=== PATIENT | female | born 1985 | race Caucasian/White ===

== ENCOUNTER 2023-09-10 10:03 | Outpatient (AMB) | payer OTHER, SELFPAY ==
--- NOTE | 2023-09-10 10:12 | MHC.OFFVIS ---
Intake Vital Signs 09/10/23 10:35 Height 5 ft 2 in Weight 115 lb 4 oz BMI 21.1 BP 124/80 Blood Pressure Location Lt brachial Position Sitting Pulse 84 Pulse Source Pulse Oximeter Pulse Oximetry (%) 96 Oxygen Delivery Method Room Air Intake Visit Reasons: ENP-Numbness of feet and hands-CONF Intake Note: Patients presents for numbness of feet and hands. Had a MRI done and Neurosurgeon order a MRI with contrasts. From both kneed's down feels tingling when having head forward. The neurosurgeon can't do anything about it and stated pt. could have injured spinal cord from turning to far. Allergies doxycycline Allergy (Mild, Verified 09/10/23 10:29) Dizziness ciprofloxacin Allergy (Severe, Uncoded 09/10/23 10:29) Unknown Kelflex Allergy (Severe, Uncoded 09/10/23 10:29) Anaphylaxis Medication List - Last Reconciled 09/10/23 by JERMAINE Acosta buprenorphine-naloxone 8-2 mg (Suboxone) 2 film buccal DAILY fluticasone propionate 50 mcg/actuation 1 spray intranasal DAILY HPI HPI Comments History of Present Illness Details Right handed 37-yr-old female presents for new pt evaluation of paresthesias. Pt reports a few months ago, she started having BLE numbness and tingling from her knees to her toes. This was constant, but exacerbated with cervical flexion especially when sitting. More recently, the numbness and tingling is not constant, but can still be provoked by cervical flexion only when sitting. C-spine MRI showed a subtle 3mm T2 bright focus is suspected within the posterior midline cord at C2-C3. Degenerative changes w/ moderate right foraminal stenosis at C6-C7 due to uncovertebral spurring an no left foraminal stenosis. Prior to these symptoms, she is not aware of a specific neck injury. Pt has since seen Dr Carvajal, [facility] neurosurgeon, who advised her to f/u w/ neurology and avoid neck mainpulation. Pt also endorses:? 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 Cramps: leg cramps Mood d/o: Anxiety Neuro: memory problems, migraines, dizziness, overlapping diplopia, diplopia with trailing image on movement. Vision: Respiratory d/o: COPD, SOB CV disease: TIA x's 2, 1st, when she was 2-3 months post-, was not feeling right, was slurring her words, had unilateral left facial droop, resolved w/in a few hrs. 2nd- 9 yrs ago- was not feeling right, was slurring her words, had unilateral left facial droop, resolved w/in a few hrs, and attributed to a TIA. After these she did have increased migraine. GI d/o: Constipation, Abd pain, Eyes- sees shadows, blurring, floaters, flashes of lights. Eyes feel dry and swollen. Has neck tension, pressure in the back of her head, and right upper trap tightness. Has radiating mid-back pain- prone to popping ribs out of place. Occasional urinary incontinence- triggered by hormones, jumping/running, worse prior to menses. She has a history of BUE, more so in RUE, numbness and tingling, which comes on and off for years. She can have similar numbness and tingling in her right synagogue region. She does PT for small group exercise. She does see a chiropractor- who works on her back. PMH is significant for: Recent abnormal EKG- recently referred her to cardiology. Also concern for POTs- she states HR varies from 55-170 bpm, can feel pre-syncopal, rooms goes dark upon standing, but no actual syncope. Migraine since age 14. Migraine w/ visual aura since age 20. Visual aura- starts as a spinning color dot, turns into a colorful snake, and then expands into a zagged arch, lasts 30-180 minutes. This can occur w/wo headache. Sometimes headache just does not happen, or responds to as needed tx. Headache- squeezing bilateral head, like someone is wrapping something around the head. Or an ice stabbing pain above either eye. A/w photophobia, phonophobia, osmophobia, some nausea, not right in space dizziness, cognitive difficulties, activity intolerance, pins and needles in arms and sides of head, palpitations, heat or cold intolerance, red eye (unsure if unilateral or bilateral), one ear at a time will be red and hot, nasal congestion/runny nose. Was not having them for a few yrs, but in the last yr, has 1 attack per month, triggered by menses (which is regular), which lasts 1 day to 2 weeks. Uses Tylenol prn. In the past, used amitriptyline for nerve pain- stopped a little over a yr ago. 07/08/23, C-spine w/o: IMPRESSION: 1. A subtle small T2 bright focus is suspected within the posterior midline cord at C2-C3 measuring approximately 3 mm. This is of indeterminate etiology, but may represent the sequela of an inflammatory process. Postcontrast imaging and neurological evaluation are recommended. 2. Degenerative changes of the cervical spine with at least moderate right foraminal stenosis at C6-C7 due to uncovertebral spurring. This can be correlated with the patient's symptoms and neurological examination. PFSH Family History Mother Hyperlipidemia Depression HTN (hypertension) COPD (chronic obstructive pulmonary disease) Diabetes Father Hyperlipidemia Maternal Grandmother Stroke Lung cancer Ovarian ca Cancer, colon Paternal Grandmother Breast cancer in female Social History (Updated 09/10/23 @ 10:35 by Mamta Lopez CMA) Alcohol intake: never Patient Tobacco Use Status: Current everyday Tobacco user Tobacco use type: Cigarette Cigarette Packs Per Day: 0.5 Years Smoked: 20 Physical Exam Vital Signs: Last Vital Signs Pulse 84 09/10/23 10:35 BP 124/80 09/10/23 10:35 Pulse Ox 96 09/10/23 10:35 Oxygen Delivery Method Room Air 09/10/23 10:35 BMI result Body Mass Index 21.1 Const Orientation/consciousness: patient oriented x3 HEENT Other: No palpable scalp tenderness. Head: Yes normocephalic Resp Effort & Inspection: normal respiratory effort and able to speak in complete sentences Neuro General: patient oriented x3 Cranial nerves: Yes CN's II-XII intact bilaterally Cognition (Neuro): normal cognition Gait exam (Neuro): Normal gait present Motor exam (neuro): 5/5 motor strength present throughout Deep tendon reflexes (DTR's): Right triceps reflex intensity grade: 2+, Left triceps reflex intensity grade: 2+, Rt Biceps (C5, C6): 2+, Left biceps reflex intensity grade: 2+, Right brachioradialis reflex intensity grade: 2+, Left brachioradialis reflex intensity grade: 2+, Right patellar reflex intensity grade: 2+ and Left patellar reflex intensity grade: 2+ Coordination: [id number] test normal, tandem gait normal and Romberg test negative Pupils: Normal pupillary reactivity/response: bilateral Psych Appearance: grossly normal Mental Status: mental status grossly normal Speech and movement: Normal speech and movement present Affect: normal affect Attitude: cooperative Thought process: Normal thought process present Assessment & Plan Assessment & Plan (1) Positive Lhermitte's sign: Code(s): R29.818 - Other symptoms and signs involving the nervous system (2) Paresthesia of bilateral legs: Code(s): R20.2 - Paresthesia of skin (3) Migraine with aura: Code(s): G43.109 - Migraine with aura, not intractable, without status migrainosus (4) Clary-Danlos syndrome: Comment: Hypermobility, per patient nonvascular subtype Code(s): Q79.60 - Clary-Danlos syndrome, unspecified Plan Patient advised to undergo brain MRI with and without contrast- to assess for central inflammatory lesions. Upon review, consider follow-up C-spine MRI and T-spine MRI with and without contrast, VEP, LP, CSF studies, NMO labs, EMG/NCS.. Trial amitriptyline 10-20 mg q.h.s.- may have paresthesias and migraine as well. Follow-up with cardiology regarding POTS symptoms Patient seen in collaboration with Dr. Walls Orders: Orders MR head/brain wo/w con 09/10/23 H53.2 - Diplopia, R20.2 - Paresthesia of skin, R29.818 - Other symptoms and signs involving the nervous system Medications: New amitriptyline 10 - 20 mg (1 - 2 x 10 mg) PO BEDTIME 60 tabs 3RF 30 days Coding Level of Care Code New Pt Level 4 (73566) Diagnoses Positive Lhermitte's sign R29.818 Paresthesia of bilateral legs R20.2 Migraine with aura G43.109 Clary-Danlos syndrome Q79.60
[2023-09-10 10:35] VITALS: BP 124/80; PULSE 84; O2SAT 96; BMI 21.1
== END 2023-09-10 12:03 | disposition home or self-care (01) ==
PROVIDERS: PCP Internal Medicine; Visit Provider Nurse Practitioner Family
DX: R29.818 Other symptoms and signs involving the nervous system (principal); R20.2 Paresthesia of skin; G43.109 Migraine with aura, not intractable, without status migrainosus; Q79.60 Ehlers-Danlos syndrome, unspecified
CPT/HCPCS: 99204

== ENCOUNTER → 2023-09-10 10:03 | Outpatient (BNVA) | payer OTHER, SELFPAY | PROVIDERS: PCP Internal Medicine; Visit Provider Nurse Practitioner Family | DX: G43.109 Migraine with aura, not intractable, without status migrainosus (principal); R20.2 Paresthesia of skin; Q79.60 Ehlers-Danlos syndrome, unspecified; R29.818 Other symptoms and signs involving the nervous system | CPT/HCPCS: 99202 ==

== ENCOUNTER 2024-06-01 08:55 | Outpatient (AMB) | payer OTHER, SELFPAY ==
--- NOTE | 2024-06-01 09:02 | MHC.OFFVIS ---
Vital Signs 06/01/24 09:03 Height 5 ft 2 in Weight 113 lb 8 oz BMI 20.8 BP 140/48 H Blood Pressure Location Lt brachial Position Sitting Pulse 130 H Pulse Oximetry (%) 98 Oxygen Delivery Method Room Air Intake Visit Reasons: Follow up Room Service Attendant Required: No Accompanied by: Friend Allergies doxycycline Allergy (Mild, Verified 06/01/24 09:05) Dizziness ciprofloxacin Allergy (Severe, Uncoded 09/10/23 10:29) Unknown Kelflex Allergy (Severe, Uncoded 09/10/23 10:29) Anaphylaxis Medication List - Last Reconciled 06/01/24 by JERMAINE Acosta buprenorphine-naloxone 8-2 mg (Suboxone) 2 film buccal DAILY fluticasone propionate 50 mcg/actuation 1 spray intranasal DAILY metoprolol tartrate 25 mg PO DAILY Do you need a note to return to daycare/school/sports/work: No HPI Comments Details: Right handed 37-yr-old female presents for follow-up of paresthesias and brain MRI results. Patient is accompanied by male partner. Pt reports she is having episodes of variable BP and tachycardia. She was started on Metoprolol for inappropriate sinus tachycardia.? She feels the metoprolol is exacerbating her COPD/emphysema symptoms, and possibly this is exacerbating her tachycardia symptoms.. It is hard for her to exhale well. She states she has not been using her albuterol inhaler, as she was told this would contract on metoprolol. She had an echocardiogram 2 days ago ordered by pulmonology. F/b Dr Boyle, cardiology at [facility]. F/b Dr Abdulkadir Sanchez, pulmonology at [facility].? She is not having the pins and needles in her legs anymore. She is now having ?weird? tightness, tenderness in her bilateral posterior neck. Sometimes light tough, such as a the collar of her coat, can trigger intense burning pain. She is having strange sensations in right face, temporal- pain, tingling, burning- pain can be quick bursts or steady pain. Sometimes pain is triggered by light touch. She is having left chest/lower rib, axilla region. Feels like muscle pain. Or feels like she cannot register/perceive it the same as she can the right side- feels like the left side is not functioning the same- but when she places her hands on her ribs- they do expand/collapse equally. Tried to take Amitriptyline- caused dizziness. She has reduced coffee intake from 4 cups to 2 cups per day. She has reduced her cigarette intake to 5 cigarettes per day from 1 pack a day. Interval workup: 05/20/2024, CT head/brain W/O contrast, at [facility]: IMPRESSION: No evidence of acute intracranial abnormality. 05/20/2024, CT angio head and neck, at [facility]: IMPRESSION: Unremarkable CTA of the head and neck. 05/26/2024, ?MRI Brain W+W/O Contrast, at [facility]: TECHNIQUE: MRI of the brain was performed with and without contrast utilizing sagittal and axial T1, axial T2, sagittal 3D FLAIR with multiplanar reformats, and axial DWI sequences, and post-contrast 3D T1 RAMOS with multiplanar reformats. 10 mL of Prohance was administered intravenously. COMPARISON: MRI 08/01/2019 FINDINGS: 2 small lesions are present in the periventricular white matter at the superolateral margin of the right lateral ventricle, measuring up to 6 mm in diameter. A few scattered, more punctate FLAIR hyperintense lesions are present at the roof of the left lateral ventricle. An 8 mm lesion is present in the subcortical white matter of the posterior inferior left frontal lobe. None of these enhance. No abnormality is present in the brainstem or cerebellum. The left frontal lobe lesion appears to be unchanged from the MRI of 08/01/2019. The 6 mm right frontal periventricular white matter lesion has progressed. The other more punctate lesions are difficult to precisely compare but at least a few of them were present on the prior examination. No extra-axial collection or mass effect is noted. The ventricular system is normal. No vascular abnormality is present. The foramen magnum is normal. Mild mucosal thickening is present in the paranasal sinuses without an air-fluid level. The upper cervical cord and spine are normal. IMPRESSION: Mild nonenhancing white matter abnormality which could represent demyelination and multiple sclerosis. There has been some progression since the study of 08/01/2019. 09/10/23, initial HPI: Right handed 37-yr-old female presents for new pt evaluation of paresthesias. Pt reports a few months ago, she started having BLE numbness and tingling from her knees to her toes. This was constant, but exacerbated with cervical flexion especially when sitting. More recently, the numbness and tingling is not constant, but can still be provoked by cervical flexion only when sitting. C-spine MRI showed a subtle 3mm T2 bright focus is suspected within the posterior midline cord at C2-C3. Degenerative changes w/ moderate right foraminal stenosis at C6-C7 due to uncovertebral spurring an no left foraminal stenosis. Prior to these symptoms, she is not aware of a specific neck injury. Pt has since seen Dr Carvajal, [facility] neurosurgeon, who advised her to f/u w/ neurology and avoid neck mainpulation. Pt also endorses:? 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 Cramps: leg cramps Mood d/o: Anxiety Neuro: memory problems, migraines, dizziness, overlapping diplopia, diplopia with trailing image on movement. Vision: Respiratory d/o: COPD, SOB CV disease: TIA x's 2, 1st, when she was 2-3 months post-, was not feeling right, was slurring her words, had unilateral left facial droop, resolved w/in a few hrs. 2nd- 9 yrs ago- was not feeling right, was slurring her words, had unilateral left facial droop, resolved w/in a few hrs, and attributed to a TIA. After these she did have increased migraine. GI d/o: Constipation, Abd pain, Eyes- sees shadows, blurring, floaters, flashes of lights. Eyes feel dry and swollen. Has neck tension, pressure in the back of her head, and right upper trap tightness. Has radiating mid-back pain- prone to popping ribs out of place. Occasional urinary incontinence- triggered by hormones, jumping/running, worse prior to menses. She has a history of BUE, more so in RUE, numbness and tingling, which comes on and off for years. She can have similar numbness and tingling in her right quaker region. She does PT for small group exercise. She does see a chiropractor- who works on her back. PMH is significant for: Recent abnormal EKG- recently referred her to cardiology. Also concern for POTs- she states HR varies from 55-170 bpm, can feel pre-syncopal, rooms goes dark upon standing, but no actual syncope. Migraine since age 14. Migraine w/ visual aura since age 20. Visual aura- starts as a spinning color dot, turns into a colorful snake, and then expands into a zagged arch, lasts 30-180 minutes. This can occur w/wo headache. Sometimes headache just does not happen, or responds to as needed tx. Headache- squeezing bilateral head, like someone is wrapping something around the head. Or an ice stabbing pain above either eye. A/w photophobia, phonophobia, osmophobia, some nausea, not right in space dizziness, cognitive difficulties, activity intolerance, pins and needles in arms and sides of head, palpitations, heat or cold intolerance, red eye (unsure if unilateral or bilateral), one ear at a time will be red and hot, nasal congestion/runny nose. Was not having them for a few yrs, but in the last yr, has 1 attack per month, triggered by menses (which is regular), which lasts 1 day to 2 weeks. Uses Tylenol prn. In the past, used amitriptyline for nerve pain- stopped a little over a yr ago. 07/08/23, C-spine w/o: IMPRESSION: 1. A subtle small T2 bright focus is suspected within the posterior midline cord at C2-C3 measuring approximately 3 mm. This is of indeterminate etiology, but may represent the sequela of an inflammatory process. Postcontrast imaging and neurological evaluation are recommended. 2. Degenerative changes of the cervical spine with at least moderate right foraminal stenosis at C6-C7 due to uncovertebral spurring. This can be correlated with the patient's symptoms and neurological examination. PFSH Family History Mother Hyperlipidemia Depression HTN (hypertension) COPD (chronic obstructive pulmonary disease) Diabetes Father Hyperlipidemia Maternal Grandmother Stroke Lung cancer Ovarian ca Cancer, colon Paternal Grandmother Breast cancer in female Social History Alcohol intake: never Patient Tobacco Use Status: Current everyday Tobacco user Tobacco use type: Cigarette Cigarette Packs Per Day: 0.5 Years Smoked: 20 Physical Exam Vital Signs: Last Vital Signs Pulse 130 H 06/01/24 09:03 BP 140/48 H 06/01/24 09:03 Pulse Ox 98 06/01/24 09:03 Oxygen Delivery Method Room Air 06/01/24 09:03 BMI result Body Mass Index 20.8 Const Orientation/consciousness: patient oriented x3 Resp Effort & Inspection: normal respiratory effort and able to speak in complete sentences Neuro General: patient oriented x3 Cranial nerves: Yes CN's II-XII intact bilaterally Cognition (Neuro): normal cognition Gait exam (Neuro): Normal gait present Motor exam (neuro): 5/5 motor strength present throughout Deep tendon reflexes (DTR's): Right patellar reflex intensity grade: 3+ and Left patellar reflex intensity grade: 3+ Pupils: Normal pupillary reactivity/response: bilateral Psych Appearance: grossly normal Mental Status: mental status grossly normal Speech and movement: Normal speech and movement present Affect: normal affect Attitude: cooperative Thought process: Normal thought process present Assessment & Plan Assessment & Plan (1) White matter abnormality on MRI of brain: Code(s): R90.82 - White matter disease, unspecified Category: Medical (2) Positive Lhermitte's sign: Code(s): R29.818 - Other symptoms and signs involving the nervous system Category: Medical (3) Paresthesia of bilateral legs: Code(s): R20.2 - Paresthesia of skin Category: Medical (4) Migraine with aura: Code(s): G43.109 - Migraine with aura, not intractable, without status migrainosus Category: Medical (5) Clary-Danlos syndrome: Comment: Hypermobility, per patient nonvascular subtype Code(s): Q79.60 - Clary-Danlos syndrome, unspecified Category: Medical (6) Paresthesia: Code(s): R20.2 - Paresthesia of skin Category: Medical Plan Reviewed brain MRI w/wo contrast- progression of non-enhancing white matter lesions. In setting of patient's symptoms transient paresthesias, diplopia, positive Lhermitte sign, and 07/2023 C-spine MRI w/o showing subtle small 3mm T2 bright focus in the posterior midline cord, this raises suspicion for the presence of a central autoimmune disorder. Thus, patient is advised to undergo comprehensive workup, including follow-up C-spine MRI, and T-spine MRI with and without contrast, VEP, blood work, LP w/ CSF studies including inflammatory markers, OG bands, AQP4 Ab, as well as baseline hepatitis, GC, Lyme screen. Requested Reviewed LP procedure, including risks and benefits, and post LP care: Courage patient planned to rest come have plenty of fluids including caffeine and electrolyte replacement beverages on hand, the use p.r.n. Fioricet for signs of low pressure post LP headache, and to notify us with any concerning prolonged symptoms. For migraine: Patient has stopped amitriptyline, cause dizziness. Metoprolol may help headache symptoms, however it may exacerbate her pulmonary function. Patient advised to discuss with her music therapy teacher and licensed nursing assistant. Alternate cardiac medications for rate control can also be beneficial for migraine prevention. Will follow-up upon review of above and patient to follow-up in clinic in 3-4 months or sooner prn. Orders: Orders MR cervical spine wo/w con Today H53.2 - Diplopia, R20.2 - Paresthesia of skin, R29.818 - Other symptoms and signs involving the nervous system, R90.82 - White matter disease, unspecified MR thoracic spine wo/w con Today H53.2 - Diplopia, R20.2 - Paresthesia of skin, R29.818 - Other symptoms and signs involving the nervous system, R90.82 - White matter disease, unspecified Varicella IgG Antibody Today D64.9 - Anemia, unspecified, H53.2 - Diplopia, R20.2 - Paresthesia of skin, R29.818 - Other symptoms and signs involving the nervous system, R90.82 - White matter disease, unspecified Complete Blood Count Auto Diff Today D64.9 - Anemia, unspecified, H53.2 - Diplopia, R20.2 - Paresthesia of skin, R29.818 - Other symptoms and signs involving the nervous system, R90.82 - White matter disease, unspecified Hepatitis A,B,C Profile Today D64.9 - Anemia, unspecified, H53.2 - Diplopia, R20.2 - Paresthesia of skin, R29.818 - Other symptoms and signs involving the nervous system, R90.82 - White matter disease, unspecified JCV Ab w/Indx rflx Inhibition Today D64.9 - Anemia, unspecified, H53.2 - Diplopia, R20.2 - Paresthesia of skin, R29.818 - Other symptoms and signs involving the nervous system, R90.82 - White matter disease, unspecified Oligoclonal Banding Today D64.9 - Anemia, unspecified, H53.2 - Diplopia, H54.62 - Unqualified visual loss, left eye, normal vision right eye, R20.2 - Paresthesia of skin, R29.818 - Other symptoms and signs involving the nervous system, R90.82 - White matter disease, unspecified CSF Culture + Gram stain Today D64.9 - Anemia, unspecified, H53.2 - Diplopia, R20.2 - Paresthesia of skin, R29.818 - Other symptoms and signs involving the nervous system, R90.82 - White matter disease, unspecified CSF Glucose Today D64.9 - Anemia, unspecified, H53.2 - Diplopia, R20.2 - Paresthesia of skin, R29.818 - Other symptoms and signs involving the nervous system, R90.82 - White matter disease, unspecified CSF Total Protein Today D64.9 - Anemia, unspecified, H53.2 - Diplopia, R20.2 - Paresthesia of skin, R29.818 - Other symptoms and signs involving the nervous system, R90.82 - White matter disease, unspecified REINALDO Polyoma Virus RT CSF Today D64.9 - Anemia, unspecified, H53.2 - Diplopia, R20.2 - Paresthesia of skin, R29.818 - Other symptoms and signs involving the nervous system, R90.82 - White matter disease, unspecified Protein Electrophoresis, CSF Today D64.9 - Anemia, unspecified, H53.2 - Diplopia, R20.2 - Paresthesia of skin, R29.818 - Other symptoms and signs involving the nervous system, R90.82 - White matter disease, unspecified Rheumatoid Factor Today D64.9 - Anemia, unspecified, H53.2 - Diplopia, R20.2 - Paresthesia of skin, R29.818 - Other symptoms and signs involving the nervous system, R90.82 - White matter disease, unspecified CRP High Sensitivity Today D64.9 - Anemia, unspecified, H53.2 - Diplopia, R20.2 - Paresthesia of skin, R29.818 - Other symptoms and signs involving the nervous system, R90.82 - White matter disease, unspecified Lyme by PCR for CSF Today D64.9 - Anemia, unspecified, H53.2 - Diplopia, R20.2 - Paresthesia of skin, R29.818 - Other symptoms and signs involving the nervous system, R90.82 - White matter disease, unspecified Other Ref Test - Misc Today H53.2 - Diplopia, R90.82 - White matter disease, unspecified FL guided lumbar puncture LP Today H53.2 - Diplopia, R20.2 - Paresthesia of skin, R29.818 - Other symptoms and signs involving the nervous system, R90.82 - White matter disease, unspecified Visual evoked potential Today H53.2 - Diplopia, R20.2 - Paresthesia of skin, R29.818 - Other symptoms and signs involving the nervous system, R90.82 - White matter disease, unspecified Comprehensive Met. Panel Today D64.9 - Anemia, unspecified, H53.2 - Diplopia, R20.2 - Paresthesia of skin, R29.818 - Other symptoms and signs involving the nervous system, R90.82 - White matter disease, unspecified CSF Cell Ct w Diff X2 Today D64.9 - Anemia, unspecified, H53.2 - Diplopia, R20.2 - Paresthesia of skin, R29.818 - Other symptoms and signs involving the nervous system, R90.82 - White matter disease, unspecified MICHELLE Reflex Titer and Pattern Today D64.9 - Anemia, unspecified, H53.2 - Diplopia, R20.2 - Paresthesia of skin, R29.818 - Other symptoms and signs involving the nervous system, R90.82 - White matter disease, unspecified Erythrocyte Sedimentation Rate Today D64.9 - Anemia, unspecified, H53.2 - Diplopia, R20.2 - Paresthesia of skin, R29.818 - Other symptoms and signs involving the nervous system, R90.82 - White matter disease, unspecified Lyme IgG/IgM w/reflex to WB Today D64.9 - Anemia, unspecified, H53.2 - Diplopia, R20.2 - Paresthesia of skin, R29.818 - Other symptoms and signs involving the nervous system, R90.82 - White matter disease, unspecified Medications: New vcnwpyehyb-[id number]-[id number] 50-325-40 mg max 4 tabs per day. 1 tab PO Q4H 7 days PRN 28 tabs 1RF headache Discontinued amitriptyline Discontinued Reason: Doctor's Order 10 - 20 mg (1 - 2 x 10 mg) PO BEDTIME 30 days 60 tabs 3RF Coding Level of Care Code Est Pt Level 4 (44297) Diagnoses White matter abnormality on MRI of brain R90.82 Positive Lhermitte's sign R29.818 Paresthesia of bilateral legs R20.2 Migraine with aura G43.109 Clary-Danlos syndrome Q79.60 Paresthesia R20.2
[2024-06-01 09:03] VITALS: BP 140/48; PULSE 130; O2SAT 98; BMI 20.8
== END 2024-06-01 10:03 | disposition home or self-care (01) ==
PROVIDERS: PCP Internal Medicine; Visit Provider Nurse Practitioner Family
DX: R90.82 White matter disease, unspecified (principal); R29.818 Other symptoms and signs involving the nervous system; R20.2 Paresthesia of skin; G43.109 Migraine with aura, not intractable, without status migrainosus; Q79.60 Ehlers-Danlos syndrome, unspecified
CPT/HCPCS: 99214

== ENCOUNTER → 2024-06-01 08:55 | Outpatient (BNVA) | payer OTHER, SELFPAY | PROVIDERS: PCP Internal Medicine; Visit Provider Nurse Practitioner Family | DX: R90.82 White matter disease, unspecified (principal); R29.818 Other symptoms and signs involving the nervous system; R20.2 Paresthesia of skin; G43.109 Migraine with aura, not intractable, without status migrainosus; Q79.60 Ehlers-Danlos syndrome, unspecified | CPT/HCPCS: 99212 ==

== ENCOUNTER 2024-09-01 07:10 | Outpatient (AMB) | payer OTHER, SELFPAY ==
--- OUTSIDE RECORDS SUMMARY | 2024-09-01 07:12 | XMS_ITS | Data Portability ---
Author Organization [place] - [facility], Allergy Address [address] [address] Care Team Providers Care Activity Coordinator Name Role Phone FINALAKISHAYURI Primary Care Provider Assessment Encounter Date Assessment Date Assessment LastModified by Organization Details LastModified Time 03/01/2024 03/01/2024 38 year old female with a past medical history significant for TMJ, Clary Danlos Syndrome, POTS and a recent spinal cord injury, presents today for evaluation of daily facial pressure, occipital headaches and dizziness. Also complains of intermittent ear blockage and allergy symptoms. Ear examination today is normal with a well aerated middle ear space. Nasal exam shows no sign of infection or polyps. [place] Hallpike is negative for nystagmus. I discussed with the patient today that I am suspicious that her symptoms are all related to migraine and allergies. We will proceed with a CT scan of her sinuses for definitive assessment. I have also recommended allergy testing as this can be a significant migraine trigger. She understands the need to hold her beta renae therapy, and feels this will not be a problem. She will follow up after the testing for review. We can plan for an updated audiogram at that time. [email or web address] Not available 03/01/2024 10:53:41 Plan of Treatment Reminders Order Date Submit Date Provider Last Modified By Organization Details Last Modified Time Details Appointments None recorded. Lab None recorded. Referral None recorded. Procedures allergy testing, skin prick (PROC) 2023 024 [email or web address] Not available 10:57:01 intradermal allergy skin testing (PROC) 10/2023 [email or web address] Not available 10:57:01 pulmonary function test procedure (PROC) 2023 [email or web address] Not available 10:57:01 pulse oximetry (PROC) 2023 [email or web address] Not available 10:57:01 Surgeries None recorded. Imaging CT, sinuses, w/o contrast [address] (Radiology), [address] [place], [address], 10:58:05 Medication Orders None recorded. Patient TargetsNo targets recorded. Patient InstructionsNo instructions recorded. Reason for Referral None Reported. Problems Name Problem SNOMED Code Status Onset Date Resolution Date Notes Provider Name and Address Organization Details Recorded Time Allergic rhinitis 57455158 Active 2022 Other allergic rhinitis; Note: Date Diagnosed : 12/16/2022 4:51 PM (J30.89) Not Available [facility], [facility]–1983 03:29:17 Bilateral earache 449082146 Active 2022 Otalgia, bilateral ; Note: Date Diagnosed : 12/16/2022 4:50 PM (H92.03) Not Available [facility], [facility] 4 03:29:17 Bilateral temporoma ndibular joint pain 20658138578 468769 Active 2022 Arthralgi a of bilateral temporoma ndibular joint; Note: Date Diagnosed : 12/16/2022 4:50 PM (M26.623) Not Available [facility], [facility] 03:29:17 Dizziness and giddiness 076459527 Active 2023 RAEGAN TORRES PA-C [address], [place], [address] , [place] [facility] 4 10:50:21 Atypical facial pain 82451573 Active 2023 RAEGAN TORRES PA-C [address] [facility] [address], [place], [address] , [place] - [facility] [place] 4 10:50:24 Migraine without aura 99408545 Active 2023 RAEGAN TORRES PA-C [address] [place] [address],[place] [address], [place], [address] , [facility] - [facility] 4 10:50:27 Non-aller gic rhinitis 85132781217 1 Active 2023 RAEGAN TORRES PA-C [address] [place] [address],[place] [address], [place], [address] , [facility] - [facility] 4 10:54:12 Seasonal allergic rhinitis 688378992 Active 2023 RAEGAN TORRES PA-C [address] [place] [address],[place] [address], [place], [address] , [facility] - [facility] 4 10:54:12 Problem Notes None recorded. Medical Equipment None Reported. Allergies Allergen ID Allergen Name Allergen Category Reaction Reaction Severity Criticality Documentation Date Start Date Code Code System Note Provider Name and Address Organization Details Recorded Time 535299 doxycycli ne Not available other Not available Not available 10/12/2023 3640 RxNorm React ion: Unkno wn; Not Available [facility], [facility] 4 01:22:46 071568 Keflex medicatio n other Not available Not available 10/12/2023 45991 7 RxNorm React ion: Unkno wn; Not Available [facility], [facility] 4 01:22:46 Medications Name Sig Start Date Stop Date Status Note LastModified by Organization Details LastModified Time amoxicillin 500 mg capsule TAKE 1 CAPSULE EVERY SIX HOURS UNTIL GONE active Not Available Not Available No t Available prednisone 10 mg tablet TAKE 5TABS DAILY X 2DAYS, 4 TABS X 2 DAYS, 3TABS X 2 DAYS, 2 TABS X2 DAYS, 1 TAB X 2 DAYS THEN STOP 03/01 completed Not Available Not Available Not Available azithromyci n 250 mg tablet TAKE 2 TABLETS BY MOUTH TODAY, THEN TAKE 1 TABLET DAILY FOR 4 DAYS DIRECTED 03/01 completed Not Available Not Available Not Available acetaminoph en ER 650 mg tablet,exte nded release TAKE 1 TABLET BY MOUTH EVERY 8 HOURS NEEDED FOR PAIN active Not Available Not Available No t Available propranolol 10 mg tablet TAKE 1 TABLET BY MOUTH TWICE A DAY active Not Available Not Available No t Available amoxicillin 875 mg tablet TAKE 1 TABLET BY MOUTH TWICE A DAY FOR 10 DAYS 03/01 completed Not Available Not Available Not Available amitriptyli ne 10 mg tablet TAKE 1 - 2 TABS ORALLY AT BEDTIME FOR 30 DAYS 03/01 completed Not Available Not Available Not Available omeprazole 20 mg capsule,del ayed release active Not Available Not Available Not Available ibuprofen 600 mg tablet TAKE 1 TABLET BY MOUTH THREE TIMES A DAY FOR 7 DAYS active Not Available Not Available No t Available celecoxib 100 mg capsule TAKE 1 CAPSULE BY MOUTH 2 TIMES DAILY NEEDED FOR PAIN. active Not Available Not Available No t Available amoxicillin 875 mg-potassiu m clavulanate 125 mg tablet TAKE 1 TABLET BY MOUTH TWICE A DAY FOR 10 DAYS active Not Available Not Available No t Available cyclobenzap rine 5 mg tablet TAKE 1 TABLET BY MOUTH DAILY NEEDED FOR MUSCLE SPASMS. 03/01 completed Not Available Not Available Not Available metoprolol tartrate 25 mg tablet TAKE 1 TABLET BY MOUTH TWICE A DAY NEEDED FOR HEART RATE/PALP ITATIONS active Not Available Not Available No t Available chlorhexidi ne gluconate 0.12 % mouthwash TAKE 15 ML (MUCOUS MEMBRANE) 2 TIMES PER DAY (PAIN) FOR 7 DAYS SWISH AND SPIT active Not Available Not Available No t Available varenicline tartrate 1 mg tablet TAKE 1 TABLET BY MOUTH TWICE A DAY USE FOR AT LEAST 3-6 MONTHS 03/01 completed Not Available Not Available Not Available varenicline tartrate 0.5 mg (11)-1 mg (42) tablets in a dose pack USE DIRECTED PER PACKAGE LABELING. QUIT SMOKING ON DAYS 8/OR 03/01 completed Not Available Not Available Not Available diclofenac 1 % topical gel APPLY 1 APPLICATO R TOPICALLY 2 TIMES DAILY NEEDED (PAIN). active Not Available Not Available No t Available Suboxone 8 mg-[address] FILMS SUBLINGUA LLY EVERY DAY FOR 28 DAYS active Not Available Not Available No t Available Suboxone 2 mg-0.[address] 1 FILM EVERY DAY BY SUBLINGUA L ROUTE NEEDED. active Not Available Not Available No t Available Anoro Ellipta 62.5 mcg-25 mcg/actuati on powder for inhalation INHALE 1 PUFF INTO THE LUNGS DAILY. 1 INHALER AND 11 REFILLS active Not Available Not Available No t Available Vitals Date Recorded Body height Body mass index (BMI) Body weight Provider Name and Address Organization Details Last Updated DateTime 03/01/2024 157.48 cm 21 kg/m2 30414.12 g Parul Patiño [place] - [facility] 03/01/2024 10:24:33 Social History None recorded. Functional Status None recorded. Mental Status None recorded. Family History Nothing Reported. Medical History No medical history recorded. Gynecological HistoryNo gynecological history recorded. Obstetrics History GPAL:G 0 P 0 0 0 0 Past Encounters Encounter ID Performer Location Encounter Start Date Encounter Closed Date Diagnosis/Indication Diagnosis SNOMED-CT Code Diagnosis ICD10 Code Diagnosis Note [id number] DANIEL CARUSO MD [facility] [place] [address] [place] [address] 03/01/2024 10:03:17 03/01/2024 10:58:05 Dizziness and giddiness 170483314 R42 Atypical facial pain 713 37150 G50.1 Migraine without aura 56 338087 G43.009 Allergic rhinitis 630245 04 J30.9 Non-allergic rhinitis 31 34824608 01 J31.0 Seasonal a llergic rhinitis 649048411 J30.2 Health Concerns Section Related Observation LastModified by Organization Detai ls LastModified Time None Recorded Concern Status LastModified by Organization Details LastModified Time None Recorded Advance Directives Directive None Recorded Payers Encounter Date Sequence Insurance Name Policy Number Policy Kendall Covered Member ID Kendall Member ID Guarantor Name 03/01/2024 1 [facility] - [facility] (MEDICAID REPLACEMENT - O) YINKA [employer] [id number] Tri Arreola Notes Date Note Type Note Provider Name and Address Organization Details Recorded Time 03/01/2024 text/html 38 year old femdada tarango with a history of TMJ, Clary Danlos Syndrome and POTS, previously seen by for a history of ear infections.She is here today for evaluation of sinus issues.She reports sinus pressure over the cheeks and eyebrows. Symptoms seem more predominant on the right side. She also notes some occipital pain and pain on the top of her head when the sinus pressure is bad. She also reports that she has vertigo every day. The severity of the dizziness can vary. Sometimes when she moves too quickly she feels the room turn. Sometimes it can be worse and when she is standing still she has the sensation that the room is moving around her. She has to lay down and actively try not to vomit. The last time his happened was about six weeks ago. She reports significant postnasal drip. Her nose does not feel congested. She feels that her hearing can be muffled at time and her ears can feel clogged. She has tinnitus that comes and goes. She is presently on antibiotics for a sinusitis. She does not feel they are helpful when she does take them. She has a history of seasonal allergies. She has never had allergy testing. She manages allergies with Claritin and Flonase daily, and eye drops as needed. She has a history of headaches. She has migraines. She notes they were more frequent when she was younger, they improved for a while, but have been worsening again. Of late, she has had migraines about once per month, they do seem hormonal. She follows with a Neurologist as she is recovering from a spinal injury. 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 She has tried amitriptyline for migraine but it made her too groggy. She does take a beta renae but only has need for high heart rate. She has early emphysema from smoking. She is down to 5 cigarettes per day. She has an inhaler that she has not had to used in a few months now. DANIEL CARUSO MD [address] [place] [address],[place] [address], [place], [address], [facility] - [facility] 03/01/2024 12:44:44 OBGyn Episode No OBEpisode recorded.
--- OUTSIDE RECORDS SUMMARY | 2024-09-01 07:13 | XMS_ITS | Encounter Summary ---
Author Organization [facility] Address [address] [place] [address] Care Team Providers Care Wire Drawing Setter Name Role Phone Gurmeet Soto MD Primary Care Provider [phone] Reason for Referral * Imaging (Emergency) - Authorized Specialty Diagnoses / Procedures Referred By Indio bliss Referred To Contact Radiology Diagnoses Lower abdominal pain Procedures CT Abdomen Pelvis wo Contrast Manuel Ewing NP [address] [place] [address] Phone: tel: fax: CT Scan [address] Phone: tel: fax: Referral ID Status Reason Start Date Expiration Date V isits Requested Visits Authorized [id number] Authorized 08/28/2024 10/27/2024 1 1 Reason for Visit * Reason Comments Follow-up [facility] 08/26 for l ower right Abominal pain and right lower back pain Encounter Details Date Type Department Care Team (Late st Contact Info) Description 08/28/2024 9:45 AM EDT Office Visit Adult Medicine [address], [place] [phone] Manuel Ewing NP [address] [place], [place] Lower abdominal pain (Primary Dx); Urinary frequency Social History Tobacco Use Types Packs/Day Years [...] PM EST documented as of this encounter Last Filed Vital Signs Vital Sign Reading Time Taken Comments Blood Pressure 106/77 08/28/2024 10:01 AM EDT Pulse 89 08/28/2024 10:01 AM EDT Temperature 36.3 ??C (97.3 ??F) 08/28/2024 10:01 AM E DT Respiratory Rate 16 08/28/2024 10:01 AM EDT Oxygen Saturation 99% 08/28/2024 10:01 AM EDT Inhaled Oxygen Concentration - - Weight 50.8 kg (112 lb) 08/28/2024 10:01 AM EDT Height 157.5 cm (5' 2 ) 08/28/2024 10:01 AM EDT Body Mass Index 20.49 08/28/2024 10:01 AM EDT documented in this encounter Ordered Prescriptions Prescription Sig Dispense Quantity Refills Last Filled Start Date End Date metoprolol tartrate (LOPRESSOR) 25 mg tablet Take 1 tablet (25 mg total) by mouth 1 (one) time each day. 90 each 08/28/2024 documented in this encounter Progress Notes * Manuel Ewing NP - 08/28/2024 9:45 AM EDT Images from the original note were not included. Emergency Department Follow Up Note PATIENT'S PCP: Gurmeet Soto MD LAST VISIT IN THIS DEPARTMENT: 08/22/2024 I have obtained verbal consent from Tri Arreola prior to the recording. I have advised Tri Wei Elba that she may refuse the recording and require the recording to be turned off at any time during this encounter. SUBJECTIVE The patient was discharged from the ER with a diagnosis of: Abdominal pain Discharge Date from ED: 08/26/24 Facility: [facility] History of Present Illness The patient is a 38-year-old female who presents for evaluation of lower abdominal pain. She has relevant PHX of Mittelschmerz, Pelvic congestion syndrome, RLQ pain, She was evaluated in the emergency room over the weekend due to an exacerbation of her lower right quadrant pain, which she describes as a constant pressure on her bladder. She also reported a dry cough with lower lung pain. She also had mild nausea. Today patient is still reporting lower abdominal, more significant at the RLQ and flank sore or tenderness. She has scheduled an ultrasound for 2 weeks from now. The abdominal pain intensifies as, typically 1 to 2 hours postprandial. Despite maintaining a fair appetite, she reports no associated nausea or vomiting and is able to keep her food down. Her bowel movements are regular, occurring every other day, and are described as soft and easy to pass. She reports no hematochezia or bloating. She is not . She also reports no dysuria or hematuria, but notes increased urinary frequency. She has been consuming Pedialyte daily and has observed undigested food particles in her stool, predominantly fruits and vegetables. Additionally, she reports elevated blood glucose levels, with the highest recorded value being 200,despite a significant reduction in her sugar intake. She was advised by her research lab assistant to monitor her blood glucose levels, whom she last consulted a month ago. FAMILY HISTORY Her mother has a history of diverticulitis. Her grandmother has had multiple intestinal blockages. Results Laboratory Studies Urinalysis was normal. Kidney function was normal. Information was extracted from the emergency room notes from 08/26/24. The history was reviewed for accuracy and confirmed by myself. I have reconciled the current and discharge meds. Review Of System Review of Systems Constitutional: Negative. Respiratory: Negative. Cardiovascular: Negative. Gastrointestinal: Positive for abdominal pain. Endocrine: Positive for polydipsia. Genitourinary: Positive for flank pain and frequency. Negative for difficulty urinating, dysuria and hematuria. Skin: Negative. Neurological: Negative. Hematological: Negative. 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/2023 Centrilobular emphysema ([facility]) 05/20/2023 Chest pain 05/20/2023 Cigarette smoker motivated to quit 05/20/2023 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 Palpitations 05/20/2023 Liver cyst 05/20/2023 Migraine without aura 05/20/2023 Breast pain, right 02/23/2023 Seasonal allergic rhinitis 12/16/2022 Otalgia of both ears 12/16/2022 Atypical facial pain 12/16/2022 Labial cyst 10/10/2020 Right lower quadrant pain 10/10/2020 Vaginal lump 10/10/2020 Migratory pain 07/21/2020 Myofascial pain 07/21/2020 Numbness and tingling of upper and lower extremities of both sides 07/21/2020 Raynaud's phenomenon without gangrene 07/21/2020 Low back pain 06/04/2016 Past Surgical History: Procedure Laterality Date COLONOSCOPY PROCEDURE: HISTORICAL COLONOSCOPY OTHER SURGICAL HISTORY PROCEDURE: DENIES PREVIOUS SURGERY The following portions of the patient's chart were reviewed in this encounter and updated as appropriate: OBJECTIVE Vitals: 08/28/24 1001 BP: 106/77 Pulse: 89 Resp: 16 Temp: 36.3 ??C (97.3 ??F) TempSrc: Temporal SpO2: 99% Weight: 50.8 kg (112 lb) Height: 1.575 m (62 ) Body mass index is 20.49 kg/m??. Plan is deferred until next visit Allergies Allergen Reactions Sulfamethoxazole-Trimethoprim Swelling Aspirin Cephalexin Other Other Reaction(s): Anaphylaxis Keflex Ciprofloxacin Other Reaction(s): Contraindicated for Clary-Danlos Snydrome Ciprofloxacin-Hydrocortisone Doxycycline Dizziness and Other doxycycline Doxycycline Hyclate ACTIVE MEDICATIONS: Current Outpatient Medications Medication Instructions acetaminophen (TYLENOL 8 HOUR) 650 mg 8 hr tablet 1 tablet, Every 8 hours PRN aluminum-magnesium hydroxide-simethicone (MAALOX) 200-200-20 mg/5 mL suspension 30 mL, oral, 4 times daily before meals and nightly buprenorphine-naloxone (SUBOXONE) 8-2 mg per SL film 8 mg of opioid fluticasone propionate (FLONASE) 50-100 mcg hydrocortisone (ANUSOL-HC) 25 mg, rectal, Daily ipratropium HFA (Atrovent HFA) 17 mcg/actuation inhaler 2 puffs, inhalation, 4 times daily metoprolol tartrate (LOPRESSOR) 25 mg, oral, Daily senna-docusate (PERICOLACE) 8.6-50 mg per tablet 1 tablet, oral, Daily Physical Exam Vitals reviewed. Constitutional: Appearance: Normal appearance. Cardiovascular: Rate and Rhythm: Normal rate and regular rhythm. Pulses: Normal pulses. Heart sounds: Normal heart sounds. Pulmonary: Effort: Pulmonary effort is normal. Breath sounds: Normal breath sounds. Abdominal: General: Bowel sounds are normal. Palpations: Abdomen is soft. Tenderness: There is abdominal tenderness in the right lower quadrant, suprapubic area and left lower quadrant. Comments: RLQ pain greater than LLQ and Suprapubic. Musculoskeletal: General: Normal range of motion. Cervical back: Normal range of motion and neck supple. Skin: General: Skin is warm and dry. Neurological: General: No focal deficit present. Mental Status: She is alert. Mental status is at baseline. IMAGING CXR 2 view Exam Date 08/26/24 Impression: No acute abnormality LABORATORY: CBC: Lab Results Component Value Date WBC 12.6 (H) 08/23/2024 HGB 13.8 08/23/2024 HCT 38.9 08/23/2024 MCV 90.0 08/23/2024 PLT 305 08/23/2024 CMP: Lab Results Component Value Date NA 134 08/23/2024 K 3.8 08/23/2024 CL 103 08/23/2024 CO2 26 08/23/2024 GLUCOSE 103 (H) 08/23/2024 BUN 10 08/23/2024 CREATININE 0.68 08/23/2024 CALCIUM 9.7 08/23/2024 PROT 8.0 08/23/2024 ALBUMIN 4.4 08/23/2024 BILITOT 0.6 08/23/2024 AST 21 08/23/2024 ALT 21 08/23/2024 MG 2.2 08/22/2024 ALKPHOS 72 08/23/2024 EGFR 116 08/23/2024 No results found for: LDLCALC 1. Lower abdominal pain 2. Urinary frequency Assessment & Plan 1. Lower abdominal pain: - Urinalysis results within normal limits, not indicative of a urinary tract infection - Renal ultrasound to exclude potential kidney-related issues pending schedule for 2 week - CT scan of lower abdomen and pelvis to rule out acute diverticulitis - If CT scan provides sufficient information regarding kidneys, ultrasound may be cancelled - If CT scan does not yield comprehensive data about kidneys, ultrasound will proceed - If diagnosis is confirmed as diverticulitis, initiate antibiotic regimen - Immediate emergency room visitation advised for severe abdominal pain, nausea, vomiting, or inability to retain food or liquids 2. Increased urinary frequency: - Order A1c test to assess diabetic status - Discuss appropriate management if A1c results indicate diabetes - UA with culture order FOLLOW-UP: No follow-ups on file. Manuel Ewing NP ADULT MEDICINE [address] Today's documentation was made using voice recognition software.This note may contain grammatical errors secondary to this software. documented in this encounter Plan of Treatment Upcoming Encounters Date Type Department Care Team (Late st Contact Info) Description 09/05/2024 4:15 PM EDT Appointment Radiology [address] [phone] 09/05/2024 5:00 PM EDT Appointment Radiology [address] [phone] 09/22/2024 11:15 AM EDT Office Visit Endocrinology - [address] [phone] Mukesh Patton MD [address] [place] [address] 10/12/2024 10:10 AM EDT Office Visit [facility] [place] [address] [facility] [address] [place] [phone] Natividad Farley MD [address] [facility] [address] [place] [phone] 01/24/2025 11:30 AM EDT Office Visit Pulmonolgy - [place] [address] [facility] [address] [place] [phone] Ana Maria Sanchez MD 175 [facility] [address] [place] [address] documented as of this encounter Procedures Procedure Name Priority Date/Time Associated Diagnosis Comments URINALYSIS WITH REFLEX MICROSCOPIC AND CULTURE Routine 08/28/2024 4:43 PM EDT Lower abdominal pain Urinary frequency SYLVESTER URINE CULTURE TUBE Routine 08/28/2024 4:43 PM EDT Lower abdominal pain Urinary frequency URINALYSIS WITH REFLEX MICROSCOPIC AND CULTURE Routine 08/28/2024 4:43 PM EDT Lower abdominal pain Urinary frequency POC URINE NON-AUTO W/O MICRO Routine 08/28/2024 1:45 PM EDT Lower abdominal pain Urinary frequency documented in this encounter Results * Hemoglobin A1c (08/29/2024 11:43 AM EDT) Hemoglobin A1C 5.1 <6.5 % LAB CHEMISTRY METHOD 08/29/2024 10:31 PM EDT [facility] Mean Bld Glu Estim. 100 mg/dL LAB CHEMISTRY METHOD 08/29/2024 10:31 PM EDT [facility] Blood Venous blood specimen / Unknown Venipuncture / Unknown 08/29/2024 11:43 AM EDT 08/29/2024 11:43 AM EDT us Manuel Ewing AIRPORT UTILITY WORKER LAB BLOOD ORDERABLES Final R esult [facility] [address] [place] [address], * CT Abdomen Pelvis wo Contrast (08/29/2024 11:28 AM EDT) Anatomical Region Laterality Modality Body Computed Tomogra phy 08/29/2024 11:5 1 AM EDT Impressions 08/29/2024 12:10 PM EDT 1. ??No acute findings in the abdomen/pelvis. ??No CT evidence of acute diverticulitis. 2. ??Incompletely evaluated oval-shaped fluid density in the right posterior pelvis. ??This is separate from the presumed right ovary located higher in the pelvis. ??Consider nonemergent pelvic ultrasound for further evaluation. -------- FINAL REPORT -------- Dictated By: Toni Henderson Dictated Date: 08/29/2024 11:51 ET Assigned Physician: Toni Henderson Reviewed and Electronically Signed By: Toni Henderson Signed Date: 08/29/2024 12:10 ET Workstation ID: [id number] Transcribed By: Self Edit Transcribed Date: 08/29/2024 11:51 ET Narrative 08/29/2024 12:[address] ABDOMEN PELVIS WO CONTRAST TECHNIQUE: Multidetector-row CT of the abdomen and pelvis was performed without intravenous contrast using tailored dose modulation techniques. Images were reconstructed in the axial, coronal, and sagittal planes. COMPARISON: Abdomen ultrasound on May 21, 2023. ??CT angiogram of the chest and abdomen on May 11, 2023. ??Pelvic ultrasound on November 25, 2020 HISTORY: Diverticulitis suspected Lower quatrant pain ABSENCE OF INTRAVENOUS CONTRAST DECREASES SENSITIVITY FOR DETECTION OF FOCAL LESIONS AND VASCULAR PATHOLOGY. FINDINGS: Lower Chest: Lung bases are clear. ??No pleural effusions. Liver: Unremarkable. Biliary: Normal gallbladder. Spleen: No splenomegaly. ? Pancreas: Unremarkable. Adrenal Glands: No nodules. Kidneys/Ureters: No renal stones or hydronephrosis. Bowel: Orally administered contrast has reached the transverse colon. ??Moderate volume of stool load in the colonic loops. ??No definite colonic diverticula identified. Peritoneum/Retroperitoneum: No free fluid or free air. Lymph Nodes: No bulky lymphadenopathy. Pelvic Organs/Bladder: Under distended urinary bladder. ??Retroflexed uterus. ??There is an oval shaped fluid density structure in the right posterior pelvis measuring 3.6 x 2.9 cm on the axial plane (2:91), which is separate from the right ovary containing follicular cysts located at a higher level in the right adnexal region (2:81). Vessels: No abdominal aortic aneurysm. Bones/Soft Tissues: No destructive bone lesions. ??Overlying soft tissues are unremarkable. Procedure Note Toni Henderson MD - 08/29/2024 CT ABDOMEN PELVIS WO CONTRAST TECHNIQUE: Multidetector-row CT of the abdomen and pelvis was performedwithout intravenous contrast using tailored dose modulation techniques.Images were reconstructed in the axial, coronal, and sagittal planes. COMPARISON: Abdomen ultrasound on May 21, 2023. CT angiogram of thechest and abdomen on May 11, 2023. Pelvic ultrasound on October HISTORY: Diverticulitis suspected Lower quatrant pain ABSENCE OF INTRAVENOUS CONTRAST DECREASES SENSITIVITY FOR DETECTION OFFOCAL LESIONS AND VASCULAR PATHOLOGY. FINDINGS: Lower Chest: Lung bases are clear. No pleural effusions. Liver: Unremarkable. Biliary: Normal gallbladder. Spleen: No splenomegaly. Pancreas: Unremarkable. Adrenal Glands: No nodules. Kidneys/Ureters: No renal stones or hydronephrosis. Bowel: Orally administered contrast has reached the transverse colon.Moderate volume of stool load in the colonic loops. No definite colonicdiverticula identified. Peritoneum/Retroperitoneum: No free fluid or free air. Lymph Nodes: No bulky lymphadenopathy. Pelvic Organs/Bladder: Under distended urinary bladder. Retroflexeduterus. There is an oval shaped fluid density structure in the rightposterior pelvis measuring 3.6 x 2.9 cm on the axial plane (2:91), whichis separate from the right ovary containing follicular cysts located at ahigher level in the right adnexal region (2:81). Vessels: No abdominal aortic aneurysm. Bones/Soft Tissues: No destructive bone lesions. Overlying soft tissuesare unremarkable. IMPRESSION: 1. No acute findings in the abdomen/pelvis. No CT evidence of acutediverticulitis. 2. Incompletely evaluated oval-shaped fluid density in the rightposterior pelvis. This is separate from the presumed right ovary locatedhigher in the pelvis. Consider nonemergent pelvic ultrasound for furtherevaluation. -------- FINAL REPORT -------- Dictated By: Toni Henderson Dictated Date: 08/29/2024 11:51 ET Assigned Physician: Toni Henderson Reviewed and Electronically Signed By: Toni Henderson Signed Date: 08/29/2024 12:10 ET Workstation ID: [id number] Transcribed By: Self Edit Transcribed Date: 08/29/2024 11:51 ET Manuel Ewing AIRPORT UTILITY WORKER IMG CT PROCEDURES Final Resu lt * Sylvester urine culture tube (08/28/2024 4:43 PM EDT) Pathologist [facility] Extra Tube Hold for add-ons. 08/28/2024 7:01 PM EDT [facility] Comment:Auto resulted. Urine Urine specimen obtained by clean catch procedure / Unknown Non-blood Collection / Unknown 08/28/2024 4:43 PM EDT 08/28/2024 4:43 PM EDT Manuel Ewing AIR[employer] UTILITY WORKER LAB URINE ORDERABLES Final R esult [facility] [address] [place] [address], [place] [phone] * Urinalysis with reflex microscopic and culture (08/28/2024 4:43 PM EDT) [facility] Specific [place] Urine 1.004 1.003 - 1.030 LAB URINALYSIS - AUTOMATED METHOD 08/28/2024 6:58 PM EDT [facility] pH, Urine 7.5 5.0 - 8.0 pH LAB URINALYSIS - AUTOMATED METHOD 08/28/2024 6:58 PM EDT [facility] Leukocytes, Urine Negative Negative LAB URINALYSIS - AUTOMATED METHOD 08/28/2024 6:58 PM EDT [facility] Nitrite, Urine Negative Negative LAB URINALYSIS - AUTOMATED METHOD 08/28/2024 6:58 PM EDT [facility] Protein, Urine Negative <=Trace mg/dL LAB URINALYSIS - AUTOMATED METHOD 08/28/2024 6:58 PM EDT [facility] Glucose, Urine Negative Negative mg/dL LAB URINALYSIS - AUTOMATED METHOD 08/28/2024 6:58 PM EDT [facility] Ketones, Urine Negative Negative mg/dL LAB URINALYSIS - AUTOMATED METHOD 08/28/2024 6:58 PM EDT [facility] Urobilinogen, Urine 0.2 0.2 - 1.0 mg/dL LAB URINALYSIS - AUTOMATED METHOD 08/28/2024 6:58 PM EDT [facility] Bilirubin, Urine Negative Negative LAB URINALYSIS - AUTOMATED METHOD 08/28/2024 6:58 PM EDT [facility] Blood, Urine Negative Negative LAB URINALYSIS - AUTOMATED METHOD 08/28/2024 6:58 PM T [facility] Urine Urine specimen obtained by clean catch procedure / Unknown Non-blood Collection / Unknown 08/28/2024 4:43 PM EDT 08/28/2024 4:43 PM EDT us Manuel Ewing NP LAB URINE ORDERABLES Final R esult [facility] [address] [place] [address], * (ABNORMAL) POC Urine Non-Auto W/O Micro (08/28/2024 1:45 PM EDT) Leukocytes UA POC Negative Negative Nitrite UA POC Negative Negative Urobilinogen UA POC Negative Negative Protein UA POC Negative Negative PH UA POC 6.0 5.0 - 9.0 Blood UA POC Negative Negative, Trace Specific [place] UA POC 1.005 1.001 - 1.035 Ketones UA POC Negative Negative Bilirubin UA POC Negative Negative Glucose UA POC Normal Normal, Trace Urine Urine specimen obtained by clean catch procedure / Unknown 08/28/2024 1:45 PM EDT Manuel Ewing [employer] UT[employer] WORKER POINT OF CARE TEST ENTER/MONA T ORDERABLES Final Result documented in this encounter Visit Diagnoses Diagnosis Lower abdominal pain- Primary Abdominal pain, other specified site Urinary frequency documented in this encounter Discontinued Medications Medication Sig Discontinue Reason Start Date End Da te metoprolol tartrate (LOPRESSOR) 25 mg tablet Take 1 tablet (25 mg total) by mouth 1 (one) time each day. Reorder 08/22/2024 08/28/2024 documented as of this encounter Care Teams Wire Drawing Setter Relationship Specialty Start Date End Date Gurmeet Soto MD [address] [place] [address] PCP - General 08/12/22 documented as of this encounter
--- OUTSIDE RECORDS SUMMARY | 2024-09-01 07:13 | XMS_ITS | Encounter Summary ---
Author Organization [facility] Address [address] [place] [address] Care Team Providers Care Leather Roller Name Role Phone Gurmeet Soto MD Primary Care Provider Reason for Referral * Imaging (Routine) - Pending Review Specialty Diagnoses / Procedures Referred By Indio t Referred To Contact Radiology Diagnoses Pelvic fluid collection Lower abdominal pain Procedures US Pelvis Non OB Complete Manuel Ewing NP [address] [place] [address] Phone: tel: fax: [address] Phone: tel: Referral ID Status Reason Start Date Expiration Date V isits Requested Visits Authorized [id number] Pending Review 08/29/2024 08/29/2025 1 1 Reason for Visit * Reason Onset Date Comments Imaging Follow-up 08/29/2024 CT scan abdome n Encounter Details Date Type Department Care Team (Late st Contact Info) Description 08/29/2024 Telephone Adult Medicine [facility] [address] [place], [place] [phone] Manuel Ewing NP [address] [place], [place] Imaging Follow-up (CT scan abdomen ) Social History Tobacco Use Types Packs/Day Years [...] PM EST documented as of this encounter Progress Notes * Lara Savage MA - 08/30/2024 12:40 PM EDT Patient was informed of message. * Manuel Ewing NP - 08/29/2024 10:33 PM EDT Patient was seen in the office for lower abdominal pain. CT scan of abdomen and pelvic, show no acute cause of abdominal pain. However, a oval-shaped fluid density was noted in the right posterior pelvis. A US of the pelvic was order. I also recommend patient follow up with OBGYN for further evaluation. Please call patient and inform of above message. Thanks documented in this encounter Plan of Treatment Upcoming Encounters Date Type Department Care Team (Late st Contact Info) Description 09/05/2024 4:15 PM EDT Appointment Radiology Department - [address] [phone] 09/05/2024 5:00 PM EDT Appointment Radiology Department - [address] [phone] 09/22/2024 11:15 AM EDT Office Visit Endocrinology - [place] [address] [place] [address] Mukesh Patton MD [address] [place] [address] 10/12/2024 10:10 AM EDT Office Visit [facility] [place] [facility] [place] [address] [facility] [address] [place] [phone] Natividad Farley MD 175 [facility] [address] [place] [phone] 01/24/2025 11:30 AM EDT Office Visit Pulmonolgy - [place] 175 [facility] [address] [place] [phone] Ana Maria Sanchez MD 175 [facility] [address] [place], [place] [phone] Scheduled Orders Name Type Priority Associated Diagnoses Orde r Schedule US Pelvis Non OB Complete Imaging Routine Pelvic fluid collection Lower abdominal pain Expected: 09/05/2024 (Approximate), Expires: 08/29/2025 documented as of this encounter Visit Diagnoses Diagnosis Pelvic fluid collection- Primary Other ascites Lower abdominal pain Abdominal pain, other specified site documented in this encounter Care Teams Leather Roller Relationship Specialty Start Date End Date Gurmeet Soto MD [address] [place] [address] PCP - General 08/12/22 documented as of this encounter
--- OUTSIDE RECORDS SUMMARY | 2024-09-01 07:13 | XMS_ITS | Encounter Summary ---
Author Organization [facility] Address [address] [place] [address] Care Team Providers [facility] Name Role Phone Gurmeet Soto MD Primary Care Provider [phone] Reason for Visit * Imaging (Emergency) - Authorized Specialty Diagnoses / Procedures Referred By [facility] Referred To Contact Radiology Diagnoses Lower abdominal pain Procedures CT Abdomen Pelvis wo Contrast Manuel Ewing, BUSINESS [employer]S CONSULTANT [address], [place] Phone: tel: fax: CT Scan - [place] [address] [place] [address] Phone: tel: fax: Referral ID Status Reason Start Date Expiration Date V isits Requested Visits Authorized [id number] Authorized 08/28/2024 10/27/2024 1 1 Encounter Details Date Type Department Care Team (Latest Contact Info) Description 08/29/2024 11:04 AM EDT - 08/29/2024 11:59 PM EDT Hospital Encounter CT Scan - [facility] [address], [place] [phone] Arrived Discharge Disposition: Home or Self Care Social History Tobacco Use Types Packs/Day Years [...] PM EST documented as of this encounter Medications at Time of Discharge acetaminophen (TYLENOL 8 HOUR) 650 mg 8 hr tablet Take 1 tablet (650 mg total) by mouth every 8 (eight) hours if needed. 02/03/2024 aluminum-magnesi um hydroxide-simeth icone (MAALOX) 200-200-20 mg/5 mL suspension Take 30 mL by mouth 4 (four) times a day (before meals and nightly). 769 mL 11 08/09/2024 buprenorphine-na loxone (SUBOXONE) 8-2 mg [address] SL film Place 1 film under the tongue. 05/20/2023 fluticasone propionate (FLONASE) 50 mcg/actuation nasal spray Administer 1-2 sprays into affected nostril(s). 09/05/2019 hydrocortisone (ANUSOL-HC) 25 mg suppository Insert 1 suppository (25 mg total) into the rectum 1 (one) time each day. 30 suppository 11 08/09/2024 ipratropium HFA (Atrovent HFA) 17 mcg/actuation inhaler Inhale 2 puffs by mouth 4 (four) times a day. 1 each 08/16/2024 08/17/19 26 metoprolol tartrate (LOPRESSOR) 25 mg tablet Take 1 tablet (25 mg total) by mouth 1 (one) time each day. 90 each 08/28/2024 senna-docusate (PERICOLACE) 8.6-50 mg per tablet Take 1 tablet by mouth 1 (one) time each day. 30 each 08/09/2024 08/10/19 26 documented as of this encounter Discharge Disposition Disposition Code Departure Means Destination Home or Self Care documented in this encounter Plan of Treatment Upcoming Encounters Date Type Department Care Team (Late st Contact Info) Description 09/05/2024 4:15 PM EDT Appointment Radiology Department - [address] [phone] 09/05/2024 5:00 PM EDT Appointment Radiology Department - [address] [phone] 09/22/2024 11:15 AM EDT Office Visit Endocrinology - [address] [phone] Mukesh Patton MD [address] [place] [address] 10/12/2024 10:10 AM EDT Office Visit [address] [phone] Natividad Farley MD [address] [phone] 01/24/2025 11:30 AM EDT Office Visit Pulmonolgy - [address] [phone] Ana Maria Sanchez MD [address] [phone] documented as of this encounter Procedures Procedure Name Priority Date/Time Associated Diagnosis Comments CT ABDOMEN PELVIS WO CONTRAST STAT 08/29/2024 11:28 AM EDT Lower abdominal pain documented in this encounter Results * CT Abdomen Pelvis wo Contrast (08/29/2024 [...] Signed Date: 08/29/2024 12:10 ET Workstation ID: [id number] Transcribed By: Self Edit Transcribed Date: 08/29/2024 [...] Signed Date: 08/29/2024 12:10 ET Workstation ID: [id number] Transcribed By: Self Edit Transcribed Date: 08/29/2024 11:51 ET us Manuel Ewing [employer] CONSULTANT IMG CT PROCEDURES Final Resu lt documented in this encounter Visit Diagnoses Not on filedocumented in this encounter Care Teams Health Center Associate Relationship Specialty Start Date End Date Gurmeet Soto MD [address] [place] [address] PCP - General 08/12/22 documented as of this encounter
--- OUTSIDE RECORDS SUMMARY | 2024-09-01 07:13 | XMS_ITS ---
Author Name [facility] Organization Unknown Care Team Organization Name Specialty Phone Email Start Date End [facility]
--- OUTSIDE RECORDS SUMMARY | 2024-09-01 07:13 | XMS_ITS | Clinical Summary ---
Author Organization 175 [facility] Address [address] [place] [address] Phone Care Team Providers Care Demand Generator Manager Name Role Phone Gurmeet Soto MD Primary Care Provider Allergies Active Allergy Reactions Criticality Noted Date Comments Aspirin 07/26/2024 Cephalexin Other 04/09/2014 Other Reaction(s): Anaphylaxis Keflex Ciprofloxacin 07/26/2024 Other Reaction(s): Contraindicated for Clary-Danlos Snydrome Ciprofloxacin-Hydrocor tisone 09/11/2022 Doxycycline Dizziness,Other 07/26/2024 doxycycline Doxycycline Hyclate 04/09/2014 Sulfamethoxazole-Trime thoprim Swelling High 02/17/2018 Medications acetaminophen (TYLENOL 8 HOUR) 650 mg 8 hr tablet Take 1 tablet (650 mg total) by mouth every 8 (eight) hours if needed. 024 Active buprenorphine- naloxone (SUBOXONE) 8-[address] film [address] 1 film under the tongue. 023 Active fluticasone propionate (FLONASE) 50 mcg/actuation nasal spray Administer 1-2 sprays into affected nostril(s). 020 Active senna-docusate (PERICOLACE) 8.6-50 mg per tablet Take 1 tablet by mouth 1 (one) time each day. 30 each 2025 Active aluminum-magne sium hydroxide-marcial thicone (MAALOX) 200-200-20 mg/5 mL suspension Take 30 mL by mouth 4 (four) times a day (before meals and nightly). 769 mL Active hydrocortisone (ANUSOL-HC) 25 mg suppository Insert 1 suppository (25 mg total) into the rectum 1 (one) time each day. 30 suppository Active ipratropium HFA (Atrovent HFA) 17 mcg/actuation inhaler Inhale 2 puffs by mouth 4 (four) times a day. 1 each 2025 Active metoprolol tartrate (LOPRESSOR) 25 mg tablet Take 1 tablet (25 mg total) by mouth 1 (one) time each day. 90 each Active celecoxib (CeleBREX) 100 mg capsule Take 1 capsule (100 mg total) by mouth. 2024 Discontinued cyclobenzaprin e (FLEXERIL) 5 mg tablet Take 1 tablet (5 mg total) by mouth as needed. 2024 Discontinued diclofenac (VOLTAREN) 1 % topical gel Apply 1 applicator topically. 2024 Discontinued aluminum-magne sium hydroxide-marcial thicone (MAALOX) 200-200-20 mg/5 mL suspension Take 15 mL by mouth. 2024 Discontinued omeprazole (PriLOSEC) [address] capsule Take 1 capsule (20 mg total) by mouth. 2024 Discontinued amoxicillin-cl avulanate (AUGMENTIN) 875-125 mg per tablet 2024 Discontinued chlorhexidine (PERIDEX) 0.12 % solution 2024 Discontinued metoprolol tartrate (LOPRESSOR) 25 mg tablet Take 6.25 mg by mouth 1 (one) time each day. 2024 Discontinued(R eorder) umeclidinium (Incruse Ellipta) 62.5 mcg/actuation inhalation Inhale 1 puff by mouth 1 (one) time each day. 1 each 4 025 2024 Discontinued pantoprazole (PROTONIX) 40 mg EC tablet Take 1 tablet (40 mg total) by mouth 1 (one) time each day. Take in am on empty stomach, wait 30 mins and then eat to activate the medication 30 each 11 025 2024 Discontinued(S catherine effects) metoprolol tartrate (LOPRESSOR) 25 mg tablet Take 1 tablet (25 mg total) by mouth 1 (one) time each day. 90 each 025 2024 Discontinued(R eorder) Active Problems Problem Noted Date Diagnosed Date Tobacco use disorder 07/26/2024 Mittelschmerz 06/15/2024 Assessment & Plan (06/15/2024 4:11 PM EST): Discussed this can bother some women and not others. Explained she can use NSAIDS or Tylenol or heat, or could consider hormonal suppression. Would need to be with progestin only method given she is a smoker and > 35 yo, which makes E2 contraindicated. She will consider this option, but will try ibuprofen for now. Pelvic congestion syndrome 06/15/2024 Assessment & Plan (06/15/2024 4:12 PM EST): I explained that PCS is like varicose veins in the pelvis leading to the Vamp Creaser organs. Just as some people have pain related to superficial varicose veins and some do not, this applies to PCS noted on imaging as well. As such, do not need to treat it if not bothering. Not clear that her Mittelschmerz is worse as a result of this. Could suppress hormonally to see if it improves. Can be treated with IR coils. She will consider. Vaginal yeast infection 06/15/2024 Assessment & Plan (06/15/2024 4:14 PM EST): Will send culture as wet smear not likely to be fruitful while using Monistat. Explained yeast may have already been treated and she is experiencing contact irritation from the Monistat. Encouraged her to stop it. Use coconut oil and soaks for comfort. Given Rx for fluconazole. Irregular menstrual cycle 06/15/2024 Assessment & Plan (06/15/2024 4:14 PM EST): Unclear etiology. Will obtain labs. Hot flashes 06/15/2024 Non-allergic rhinitis 03/01/2024 Dizziness and giddiness 03/01/2024 History of opioid abuse 02/29/2024 Urinary urgency 06/03/2023 Overview (02/29/2024): Last Assessment & Plan: Encouraged some habit changes. 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 No evidence of pathologic mass. Normal glandular tissue is tender. She desired referral to breast clinic. Referral placed. She was informed that she should hear back in 1-2 weeks with an appointment date. If not, she should call back to our office and inquire on getting this arranged. She voiced understanding and agreed. Seasonal allergic rhinitis 12/16/2022 Overview (07/26/2024): Other allergic rhinitis; Note: Date Diagnosed: 12/16/2022 4:51 PM (J30.89) Otalgia of both ears 12/16/2022 Overview (07/26/2024): Otalgia, bilateral; Note: Date Diagnosed: 12/16/2022 4:50 PM (H92.03) Atypical facial pain 12/16/2022 Overview (07/26/2024): Arthralgia of bilateral temporomandibular joint; Note: Date Diagnosed: 12/16/2022 4:50 PM (M26.623) Labial cyst 10/10/2020 Overview (02/29/2024): Last Assessment & Plan: Will return for removal in the future. Right lower quadrant pain 10/10/2020 Overview (02/29/2024): Last Assessment & Plan: Unclear etiology. Will obtain pelvic US and discuss results when available. Could just be Mittelschmerz and if this is the case, could suppress with hormones or observe. Continue Motrin prn. Vaginal lump 10/10/2020 Overview (02/29/2024): Last Assessment & Plan: Appears and palpates benign. Continue to monitor. Migratory pain 07/21/2020 Myofascial pain 07/21/2020 Numbness and tingling of upp er and lower extremities of both sides 07/21/2020 Raynaud's phenomenon without gangrene 07/21/2020 Low back pain 06/04/2016 Overview (02/29/2024): Sees PSS Encounters Date Type Department Care Team Description 08/30/2024 8:40 AM EDT Consult [facility] for [place] - [address] [place] [phone] Natividad Farley MD White matter disease (Primary Dx); Lhermitte sign positive; Urinary frequency; Other fatigue 08/30/2024 Telephone Adult Medicine [address] [phone] Gurmeet Soto MD lab order 08/29/2024 11:04 AM EDT - 08/29/2024 11:59 PM EDT Hospital Encounter CT Scan - [address] [phone] Arrived Discharge Disposition: Home or Self Care 08/29/2024 Telephone Adult Medicine [address] [phone] Manuel Ewing NP Imaging Follow-up (CT scan abdomen ) 08/29/[address] [phone] Gurmeet Soto MD Results 08/28/2024 9:45 AM EDT Office Visit [address] [phone] Manuel Ewing NP Lower abdominal pain (Primary Dx); Urinary frequency 08/23/2024 8:31 PM EDT - 08/23/2024 10:03 PM EDT Emergency [facility] Emergency [address] [place] [address] Bilateral flank pain (Primary Dx) Discharge Disposition: Left Against Medical Advice 08/22/2024 10:00 AM EDT Office Visit [address] [phone] Manuel Ewing NP Flank pain (Primary Dx); Frequency of urination; Asthma-COPD overlap syndrome (CMS/HCC); Hyperglycemia; Muscle twitching 08/11/2024 10:30 AM EDT Consult Endocrinology [address] [phone] Mukesh Patton MD Sweating abnormality (Primary Dx) 08/09/2024 10:00 AM EDT Office Visit Gastroenterology [address] [phone] Kenneth Barr, MARÍA Epigastric discomfort (Primary Dx); Dysphagia, unspecified type; Globus sensation; Gastroesophageal reflux disease without esophagitis; Straining with stools; Multiple sclerosis (CMS/HCC); Rectal discomfort 07/26/2024 10:45 AM EST Office Visit Pulmonolgy - [address] [phone] Ana Maria Sanchez MD COPD with asthma (CMS/HCC) (Primary Dx); Smoker 07/15/2024 9:00 AM EST Office Visit [facility] - [place] [address] [place] [phone] 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 NP Sore throat (Primary Dx) 06/15/2024 4:00 PM EST Lab Draw Station - [address] Irregular menstrual cycle; Hot flashes 06/15/2024 3:45 PM EST Office Visit Obstetrics and Gynecology - [address] [phone] Ni Willson MD Irregular menstrual cycle (Primary Dx); Hot flashes; Vaginal yeast infection; Mittelschmerz; Pelvic congestion syndrome 06/12/2024 Telephone [facility] [address] [place] [address] Gurmeet Soto MD Medical Records from Last 3 Months Immunizations Name Administration Dates Next Due Influenza, Unspecified 04/30/2020 Moderna SARS-CoV-2 COVID-19, mRNA, LNP-S, preservative free 09/14/2020,08/17/2020 Tdap Tetanus diptheria acell ular pertussis (Boostrix; Adacel) 7yo and older 02/03/2024,02/04/2014 influenza Split Preservative Free ID 04/30/2022 Surgical History Surgery Date Site/Laterality Comments OTHER SURGICAL HISTORY PROCEDURE: DENIES PREVIOUS SURGERY COLONOSCOPY PROCEDURE: HISTORICAL COLONOSCOPY Medical History Medical History Date Comments History of opioid abuse DX:Histo ry of opioid abuse (HCC) Low back pain 06/04/2016 DX:Low back pain ; COMMENT: Sees PSS Esophageal reflux DX:Esophageal reflux Dysphagia DX:Dysphagia Tobacco use DX:Tobacco use Clary-Danlos syndrome DX:Clary -Danlos syndrome COPD (chronic obstructive pu lmonary disease) (CMS/HCC) Multiple sclerosis (CMS/HCC) Family History Medical History Relation Name Comments Hyperlipidemia Father Other: lupus Father's side aunt gout Colon cancer Maternal Grandfather Breast cancer Maternal Grandmother Lung cancer Maternal Grandmother Other: ovarian cancer Maternal Grandmother Stroke Maternal Grandmother Depression Mother Hyperlipidemia Mother Hypertension Mother arthritis Stroke Paternal Grandfather Breast cancer Paternal Grandmother Ovarian cancer Neg Hx Pancreatic cancer Neg Hx Prostate cancer Neg Hx Relation Name Status Comments Father Father's side aunt Alive Maternal Grandfather Maternal Grandmother Mother Paternal Grandfather Paternal Grandmother Social History Tobacco Use Types Packs/Day Years Used Date Smoking Tobacco: Every Day Cigarettes Passive Smoke Exposure: Current Smokeless Tobacco: Never Tobacco Cessation:Ready to Q uit: Not Asked; Counseling Given: Not Answered Alcohol Use Standard Drinks/Week Comments No 0 (1 standard drink = 0.6 oz pur e alcohol) Comments No Sex and Gender Information Value Date Recorded Sex Assigned at Female 05/21/2023 8:14 PM EST Legal Sex Female 2:36 AM EST Gender Identity Female 05/21/2023 8:14 PM EST Sexual Orientation Bisexual 05/21/2023 8: 14 PM EST Obstetrics History Para Term AB IAB SAB Ectopic Multiple Livin g Live Births 3 2 2 1 1 2 2 Date Outcome GA Total Labor Labor/2nd/3rd Weight Sex Type Anes PTL Dora A1 A5 Name Clin SAB Term Vag-S pont Living Term Vag-S pont Living Last Filed Vital Signs Vital Sign Reading Time Taken Comments Blood Pressure 128/80 08/30/2024 8:38 AM EDT Pulse 78 08/30/2024 8:38 AM EDT Temperature 36.3 ??C (97.3 ??F) 08/28/2024 10:01 AM E DT Respiratory Rate 16 08/28/2024 10:01 AM EDT Oxygen Saturation 98% 08/30/2024 8:38 AM EDT Inhaled Oxygen Concentration - - Weight 50.8 kg (112 lb) 08/30/2024 8:38 AM EDT Height 157.5 cm (5' 2 ) 08/30/2024 8:38 AM EDT Body Mass Index 20.49 08/30/2024 8:38 AM EDT Plan of Treatment Upcoming Encounters Date Type Department Care Team (Late st Contact Info) Description 09/05/2024 4:15 PM EDT Appointment Radiology Department - [address] [phone] 09/05/2024 5:00 PM EDT Appointment Radiology Department - [address] [phone] 09/22/2024 11:15 AM EDT Office Visit Endocrinology - [place] [address] [place], [place] [phone] Mukesh Patton MD [address] [place] [address] 10/12/2024 10:10 AM EDT Office Visit [facility] - [place] [address] [facility] [address] [place] [phone] Natividad Farley MD 175 [facility] [address] [place] [phone] 01/24/2025 11:30 AM EDT Office Visit Pulmonolgy - [place] [facility] [address] [place] [phone] Ana Maria Sanchez MD 175 [facility] [address] [place] [address] Health Maintenance Due Date Last Done Comments Hepatitis B Vaccines (1 of 3 - 19+ 3-dose series) 09/19/2006 Pneumococcal Vaccine: Pediatrics (0 to 5 Years) and At-Risk Patients (6 to 64 Years) (1 of 2 - PCV) 09/19/2006 Cholesterol Screening (Lipid Panel) 05/03/2022 11/22/2014 Depression Screening 05/03/2022 Social Influencers of Health Screening 05/03/2022 Cervical Cancer Screening: Pap Smear 10/11/2023 10/10/2020 COVID-19 Vaccine ( season) 2024 02/28/2022, 06/12/2021, 09/14/2020, Additional history exists Influenza Vaccine (Season Ended) 2025 04/30/2022, 04/30/2020 DTaP,Tdap,and Td Vaccines (3 - Td or Tdap) 02/02/2034 02/03/2024, 02/04/2014 HIV Screening Completed 08/30/2024 Hepatitis C Screening Completed 08/30/2024 HIB Vaccines Aged Out No longer eligi ble based on patient's age to complete this topic HPV Vaccines Aged Out No longer eligi ble based on patient's age to complete this topic Hepatitis A Vaccines Aged Out No long er eligible based on patient's age to complete this topic IPV Vaccines Aged Out No longer eligi ble based on patient's age to complete this topic MMR Vaccines Aged Out No longer eligi ble based on patient's age to complete this topic Meningococcal ACWY Vaccine Aged Out N o longer eligible based on patient's age to complete this topic Meningococcal B Vacine Aged Out No lo nger eligible based on patient's age to complete this topic RSV Immunization Patients Under 20 months Aged Out No longer eligible based on patient's age to complete this topic Varicella Vaccines Aged Out No longer eligible based on patient's age to complete this topic Procedures Procedure Name Priority Date/Time Associated Diagnosis Comments INTERFERON GAMMA INTERPRETATION Routine 08/30/2024 10:29 AM EDT White matter disease INTERFERON GAMMA ANTIGEN 2 Routine 08/30/2024 10:29 AM EDT White matter disease INTERFERON GAMMA ANTIGEN 1 Routine 08/30/2024 10:29 AM EDT White matter disease INTERFERON GAMMA MITOGEN Routine 08/30/2024 10:29 AM EDT White matter disease INTERFERON GAMMA NIL Routine 08/30/2024 10:29 AM EDT White matter disease CBC WITH AUTO DIFFERENTIAL Routine 08/30/2024 10:29 AM EDT White matter disease HEPATIC FUNCTION PANEL Routine 10:29 AM EDT White matter disease HIV 1, 2 ANTIBODY, P24 ANTIGEN WITH REFLEX TO DIFFERENTIATION Routine 08/30/2024 10:29 AM EDT White matter disease INTERFERON GAMMA FOR TB, QUALITATIVE Routine 08/30/2024 10:29 AM EDT White matter disease HEPATITIS B CORE ANTIBODY IGM Routine 08/30/2024 10:29 AM EDT White matter disease HEPATITIS B SURFACE ANTIGEN WITH CONFIRMATION Routine 08/30/2024 10:29 AM EDT White matter disease HEPATITIS C ANTIBODY Routine 08/30/2024 10:29 AM EDT White matter disease IMMUNOGLOBULIN IGM Routine 08/30/2024 10 :29 AM EDT White matter disease IMMUNOGLOBULIN IGG Routine 08/30/2024 10 :29 AM EDT White matter disease IMMUNOGLOBULIN IGA Routine 08/30/2024 10 :29 AM EDT White matter disease VARICELLA ZOSTER ANTIBODY IGG Routine 08/30/2024 10:29 AM EDT White matter disease MICHELLE IFA WITH TITER AND PATTERN Routine 08/30/2024 10:29 AM EDT White matter disease RHEUMATOID FACTOR Routine 08/30/2024 10: 29 AM EDT White matter disease CREATININE, SERUM Routine 08/30/2024 10: 29 AM EDT White matter disease BUN Routine 08/30/2024 10:29 AM EDT White matter disease BORRELIA BURGDORFERI ANTIBODY Routine 08/30/2024 10:29 AM EDT White matter disease CBC AND DIFFERENTIAL Routine 08/30/2024 10:29 AM EDT White matter disease VITAMIN D 25 HYDROXY Routine 08/30/2024 10:29 AM EDT White matter disease VITAMIN B12 Routine 08/30/2024 10:29 AM EDT White matter disease HEMOGLOBIN A1C Routine 08/29/2024 11:43 AM EDT Lower abdominal pain Urinary frequency CT ABDOMEN PELVIS WO CONTRAST STAT 08/29/2024 11:28 AM EDT Lower abdominal pain SYLVESTER URINE CULTURE TUBE Routine 08/29/19 25 4:43 PM EDT Lower abdominal pain Urinary frequency URINALYSIS WITH REFLEX MICROSCOPIC AND CULTURE Routine 08/28/2024 4:43 PM EDT Lower abdominal pain Urinary frequency URINALYSIS WITH REFLEX MICROSCOPIC AND CULTURE Routine 08/28/2024 4:43 PM EDT Lower abdominal pain Urinary frequency POC URINE NON-AUTO W/O MICRO Routine 08/28/2024 1:45 PM EDT Lower abdominal pain Urinary frequency SYLVESTER URINE CULTURE TUBE STAT 08/24/19 3:28 PM EDT URINALYSIS WITH REFLEX MICROSCOPIC AND CULTURE STAT 08/23/2024 3:28 PM EDT URINALYSIS WITH REFLEX MICROSCOPIC AND CULTURE STAT 08/23/2024 3:28 PM EDT CBC WITH AUTO DIFFERENTIAL STAT 08/23/2024 3:25 PM EDT COMPREHENSIVE METABOLIC PANEL STAT 08/23/2024 3:25 PM EDT CBC AND DIFFERENTIAL STAT 08/23/2024 3:25 PM EDT SYLVESTER URINE CULTURE TUBE Routine 08/23/19 11:05 AM EDT Flank pain Asthma-COPD overlap syndrome (CMS/HCC) Frequency of urination MICROALBUMIN CREATININE URINE RATIO Routine 08/22/2024 11:04 AM EDT Flank pain Asthma-COPD overlap syndrome (CMS/HCC) Frequency of urination URINALYSIS WITH REFLEX MICROSCOPIC AND CULTURE Routine 08/22/2024 11:04 AM EDT Flank pain Asthma-COPD overlap syndrome (CMS/HCC) Frequency of urination URINALYSIS WITH REFLEX MICROSCOPIC AND CULTURE Routine 08/22/2024 11:04 AM EDT Flank pain Asthma-COPD overlap syndrome (CMS/HCC) Frequency of urination BASIC METABOLIC PANEL Routine 08/22/2024 11:04 AM EDT Flank pain Asthma-COPD overlap syndrome (CMS/HCC) Frequency of urination MAGNESIUM Routine 08/22/2024 11:04 AM EDT Flank pain Asthma-COPD overlap syndrome (CMS/HCC) Frequency of urination METANEPHRINES, PLASMA FREE Routine 08/15/2024 12:25 PM EDT Sweating abnormality METANEPHRINES, URINE 24H Routine 08/15/2024 12:16 PM EDT Sweating abnormality POC RAPID STREP A Routine 07/15/2024 9:2 3 AM EST Sore throat THYROID STIMULATING HORMONE WITH REFLEX TO FREE T4 AND FREE T3 Routine 06/15/2024 4:04 PM EST Irregular menstrual cycle Hot flashes FOLLICLE STIMULATING HORMONE Routine 06/15/2024 4:04 PM EST Irregular menstrual cycle Hot flashes ESTRADIOL Routine 06/15/2024 4:04 PM EST Irregular menstrual cycle Hot flashes TESTOSTERONE FREE, BIOAVAILABLE AND TOTAL Routine 06/15/2024 4:04 PM EST Irregular menstrual cycle Hot flashes PROLACTIN Routine 06/15/2024 4:04 PM EST Irregular menstrual cycle Hot flashes CULTURE GENITAL Routine 06/15/2024 3:53 PM EST Vaginal yeast infection PAP SMEAR Routine 10/10/2020 from Last 3 Months or Most Recently Relevant to Health Maintenance Results * Hepatitis C antibody (08/30/2024 10:29 AM EDT) Hepatitis C Antibody Negative Negative LAB CHEMISTRY METHOD 08/30/2024 5:41 PM EDT [facility] ([facility]) [facility] Blood Venous blood specimen / Unknown Venipuncture / Unknown 08/30/2024 10:29 AM EDT 08/30/2024 12:05 PM EDT us Natividad Farley MD LAB BLOOD ORDERABLES Fin al Result Performing Organization Address [facility]/ZIP Co de Phone Number [facility] [address] [place] [address], [place] [phone] * HIV 1,2 antibody, p24 antigen with reflex to differentiation (08/30/2024 10:29 AM EDT) [facility] HIV Combo AB/AG Negative Negative LAB CHEMISTRY METHOD 08/30/2024 5:42 PM EDT [facility] Blood Venous blood specimen / Unknown Venipuncture / Unknown 08/30/2024 10:29 AM EDT 08/30/2024 12:05 PM EDT Narrative [facility] - 08/30/2024 5:42 PM EDT This assay is a 4th generation assay allowing for earlier detection of HIV infection by detecting the presence of the HIV-1 p24 antigen as well as the traditional antibodies to HIV type 1 (including group O) and type 2. ??Use of a 4th generation assay is the current CDC recommendation for HIV screening. us Natividad Farley MD LAB BLOOD ORDERABLES Fin al Result Performing Organization Address [facility] Co de Phone Number [facility] [address] [place] [address], [place] [phone] * Interferon gamma interpretation (08/30/2024 10:29 AM EDT) [facility] Quantiferon Plus Interpretation Negative Negative LAB CHEMISTRY METHOD 08/31/2024 10:57 AM EDT [facility] Blood Venous blood specimen / Unknown Venipuncture / Unknown 08/30/2024 10:29 AM EDT 08/30/2024 12:04 PM EDT us Natividad Farley MD LAB BLOOD ORDERABLES Fin al Result [facility] ([facility] [address] [place] [address], [place] [phone] * Interferon gamma antigen 2 (08/30/2024 10:29 AM EDT) Blood Venous blood specimen / Unknown Venipuncture / Unknown 08/30/2024 10:29 AM EDT 08/30/2024 12:04 PM EDT Natividad Farley MD LAB BLOOD ORDERABLES Fin al Result Performing Organization Address [facility]/ZIP Co de Phone Number [facility] [address] [place] [address], [place] [phone] * Inteferon gamma antigen 1 (08/30/2024 10:29 AM EDT) Blood Venous blood specimen / Unknown Venipuncture / Unknown 08/30/2024 10:29 AM EDT 08/30/2024 12:04 PM EDT Natividad Farley MD LAB BLOOD ORDERABLES Fin al Result Performing Organization Address City/[facility]/ZIP Co de Phone Number [facility] [address] [place] [address], [place] [phone] * Interferon gamma mitogen (08/30/2024 10:29 AM EDT) Blood Venous blood specimen / Unknown Venipuncture / Unknown 08/30/2024 10:29 AM EDT 08/30/2024 12:04 PM EDT us Natividad Farley MD LAB BLOOD ORDERABLES Fin al Result Performing Organization Address City/[facility]/ZIP Co de Phone Number [facility] [address] [place] [address], [place] [phone] * Interferon gamma NIL (08/30/2024 10:29 AM EDT) Blood Venous blood specimen / Unknown Venipuncture / Unknown 08/30/2024 10:29 AM EDT 08/30/2024 12:04 PM EDT us Natividad Farley MD LAB BLOOD ORDERABLES Fin al Result Performing Organization Address [facility] Co de Phone Number [facility] [address] [place] [address], [place] [phone] * Hepatitis B surface antigen with reflex to confirmation (08/30/2024 10:29 AM EDT) Hepatitis B Surface Ag Negative Negative LAB CHEMISTRY METHOD 08/30/2024 5:14 PM EDT [facility] Blood Venous blood specimen / Unknown Venipuncture / Unknown 08/30/2024 10:29 AM EDT 08/30/2024 12:05 PM EDT Narrative [facility] - 08/30/2024 5:14 PM EDT Over the counter supplements containing high doses of biotin may interfere with this assay. ??If interference is suspected, patients shoud be retested after refraining from biotin supplements for 72 hours. us Natividad Farley MD LAB BLOOD ORDERABLES Fin al Result Performing Organization Address [facility] de Phone Number [facility] [address] [place] [address], [place] [phone] * MICHELLE IFA with titer and pattern (08/30/2024 10:29 AM EDT) MICHELLE Negative Negative 08/31/2024 10:38 AM EDT [facility] Blood Venous blood specimen / Unknown Venipuncture / Unknown 08/30/2024 10:29 AM EDT 08/30/2024 12:05 PM EDT us Natividad Farley MD LAB BLOOD ORDERABLES Fin al Result [facility] [address] [place] [address], * CBC auto differential (08/30/2024 10:29 AM EDT) Only the most recent of2 resultswithin the time period is included. [facility] Signature WBC 8.6 4.8 - 10.8 K/mcL LAB HEMETOLOGY METHOD 08/30/2024 12:30 PM EDT [facility] RBC 4.10 3.80 - 4.80 M/mcL LAB HEMETOLOGY METHOD 08/30/2024 12:30 PM EDT [facility] Hemoglobin 13.0 11.5 - 16.0 g/dL LAB HEMETOLOGY METHOD 08/30/2024 12:30 PM EDT [facility] Hematocrit 37.5 35.0 - 47.0 % LAB HEMETOLOGY METHOD 08/30/2024 12:30 PM EDT [facility] MCV 90.8 79.0 - 98.0 FL LAB HEMETOLOGY METHOD 08/30/2024 12:30 PM EDT [facility] MCH 31.5 27.0 - 32.0 pcg LAB [facility]OLOGY [facility] MCHC 34.7 32.0 - 37.0 g/dL LAB HEMETOLOGY METHOD 08/30/2024 12:30 PM EDT [facility] RDW 11.5 11.0 - 15.0 % LAB HEMETOLOGY METHOD 08/30/2024 12:30 PM EDT [facility] Platelets 315 130 - 400 K/mcL LAB HEMETOLOGY METHOD 08/30/2024 12:30 PM EDT [facility] MPV 9.6 7.0 - 11.0 FL LAB HEMETOLOGY METHOD 08/30/2024 12:30 PM EDT [facility] NRBC 0.0 <1.0 % LAB HEMETOLOGY METHOD 08/30/2024 12:30 PM EDT [facility] NRBC Absolute 0.00 <0.10 K/mcL LAB HEMETOLOGY [facility] Neutrophils Relative 58.2 % LAB HEMETOLOGY METHOD 08/30/2024 12:[facility] Lymphocytes Relative 30.4 % LAB HEMETOLOGY METHOD 08/30/2024 12:30 PM [facility] Monocytes Relative 8.1 % LAB HEMETOLOGY METHOD 08/30/2024 12:30 PM [facility] Eosinophils Relative 2.3 % LAB HEMETOLOGY METHOD 08/30/2024 12:30 PM [facility] Basophils Relative 0.7 % LAB HEMETOLOGY METHOD 08/30/2024 12:30 PM [facility] Immature Granulocytes Relative 0.3 % LAB HEMETOLOGY METHOD 08/30/2024 12:30 PM [facility] Neutrophils Absolute 5.02 1.50 - 7.00 K/mcL LAB HEMETOLOGY METHOD 08/30/2024 12:30 PM [facility] Lymphocytes Absolute 2.63 1.00 - 5.00 K/mcL LAB HEMETOLOGY METHOD 08/30/2024 12:[facility] Monocytes Absolute 0.70 0.20 - 1.00 K/mcL LAB HEMETOLOGY METHOD 08/30/2024 12:30 PM [facility] Eosinophils Absolute 0.20 0.00 - 0.50 K/mcL LAB HEMETOLOGY METHOD 08/30/2024 12:30 PM [facility] Basophils Absolute 0.06 0.00 - 0.20 K/mcL LAB HEMETOLOGY METHOD 08/30/2024 12:30 PM [facility] Immature Granulocytes Absolute 0.03 0.00 - 0.03 K/mcL LAB HEMETOLOGY METHOD 08/30/2024 12:30 PM EDT [facility] Blood Venous blood specimen / Unknown Venipuncture / Unknown 08/30/2024 10:29 AM EDT 08/30/2024 12:08 PM EDT Natividad Farley MD LAB BLOOD ORDERABLES Fin al Result Performing Organization Address [facility] de Phone Number [facility] [address] [place] [address], * Borrelia burgdorferi antibody (08/30/2024 10:29 AM EDT) [facility] Lyme Ab Negative Negative LAB CHEMISTRY METHOD 08/30/2024 1:25 PM EDT [facility] Comment: No laboratory evidence of infection with B. burgdorferi (Lyme disease). Negative results may occur in patients recently infected (<=14 days) with B. burgdorferi. ??If recent infection is suspected, repeat testing on a new sample collected in 7-14 days is recommended. Blood Venous blood specimen / Unknown Venipuncture / Unknown 08/30/2024 10:29 AM EDT 08/30/2024 12:05 PM EDT us Natividad Farley MD LAB BLOOD ORDERABLES Fin al Result Performing Organization Address City/[facility]/ZIP Co de Phone Number [facility] [address] [place] [address], * Hepatitis B core antibody IgM (08/30/2024 10:29 AM EDT) [facility] Hep B Core IgM Negative Negative LAB CHEMISTRY METHOD 08/30/2024 5:42 PM EDT [facility] Blood Venous blood specimen / Unknown Venipuncture / Unknown 08/30/2024 10:29 AM EDT 08/30/2024 12:05 PM EDT Narrative [facility] - 08/30/2024 5:42 PM EDT Over the counter supplements containing high doses of biotin may interfere with this assay. ??If interference is suspected, patients shoud be retested after refraining from biotin supplements for 72 hours. us Natividad Farley MD LAB BLOOD ORDERABLES Fin al Result Performing Organization Address [facility] Co de Phone Number [facility] [address] [place] [address], * Creatinine (08/30/2024 10:29 AM EDT) Creatinine 0.55 0.50 - 1.10 mg/dL LAB CHEMISTRY METHOD 08/30/2024 2:41 PM EDT [facility] eGFR 122 >=60 mL/min/1. 73m2 LAB CHEMISTRY METHOD 08/30/2024 2:41 PM EDT [facility] Comment:Calculation based on the??Chronic Kidney Disease Epidemiology Collaboration (CKD-EPI) equation refit??without adjustment for race. Blood Venous blood specimen / Unknown Venipuncture / Unknown 08/30/2024 10:29 AM EDT 08/30/2024 12:05 PM EDT us Natividad Farley MD LAB BLOOD ORDERABLES Fin al Result Performing Organization Address [facility] Co de Phone Number [facility] [address] [place] [address], [place] [phone] * (ABNORMAL) Vitamin D 25 hydroxy (08/30/2024 10:29 AM EDT) Vit D, 25-Hydroxy 29.6(L) 30.0 - 80.0 ng/mL LAB CHEMISTRY METHOD 08/30/2024 5:02 PM EDT [facility] Blood Venous blood specimen / Unknown Venipuncture / Unknown 08/30/2024 10:29 AM EDT 08/30/2024 12:05 PM EDT us Natividad Farley MD LAB BLOOD ORDERABLES Fin al Result Performing Organization Address [facility] de Phone Number [facility] [address] [place] [address], * Rheumatoid factor (08/30/2024 10:29 AM EDT) Rheumatoid Factor <10.0 <15.0 I Unit/mL LAB CHEMISTRY METHOD 08/30/2024 2:41 PM EDT [facility] Blood Venous blood specimen / Unknown Venipuncture / Unknown 08/30/2024 10:29 AM EDT 08/30/2024 12:05 PM EDT us Natividad Farley MD LAB BLOOD ORDERABLES Fin al Result Performing Organization Address [facility] de Phone Number [facility] [address] [place] [address], * Varicella zoster antibody IgG (08/30/2024 10:29 AM EDT) Pathologist [facility] Varicella IgG Positive Positive LAB CHEMISTRY METHOD 08/30/2024 1:15 PM EDT [facility] Varicella Zoster IgG 17.30 >=1.00 S/CO LAB CHEMISTRY METHOD 08/30/2024 1:15 PM EDT [facility] Blood Venous blood specimen / Unknown Venipuncture / Unknown 08/30/2024 10:29 AM EDT 08/30/2024 12:05 PM EDT Narrative [facility] - 08/30/2024 1:15 PM EDT Interpretation >= 1.00 S/CO is considered to be consistent with Immunity us Natividad Farley MD LAB BLOOD ORDERABLES Fin al Result Performing Organization Address City/[facility]/ZIP Co de Phone Number [facility] [address] [place] [address], [place] [phone] * BUN (08/30/2024 10:29 AM EDT) BUN 7 5 - 25 mg/dL LAB CHEMISTRY METHOD 08/30/2024 2:41 PM EDT [facility] Blood Venous blood specimen / Unknown Venipuncture / Unknown 08/30/2024 10:29 AM EDT 08/30/2024 12:05 PM EDT Natividad Farley MD LAB BLOOD ORDERABLES Fin al Result Performing Organization Address [facility] Co de Phone Number [facility] [address] [place] [address], * Immunoglobulin IgA (08/30/2024 10:29 AM EDT) IgA 85 61 - 348 mg/dL LAB CHEMISTRY METHOD 08/30/2024 2:41 PM EDT [facility] Blood Venous blood specimen / Unknown Venipuncture / Unknown 08/30/2024 10:29 AM EDT 08/30/2024 12:05 PM EDT Natividad Farley MD LAB BLOOD ORDERABLES Fin al Result Performing Organization Address City/[facility]/ZIP Co de Phone Number [facility] [address] [place] [address], [place] [phone] * Immunoglobulin IgM (08/30/2024 10:29 AM EDT) IgM 144 23 - 259 mg/dL LAB CHEMISTRY METHOD 08/30/2024 3:03 PM EDT [facility] Blood Venous blood specimen / Unknown Venipuncture / Unknown 08/30/2024 10:29 AM EDT 08/30/2024 12:05 PM EDT us Natividad Farley MD LAB BLOOD ORDERABLES Fin al Result Performing Organization Address [facility]/ZIP Co de Phone Number [facility] [address] [place] [address], [place] [phone] * Immunoglobulin IgG (08/30/2024 10:29 AM EDT) Total IgG 1,240 549 - 1,584 mg/dL LAB CHEMISTRY METHOD 08/30/2024 2:41 PM EDT [facility] Blood Venous blood specimen / Unknown Venipuncture / Unknown 08/30/2024 10:29 AM EDT 08/30/2024 12:05 PM EDT us Natividad Farley MD LAB BLOOD ORDERABLES Fin al Result Performing Organization Address [facility]/ZIP Co de Phone Number [facility] [address] [place] [address], [place] [phone] * Vitamin B12 (08/30/2024 10:29 AM EDT) Vitamin B-12 293 250 - 900 pcg/mL LAB CHEMISTRY METHOD 08/30/2024 3:03 PM EDT [facility] Blood Venous blood specimen / Unknown Venipuncture / Unknown 08/30/2024 10:29 AM EDT 08/30/2024 12:05 PM EDT us Natividad Farley MD LAB BLOOD ORDERABLES Fin al Result [facility] [address] [place] [address], [place] [phone] * Hepatic function panel (08/30/2024 10:29 AM EDT) Total Protein 7.4 6.0 - 8.0 g/dL LAB CHEMISTRY METHOD 08/30/2024 2:41 PM EDT [facility] Albumin 4.3 3.2 - 5.0 g/dL LAB CHEMISTRY METHOD 08/30/2024 2:41 PM EDT [facility] Total Bilirubin 0.6 0.0 - 1.4 mg/dL LAB CHEMISTRY METHOD 08/30/2024 2:41 PM EDT [facility] Bilirubin, Direct 0.2 0.0 - 0.3 mg/dL LAB CHEMISTRY METHOD 08/30/2024 2:41 PM EDT [facility] Bilirubin, Indirect 0.4 0.0 - 1.1 mg/dL LAB CHEMISTRY METHOD 08/30/2024 2:41 PM T [facility] ALT (SGPT) 19 10 - 60 unit/L LAB CHEMISTRY METHOD 08/30/2024 2:41 PM T [facility] AST (SGOT) 14 10 - 42 unit/L LAB CHEMISTRY METHOD 08/30/2024 2:41 PM EDT [facility] Alkaline Phosphatase 59 42 - 121 unit/L LAB CHEMISTRY METHOD 08/30/2024 2:41 PM T [facility] Blood Venous blood specimen / Unknown Venipuncture / Unknown 08/30/2024 10:29 AM EDT 08/30/2024 12:05 PM EDT Natividad Farley MD LAB BLOOD ORDERABLES Fin al Result [facility] [address] [place] [address], * Hemoglobin A1c (08/29/2024 11:43 AM EDT) Pathologist [facility] Hemoglobin A1C 5.1 <6.5 % LAB CHEMISTRY METHOD 08/29/2024 10:31 PM EDT [facility] Mean Bld Glu Estim. 100 mg/dL LAB CHEMISTRY METHOD 08/29/2024 10:31 PM EDT [facility] Blood Venous blood specimen / Unknown Venipuncture / Unknown 08/29/2024 11:43 AM EDT 08/29/2024 11:43 AM EDT us Manuel Ewing [employer] LAB BLOOD ORDERABLES Final R esult [facility]) [facility] [address] [place] [address], [place] [phone] * CT Abdomen Pelvis wo Contrast (08/29/2024 [...] Signed Date: 08/29/2024 12:10 ET Workstation ID: [id number] Transcribed By: Self Edit Transcribed Date: 08/29/2024 [...] Signed Date: 08/29/2024 12:10 ET Workstation ID: [id number] Transcribed By: Self Edit Transcribed Date: 08/29/2024 11:51 ET Manule Ewing [employer] IMG CT PROCEDURES Final Resu lt * Urinalysis with reflex microscopic and culture (08/28/2024 4:43 PM EDT) Only the most recent of3 resultswithin the time period is included. Specific [place] Urine 1.004 1.003 - 1.030 LAB URINALYSIS - AUTOMATED METHOD 08/28/2024 6:58 PM EDT [facility] pH, Urine 7.5 5.0 - 8.0 pH LAB URINALYSIS - AUTOMATED METHOD 08/28/2024 6:58 PM EDT [facility] Leukocytes, Urine Negative Negative LAB URINALYSIS - AUTOMATED METHOD 08/28/2024 6:58 PM T [facility] Nitrite, Urine Negative Negative LAB URINALYSIS - AUTOMATED METHOD 08/28/2024 6:58 PM EDT [facility] Protein, Urine Negative <=Trace mg/dL LAB URINALYSIS - AUTOMATED METHOD 08/28/2024 6:58 PM EDT [facility] Glucose, Urine Negative Negative mg/dL LAB URINALYSIS - AUTOMATED METHOD 08/28/2024 6:58 PM EDT [facility] Ketones, Urine Negative Negative mg/dL LAB URINALYSIS - AUTOMATED METHOD 08/28/2024 6:58 PM EDT [facility] Urobilinogen, Urine 0.2 0.2 - 1.0 mg/dL LAB URINALYSIS - AUTOMATED METHOD 08/28/2024 6:58 PM EDT [facility] Bilirubin, Urine Negative Negative LAB URINALYSIS - AUTOMATED METHOD 08/28/2024 6:58 PM EDT [facility] Blood, Urine Negative Negative LAB URINALYSIS - AUTOMATED METHOD 08/28/2024 6:58 PM EDT [facility] Urine Urine specimen obtained by clean catch procedure / Unknown Non-blood Collection / Unknown 08/28/2024 4:43 PM EDT 08/28/2024 4:43 PM EDT Manuel Ewing [employer] LAB URINE ORDERABLES Final R esult [facility] [address] [place] [address], * Sylvester urine culture tube (08/28/2024 4:43 PM EDT) Only the most recent of3 resultswithin the time period is included. Extra Tube Hold for add-ons. 08/28/2024 7:01 PM EDT [facility] Comment:Auto resulted. Urine Urine specimen obtained by clean catch procedure / Unknown Non-blood Collection / Unknown 08/28/2024 4:43 PM EDT 08/28/2024 4:43 PM EDT Manuel Ewing [employer] LAB URINE ORDERABLES Final R esult [facility] [address] [place] [address], [place] [phone] * (ABNORMAL) POC Urine Non-Auto W/O Micro (08/28/2024 1:45 PM EDT) Pathologist [facility] Leukocytes UA POC Negative Negative Nitrite UA POC Negative Negative Urobilinogen UA POC Negative Negative Protein UA POC Negative Negative PH UA POC 6.0 5.0 - 9.0 Blood UA POC Negative Negative, Trace Specific [place] UA POC 1.005 1.001 - 1.035 Ketones UA POC Negative Negative Bilirubin UA POC Negative Negative Glucose UA POC Normal Normal, Trace Urine Urine specimen obtained by clean catch procedure / Unknown 08/28/2024 1:45 PM EDT Manuel Ewing [employer] POINT OF CARE TEST ENTER/MONA T ORDERABLES Final Result * (ABNORMAL) Comprehensive metabolic panel (08/23/2024 3:25 PM EDT) Pathologist [facility] Sodium 134 133 - 145 mmol/L LAB CHEMISTRY METHOD 08/23/2024 4:04 PM [facility] Potassium 3.8 3.5 - 5.5 mmol/L LAB CHEMISTRY METHOD 08/23/2024 4:04 PM T [facility] Chloride 103 96 - 110 mmol/L LAB CHEMISTRY METHOD 08/23/2024 4:04 PM T [facility] CO2 26 21 - 32 mmol/L LAB CHEMISTRY METHOD 08/23/2024 4:04 PM [facility] Anion Gap 5 3 - 11 LAB CHEMISTRY METHOD 08/23/2024 4:04 PM [facility] Glucose 103(H) 70 - 100 mg/dL LAB CHEMISTRY METHOD 08/23/2024 4:04 PM [facility] BUN 10 5 - 25 mg/dL LAB CHEMISTRY METHOD 08/23/2024 4:04 PM [facility] Creatinine 0.68 0.50 - 1.10 mg/dL LAB CHEMISTRY METHOD 08/23/2024 4:04 PM [facility] eGFR 116 >=60 mL/min/1. 73m2 LAB CHEMISTRY METHOD 08/23/2024 4:04 PM [facility] Comment:Calculation based on the??Chronic Kidney Disease Epidemiology Collaboration (CKD-EPI) equation refit??without adjustment for race. BUN/Creatinine Ratio 14.7 LAB CHEMISTRY METHOD 08/23/2024 4:04 PM [facility] Calcium 9.7 8.5 - 10.5 mg/dL LAB CHEMISTRY METHOD 08/23/2024 4:04 PM [facility] AST (SGOT) 21 10 - 42 unit/L LAB CHEMISTRY METHOD 08/23/2024 4:04 PM [facility] ALT (SGPT) 21 10 - 60 unit/L LAB CHEMISTRY METHOD 08/23/2024 4:04 PM [facility] Alkaline Phosphatase 72 42 - 121 unit/L LAB CHEMISTRY METHOD 08/23/2024 4:04 PM [facility] Total Protein 8.0 6.0 - 8.0 g/dL LAB CHEMISTRY METHOD 08/23/2024 4:04 PM [facility] Albumin 4.4 3.2 - 5.0 g/dL LAB CHEMISTRY METHOD 08/23/2024 4:04 PM [facility] Total Bilirubin 0.6 0.0 - 1.4 mg/dL LAB CHEMISTRY METHOD 08/23/2024 4:04 PM [facility] Blood Venous blood specimen / Unknown Venipuncture / Unknown 08/23/2024 3:25 PM EDT 08/23/2024 3:32 PM EDT us Christopher Fournier MD LAB BLOOD ORDERABLES Final Resu lt Performing Organization Address [facility] Co de Phone Number [facility] [address] [place] [address], [place] [phone] * (ABNORMAL) Microalbumin creatinine urine ratio (08/22/2024 11:04 AM EDT) Creatinine, Urine 15.0 mg/dL LAB CHEMISTRY METHOD 08/22/2024 2:11 PM EDT [facility] Microalb, Ur <5.0 0.0 - 29.0 mg/L LAB CHEMISTRY METHOD 08/22/2024 2:11 PM EDT [facility] Microalb/Creat Ratio <33(H) <30 mg/g creat LAB CHEMISTRY METHOD 08/22/2024 2:11 PM EDT [facility] Urine Urine specimen obtained by clean catch procedure / Unknown Non-blood Collection / Unknown 08/22/2024 11:04 AM EDT 08/22/2024 11:04 AM EDT Manuel Ewing [employer] LAB URINE ORDERABLES Final R esult Performing Organization Address [facility] de Phone Number [facility] [address] [place] [address], [place] [phone] * Magnesium (08/22/2024 11:04 AM EDT) Magnesium 2.2 1.9 - 2.6 mg/dL LAB CHEMISTRY METHOD 08/22/2024 4:11 PM EDT [facility] Blood Venous blood specimen / Unknown Venipuncture / Unknown 08/22/2024 11:04 AM EDT 08/22/2024 11:04 AM EDT Manuel Ewing [employer] LAB BLOOD ORDERABLES Final R esult Performing Organization Address [facility]/ZIP Co de Phone Number [facility] [address] [place] [address], [place] [phone] * Basic metabolic panel (08/22/2024 11:04 AM EDT) Sodium 136 133 - 145 mmol/L LAB CHEMISTRY METHOD 08/22/2024 4:11 PM [facility] Potassium 3.9 3.5 - 5.5 mmol/L LAB CHEMISTRY METHOD 08/22/2024 4:11 PM [facility] Chloride 104 96 - 110 mmol/L LAB CHEMISTRY METHOD 08/22/2024 4:11 PM [facility] CO2 27 21 - 32 mmol/L LAB CHEMISTRY METHOD 08/22/2024 4:11 PM [facility] Anion Gap 5 3 - 11 LAB CHEMISTRY METHOD 08/22/2024 4:11 PM [facility] Glucose 85 70 - 100 mg/dL LAB CHEMISTRY METHOD 08/22/2024 4:11 PM [facility] BUN 11 5 - 25 mg/dL LAB CHEMISTRY METHOD 08/22/2024 4:11 PM [facility] Creatinine 0.69 0.50 - 1.10 mg/dL LAB CHEMISTRY METHOD 08/22/2024 4:11 PM [facility] eGFR 116 >=60 mL/min/1. 73m2 LAB CHEMISTRY METHOD 08/22/2024 4:11 PM [facility] Comment:Calculation based on the??Chronic Kidney Disease Epidemiology Collaboration (CKD-EPI) equation refit??without adjustment for race. BUN/Creatinine Ratio 15.9 LAB CHEMISTRY METHOD 08/22/2024 4:11 PM [facility] Calcium 9.3 8.5 - 10.5 mg/dL LAB CHEMISTRY METHOD 08/22/2024 4:11 PM [facility] Blood Venous blood specimen / Unknown Venipuncture / Unknown 08/22/2024 11:04 AM EDT 08/22/2024 11:04 AM EDT us Manuel Ewing [employer] LAB BLOOD ORDERABLES Final R esult [facility]) [facility] [address] [place] [address], * (ABNORMAL) Metanephrines, plasma free (08/15/2024 12:25 PM EDT) Metanephrines Free 64(H) < OR = 57 pg/mL 08/29/2024 4:39 PM EDT [facility] Comment: This test was developed and its analytical performance characteristics have been determined by [facility]. It has not been cleared or approved by the FDA. This assay has been validated pursuant to the CLIA regulations and is used for clinical purposes. Normetanephrine Free 96 < OR = 148 pg/mL 08/29/2024 4:39 PM EDT [facility] Comment: This test was developed and its analytical performance characteristics have been determined by [facility]. It has not been cleared or approved by the FDA. This assay has been validated pursuant to the CLIA regulations and is used for clinical purposes. Total, Free (MN + NMN) 160 < OR = 205 pg/mL 08/29/2024 4:39 PM EDT [facility] Comment: Elevations > 4-fold upper reference range: strongly suggestive of a pheochromocytoma(1). Elevations >1 - 4-fold upper reference range: significant but not diagnostic, may be due to medications or stress. Suggest running 24 hr urine fractionated metanephrines and serum Chromogranin A for confirmation. Reference: (1) Mabel Salas et al, Plasma Chromogranin A or Urine Fractionated Metanephrines Follow-Up Testing Improves the Diagnostic Accuracy of Plasma Fractionated Metanephrines for Pheochromocytoma. The Journal of Clinical Endocrinology and Metabolism 93 (1),91-95, 2008. For additional information, please refer to http://education.Leondra music.[employer]/faq/MetFractFree (This link is being provided for informational/educational purposes only.) This test was developed and its analytical performance characteristics have been determined by [facility]. It has not been cleared or approved by the FDA. This assay has been validated pursuant to the CLIA regulations and is used for clinical purposes. Test Performed at: [facility] [address] [place], [place] ??[phone] ? I Libby LAMBERT, PhD, SERGEI Blood Venous blood specimen / Unknown Venipuncture / Unknown 08/15/2024 12:25 PM EDT 08/15/2024 12:34 PM EDT us Mukesh Patton MD LAB BLOOD ORDERABLES Final Resul t [facility] [address] [place] [address] * (ABNORMAL) Metanephrines, urine 24H (08/15/2024 12:16 PM EDT) Urine Volume 3,000 600 - 2000 mL 08/21/2024 1:56 PM EDT [facility] Creatinine 24 Hr Urine 0.7(L) 0.8 - 1.8 gm/24h 08/21/2024 1:56 PM EDT [facility] Normetanephrine 24 Hr Urine 180 88 - 444 ug/day 08/21/2024 1:56 PM EDT [facility] Metanephrine 24 Hr Urine 90 52 - 341 ug/day 08/21/2024 1:56 PM EDT [facility] Total Metanephrines 270 140 - 785 ug/day 08/21/2024 1:56 PM EDT [facility] Comment: This test was developed and the performance characteristics determined by [facility]. It has not been cleared or approved by the FDA. The laboratory is regulated under CLIA as qualified to perform high-complexity testing. This test is used for patient testing purposes. It should not be regarded as investigational or for research. Test performed at [facility], [address] , [place], [place] ??[address] ? [phone] Wendy Weiner MD, PhD - [employer] Urine Urine specimen from urethra / Unknown Non-blood Collection / Unknown 08/15/2024 12:16 PM EDT 08/15/2024 12:32 PM EDT Mukesh Patton MD LAB URINE ORDERABLES Final Resul t [facility] [address] [place] [address] * POC rapid strep A manually resulted (07/15/2024 9:23 AM EST) [facility] Rapid Strep A Screen POC Negative Negative Swab Structure of anterior portion of neck / Unknown 07/15/2024 9:23 AM EST 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 NP POINT OF CARE TEST ENTER/EDIT ORDERABLES Final Result * Thyroid stimulating hormone with reflex to free t4 and free t3 (06/15/2024 4:04 PM EST) [facility] TSH 1.21 0.40 - 4.00 mcIU/mL LAB CHEMISTRY METHOD 06/15/2024 7:37 PM EST [facility] Blood Venous blood specimen / Unknown Venipuncture / Unknown 06/15/2024 4:04 PM EST 06/15/2024 4:04 PM EST Ni Willson MD LAB BLOOD ORDERABLES Final Result [facility] [address] [place] [address], [place] [phone] * Testosterone free, bioavailable and total (06/15/2024 4:04 PM EST) [facility] Testosterone 18 9 - 48 ng/dL LAB CHEMISTRY METHOD 06/15/2024 7:37 PM EST [facility] Testosterone, Free 0.2 0.0 - 0.5 ng/dL LAB CHEMISTRY METHOD 06/15/2024 7:37 PM EST [facility] Testosterone, Bioavailable 4 1 - 9 ng/dL LAB CHEMISTRY METHOD 06/15/2024 7:37 PM EST [facility] Sex Hormone Binding 71.6 See Comment nmol/L LAB CHEMISTRY METHOD 06/15/2024 7:37 PM EST [facility] Comment: FEMALES: ??pre-menopausal ?? 10.8 - >180 ??post-menopausal ??23.2 - 159.1 MALES: ?? 21-49 years ? 14.6 - 94.6 ?? 50-89 years ? 21.6 - 113.1 CHILDREN: ??No established reference range Over the counter supplements containing high doses of biotin may interfere with this assay. ??If interference is suspected, patients should be retested after refraining from biotin supplements for 72 hours. Albumin 4.1 3.2 - 5.0 g/dL LAB CHEMISTRY METHOD 06/15/2024 7:37 PM EST [facility] Blood Venous blood specimen / Unknown Venipuncture / Unknown 06/15/2024 4:04 PM EST 06/15/2024 4:04 PM EST Ni Willson MD LAB BLOOD ORDERABLES Final Result Performing Organization Address City/State/[facility] Co de Phone Number [facility] [address] [place] [address], * Prolactin (06/15/2024 4:04 PM EST) Prolactin 14.50 See Comment ng/mL LAB CHEMISTRY METHOD 06/15/2024 7:28 PM EST [facility] Comment: Prolactin Reference Ranges (ng/mL) ??Non ?2.2 - ??30.3 ? 8.1 - 347.6 ??Postmenopausal 0.7 - ??31.5 Blood Venous blood specimen / Unknown Venipuncture / Unknown 06/15/2024 4:04 PM EST 06/15/2024 4:04 PM EST Ni Willson MD LAB BLOOD ORDERABLES Final Result Performing Organization Address [facility]/ZIP Co de Phone Number [facility] [address] [place] [address], [place] [phone] * Estradiol (06/15/2024 4:04 PM EST) Estradiol 235 See below pcg/mL LAB CHEMISTRY METHOD 06/15/2024 7:28 PM EST [facility] Comment: ESTRADIOL REFERENCE RANGES (PG/ML) FEMALES NORMALLY MENSTRUATING: FOLLICULAR PHASE 21.4 - 164.8 MIDCYCLE PEAK ?49.9 - 367.2 LUTEAL PHASE ? 40.2 - 259.0 POSTMENOPAUSAL: ON HRT ?<11 - 462.1 UNTREATED ? <11 - ??58.3 Fulvestrant has been shown to cross-react with the estradiol assay and cause falsely elevated results. For patients being treated with fulvestrant, Estradiol ultrasensitive should be ordered. ??This test is performed by LC/MS and is not expected to show cross reactivity to fulvestrant. Blood Venous blood specimen / Unknown Venipuncture / Unknown 06/15/2024 4:04 PM EST 06/15/2024 4:04 PM EST Ni Willson MD LAB BLOOD ORDERABLES Final Result Performing Organization Address [facility]/ZIP Co de Phone Number [facility] [address] [place] [address], [place] [phone] * Follicle stimulating hormone (06/15/2024 4:04 PM EST) Follicle Stimulating Hormone 4.5 See Comment mIU/mL LAB CHEMISTRY METHOD 06/15/2024 9:49 PM EST [facility] Comment: FSH REFERENCE RANGES (MIU/ML) FEMALES NORMALLY MENSTRUATING: FOLLICULAR PHASE ??2.3 - 12.6 MIDCYCLE PEAK ? 5.2 - 17.5 LUTEAL PHASE ?1.7 - ??9.5 POSTMENOPAUSAL: ON HRT ?5.9 - ??72.8 UNTREATED ?12.7 - 132.2 Blood Venous blood specimen / Unknown Venipuncture / Unknown 06/15/2024 4:04 PM EST 06/15/2024 4:04 PM EST Ni Willson MD LAB BLOOD ORDERABLES Final Result Performing Organization Address [facility]/ZIP Co de Phone Number [facility] [address] [place] [address], * Culture genital (06/15/2024 3:53 PM EST) Culture, Genital No yeast, Beta Strep group B, Neisseria gonorrhoeae, Listeria, Gardnerella vaginalis, or other predominant potentially significant pathogens noted. 06/18/2024 9:46 AM EST [facility] Swab Vaginal structure / Unknown Non-blood Collection / Unknown 06/15/2024 3:53 PM EST 06/15/2024 3:53 PM EST Ni Willson MD LAB MICROBIOLOGY - GENERAL ORDERABLES Final Result Performing Organization Address [facility] Co de Phone Number [facility] [address] [place] [address], [place] [phone] * Pap smear (10/10/2020) 10/10/2020 Narrative HISTORICAL TESTING LAB RESULTING AGENCY - 10/14/2020 4:51 PM EDT [id number] THINPREP PAP, IMAGED: NEGATIVE FOR SQUAMOUS INTRAEPITHELIAL LESION AND MALIGNANCY . JESSIKA ADAMS(ASCP) (CASE ELECTRONICALLY SIGNED 10 14 2020) RESULT OF APTIMA HIGH RISK HPV ASSAY: HIGH RISK HPV: ??NEGATIVE (SEROTYPES 16,18,31,33,35,39,45,51,52,56,58,59,66,68) COMPLETED ON 2020-10-14 ADEQUACY: SATISFACTORY ENDOCERVICAL/TRANSFORMATION ZONE COMPONENT PRESENT. SOURCE: THINPREP PAP HPV ANY DX: ??REFLEX 16 AND 18, CERVICAL, IMAGED CLINICAL INFORMATION: HPV ANY DIAGNOSIS. HORMONES, PAP HX NEG [Z12.4] us Ni Willson MD LAB CYTOLOGY ORDERABLES Fin al Result HISTORICAL TESTING LAB RESULTING AGENCY from Last 3 Months or Most Recently Relevant to Health Maintenance Insurance [facility] [employer] [facility] Care Teams Demand Generator Manager Relationship Specialty Start Date End Date Gurmeet Soto MD [address] [place] [id number] PCP - General 08/12/22
--- OUTSIDE RECORDS SUMMARY | 2024-09-01 07:13 | XMS_ITS | Encounter Summary ---
Author Organization [facility] Address [address] [place] [address] Care Team Providers Care Associate Professor Of Engineering Name Role Phone Gurmeet Soto MD Primary Care Provider Encounter Details Date Type Department Care Team (Late st Contact Info) Description 08/30/2024 8:40 AM EDT Consult [facility] [address] [place] [phone] Natividad Farley MD [address] [place] [phone] White matter disease (Primary Dx); Lhermitte sign positive; Urinary frequency; Other fatigue Social History Tobacco Use Types Packs/Day Years [...] Pulse 78 08/30/2024 8:38 AM EDT Temperature - - Respiratory Rate - - Oxygen Saturation 98% 08/30/2024 8:38 AM EDT Inhaled Oxygen Concentration - - Weight 50.8 kg (112 lb) 08/30/2024 8:38 AM EDT Height 157.5 cm (5' 2 ) 08/30/2024 8:38 AM EDT Body Mass Index 20.49 08/30/2024 8:38 AM EDT documented in this encounter Progress Notes * Natividad Farley MD - 08/30/2024 8:40 AM EDT HPI: Tri Arreola is a 38 y.o. year old female referred to our center by Gurmeet Soto MD for evaluation and management of white matter lesions concerning for demyelinating disease . Disease Summary Date of onset/Initial symptom presentation: Date of diagnosis of MS: Disease course at onset: Current disease course: Last MS exacerbation: Previous disease therapies(reason for switch): Current disease therapy: Most recent MRI Brain: 04/2024 T2 lesion supratentorial periventricular subcortical progressed [id number] Most recent MRI Cervical spine: 07/2024 T2 lesion at the level of C2-C3 and enhancing Most recent MRI Thoracic spine: No T2 changes CSF: JCV serology result and date: MS mimickers: 38 yo female with PMH of Ehler danlos syndrome , POTS , COPD , she started experiencing 20 yo She has been having symptoms of tingling and numbness in her upper extermities , she was evaluated by neurology and MRI brain did show White matter lesions , she was diagnosed with migraines over the yearsto obtain MRI brain with increasing lesion burden yet her neurologist was not concerned Symptomatically over years she has been getting worse waxing and wanning of tingling and numbness of her upper extermities, She usually experience episodic dizziness with room spinning , She has blurry vision in her Lt eye lasting ranging for minutes to days She had an episode last winter she had positive Lhermitte sign with bending her neck she develops tingling and numbness in her lower extremities patient had a follow-up MRI done which showed increased T2 changes on MRI brain she also had an MRI of the cervical spine that showed T2 change at the level of MRI thoracic spine with no cord lesion patient was evaluated with neurology at [facility] arrange for a spinal tap next week She had an ED presentation recently 07/2024 with abdominal pain and fatigue and was found have cyst on CT abdomen Reviewing prior neurological symptoms she had an episode in past after having her son 10 yrs ago , she was having slurred speech and nothing felt real she went to ED her symptoms resolved within 30minutes She has been noticing worsen short term memory , over years and She has been evaluated with endocrine She has been having muscle cramps in her legs and arms , constant headache she was diagnosed with migraine headaches since she was 14 current headaches slightly different less severe than her migraine headache only moves more pressure than throbbing Active Symptoms: Bowel/bladder:she has episodic UI , she does experience frequency and hesitancy her symptoms are more frequent when she is having episodes of worsening overall symptoms Depression/anxiety: mood up and down experience anxiety Gait impairment: she does ocassionally experience limitation in how far she can walk varies Fatigue: she experience severe fatigue mainly physically able to perform what she used to perform the past Taking vitamin D supplementation: no, Past or present Lhermitte's: yes Past Medical History: Diagnosis Date COPD (chronic obstructive pulmonary disease) ([facility]) Dysphagia DX:Dysphagia Clary-Danlos syndrome DX:Clary-Danlos syndrome Esophageal reflux DX:Esophageal reflux History of opioid abuse ([facility]) DX:History of opioid abuse ([facility]) Low back pain 06/04/2016 DX:Low back pain; COMMENT: Sees PSS Multiple sclerosis ([facility]) Tobacco use DX:Tobacco use Current Outpatient Medications Medication Sig Dispense Refill acetaminophen (TYLENOL 8 HOUR) 650 mg 8 hr tablet Take 1 tablet (650 mg total) by mouth every 8 (eight) hours if needed. aluminum-magnesium hydroxide-simethicone (MAALOX) 200-200-20 mg/5 mL suspension Take 30 mL by mouth4 (four) times a day (before meals and nightly). 769 mL 11 buprenorphine-naloxone (SUBOXONE) 8-[address] film [address] 1 film under the tongue. fluticasone propionate (FLONASE) 50 mcg/actuation nasal spray Administer 1-2 sprays into affected nostril(s). hydrocortisone (ANUSOL-HC) 25 mg suppository Insert 1 suppository (25 mg total) into the rectum 1 (one) time each day. 30 suppository 11 ipratropium HFA (Atrovent HFA) 17 mcg/actuation inhaler Inhale 2 puffs by mouth 4 (four) times a day. 1 each 11 metoprolol tartrate (LOPRESSOR) 25 mg tablet Take 1 tablet (25 mg total) by mouth 1 (one) time eachday. 90 each 0 senna-docusate (PERICOLACE) 8.6-50 mg per tablet Take 1 tablet by mouth 1 (one) time each day. 30 each 11 No current facility-administered medications for this visit. 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 Neurologic Exam: Visit Vitals BP 128/80 (BP Location: Left arm, Patient Position: Sitting) Pulse 78 Ht 1.575 m (62 ) Wt 50.8 kg (112 lb) SpO2 98% BMI 20.49 kg/m?? OB Status Having periods Smoking Status Every Day BSA 1.49 m?? MS: AOx3 CN: perrla, , V1-3 intact to LT, face symmetric, bilateral SCM/trapezius 5/5, tongue/uvula/palate midline Motor: 5/5 in all extremities Sensation: Intact to light touch, temperature, and decreased vibration distally in her lower extremity Reflexes: 2+ in bilateral biceps and 3+ patellae, toes downgoing bilaterally Cerebellar: FNF intact bilaterally, FFM intact bilaterally, SANCHEZ intact bilaterally, tandem gait normal, romberg negative Labs: Ordered Imaging: No images were reviewed by me. A/P: Tri Arreola is a 38 y.o. year old female referred to our center by Gurmeet Soto MD for evaluation and management of white matter lesion concerning for demyelinating disease in the setting of previous episodes with dizziness blurry vision episode concerning for positive Lhermitte sign MRI brain with T2 changes increased to 2023 compared to 2019 . Based on the clinical history, neurologic exam, and imaging, I do think that the diagnosis is concerning for inflammatory demyelinating disease. I would like to repeat an MRI of the brain, cervical, and thoracic spine to assess the current disease burden. I would also like to check bloodwork for MS mimickers. We have discussed the array of services the [facility] has to offer patients and I have recommended the following as listed below. -Need to obtain prior imaging MRI brain/C/T spine with and without contrast to assess current disease burden -bloodwork for MS mimickers (lyme, SSa, SSb, dsDNA, RF, B12, folate, HIV Will obtain the records for the spinal tap. -check vitamin D level and JCV Ab status -Will obtain different lab for disease modifying -Next visit will consider PT/OT/ST referral for functional evaluation -Next visit will consider urology referral -RTC in 1 month for follow up The patient and I discussed the clinical picture during today's appointment. Additional time was spent prior to the actual appointment reviewing records, lab values and imaging results and preparing documentation for today's visit. There was also time spent following the in person visit documenting, arranging for further diagnostic testing and follow-up appointments. The entire time spent in thisprocess was greater than70 minutes. The majority of the actual [id number] visit was spent counseling the patient with respect to the current neurological picture. Natividad Farley MD documented in this encounter Plan of Treatment Upcoming Encounters Date Type Department Care Team (Late st Contact Info) Description 09/05/2024 4:15 PM EDT Appointment Radiology Department - [address] [phone] 09/05/2024 5:00 PM EDT Appointment Radiology Department - [address] [phone] 09/22/2024 11:15 AM EDT Office Visit Endocrinology - [place] [address] [place] [address] Mukesh Patton MD [address] [place] [address] 10/12/2024 10:10 AM EDT Office Visit [facility] [place] [address] [place] [phone] Natividad Farley MD [address] [place] [phone] 01/24/2025 11:30 AM EDT Office Visit Pulmonolgy - [place] [address] [place] [phone] Ana Maria Sanchez MD [address] [facility] [address] [place] [address] Pending Results Name Type Priority Associated Diagnoses Date /Time Sjogrens antibodies, SSA and SSB Lab Routine White matter disease 08/30/2024 10:29 AM EDT Myelin oligodendrocyte glycoprotein antibody with reflex to titer Lab Routine White matter disease 08/30/2024 10:29 AM EDT Neuromyelitis optica, [id number] Lab Routine White matter disease 08/30/2024 10:29 AM EDT JCV polyoma virus antibody with reflex to inhibition assay Lab Routine White matter disease 08/30/2024 10:29 AM EDT Scheduled Orders Name Type Priority Associated Diagnoses Orde r Schedule Sjogrens antibodies, SSA and SSB Lab Routine White matter disease 1 Occurrences starting 08/30/2024 until 08/30/2025 Myelin oligodendrocyte glycoprotein antibody with reflex to titer Lab Routine White matter disease 1 Occurrences starting 08/30/2024 until 08/30/2025 Neuromyelitis optica, [id number] Lab Routine White matter disease 1 Occurrences starting 08/30/2024 until 08/30/2025 JCV polyoma virus antibody with reflex to inhibition assay Lab Routine White matter disease 1 Occurrences starting 08/30/2024 until 08/30/2025 documented as of this encounter Results * Hepatic function panel (08/30/2024 10:29 AM EDT) Total Protein 7.4 6.0 - 8.0 g/dL LAB CHEMISTRY METHOD 08/30/2024 2:41 PM EDT [facility] Albumin 4.3 3.2 - 5.0 g/dL LAB CHEMISTRY METHOD 08/30/2024 2:41 PM EDT [facility] Total Bilirubin 0.6 0.0 - 1.4 mg/dL LAB CHEMISTRY METHOD 08/30/2024 2:41 PM [facility] Bilirubin, Direct 0.2 0.0 - 0.3 mg/dL LAB CHEMISTRY METHOD 08/30/2024 2:41 PM [facility] Bilirubin, Indirect 0.4 0.0 - 1.1 mg/dL LAB CHEMISTRY METHOD 08/30/2024 2:41 PM [facility] ALT (SGPT) 19 10 - 60 unit/L LAB CHEMISTRY METHOD 08/30/2024 2:41 PM [facility] AST (SGOT) 14 10 - 42 unit/L LAB CHEMISTRY METHOD 08/30/2024 2:41 PM [facility] Alkaline Phosphatase 59 42 - 121 unit/L LAB CHEMISTRY METHOD 08/30/2024 2:41 PM [facility] Blood Venous blood specimen / Unknown Venipuncture / Unknown 08/30/2024 10:29 AM EDT 08/30/2024 12:05 PM EDT Natividad Farley MD LAB BLOOD ORDERABLES Fin al Result [facility] [address] [place] [address], * HIV 1,2 antibody, p24 antigen with reflex to differentiation (08/30/2024 10:29 AM EDT) Pathologist [facility] HIV Combo AB/AG Negative Negative LAB CHEMISTRY METHOD 08/30/2024 5:42 PM EDT [facility] Blood Venous blood specimen / Unknown Venipuncture / Unknown 08/30/2024 10:29 AM EDT 08/30/2024 12:05 PM EDT [facility] - 08/30/2024 5:42 PM EDT This [...] ORDERABLES Fin al Result Performing Organization Address [facility] de Phone Number [facility] [address] [place] [address], [place] [phone] * Hepatitis B core antibody IgM (08/30/2024 10:29 AM EDT) [facility] Hep B Core IgM Negative Negative LAB CHEMISTRY METHOD 08/30/2024 5:42 PM EDT [facility] Blood Venous blood specimen / Unknown Venipuncture / Unknown 08/30/2024 10:29 AM EDT 08/30/2024 12:05 PM EDT [facility] - 08/30/2024 5:42 PM EDT Over the counter supplements containing high doses of biotin may interfere with this assay. ??If interference is suspected, patients shoud be retested after refraining from biotin supplements for 72 hours. us Natividad Farley MD LAB BLOOD ORDERABLES Fin al Result Performing Organization Address [facility] Co de Phone Number [facility] [address] [place] [address], * Hepatitis B surface antigen with reflex to confirmation (08/30/2024 10:29 AM EDT) Hepatitis B Surface Ag Negative Negative LAB CHEMISTRY METHOD 08/30/2024 5:14 PM EDT [facility] Blood Venous blood specimen / Unknown Venipuncture / Unknown 08/30/2024 10:29 AM EDT 08/30/2024 12:05 PM EDT Narrative [facility] - 08/30/2024 5:14 PM EDT Over the counter supplements containing high doses of biotin may interfere with this assay. ??If interference is suspected, patients shoud be retested after refraining from biotin supplements for 72 hours. us Natividad Farley MD LAB BLOOD ORDERABLES Fin al Result Performing Organization Address [facility]/ZIP Co de Phone Number [facility] [address] [place] [address], [place] [phone] * Hepatitis C antibody (08/30/2024 10:29 AM EDT) Pathologist [facility] Hepatitis C Antibody Negative Negative LAB CHEMISTRY METHOD 08/30/2024 5:41 PM EDT [facility] Blood Venous blood specimen / Unknown Venipuncture / Unknown 08/30/2024 10:29 AM EDT 08/30/2024 12:05 PM EDT us Natividad Farley MD LAB BLOOD ORDERABLES Fin al Result Performing Organization Address City/[facility]/ZIP Co de Phone Number [facility] [address] [place] [address], [place] [phone] * Immunoglobulin IgM (08/30/2024 10:29 AM EDT) IgM 144 23 - 259 mg/dL LAB CHEMISTRY METHOD 08/30/2024 3:03 PM EDT [facility] Blood Venous blood specimen / Unknown Venipuncture / Unknown 08/30/2024 10:29 AM EDT 08/30/2024 12:05 PM EDT us Natividad Farley MD LAB BLOOD ORDERABLES Fin al Result Performing Organization Address City/[facility]/ZIP Co de Phone Number [facility] [address] [place] [address], [place] [phone] * Immunoglobulin IgG (08/30/2024 10:29 AM EDT) Total IgG 1,240 549 - 1,584 mg/dL LAB CHEMISTRY METHOD 08/30/2024 2:41 PM EDT [facility] Blood Venous blood specimen / Unknown Venipuncture / Unknown 08/30/2024 10:29 AM EDT 08/30/2024 12:05 PM EDT us Natividad Farley MD LAB BLOOD ORDERABLES Fin al Result Performing Organization Address [facility] Co de Phone Number [facility] [address] [place] [address], [place] [phone] * Immunoglobulin IgA (08/30/2024 10:29 AM EDT) IgA 85 61 - 348 mg/dL LAB CHEMISTRY METHOD 08/30/2024 2:41 PM EDT [facility] Blood Venous blood specimen / Unknown Venipuncture / Unknown 08/30/2024 10:29 AM EDT 08/30/2024 12:05 PM EDT us Natividad Farley MD LAB BLOOD ORDERABLES Fin al Result [facility] [address] [place] [address], [place] [phone] * Varicella zoster antibody IgG (08/30/2024 10:29 AM EDT) Varicella IgG Positive Positive LAB CHEMISTRY METHOD 08/30/2024 1:15 PM EDT [facility] Varicella Zoster IgG 17.30 >=1.00 S/CO LAB CHEMISTRY METHOD 08/30/2024 1:15 PM EDT [facility] Blood Venous blood specimen / Unknown Venipuncture / Unknown 08/30/2024 10:29 AM EDT 08/30/2024 12:05 PM EDT Narrative [facility] - 08/30/2024 1:15 PM EDT Interpretation >= 1.00 S/CO is considered to be consistent with Immunity us Natividad Farley MD LAB BLOOD ORDERABLES Fin al Result Performing Organization Address [facility] de Phone Number [facility] [address] [place] [address], [place] [phone] * MICHELLE IFA with titer and pattern (08/30/2024 10:29 AM EDT) [facility] MICHELLE Negative Negative 08/31/2024 10:38 AM EDT [facility] Blood Venous blood specimen / Unknown Venipuncture / Unknown 08/30/2024 10:29 AM EDT 08/30/2024 12:05 PM EDT us Natividad Farley MD LAB BLOOD ORDERABLES Fin al Result Performing Organization Address [facility]/ZIP Co de Phone Number [facility] [address] [place] [address], [place] [phone] * Rheumatoid factor (08/30/2024 10:29 AM EDT) Pathologist [facility] Rheumatoid Factor <10.0 <15.0 I Unit/mL LAB CHEMISTRY METHOD 08/30/2024 2:41 PM EDT [facility] Blood Venous blood specimen / Unknown Venipuncture / Unknown 08/30/2024 10:29 AM EDT 08/30/2024 12:05 PM EDT us Natividad Farley MD LAB BLOOD ORDERABLES Fin al Result Performing Organization Address [facility]/ZIP Co de Phone Number [facility] [address] [place] [address], * Creatinine (08/30/2024 10:29 AM EDT) Creatinine 0.55 0.50 - 1.10 mg/dL LAB CHEMISTRY METHOD 08/30/2024 2:41 PM EDT [facility] eGFR 122 >=60 mL/min/1. 73m2 LAB CHEMISTRY METHOD 08/30/2024 2:41 PM EDT [facility] Comment:Calculation based on the??Chronic Kidney Disease Epidemiology Collaboration (CKD-EPI) equation refit??without adjustment for race. Blood Venous blood specimen / Unknown Venipuncture / Unknown 08/30/2024 10:29 AM EDT 08/30/2024 12:05 PM EDT us Natividad Farley MD LAB BLOOD ORDERABLES Fin al Result Performing Organization Address [facility] Co de Phone Number [facility] [address] [place] [address], [place] [phone] * BUN (08/30/2024 10:29 AM EDT) BUN 7 5 - 25 mg/dL LAB CHEMISTRY METHOD 08/30/2024 2:41 PM EDT [facility] Blood Venous blood specimen / Unknown Venipuncture / Unknown 08/30/2024 10:29 AM EDT 08/30/2024 12:05 PM EDT us Natividad Farley MD LAB BLOOD ORDERABLES Fin al Result Performing Organization Address [facility] Co de Phone Number [facility] [address] [place] [address], [place] [phone] * Borrelia burgdorferi antibody (08/30/2024 10:29 AM EDT) [facility] Lyme Ab Negative Negative LAB CHEMISTRY METHOD 08/30/2024 1:25 PM EDT [facility] Comment: No laboratory evidence of infection [...] ORDERABLES Fin al Result Performing Organization Address [facility] Co de Phone Number [facility] [address] [place] [address], [place] [phone] * (ABNORMAL) Vitamin D 25 hydroxy (08/30/2024 10:29 AM EDT) [facility] Vit D, 25-Hydroxy 29.6(L) 30.0 - 80.0 ng/mL LAB CHEMISTRY METHOD 08/30/2024 5:02 PM EDT [facility] Blood Venous blood specimen / Unknown Venipuncture / Unknown 08/30/2024 10:29 AM EDT 08/30/2024 12:05 PM EDT us Natividad Farley MD LAB BLOOD ORDERABLES Fin al Result Performing Organization Address [facility] Co de Phone Number [facility] [address] [place] [address], * Vitamin B12 (08/30/2024 10:29 AM EDT) Vitamin B-12 293 250 - 900 pcg/mL LAB CHEMISTRY METHOD 08/30/2024 3:03 PM EDT [facility] Blood Venous blood specimen / Unknown Venipuncture / Unknown 08/30/2024 10:29 AM EDT 08/30/2024 12:05 PM EDT Natividad Farley MD LAB BLOOD ORDERABLES Fin al Result [facility] [address] [place] [address], documented in this encounter Visit Diagnoses Diagnosis White matter disease- Primary Lhermitte sign positive Urinary frequency Other fatigue documented in this encounter Care Teams Associate Professor Of Engineering Relationship Specialty Start Date End Date Gurmeet Soto MD [address] [place] [address] PCP - General 08/12/22 documented as of this encounter
--- OUTSIDE RECORDS SUMMARY | 2024-09-01 07:13 | XMS_ITS | Encounter Summary ---
Author Organization [facility] Address [address] [place] [address] Care Team Providers Care Stave Bolt Equalizer Name Role Phone Gurmeet Soto MD Primary Care Provider Reason for Visit * Reason Comments Endocrine Encounter Details Date Type Department Care Team (Late st Contact Info) Description 08/11/2024 10:30 AM EDT Consult Endocrinology [address] [phone] Mukesh Patton MD [address] [place] [address] Sweating abnormality (Primary Dx) Social History Tobacco Use Types Packs/Day Years [...] Sign Reading Time Taken Comments Blood Pressure 123/74 08/11/2024 10:30 AM EDT Pulse 85 08/11/2024 10:30 AM EDT Temperature 36.4 ??C (97.5 ??F) 08/11/2024 10:30 AM E DT Respiratory Rate - - Oxygen Saturation 100% 08/11/2024 10:30 AM EDT Inhaled Oxygen Concentration - - Weight 51.7 kg (114 lb) 08/11/2024 10:30 AM EDT Height 157.5 cm (5' 2 ) 08/11/2024 10:30 AM EDT Body Mass Index 20.85 08/11/2024 10:30 AM EDT documented in this encounter Progress Notes * Mukesh Patton MD - 08/11/2024 10:30 AM EDTAddended by: MUKESH PATTON on: 08/30/2024 10:59 PM Modules accepted: Orders * Mukesh Patton MD - 08/11/2024 10:30 AM EDT CHIEF COMPLAINT: Endocrine IDENTIFIER: Tri Arreola is a 38 y.o. old female. REFERRING PROVIDER: Gurmeet Soto MD HPI: Pt referred for evaluation. She has been having complaints of Sweating, palpitations, BP fluctuations, panic like episodes since Couple of years but getting worse. . Varies in frequency. Can last from an hour? To day to months. Can be difficult to go to Sleep, but when goes to sleep its uninterrupted. Can have episods in sleep. Gets QUISPE, with these episodes. Losing weight, not intentionally. There is FH with pheochromocytoma in maternal grandmother. 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 Centrilobular emphysema (CMS/HCC) 05/20/2023 Chest pain 05/20/2023 Cigarette smoker motivated [...] OTHER SURGICAL HISTORY PROCEDURE: DENIES PREVIOUS SURGERY SOCIAL HISTORY: Social History Tobacco Use Smoking status: Every Day Current packs/day: 0.50 Types: Cigarettes Passive exposure: Current Smokeless tobacco: Never Substance Use Topics Alcohol use: No FAMILY HISTORY: Family History Problem Relation Name Age of Onset Stroke Maternal Grandmother Lung cancer Maternal Grandmother Breast cancer Maternal Grandmother Other (Other: ovarian cancer) Maternal Grandmother Hypertension Mother arthritis Hyperlipidemia Mother Depression Mother Hyperlipidemia Father Stroke Paternal Grandfather Other (Other: lupus) Father's side aunt gout Breast cancer Paternal Grandmother Colon cancer Maternal Grandfather Ovarian cancer Neg Hx Pancreatic cancer Neg Hx Prostate cancer Neg Hx Family Status Relation Name Status MGM (Not Specified) Mother (Not Specified) Father (Not Specified) PGF (Not Specified) Father's mehrdad aunt Alive PGM (Not Specified) MGF (Not Specified) Neg Hx (Not Specified) No partnership data on file MEDICATIONS DISCONTINUED/REORDERED: There are no discontinued medications. ACTIVE MEDICATIONS: Outpatient Medications Marked as Taking for the 08/11/24 encounter (Consult) with Mukesh Patton MD Medication Sig Dispense Refill acetaminophen (TYLENOL 8 HOUR) 650 mg 8 hr tablet Take 1 tablet (650 mg total) by mouth every 8 (eight) hours if needed. aluminum-magnesium hydroxide-simethicone (MAALOX) 200-200-20 mg/5 mL suspension Take 15 mL by mouth. aluminum-magnesium hydroxide-simethicone (MAALOX) 200-200-20 mg/5 mL suspension [...] (one) time each day. 30 suppository 11 metoprolol tartrate (LOPRESSOR) 25 mg tablet Take 6.25 mg by mouth 1 (one) time each day. pantoprazole (PROTONIX) 40 mg EC tablet Take 1 tablet (40 mg total) by mouth 1 (one) time each day.Take in am on empty stomach, wait 30 mins and then eat to activate the medication 30 each 11 senna-docusate (PERICOLACE) 8.6-50 mg per tablet Take 1 tablet by mouth 1 (one) time each day. 30 each 11 ALLERGIES: Allergies Allergen Reactions Sulfamethoxazole-Trimethoprim Swelling Aspirin Cephalexin Other Other Reaction(s): Anaphylaxis Keflex Ciprofloxacin Other Reaction(s): Contraindicated for Clary-Danlos Snydrome Ciprofloxacin-Hydrocortisone Doxycycline Dizziness and Other doxycycline Doxycycline Hyclate PHYSICAL EXAM: Visit Vitals BP 123/74 Pulse 85 Temp 36.4 ??C (97.5 ??F) (Temporal) Ht 1.575 m (62 ) Wt 51.7 kg (114 lb) SpO2 100% BMI 20.85 kg/m?? OB Status Having periods Smoking Status Every Day BSA 1.51 m?? APPEARANCE: Alert and in no acute distress EYES: EOMI HEART: RRR with normal S1 and S2, no murmurs, no gallops, NECK: Thyroid normal to palpation. No nodules. Neck supple, no adenopathy. LUNG: clear to auscultation ABDOMEN: Soft, discomfort in epigastrium and LUQ, no guarding. NEURO: Awake, alert. LABS: Lab Results Component Value Date TSH 1.21 06/15/2024 No results found for: FT4 IMAGING: @BRADLEY@ IMPRESSION: 1. Sweating abnormality PLAN: Had a detailed discussion regarding the sx and the concerns. Because of FH she is concerned about the sx. Shall start work up. Discussed possible results and plan afterwards. All questions answered. Medication and lab orders: Orders Placed This Encounter Procedures Metanephrines, plasma free Metanephrines, urine 24H Other orders: None Mukesh Patton MD on 08/11/2024 at 11:03 AM EDT documented in this encounter Plan of Treatment Upcoming Encounters Date Type Department Care Team (Late st Contact Info) Description 09/05/2024 4:15 PM EDT Appointment Radiology Department - [address] [phone] 09/05/2024 5:00 PM EDT Appointment Radiology Department - [address] [phone] 09/22/2024 11:15 AM EDT Office Visit Endocrinology - [address] [phone] Mukesh Patton MD [address] [place] [address] 10/12/2024 10:10 AM EDT Office Visit [facility] - [address] [phone] Natividad Farley MD [address] [phone] 01/24/2025 11:30 AM EDT Office Visit Pulmonolgy - [place] [address] [phone] Ana Maria Sanchez MD [address] [phone] Scheduled Orders Name Type Priority Associated Diagnoses Orde r Schedule Metanephrines, plasma free Lab Routine Sweating abnormality 1 Occurrences starting 08/30/2024 until 08/30/2025 ACTH Lab Routine Sweating abnormality 1 Occurrences starting 08/30/2024 until 08/30/2025 Cortisol Lab Routine Sweating abnormality 1 Occurrences starting 08/30/2024 until 08/30/2025 Dehydroepiandrosterone Sulfate Lab Routine Sweating abnormality 1 Occurrences starting 08/30/2024 until 08/30/2025 documented as of this encounter Results * (ABNORMAL) Metanephrines, plasma free (08/15/2024 12:25 PM EDT) Metanephrines Free 64(H) < OR = 57 pg/mL 08/29/2024 4:39 PM EDT [facility] Comment: This test was developed and its analytical performance characteristics have been determined by [facility]. It has not been cleared or approved by the FDA. This assay has been validated pursuant to the CLIA regulations and is used for clinical purposes. Normetanephrine Free 96 < OR = 148 pg/mL 08/29/2024 4:39 PM EDT [facility] Comment: This test was developed and its analytical performance characteristics have been determined by [facility]. It has not been cleared or approved [...] 2008. For additional information, please refer to http://education.FOODit.Ezetap/faq/MetFractFree (This link is being provided for informational/educational purposes only.) This test was developed and its analytical performance characteristics have been determined by [facility]. It has not been cleared or approved by the FDA. This assay has been validated pursuant to the CLIA regulations and is used for clinical purposes. Test Performed at: [facility] [address] ??[address] ? I Libby LAMBERT, PhD, SERGEI Blood Venous blood specimen / Unknown Venipuncture / Unknown 08/15/2024 12:25 PM EDT 08/15/2024 12:34 PM EDT us Mukesh Patton MD LAB BLOOD ORDERABLES Final Resul t [facility] [address] [place] [address] * (ABNORMAL) Metanephrines, urine 24H (08/15/2024 12:16 [...] developed and the performance characteristics determined by [facility]. It has not been cleared or approved by the FDA. The laboratory is regulated under CLIA as qualified to perform high-complexity testing. This test is used for patient testing purposes. It should not be regarded as investigational or for research. Test performed at [facility], [address] , [place], [place] ??[address] ? [phone] Wendy Weiner MD, PhD - Fine Arts Instructor Urine Urine specimen from urethra / Unknown Non-blood Collection / Unknown 08/15/2024 12:16 PM EDT 08/15/2024 12:32 PM EDT us Mukesh Patton MD LAB URINE ORDERABLES Final Resul t [facility] [address] [place] [address] documented in this encounter Visit Diagnoses Diagnosis Sweating abnormality- Primary documented in this encounter Care Teams Stave Bolt Equalizer Relationship Specialty Start Date End Date Gurmeet Soto MD [address] [place] [address] PCP - General 08/12/22 documented as of this encounter
--- OUTSIDE RECORDS SUMMARY | 2024-09-01 07:13 | XMS_ITS | Encounter Summary ---
Author Organization [facility] Address [address] [place] [address] Care Team Providers Care Learning And Development Associate Name Role Phone Gurmeet Soto MD Primary Care Provider Encounter Details Date Type Department Care Team (Late st Contact Info) Description 03/29/2024 9:28 AM EDT Hospital Encounter TH HISTORIC ENCOUNTERS EASTERN CONVERSION ONLY Kenneth Merritt, MARÍA [address] [facility] [address] [place] [address] Social History Tobacco Use Types Packs/Day Years [...] PM EST documented as of this encounter Plan of Treatment Upcoming Encounters Date Type Department Care Team (Late st Contact Info) Description 09/05/2024 4:15 PM EDT Appointment Radiology Department [address] [phone] 09/05/2024 5:00 PM EDT Appointment Radiology Department - [address] [phone] 09/22/2024 11:15 AM EDT Office Visit Endocrinology - [address] [phone] Mukesh Patton MD [address] [place] [address] 10/12/2024 10:10 AM EDT Office Visit [facility] [address] [phone] Natividad Farley MD [address] [phone] 01/24/2025 11:30 AM EDT Office Visit Pulmonolgy - [place] [address] [phone] Ana Maria Sanchez MD [address] [phone] documented as of this encounter Procedures Procedure Name Priority Date/Time Associated Diagnosis Comments CR BARIUM SWALLOW Routine 03/29/2024 12: 07 PM EDT documented in this encounter Results * CR BARIUM SWALLOW (03/29/2024 12:07 PM EDT) Anatomical Region Laterality Modality Radiographic Haley ging 03/29/2024 9:33 AM EDT Narrative 03/29/2024 12:07 PM EDT [facility] Diagnostic Imaging Department [address] [place] [address] Patient: ??RANDI MUELLER ?/Age/Sex: 1985 - 38 - F Unit#: ??[id number] ? Location/Status: ??SPDIGEN/REG CLI ? Mnemonic/Ordering Site: ??[facility]/SPDI Ordering Physician: ??KENNETH MERRITT PA-C CR Barium Swallow - 03/29/24 - 1043 Report Status:Signed INDICATION: Dysphagia. FINDINGS: Double contrast barium swallow performed. 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 Lung li are clear. Heart normal in size and shape. Bony structures unremarkable. Lateral customs agent view of the neck demonstrates straightening of [...] Normal double contrast barium swallow. Dictating Physician: ??MIGEL GODDARD MD Electronically Signed by: ??MIGEL GODDARD MD Dic Date/Time: ??03/29/24 1205 Sign date/Time: ??03/29/24 1207 Procedure Note Migel Goddard MD - 04/01/2024 [facility] Diagnostic Imaging Department [address] [place] [address] Patient: RANDI MUELLER /Age/Sex: 1985 - 38 - F Unit#: [id number] Location/Status: SPDIGEN/REG CLI Mnemonic/Ordering Site: [facility] Ordering Physician: KENNETH MERRITT PA-C CR Barium Swallow - 03/29/24 - 1043 Report Status:Signed INDICATION: Dysphagia. FINDINGS: Double contrast barium swallow performed. 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 Lung li are clear. Heart normal in size and shape. Bonystructures unremarkable. Lateral customs agent view of the neck demonstrates straightening ofthe [...] MD Dic Date/Time: 03/29/24 1205 Sign date/Time: 03/29/241206 us Kenneth DANIEL IMG XR PROCEDURES Final Result documented in this encounter Visit Diagnoses Not on filedocumented in this encounter Care Teams Learning And Development Associate Relationship Specialty Start Date End Date Gurmeet Soto MD [address] [place] [address] PCP - General 08/12/22 documented as of this encounter
--- OUTSIDE RECORDS SUMMARY | 2024-09-01 07:13 | XMS_ITS | Encounter Summary ---
Author Organization [facility] Address [address] [place] [address] Care Team Providers Care Rn Examiner Name Role Phone Gurmeet Soto MD Primary Care Provider Reason for Visit * Reason Onset Date Comments Results 08/29/2024 Encounter Details Date Type Department Care Team (Late st Contact Info) Description 08/29/2024 Telephone Adult Medicine [facility] [address] [place], [place] [phone] Gurmeet Soto MD [address] [place] [address] Results Social History Tobacco Use Types Packs/Day Years [...] as of this encounter Progress Notes * Salazar Murrell MA - 08/30/2024 1:12 PM EDT Please review and advise on message below * Joy Stoddard - 08/29/2024 2:36 PM EDT Patient is calling in today requesting a call back form care team with results of imaging she had done 08/28/24 Please advise documented in this encounter Plan of Treatment Upcoming Encounters Date Type Department Care Team (Late st Contact Info) Description 09/05/2024 4:15 PM EDT Appointment Radiology Department - [address] [phone] 09/05/2024 5:00 PM EDT Appointment Radiology Department - [address] [phone] 09/22/2024 11:15 AM EDT Office Visit Endocrinology - [address] [phone] Mukesh Patton MD [address] [place] [address] 10/12/2024 10:10 AM EDT Office Visit [facility] [place] [address] [phone] Natividad Farley MD [address] [phone] 01/24/2025 11:30 AM EDT Office Visit Pulmonolgy - [place] 175 [facility] 200 [place] [phone] Ana Maria Sanchez MD [address] [address] documented as of this encounter Visit Diagnoses Not on filedocumented in this encounter Care Teams Rn Examiner Relationship Specialty Start Date End Date Gurmeet Soto MD [address] [place] [address] PCP - General 08/12/22 documented as of this encounter
--- OUTSIDE RECORDS SUMMARY | 2024-09-01 07:13 | XMS_ITS | Encounter Summary ---
Author Organization [facility] Address [address] [place] [address] Care Team Providers Care Tank Washer Name Role Phone Gurmeet Soto MD Primary Care Provider [phone] Reason for Visit * Reason Onset Date Comments lab order 08/30/2024 Encounter Details Date Type Department Care Team (Late st Contact Info) Description 08/30/2024 Telephone Adult Medicine [facility] [address] [place] [address] Gurmeet Soto MD [address] [place] [address] lab order Social History Tobacco Use Types Packs/Day Years [...] Progress Notes * Lara Savage MA - 08/31/2024 2:01 PM EDT DX Code E61.1 and R53.83 * Manuel Ewing NP - 08/30/2024 6:10 PM EDT Iron study ordered. If fatigue persist, patient will need to schedule appointment for further work up. Please inform patient. Thanks * Lilibeth Mccall MA - 08/30/2024 5:06 PM EDT Multiple lab orders in place I do not see Iron From Hesham Ewing ? * Juancarlos Chisholm - 08/30/2024 10:24 AM EDT Call from Lety at [employer] as the patient came in and states that she was supposed to have lab workdone for her iron levels and it was ordered by chayo ewing , would like us to call back about the diagnostic code documented in this encounter Plan of Treatment Upcoming Encounters Date Type Department Care Team (Late st Contact Info) Description 09/05/2024 4:15 PM EDT Appointment Radiology Department - [address] [phone] 09/05/2024 5:00 PM EDT Appointment Radiology Department - [address] [phone] 09/22/2024 11:15 AM EDT Office Visit Endocrinology - [address] [phone] Mukesh Patton MD [address] [place] [address] 10/12/2024 10:10 AM EDT Office Visit [facility] [place] [address] [facility] [address] [place] [phone] Natividad Farley MD 175 [facility] [address] [place] [phone] 01/24/2025 11:30 AM EDT Office Visit Pulmonolgy - [place] 175 [facility] [address] [place] [phone] Ana Maria Sanchez MD 175 [facility] 200 [place] [address] Scheduled Orders Name Type Priority Associated Diagnoses Orde r Schedule Iron and TIBC Lab Routine Other fatigue Low serum iron 1 Occurrences starting 08/30/2024 until 08/30/2025 Ferritin Lab Routine Other fatigue Low serum iron Expected: 08/30/2024, Expires: 03/01/2025 documented as of this encounter Visit Diagnoses Diagnosis Other fatigue- Primary Low serum iron documented in this encounter Care Teams Tank Washer Relationship Specialty Start Date End Date Gurmeet Soto MD [address] [place] [address] PCP - General 08/12/22 documented as of this encounter
--- OUTSIDE RECORDS SUMMARY | 2024-09-01 07:13 | XMS_ITS | Encounter Summary ---
Author Organization [facility] Address [address] [place] [address] Care Team Providers Care Crack Off Person Name Role Phone Gurmeet Soto MD Primary Care Provider [phone] Reason for Visit * Reason Onset Date Comments ITCHING IN FINGER TIPS 04/06/2024 Encounter Details Date Type Department Care Team (Late st Contact Info) Description 04/06/2024 Nurse Triage Adult Medicine [facility] [address] [place] [address] Gurmeet Soto MD [address] [place] [address] ITCHING IN FINGER TIPS Social History Tobacco Use Types Packs/Day Years Used Date Smoking Tobacco: Every Day Cigarettes Smokeless Tobacco: Never Alcohol Use Standard Drinks/Week Comments No 0 (1 standard drink = 0.6 oz pur e alcohol) Comments Unknown Sex and Gender Information Value Date Recorded Sex Assigned at Female 05/21/2023 8:14 PM EST Legal Sex Female 2:36 AM EST Gender Identity Female 05/21/2023 8:14 PM EST Sexual Orientation Bisexual 05/21/2023 8: 14 PM EST documented as of this encounter Progress Notes * Avis Olguin RN - 04/06/2024 4:30 PM EST Reason for Disposition ? ? [1] MODERATE pain (e.g., interferes with normal activities) AND [2] present > 3 days Answer Assessment - Initial Assessment Questions 1. ONSET: When did the pain start? A few days 2. LOCATION and RADIATION: Where is the pain located? (e.g., fingertip, around nail, joint, entire finger) Right index finger and thumb are worse, but does involve all fingers 3. SEVERITY: How bad is the pain? What does it keep you from doing? (Scale 1-10; or mild, moderate, severe) - - MODERATE (4-7): Interferes with normal activities or awakens from sleep. finger even a little. Has pain when she tries to use her fingers , feels like she banged her fingers but does not recall any injury 4. APPEARANCE: What does the finger look like? (e.g., redness, swelling, bruising, pallor) Has redness under the nails, no discoloration in her fingers , nl csm no swelling 5. WORK OR EXERCISE: Has there been any recent work or exercise that involved this part (i.e., fingers or hand) of the body? None 6. CAUSE: What do you think is causing the pain? Not know 7. AGGRAVATING FACTORS: What makes the pain worse? (e.g., using computer) Pressure on her fingers 8. OTHER SYMPTOMS: Do you have any other symptoms? (e.g., fever, neck pain, numbness) Pt has no chest pain or SOB, no N/V/D or fever has no other skin rashes , has joint pains in her right shoulder 9. : Is there any chance you are ? When was your last menstrual period? No Protocols used: Finger Pain-A-AH * Kali Rucker - 04/06/2024 1:35 PM EST Patient call requires triage: Symptoms patient is presenting: Patient is calling because she is experiencing itching in finger tips and underneath nails as well. Patient stated it started with just two fingers but now its both hands now. Patient also stated its redness to the skin and nails. Patient is also having pain at the finger tips where it hurts to even grab anything because any pressure causes more pain. How long has patient had these symptoms?: few days For ALL patients calling to schedule any appointment (routine, sick visit, follow up, consult, etc.) in the outpatient setting please ask the following questions: Do you have fever of higher than 101, sore throat with difficulty swallowing or severe shortness ofbreath? no If YES to any of these above symptoms, send a message to triage and do not book. Red dot. If no, an audio or video visit should be booked. Have you had close contact with someone with Coronavirus in the last 14 days? no Have you traveled abroad? no Have you traveled recently to another state outside of [place], [place], [place], [place], [place], [place], [place]? no o If yes, did you quarantine for 14 days or have a negative covid test? no If yes to any of the above, patient is not to be scheduled in office until after 14 day quarantine or negative covid test. If pain or injury related was it due to an accident at work or from a motor vehicle accident? If yes, date of accident/Injury: No If yes, gather 3rd republican insurance information Third Democrat Information: PCP: Gurmeet Soto MD Payor: [employer] PLAN / Plan: [employer] MEDICAID / Product Type: *No Product type* / documented in this encounter Plan of Treatment Upcoming Encounters Date Type Department Care Team (Late st Contact Info) Description 09/05/2024 4:15 PM EDT Appointment Radiology Department - [address] [phone] 09/05/2024 5:00 PM EDT Appointment Radiology Department - [address] [phone] 09/22/2024 11:15 AM EDT Office Visit Endocrinology - [address] [phone] Mukesh Patton MD [address] [place] [address] 10/12/2024 10:10 AM EDT Office Visit [facility] [place] 175 [facility] [address] [place] [phone] Natividad Farley MD 175 [facility] [place] [address] [place] [phone] 01/24/2025 11:30 AM EDT Office Visit Pulmonolgy - [place] 175 [facility] [address] [place] [phone] Ana Maria Sanchez MD 175 [facility] 200 [place] [address] documented as of this encounter Visit Diagnoses Not on filedocumented in this encounter Care Teams Crack Off Person Relationship Specialty Start Date End Date Gurmeet Soto MD [address] [place] [address] PCP - General 08/12/22 documented as of this encounter
[2024-09-01 07:34] VITALS: PULSE 84; O2SAT 99; BMI 20.5
--- NOTE | 2024-09-01 07:34 | A.OFFVIS_ITS ---
Vital Signs 09/01/24 07:34 Height 5 ft 2 in Weight 112 lb BMI 20.5 Pulse 84 Pulse Source Pulse Oximeter Pulse Oximetry (%) 99 Oxygen Delivery Method Room Air Intake Visit Reasons: Follow Up 3mo Intake Note: Patient presents follow up Migraine medication. MRI's/VEP in chart. LP booked for 09/15/24 Allergies doxycycline Allergy (Mild, Verified 09/01/24 07:37) Dizziness ciprofloxacin Allergy (Severe, Uncoded 09/01/24 07:37) Unknown Kelflex Allergy (Severe, Uncoded 09/01/24 07:37) Anaphylaxis Medication List - Last Reconciled 09/01/24 by JERMAINE Acosta buprenorphine-naloxone 8-2 mg (Suboxone) 2 film buccal DAILY zkkhziznqx-ssgnhhhiqqtte-rhyh 50-325-40 mg 1 tab PO Q4H PRN 7 days diltiazem HCl ER 120 mg PO DAILY fluticasone propionate 50 mcg/actuation 1 spray intranasal DAILY ipratropium bromide 17 mcg/actuation (Atrovent HFA) inhalation metoprolol tartrate 6 mg PO DAILY HPI Comments Details: Right handed 37-yr-old female presents for follow-up of paresthesias and brain MRI results. She has notes increased urine out put recently, ovarian/pelvic region cysts, blood sugar fluctuations- and plans to see an elementary spanish teacher. She had her initial [facility] consult the other day. Per patient, they do feel that she likely has multiple sclerosis diagnosis, however would like to see the results of her upcoming lumbar puncture. Patient reports she can often feel like she is having a migraine attack, but without the headache component. Overall, typically has migraine attack in the days before and days after her menstrual cycle. She does continue to have episodes of hypertension, but also lightheadedness, and tachycardia. She is followed by Cardiology. 07/02/2024 thoracic MRI with and without contrast: Thoracic spinal cord is normal in signal without abnormal cord enhancement Small right paracentral disc protrusion at T7-T8 minimally indents the ventral thecal sac. 07/01/2024 cervical spine MRI with and without contrast: Persistent small focus of T2 prolongation in the dorsal cord at C2-3, minimally less conspicuous than on the prior study of 2023. This likely reflects sequelae of prior inflammatory or demyelinating process. No new areas of signal abnormality or abnormal enhancement. 06/28/2024, visual evoked potential: Within normal limits 06/01/2024, HPI: Pt reports she is having episodes of variable BP and tachycardia. She was started on Metoprolol for inappropriate sinus tachycardia.? She feels the metoprolol is exacerbating her COPD/emphysema symptoms, and possibly this is exacerbating her tachycardia symptoms.. It is hard for her to exhale well. She states she has not been using her albuterol inhaler, as she was told this would contract on metoprolol. She had an echocardiogram 2 days ago ordered by pulmonology. F/b Dr Boyle, cardiology at [facility]. F/b Dr Abdulkadir Sanchez, pulmonology at [place].? She is not having the pins and needles in her legs anymore. She is now having ?weird? tightness, tenderness in her bilateral posterior neck. Sometimes light tough, such as a the collar of her coat, can trigger intense burning pain. She is having strange sensations in right face, temporal- pain, tingling, burn ing- pain can be quick bursts or steady pain. Sometimes pain is triggered by light touch. She is having left chest/lower rib, axilla region. Feels like muscle pain. Or feels like she cannot register/perceive it the same as she can the right side- feels like the left side is not functioning the same- but when she places her hands on her ribs- they do expand/collapse equally. Tried to take Amitriptyline- caused dizziness. She has reduced coffee intake from 4 cups to 2 cups per day. She has reduced her cigarette intake to 5 cigarettes per day from 1 pack a day. Interval workup: 05/20/2024, CT head/brain W/O contrast, at [facility]: IMPRESSION: No evidence of acute intracranial abnormality. 05/20/2024, CT angio head and neck, at [facility]: IMPRESSION: Unremarkable CTA of the head and neck. 05/26/2024, ?MRI Brain W+W/O Contrast, at [facility]: TECHNIQUE: MRI of the brain was performed with and without contrast utilizing sagittal and axial T1, axial T2, sagittal 3D FLAIR with multiplanar reformats, and axial DWI sequences, and post-contrast 3D T1 RAMOS with multiplanar reformats. 10 mL of Prohance was administered intravenously. COMPARISON: MRI 08/01/2019 FINDINGS: 2 small lesions are present in the periventricular white matter at the superolateral margin of the right lateral ventricle, measuring up to 6 mm in diameter. A few scattered, more punctate FLAIR hyperintense lesions are present at the roof of the left lateral ventricle. An 8 mm lesion is present in the subcortical white matter of the posterior inferior left frontal lobe. None of these enhance. No abnormality is present in the brainstem or cerebellum. The left frontal lobe lesion appears to be unchanged from the MRI of 08/01/2019. The 6 mm right frontal periventricular white matter lesion has progressed. The other more punctate lesions are difficult to precisely compare but at least a few of them were present on the prior examination. No extra-axial collection or mass effect is noted. The ventricular system is normal. No vascular abnormality is present. The foramen magnum is normal. Mild mucosal thickening is present in the paranasal sinuses without an air-fluid level. The upper cervical cord and spine are normal. IMPRESSION: Mild nonenhancing white matter abnormality which could represent demyelination and multiple sclerosis. There has been some progression since the study of 08/01/2019. 09/10/23, initial HPI: Right handed 37-yr-old female presents for new pt evaluation of paresthesias. Pt reports a few months ago, she started having BLE numbness and tingling from her knees to her toes. This was constant, but exacerbated with cervical flexion especially when sitting. More recently, the numbness and tingling is not constant, but can still be provoked by cervical flexion only when sitting. C-spine MRI showed a subtle 3mm T2 bright focus is suspected within the posterior midline cord at C2-C3. Degenerative changes w/ moderate right foraminal stenosis at C6-C7 due to uncovertebral spurring an no left foraminal stenosis. Prior to these symptoms, she is not aware of a specific neck injury. Pt has since seen Dr Carvajal, [facility] neurosurgeon, who advised her to f/u w/ neurology and avoid neck mainpulation. Pt also endorses:? 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 Cramps: leg cramps Mood d/o: Anxiety Neuro: memory problems, migraines, dizziness, overlapping diplopia, diplopia with trailing image on movement. Vision: Respiratory d/o: COPD, SOB CV disease: TIA x's 2, 1st, when she was 2-3 months post-, was not feeling right, was slurring her words, had unilateral left facial droop, resolved w/in a few hrs. 2nd- 9 yrs ago- was not feeling right, was slurring her words, had unilateral left facial droop, resolved w/in a few hrs, and attributed to a TIA. After these she did have increased migraine. GI d/o: Constipation, Abd pain, Eyes- sees shadows, blurring, floaters, flashes of lights. Eyes feel dry and swollen. Has neck tension, pressure in the back of her head, and right upper trap tightness. Has radiating mid-back pain- prone to popping ribs out of place. Occasional urinary incontinence- triggered by hormones, jumping/running, worse prior to menses. She has a history of BUE, more so in RUE, numbness and tingling, which comes on and off for years. She can have similar numbness and tingling in her right jewish region. She does PT for small group exercise. She does see a chiropractor- who works on her back. PMH is significant for: Recent abnormal EKG- recently referred her to cardiology. Also concern for POTs- she states HR varies from 55-170 bpm, can feel pre- syncopal, rooms goes dark upon standing, but no actual syncope. Migraine since age 14. Migraine w/ visual aura since age 20. Visual aura- starts as a spinning color dot, turns into a colorful snake, and then expands into a zagged arch, lasts 30-180 minutes. This can occur w/wo headache. Sometimes headache just does not happen, or responds to as needed tx. Headache- squeezing bilateral head, like someone is wrapping something around the head. Or an ice stabbing pain above either eye. A/w photophobia, phonophobia, osmophobia, some nausea, not right in space dizziness, cognitive difficulties, activity intolerance, pins and needles in arms and sides of head, palpitations, heat or cold intolerance, red eye (unsure if unilateral or bilateral), one ear at a time will be red and hot, nasal congestion/runny nose. Was not having them for a few yrs, but in the last yr, has 1 attack per month, triggered by menses (which is regular), which lasts 1 day to 2 weeks. Uses Tylenol prn. In the past, used amitriptyline for nerve pain- stopped a little over a yr ago. 07/08/23, C-spine w/o: IMPRESSION: 1. A subtle small T2 bright focus is suspected within the posterior midline cord at C2-C3 measuring approximately 3 mm. This is of indeterminate etiology, but may represent the sequela of an inflammatory process. Postcontrast imaging and neurological evaluation are recommended. 2. Degenerative changes of the cervical spine with at least moderate right foraminal stenosis at C6-C7 due to uncovertebral spurring. This can be correlated with the patient's symptoms and neurological examination. PFSH Family History Mother Hyperlipidemia Depression HTN (hypertension) COPD (chronic obstructive pulmonary disease) Diabetes Father Hyperlipidemia Maternal Grandmother Stroke Lung cancer Ovarian ca Cancer, colon Paternal Grandmother Breast cancer in female Social History Alcohol intake: never Patient Tobacco Use Status: Current everyday Tobacco user Tobacco use type: Cigarette Cigarette Packs Per Day: 0.5 Years Smoked: 20 Physical Exam Vital Signs: Last Vital Signs Pulse 84 09/01/24 07:34 Pulse Ox 99 09/01/24 07:34 Oxygen Delivery Method Room Air 09/01/24 07:34 BMI result Body Mass Index 20.5 Const Orientation/consciousness: patient oriented x3 Resp Effort & Inspection: normal respiratory effort and able to speak in complete sentences Neuro General: patient oriented x3 Cranial nerves: Yes CN's II-XII intact bilaterally Cognition (Neuro): normal cognition Gait exam (Neuro): Normal gait present Motor exam (neuro): 5/5 motor strength present throughout Pupils: Normal pupillary reactivity/response: bilateral Psych Appearance: grossly normal Mental Status: mental status grossly normal Speech and movement: Normal speech and movement present Affect: normal affect Attitude: cooperative Thought process: Normal thought process present Assessment & Plan Assessment & Plan (1) White matter abnormality on MRI of brain: Code(s): R90.82 - White matter disease, unspecified Category: Medical (2) Positive Lhermitte's sign: Code(s): R29.818 - Other symptoms and signs involving the nervous system Category: Medical (3) Paresthesia of bilateral legs: Code(s): R20.2 - Paresthesia of skin Category: Medical (4) Migraine with aura: Code(s): G43.109 - Migraine with aura, not intractable, without status migrainosus Category: Medical (5) Clray-Danlos syndrome: Comment: Hypermobility, per patient nonvascular subtype Code(s): Q79.60 - Clary-Danlos syndrome, unspecified Category: Medical (6) Paresthesia: Code(s): R20.2 - Paresthesia of skin Category: Medical Plan Reviewed interval C-spine MRI with without contrast- central cord lesion suspicious for demyelinating process. Visual evoked potential was within normal limits. LP for CSF studies including OG bands, as scheduled., reviewed post LP care: rest and have plenty of fluids including caffeine and electrolyte replacement beverages on hand, the use p.r.n. Fioricet for signs of low pressure post LP headache, and to notify us with any concerning prolonged symptoms. We will forward the results to the [facility] clinic. She has follow-up with them in 1 month, and we will consider MS treatment options at that time. For migraine prevention: May trial taking edemame 1 cup p.o. daily during menstrual cycle to lessen severity of menstrual migraine attacks. Metoprolol may help headache symptoms, however it may exacerbate her pulmonary function. Patient advised to discuss with her railroad accountant and credit union teller. Previous trials: Amitriptyline caused dizziness For acute migraine treatment: Trial Ubrogepant (Ubrelvy) 100mg tab, 1/2 - 1 tab (50-100mg) at onset of headache, may repeat in 2 hours. Max of 2 tabs (200mg) per 24 hours. May adjunct with OTC Tylenol 650mg q 4 hours, Ibuprofen 600mg q 6 hours, or Naproxen 440mg q 12 hrs prn. Do not take w/ Butalbital (Fioricet or Fiorinal). Potential adverse effects, include but are not limited to fatigue, nausea, dry mouth, constipation. Acute migraine treatment contraindications: All triptans due to hypertension, tachycardia. Will follow-up upon review of above and patient to follow-up in clinic in 3-6 months or sooner prn. Medications: New ubrogepant (Ubrelvy) take at onset of migraine, may repeat in 2hrs (may take w/ Ibuprofen) 50 - 100 mg (0.5 - 1 x 100 mg) PO ONCE PRN 16 tabs 3RF migraine headache 30 days Changed From metoprolol tartrate 6 mg PO DAILY To metoprolol tartrate 12.5 mg PO DAILY Coding Level of Care Code Est Pt Level 4 (66093) Diagnoses White matter abnormality on MRI of brain R90.82 Positive Lhermitte's sign R29.818 Paresthesia of bilateral legs R20.2 Migraine with aura G43.109 Clary-Danlos syndrome Q79.60 Paresthesia R20.2
== END 2024-09-01 08:29 | disposition home or self-care (01) ==
LOC: HO.HSMS 07:11
PROVIDERS: PCP Internal Medicine; Visit Provider Nurse Practitioner Family
DX: R90.82 White matter disease, unspecified (principal); R29.818 Other symptoms and signs involving the nervous system; R20.2 Paresthesia of skin; G43.109 Migraine with aura, not intractable, without status migrainosus; Q79.60 Ehlers-Danlos syndrome, unspecified
CPT/HCPCS: 99214

== ENCOUNTER → 2024-09-01 07:10 | Outpatient (BNVA) | payer OTHER, SELFPAY | PROVIDERS: PCP Internal Medicine; Visit Provider Nurse Practitioner Family | DX: R90.82 White matter disease, unspecified (principal); R29.818 Other symptoms and signs involving the nervous system; R20.2 Paresthesia of skin; G43.109 Migraine with aura, not intractable, without status migrainosus; Q79.60 Ehlers-Danlos syndrome, unspecified | CPT/HCPCS: 99212 ==

== ENCOUNTER 2024-09-15 09:40 | Day surgery (SDC) | payer OTHER, SELFPAY ==
--- NOTE | ~2024-09-15 | FL_ITS ---
EXAMINATION: XR LUMBAR PUNCTURE CLINICAL INFORMATION: R90.82 - White matter disease, unspecified COMPARISON: None available. TECHNIQUE: Following explaining fluoroscopy-guided lumbar puncture procedure, benefits and risk, a written consent was obtained. Patient was placed prone on fluoroscopy table and a skin marker was placed overlying the L4-5 disc level. The marked area along the posterior spine was cleaned and draped in usual sterile manner. 1% local lidocaine was injected at puncture site. A 22-gauge spinal needle was then inserted from the skin intrathecally at the L4-5 disc level. After removing stylet and observing fluid return, patient was quickly placed in left lateral decubitus view and opening CSF pressure was obtained. CSF fluid was then collected in 4 test tubes. Postprocedure stylet was reintroduced and needle withdrawn. Complete hemostasis was achieved at puncture site. Sterile dressing applied post procedure. Patient tolerated procedure extremely well. FINDINGS: On the visualized images there is maintained lumbar lordosis. The vertebral heights, alignment and disc heights are normal. No visible fracture, lytic or sclerotic process seen. The soft tissues are normal. The opening CSF pressure measured 7.5 cm of water. Approximately 9 mL of clear CSF fluid was collected. FLUOROSCOPY TIME: 10 seconds: DOSE AREA PRODUCT: 174.5 uGy-m2 (microgray-meter squared) FL/FL guided lumbar puncture LP IMPRESSION: Successful fluoroscopy-guided lumbar puncture performed. Electronically signed by: Sherman Lujan MD 09/15/2024 01:12 PM EDT
[2024-09-15 10:03] LABS: UPreg QC Valid YES; Urine Pregnancy NEGATIVE (NEGATIVE)
[2024-09-15 10:13] VITALS: BP 120/68; PULSE 92; RESP 14; TEMP 37.2; O2SAT 100; BMI 21.0
[2024-09-15 10:31] LABS: MANUAL DIFF FLAG NO
[2024-09-15 10:32] LABS: Basophils Percent Auto 0.6 % (0-2); Eosinophils Absolute Auto 0.2 X10*3/uL (0.0-0.4); Eosinophils Percent Auto 2.4 % (0-4); Hematocrit 34.6 % (37.0-47.0); Hemoglobin 12.4 g/dl (12.0-16.0); Imm Gran Abs Auto 0.01 X10*3/uL (0.00-0.03); Imm Gran Pct Auto 0.1 % (0.0-0.4); Lymphocytes Absolute Auto 1.7 X10*3/uL (1.2-4.9); Lymphocytes Percent Auto 23.1 % (20-40); Mean Corpuscular HGB Conc 35.8 g/dl (31.0-35.0); Mean Corpuscular Hemoglobin 31.5 pg (27.0-33.0); Mean Corpuscular Volume 87.8 fL (80.0-98.0); Mean Platelet Volume 8.4 fL (9.4-12.3); Monocytes Absolute Auto 0.6 X10*3/uL (0.1-1.2); Monocytes Percent Auto 8.1 % (2-11); Neutrophils Absolute Auto 4.7 x10*3/uL (2.0-8.3); Neutrophils Percent Auto 65.7 % (45-73); Platelet Count 284 X10*3/uL (160-400); Red Blood Count 3.94 X10*6/uL (4.20-5.50); Red Cell Distribution Width 11.8 % (11.0-16.0); White Blood Count 7.1 X10*3/uL (4.8-10.8)
[2024-09-15 10:39] LABS: Prothrombin Time 11.4 SEC (10.9-12.4)
[2024-09-15 11:45] VITALS: BP 120/72; PULSE 83; RESP 16; TEMP 36.1; O2SAT 100
[2024-09-15 12:15] VITALS: BP 111/67; PULSE 91; RESP 16; O2SAT 98
[2024-09-15 12:39] LABS: CSF Appearance Clear, Colorless; CSF Tube # 3
[2024-09-15 12:45] VITALS: BP 100/65; PULSE 94; RESP 16; O2SAT 99
[2024-09-15 12:49] LABS: Glucose CSF 58 mg/dL; Total Protein CSF 27.2 mg/dL (15-45)
[2024-09-15 12:59] LABS: Appearance CSF CLEAR; CSF Tube # 1; Color CSF COLORLESS
[2024-09-15 13:00] LABS: Appearance CSF CLEAR; CSF Tube # 4; Color CSF COLORLESS; White Blood Cell CSF 3 MM*3; White Blood Cell CSF 7 MM*3
[2024-09-15 13:28] LABS: CSF Monos 1 %; Lymphocytes CSF 97 %; Neutrophils CSF 2 %; Red Blood Cell CSF 1 MM*3; Red Blood Cell CSF 2 MM*3
[2024-09-15 13:29] LABS: Lymphocytes CSF 90 %; Neutrophils CSF 10 %
[2024-09-16 11:05] LABS: Oligoclonal Serum Yes
[2024-09-16 16:14] LABS: Lyme (B. burgdorferi) PCR NOT DETECTED (NOT DETECTED); Lyme PCR Source NOT GIVEN
[2024-09-18 19:23] LABS: JC Polyoma Virus RT CSF Not Detected (Not Detected)
[2024-09-19 12:23] LABS: Oligoclonal Banding Present (Absent)
[2024-09-20 16:53] LABS: JCV Antibody NEGATIVE; JCV Index Value 0.18 index
[2024-09-27 14:01] LABS: Prealbumin, CSF 6.1; Total Protein, CSF 32
[2024-09-27 14:02] LABS: Albumin, CSF 47.4; Alpha-1-Globulin,CSF 3.2; Alpha-2-Globulin,CSF 6.8
[2024-09-27 14:03] LABS: Beta Globulin, CSF 15.3; Gamma Globulin 21.2
== END 2024-09-15 12:56 | disposition home or self-care (01) ==
LOC: HO.SSS 09:41
PROVIDERS: Physician Assistant Surgical; PCP Internal Medicine; Visit Provider Nurse Practitioner Family
PROC: 009U3ZZ Drainage of Spinal Canal, Percutaneous Approach (ICD-10-PCS; CPT 62270; principal; 2024-09-15 11:00)
DX: R90.82 White matter disease, unspecified (principal); H53.2 Diplopia; R29.818 Other symptoms and signs involving the nervous system; R20.2 Paresthesia of skin; R20.0 Anesthesia of skin; G43.109 Migraine with aura, not intractable, without status migrainosus; Q79.60 Ehlers-Danlos syndrome, unspecified; Z79.899 Other long term (current) drug therapy; Z88.1 Allergy status to other antibiotic agents
CPT/HCPCS: 36415; 62328; 81025; 82945; 83916; 84157; 84166; 85025; 85610; 86052; 86711; 87015; 87070; 87205; 87476; 87798; 89051; J2003

== ENCOUNTER → 2024-09-15 10:36 | Outpatient (BNV) | payer OTHER, SELFPAY | PROVIDERS: PCP Internal Medicine; Visit Provider Radiology Diagnostic Radiology | DX: R90.82 White matter disease, unspecified (principal) | CPT/HCPCS: 62328 ==

== ENCOUNTER 2024-09-16 08:05 | Emergency (ER) | payer OTHER, SELFPAY ==
[2024-09-16 08:10] VITALS: BP 128/86; PULSE 112; RESP 18; TEMP 37.1; O2SAT 99; BMI 21.1
--- NOTE | 2024-09-16 08:22 | ED.HA ---
HPI - Headache General Chief Complaint: Headache Stated Complaint: spinal headache Time Seen by Provider: 09/16/24 08:20 Source: patient Mode of arrival: ambulatory Limitations: no limitations History of Present Illness ED Provider: Yanci Stevenson PA-C HPI Narrative: 38 yo femalg with longstanding history of migraines since age 14, Clary Danlos Syndrome, TIA x2, anxiety, possible POTS, who is currently being worked up for MS presents to the ER for evaluation of a postural headache that started today after getting a spinal tap done here yesterday. She reports pain started at 4am when she got up to use the bathroom. She reported pain and throbbing in her head that improved when she laid back down. When she got up for the day she noted again worsening headache when upright. She reports the longer she is up the more severe the symptoms are which include nausea, back pain, ear pressure/pain, headache, dizziness. She called her Neruologist and was instructed to take tylenol and drink caffeine. These didnt help so she was told to come to the ER for a possible blood patch. She denies any associated chest pain, MD ATTILA elicited complaint: headache Pertinent past history: other (recent LP) Onset (ago): hour(s) Onset description: suddenly Location: generalized Severity: severe Quality & Timing: throbbing Exacerbating factors: sitting/standing Relieving factors: other (supine) Associated symptoms: nausea Treatments prior to arrival: acetaminophen Related Data Home Medications ?Medication ?Instructions ?Recorded ?Confirmed buprenorphine 8 mg-naloxone 2 mg 2 film buccal DAILY 09/10/23 09/15/24 sublingual film (Suboxone) fluticasone propionate 50 1 spray intranasal DAILY 09/10/23 09/15/24 mcg/actuation nasal spray,suspension ipratropium bromide 17 inhalation 09/01/24 09/01/24 mcg/actuation HFA aerosol inhaler (Atrovent HFA) metoprolol tartrate 25 mg tablet 12.5 mg PO DAILY 09/01/24 09/15/24 Previous Rx's ?Medication ?Instructions ?Recorded mchhfqeogj-vjizfwuvwexep-wpfzklff 1 tab PO Q4H PRN headache 7 days 06/01/24 50 mg-325 mg-40 mg tablet #28 tabs ubrogepant 100 mg tablet (Ubrelvy) 50 - 100 mg (0.5 - 1 x 100 mg) PO 09/01/24 ONCE PRN migraine headache 30 days #16 tabs Allergies Allergy/AdvReac Type Severity Reaction Status Date / Time doxycycline Allergy Mild Dizziness Verified 09/16/24 08:12 ciprofloxacin Allergy Severe Unknown Uncoded 09/15/24 10:10 Kelflex Allergy Severe Anaphylaxis Uncoded 09/15/24 10:10 Review of Systems Review of Systems: Yes all other systems are reviewed and are negative [facility] Family History Family History Mother Hyperlipidemia Depression HTN (hypertension) COPD (chronic obstructive pulmonary disease) Diabetes Father Hyperlipidemia Maternal Grandmother Stroke Lung cancer Ovarian ca Cancer, colon Paternal Grandmother Breast cancer in female Social History Social History Are you a primary hospice home care coordinator to a significant other at home: No Alcohol intake: never Patient Tobacco Use Status: Current everyday Tobacco user Tobacco use type: Cigarette Cigarette Packs Per Day: 0.5 Cigarettes Per Day: 10 Years Smoked: 20 Smoked in Last 30 Days: Yes Use of substances other than those prescribed or required for medical reasons: No Advance Directives: No Advance Directives Information Provided: No Physical Exam Vital Signs: Vital Signs: Last Vital Signs Temp 98.8 F 09/16/24 08:10 Pulse 75 09/16/24 12:20 Resp 18 09/16/24 12:20 BP 120/62 09/16/24 12:20 Pulse Ox 95 09/16/24 12:20 O2 Del Method Room Air 09/16/24 12:20 BMI result Body Mass Index 21.1 Appearance: Alert. Oriented X3. No acute distress. Head: normocephalic, atraumatic. Eyes: Pupils equal, round and reactive to light. ENT: Pharynx normal. No tonsillar swelling or exudate. Bilateral TMs partially obscured with cerumen. Neck: Normal inspection. Neck supple. CVS: Normal heart rate and rhythm. Pulses normal. Respiratory: No respiratory distress. Breath sounds normal. Abdomen: Soft and nontender. +BS x4 Skin: Skin warm and dry. Normal skin color. Normal skin turgor. No rashes. Extremities: No lower extremity edema. No joint swelling. Neuro/psych: Oriented X 3. No motor deficit. No sensory deficit. CN II-XII intact. Normal speech and cognition. Course Reevaluation(s) Reevaluation #1: upon re-evaluation patient is still c/o significant headache when sitting or standing. Dr. Gage from anesthesia will come and evaluate the patient Time: 12:54 Medications Administered Discontinued Medications Generic Name Dose Route Start Last Admin Trade Name Georgie PRN Reason Stop Dose Admin Lactated Ringer's 1,000 mls @ 999 mls/hr 09/16/24 08:30 09/16/24 09:40 Lr IV 09/16/24 09:30 Infused .Q1H1M YAQUELIN Infusion Lactated Ringer's 1,000 mls @ 999 mls/hr 09/16/24 09:00 09/16/24 12:13 Lr IV 09/16/24 10:00 Infused .Q1H1M YAQUELIN Infusion Caffeine/Sodium Benzoate 250 501 mls @ 501 mls/hr 09/16/24 09:15 09/16/24 11:20 mg/ Sodium Chloride IV 09/16/24 10:14 Infused ONCE ONE Infusion Medical Decision Making Medical Decision Making MDM Narrative: 38 yo female presenting with post-lumbar puncture headache that started at 4am today when standing. VSS on arrival. headache resolves w/ laying down. IV established and patient ordered for 2 L IVF and spoke w/ pharmacy re: IV caffeine Anesthesia class a regional truck driver (Dr. Gage) contacted after treatment patient is still c/o moderate headache w/ standing. Dr. Gage came to evaluate the patient. at this time recommending ongoing conservative management and if symptoms worse she should return to the hospital for re-evaluation. Dr. Gage is on-call and should be re-contacted if she comes back. patient in agreement with this plan. stable for d/c home Differential Diagnosis Differential Diagnoses: The differential diagnosis associated with the presentation includes post lumbar puncture headache, migraine headache, tension headache, subdural hematoma Admission/Observation Consideration of admission/observation: Escalation of care including admission/observation considered Consult Healthcare Provider Management of the patient was discussed with: Internal Sales Engineer Dr. Gage from Anesthesia External Record Review External record reviewed: Outpatient record, Prior outpatient labs and Prior outpatient radiology Tests considered The following testing was considered but not selected: considered CT head. low suspicion for intracranial pathology Prescription Management I considered prescription management with: Pain Medication Chronic Conditions Patient?s care impacted by: Other (migraines) Critical Care Time Critical Care Time Critical Care Time: Yes Total Critical Care Time: 36 Attestation: I have personally provided critical care time exclusive of time spent on separately billable procedures. Time includes review of lab data, chart review, bedside re-evaluation after administration of IVF boluses and IV caffeine , discussion with consultants, and monitoring for potential decompensation. Intervention performed as documented. Discharge Plan Discharge Clinical Impression: Post lumbar puncture headache Patient Disposition: Home, Self-Care Instructions: Epidural Blood Patch (DC), Lumbar Puncture (ED) Additional Instructions: rest. lay flat as much as possible for the next 24 hours take 1000 mg of tylenol every 6 hours drink plenty of fluids increase your caffeine intake If you develop new or worsening symptoms call 911 or come back to the ER for further evaluation. If you end up coming back, tell them Dr. Gage from Anesthesia should be consulted again Prescriptions: No Action jhftkzcdzv-pizypvvdvckio-azfd 50-325-40 mg tablet 1 tab PO Q4H PRN (Reason: headache) 7 Days Qty: 28 1RF Rx Instructions: max 4 tabs per day. Atrovent HFA 17 mcg/actuation HFA aerosol inhaler inhalation metoprolol tartrate 25 mg tablet 12.5 mg PO DAILY Patient Comments: pt states she is tapering off metoprolol Ubrelvy 100 mg tablet 50 - 100 mg PO ONCE PRN (Reason: migraine headache) 30 Days Qty: 16 3RF Rx Instructions: take at onset of migraine, may repeat in 2hrs (may take w/ Ibuprofen) buprenorphine-naloxone [Suboxone] 8-2 mg film 2 film buccal DAILY Rx Instructions: place 1 film on inside of (each) cheek fluticasone propionate 50 mcg/actuation spray,suspension 1 spray intranasal DAILY Rx Instructions: administer into each nostril Interventions: ED Discharge Assessment Last Done: 09/16/24 13:45 Print Language: [place]
--- OUTSIDE RECORDS SUMMARY | 2024-09-16 08:30 | XMS_ITS | Data Portability ---
Author Organization [place] - [facility], Allergy Address [address] [address] Care Team Providers Care Apple Thinner Name Role Phone FINALAKISHAYURI Primary Care Provider [...] shows no sign of infection or polyps. Armin Hallpike is negative for nystagmus. I discussed [...] skin testing (PROC) 10/2023 [email or web address] Not available 4 10:57:01 pulmonary function test procedure (PROC) 2023 [email or web address] Not available 10:57:01 pulse oximetry (PROC) 2023 [email or web address] Not available 10:57:01 Surgeries None recorded. Imaging CT, sinuses, w/o contrast [address] (Radiology), [address] [place], [address], 10:58:05 Medication Orders None recorded. Patient TargetsNo targets recorded. Patient InstructionsNo instructions recorded. Reason for Referral None Reported. Problems Name Problem SNOMED Code Status Onset Date Resolution Date Notes Provider Name and Address Organization Details Recorded Time Allergic rhinitis 78547343 Active 2022 Other allergic rhinitis; Note: Date Diagnosed : 12/16/2022 4:51 PM (J30.89) Not Available Pending sale to [facility] 4 03:29:17 Bilateral earache 796521110 Active 2022 Otalgia, bilateral ; Note: Date Diagnosed : 12/16/2022 4:50 PM (H92.03) Not Available Pending sale to [facility] 4 03:29:17 Bilateral temporoma ndibular joint pain 73846530547 990743 Active 2022 Arthralgi a of bilateral temporoma ndibular joint; Note: Date Diagnosed : 12/16/2022 4:50 PM (M26.623) Not Available Pending sale to [facility] 4 03:29:17 Dizziness and giddiness 537094810 Active 2023 Radha yusuf [place] - [facility] [place] 4 10:50:21 Atypical facial pain 70292031 Active 2023 Radha yusuf [place] - [facility] [place] 4 10:50:24 Migraine without aura 03481627 Active 2023 Radha yusuf [place] - [facility] [place] 4 10:50:27 Non-aller gic rhinitis 03244195037 1 Active 2023 Radha yusuf [place] - [facility] 4 10:54:12 Seasonal allergic rhinitis 996241538 Active 2023 Radha yusuf [place] - [facility] 4 10:54:12 Problem Notes None recorded. Medical Equipment None Reported. Allergies Allergen ID Allergen Name Allergen Category Reaction Reaction Severity Criticality Documentation Date Start Date Code Code System Note Provider Name and Address Organization Details Recorded Time 967821 doxycycli ne Not available other Not available Not available 10/12/2023 3640 RxNorm React ion: Unkno wn; Not Available Pending sale to [facility] 4 01:22:46 142494 Keflex medicatio n other Not available Not available 10/12/2023 23014 7 RxNorm React ion: Unkno wn; Not Available Pending sale to [facility] 4 01:22:46 Medications Name Sig Start Date [...] Not Available No t Available amoxicillin 875 mg-deonion white clavulanate 125 mg tablet TAKE 1 TABLET [...] PER PACKAGE LABELING. QUIT SMOKING ON DAYS 01/06/OR 03/01 completed Not Available Not Available Not [...] Updated DateTime 03/01/2024 157.48 cm 21 kg/m2 54455.12 g Parul Montemayor [facility] 03/01/2024 10:24:33 Social History None recorded. Functional Status None recorded. Mental Status None recorded. Family History Nothing Reported. Medical History No medical history recorded. Gynecological HistoryNo gynecological history recorded. Obstetrics History GPAL:G 0 P 0 0 0 0 Past Encounters Encounter ID Performer Location Encounter Start Date Encounter Closed Date Diagnosis/Indication Diagnosis SNOMED-CT Code Diagnosis ICD10 Code Diagnosis Note [id number] DANIEL CARUSO MD [facility] on [address] [place] [address] 03/01/2024 10:03:17 03/01/2024 10:58:05 Dizziness and giddiness 499940526 R42 Atypical facial pain 713 91032 G50.1 Migraine without aura 56 445854 G43.009 Allergic rhinitis 571065 04 J30.9 Non-allergic rhinitis 31 54229332 01 J31.0 Seasonal a llergic rhinitis 750158712 J30.2 Health Concerns Section Related Observation LastModified by Organization Detai ls LastModified Time None Recorded Concern Status LastModified by Organization Details LastModified Time None Recorded Advance Directives Directive None Recorded Payers Encounter Date Sequence Insurance Name Policy Number Policy Kendall Covered Member ID Kendall Member ID Guarantor Name 03/01/2024 1 [facility] - [facility] (MEDICAID REPLACEMENT - HMO[id number] [employer] Notes Date Note Type Note Provider Name and Address Organization Details Recorded Time 03/01/2024 text/html 38 year old fema le with a history of TMJ, Clary Danlos [...] a few months now. DANIEL CARUSO MD [address] [place] [address], [place], [address], [facility] - [facility] 03/01/2024 12:44:44 OBGyn Episode No OBEpisode recorded.
--- OUTSIDE RECORDS SUMMARY | 2024-09-16 08:31 | XMS_ITS | Clinical Summary ---
Author Organization [facility] Address [address] [place] [address] Phone Care Team Providers Care Bread Supervisor Name Role Phone Gurmeet Soto MD Primary [...] 1 (one) time each day. 30 each 025 2025 Active aluminum-magne sium hydroxide-marcail thicone (MAALOX) 200-200-20 mg/5 mL suspension Take [...] 4 (four) times a day. 1 each 025 2025 Active metoprolol tartrate (LOPRESSOR) 25 mg tablet Take 1 tablet (25 mg total) by mouth 1 (one) time each day. 90 each Active aluminum-magne sium hydroxide-marcial thicone (MAALOX) 200-200-20 mg/5 mL suspension Take 15 mL by mouth. 024 2024 Discontinued metoprolol tartrate (LOPRESSOR) 25 mg tablet Take 6.25 mg by mouth 1 (one) time each day. 2024 Discontinued(R eorder) pantoprazole (PROTONIX) 40 mg EC tablet Take 1 tablet (40 mg total) by mouth 1 (one) time each day. Take in am on empty stomach, wait 30 mins and then eat to activate the medication 30 each 025 2024 Discontinued(S catherine effects) metoprolol tartrate (LOPRESSOR) 25 mg tablet Take 1 tablet (25 mg total) by mouth 1 (one) time each day. 90 each 025 2024 Discontinued(R eorder) Active Problems Problem Noted Date Diagnosed Date Tobacco use disorder 07/26/2024 Panfilo 06/15/2024 Assessment & Plan (06/15/2024 4:11 PM [...] veins in the pelvis leading to the Manager Oracle organs. Just as some people have pain [...] and giddiness 03/01/2024 History of opioid abuse (CMS/HCC V24, CMS/[facility] V2 8) 02/29/2024 Urinary urgency 06/03/2023 Overview (02/29/2024): Last Assessment & Plan: Encouraged some habit changes. Apical lung scarring 05/20/2023 Centrilobular emphysema (CMS/HCC V24, CMS/HCC V2 8) 05/20/2023 Chest pain 05/20/2023 Cigarette smoker motivated [...] Encounters Date Type Department Care Team Description 09/14/2024 1:00 PM EDT Office Visit Adult Medicine [address] [phone] Eva Beckford MD Impacted cerumen, bilateral (Primary Dx) 09/06/2024 Telephone Obstetrics and Gynecology - [address] [phone] Ni Willson MD Lab Results 09/05/2024 3:55 PM EDT - 09/05/2024 11:59 PM EDT Hospital Encounter Radiology Department - [address] [phone] Pelvic fluid collection; Lower abdominal pain Discharge Disposition: Home or Self Care 09/05/2024 3:55 PM EDT - 09/05/2024 11:59 PM EDT Hospital Encounter Radiology Department - [address] [phone] Flank pain Discharge Disposition: Home or Self Care 08/30/2024 8:40 AM EDT Consult [facility] [place] [address] [place] [address] Natividad Farley MD White matter disease (Primary Dx); Lhermitte sign positive; Urinary frequency; Other fatigue 08/30/2024 Telephone Adult Medicine [address] [phone] Gurmeet Soto MD lab order 08/29/2024 11:04 AM EDT - 08/29/2024 11:59 PM EDT Hospital Encounter CT Scan - [address] [phone] Discharge Disposition: Home or Self Care 08/29/[address] [phone] Manuel Olvera NP Imaging Follow-up (CT scan abdomen ) 08/29/[address] [phone] Gurmeet Soto MD Results 08/28/2024 9:45 AM EDT Office Visit [address] [phone] Manuel Olvera NP Lower abdominal pain (Primary Dx); Urinary frequency 08/23/2024 8:31 PM EDT - 08/23/2024 10:03 PM EDT Emergency [facility] Emergency [address] [place] [address] Bilateral flank pain (Primary Dx) Discharge Disposition: Left Against Medical Advice 08/22/2024 10:00 AM EDT Office Visit [address] [phone] Manuel Olvera NP Flank pain (Primary Dx); Frequency of urination; Asthma-COPD overlap syndrome (CMS/HCC V24, CMS/HCC V28); Hyperglycemia; Muscle twitching 08/11/2024 10:30 AM EDT Consult Endocrinology [address] [phone] Mukesh Patton MD Sweating abnormality (Primary Dx) 08/09/2024 10:00 AM EDT Office Visit Gastroenterology [address] [phone] Kenneth Barr PA Epigastric discomfort (Primary Dx); Dysphagia, unspecified type; Globus sensation; Gastroesophageal reflux disease without esophagitis; Straining with stools; Multiple sclerosis (CMS/HCC V24, CMS/HCC V28); Rectal discomfort 07/26/2024 10:45 AM EST Office Visit Pulmonolgy - [address] [phone] Ana Maria Sanchez MD COPD with asthma ([facility] V24, [facility] V28) (Primary Dx); Smoker 07/15/2024 9:00 AM EST Office Visit Walk-In Clinic [address] [phone] 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, [employer]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 Sore throat (Primary Dx) from Last 3 Months Immunizations Name Administration [...] History Date Comments History of opioid abuse ([facility] V24, [facility] V28) DX:History of opioid abuse ( [facility]) Low back pain 06/04/2016 DX:Low back pain ; COMMENT: Sees PSS Esophageal reflux DX:Esophageal reflux Dysphagia DX:Dysphagia Tobacco use DX:Tobacco use Clary-Danlos syndrome DX:Clary -Danlos syndrome COPD (chronic obstructive pu lmonary disease) ([facility] V24, [facility] V28) Multiple sclerosis ([facility] V24, [facility] V28) Family History Medical History Relation Name Comments [...] Sign Reading Time Taken Comments Blood Pressure 112/80 09/14/2024 1:06 PM EDT Pulse 80 09/14/2024 1:06 PM EDT Temperature 36.6 ??C (97.9 ??F) 09/14/2024 1:06 PM ED T Respiratory Rate 16 08/28/2024 10:01 AM EDT Oxygen Saturation 98% 08/30/2024 8:38 AM EDT Inhaled Oxygen Concentration - - Weight 51.7 kg (114 lb) 09/14/2024 1:06 PM EDT Height 157.5 cm (5' 2 ) 09/14/2024 1:06 PM EDT Body Mass Index 20.85 09/14/2024 1:06 PM EDT Plan of Treatment Upcoming Encounters Date Type Department Care Team (Late st Contact Info) Description 09/21/2024 11:45 AM EDT Office Visit Obstetrics and Gynecology - [address] [phone] Ni Willson MD [address] [place], [place] 09/22/2024 11:15 AM EDT Office Visit Endocrinology - [address] [phone] Mukesh Patton MD [address] [place] [phone] 10/12/2024 10:10 AM EDT Office Visit [facility] [place] - [place] [address] [facility] [address] [place] [address] Natividad Farley MD [address] [facility] [place] [address] [place] [phone] 01/24/2025 11:30 AM EDT Office Visit Pulmonolgy - [place] [facility] [address] [place] [phone] Ana Maria Sanchez MD 175 [facility] [address] [place], [place] [phone] Health Maintenance Due Date Last Done Comments [...] age to complete this topic Meningococcal B Vaccine Aged Out No l onger eligible based on patient's age to complete this topic RSV Immunization Patients Under 20 months Aged Out No longer eligible based on patient's age to complete this topic Varicella Vaccines Aged Out No longer eligible based on patient's age to complete this topic Procedures Procedure Name Priority Date/Time Associated Diagnosis Comments US PELVIS NON OB COMPLETE W TRANSVAGINAL Routine 09/05/2024 4:53 PM EDT Pelvic fluid collection Lower abdominal pain US RETROPERITONEAL COMPLETE Routine 12/2024 4:51 PM EDT Flank pain DEHYDROEPIANDROSTERONE SULFATE Routine 09/01/2024 8:55 AM EDT Sweating abnormality CORTISOL Routine 09/01/2024 8:55 AM EDT Sweating abnormality ACTH Routine 09/01/2024 8:55 AM EDT Sweating abnormality METANEPHRINES, PLASMA FREE Routine 09/01 8:55 AM EDT Sweating abnormality FERRITIN Routine 09/01/2024 8:53 AM EDT Other fatigue Low serum iron IRON AND TIBC Routine 09/01/2024 8:53 AM EDT Other fatigue Low serum iron INTERFERON GAMMA INTERPRETATION Routine 08/30/2024 10:29 AM EDT White matter disease INTERFERON GAMMA ANTIGEN 2 Routine 08/30 10:29 AM EDT White matter disease INTERFERON GAMMA ANTIGEN 1 Routine 08/30 10:29 AM EDT White matter disease INTERFERON GAMMA MITOGEN Routine 025 10:29 AM EDT White matter disease INTERFERON GAMMA NIL Routine 08/30/2024 10:29 AM EDT White matter disease CBC WITH AUTO DIFFERENTIAL Routine 08/30 10:29 AM EDT White matter disease HEPATIC FUNCTION PANEL Routine 10:29 AM EDT White matter disease JCV POLYOMA VIRUS ANTIBODY WITH REFLEX TO INHIBITION ASSAY Routine 08/30/2024 10:29 AM EDT White matter disease HIV [...] White matter disease IMMUNOGLOBULIN IGM Routine 08/30/2024 10:29 AM EDT White matter disease IMMUNOGLOBULIN IGG Routine 08/30/2024 10:29 AM EDT White matter disease IMMUNOGLOBULIN IGA Routine 08/30/2024 10:29 AM EDT White matter disease VARICELLA ZOSTER ANTIBODY IGG Routine 08/30/2024 10:29 AM EDT White matter disease NEUROMYELITIS OPTICA, [id number] Routine 08/30/2024 10:29 AM EDT White matter disease MYELIN OLIGODENDROCYTE GLYCOPROTEIN ANTIBODY WITH REFLEX TO TITER Routine 08/30/2024 10:29 AM EDT White matter disease SJOGRENS ANTIBODIES, SSA AND SSB Routine 08/30/2024 10:29 AM EDT White matter disease MICHELLE IFA WITH TITER AND PATTERN Routine 08/30/2024 10:29 AM EDT White matter disease RHEUMATOID FACTOR Routine 08/30/2024 10:29 AM EDT White matter disease CREATININE, SERUM Routine 08/30/2024 10:29 AM EDT White matter disease BUN Routine [...] pain SYLVESTER URINE CULTURE TUBE Routine 08/29/19 4:43 PM EDT Lower abdominal pain Urinary frequency URINALYSIS WITH REFLEX MICROSCOPIC AND CULTURE Routine 08/28/2024 4:43 PM EDT Lower abdominal pain Urinary frequency URINALYSIS WITH REFLEX MICROSCOPIC AND CULTURE Routine 08/28/2024 4:43 PM EDT Lower abdominal pain Urinary frequency POC URINE NON-AUTO W/O MICRO Routine 1:45 PM EDT Lower abdominal pain Urinary frequency SYLVESTER URINE CULTURE TUBE STAT 08/24/19 3:28 PM EDT URINALYSIS WITH REFLEX MICROSCOPIC AND CULTURE STAT 08/23/2024 3:28 PM EDT URINALYSIS WITH REFLEX MICROSCOPIC AND CULTURE STAT 08/23/2024 3:28 PM EDT CBC WITH AUTO DIFFERENTIAL STAT 08/23 3:25 PM EDT COMPREHENSIVE METABOLIC PANEL STAT 08/23/2024 3:25 PM EDT CBC AND DIFFERENTIAL STAT 08/23/2024 3:25 PM EDT SYLVESTER URINE CULTURE TUBE Routine 08/23/19 11:05 AM EDT Flank pain Asthma-COPD overlap syndrome (CMS/HCC V24, CMS/HCC V28) Frequency of urination MICROALBUMIN CREATININE URINE RATIO Routine 08/22/2024 11:04 AM EDT Flank pain Asthma-COPD overlap syndrome (CMS/HCC V24, CMS/HCC V28) Frequency of urination URINALYSIS WITH REFLEX MICROSCOPIC AND CULTURE Routine 08/22/2024 11:04 AM EDT Flank pain Asthma-COPD overlap syndrome (CMS/HCC V24, CMS/HCC V28) Frequency of urination URINALYSIS WITH REFLEX MICROSCOPIC AND CULTURE Routine 08/22/2024 11:04 AM EDT Flank pain Asthma-COPD overlap syndrome (CMS/HCC V24, CMS/HCC V28) Frequency of urination BASIC METABOLIC PANEL Routine 08/22/2024 11:04 AM EDT Flank pain Asthma-COPD overlap syndrome (CMS/HCC V24, CMS/HCC V28) Frequency of urination MAGNESIUM Routine 08/22/2024 11:04 AM EDT Flank pain Asthma-COPD overlap syndrome (CMS/HCC V24, CMS/HCC V28) Frequency of urination METANEPHRINES, PLASMA FREE Routine 08/15 12:25 PM EDT Sweating abnormality METANEPHRINES, URINE 24H Routine 12:16 PM EDT Sweating abnormality POC RAPID STREP A Routine 07/15/2024 9:2 3 AM EST Sore throat PAP SMEAR Routine 10/10/2020 from Last 3 Months or Most Recently Relevant to Health Maintenance Results * US Pelvis Non OB Complete w Transvaginal (09/05/2024 4:53 PM EDT) Anatomical Region Laterality Modality Body, Pelvis Ultrasound 09/05/2024 5:49 PM EDT Impressions 09/05/2024 5:56 PM EDT 2.7 x 2.0 x 2.0 cm simple fluid collection in the right adnexal region correlates with the CT finding. ??Unknown clinical significance. -------- FINAL REPORT -------- Dictated By: Toni Henderson Dictated Date: 09/05/2024 17:49 ET Assigned Physician: Toni Henderson Reviewed and Electronically Signed By: Toni Henderson Signed Date: 09/05/2024 17:56 ET Workstation ID: [id number] Transcribed By: Self Edit Transcribed Date: 09/05/2024 17:49 ET Narrative 09/05/2024 5:56 PM EDT EXAM(s): ?? US PELVIS NON OB COMPLETE W TRANSVAGINAL COMPARISON: CT of abdomen/pelvis on August 29, 2024 describes oval-shaped fluid density in the right posterior pelvis HISTORY: Abnomal CT, Lower abdominal pain, Plevic Fluid FINDINGS: UTERUS: The uterus is retroflexed, measures 8.4 x 5.0 x 5.1 cm, volume of 112.2 cm3, and demonstrates homogeneous ??myometrial echotexture. The endometrial echocomplex measures 1.1 cm in thickness. RIGHT OVARY: 3.1 x 2.5 x 2.4 cm, volume of 9.8 cm3. Normal follicular appearance. Normal arterial and venous flow is demonstrated with color and spectral Doppler. LEFT OVARY: 2.1 x 1.2 x 2.6 cm, volume of 3.7 cm3. Normal follicular appearance. Normal arterial and venous flow is demonstrated with color and spectral Doppler. PELVIS: Right adnexal fluid collection measuring 2.7 x 2.0 x 2.0 cm most likely correlates with the CT finding; the content appears simple fluid and is not associated with abnormal vascularity under color Doppler evaluation. Procedure Note Toni Henderson MD - 09/05/2024 EXAM(s): US PELVIS NON OB COMPLETE W TRANSVAGINAL COMPARISON: CT of abdomen/pelvis on August 29, 2024 describes oval-shapedfluid density in the right posterior pelvis HISTORY: Abnomal CT, Lower abdominal pain, Plevic Fluid FINDINGS: UTERUS: The uterus is retroflexed, measures 8.4 x 5.0 x 5.1 cm, volume of112.2 cm3, and demonstrates homogeneous myometrial echotexture. Theendometrial echocomplex measures 1.1 cm in thickness. RIGHT OVARY: 3.1 x 2.5 x 2.4 cm, volume of 9.8 cm3. Normal follicularappearance. Normal arterial and venous flow is demonstrated with color andspectral Doppler. LEFT OVARY: 2.1 x 1.2 x 2.6 cm, volume of 3.7 cm3. Normal follicularappearance. Normal arterial and venous flow is demonstrated with color andspectral Doppler. PELVIS: Right adnexal fluid collection measuring 2.7 x 2.0 x 2.0 cm mostlikely correlates with the CT finding; the content appears simple fluidand is not associated with abnormal vascularity under color Dopplerevaluation. IMPRESSION: 2.7 x 2.0 x 2.0 cm simple fluid collection in the right adnexal regioncorrelates with the CT finding. Unknown clinical significance. -------- FINAL REPORT -------- Dictated By: Toni Henderson Dictated Date: 09/05/2024 17:49 ET Assigned Physician: Toni Henderson Reviewed and Electronically Signed By: Toni Henderson Signed Date: 09/05/2024 17:56 ET Workstation ID: [id number] Transcribed By: Self Edit Transcribed Date: 09/05/2024 17:49 ET us Manuel Olvera 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 IMG US PROCEDURES Final Resu lt * US Retroperitoneal Complete (09/05/2024 4:51 PM EDT) Anatomical Region Laterality Modality Body Ultrasound 09/05/2024 5:35 PM EDT Impressions 09/05/2024 5:40 PM EDT No shadowing renal stones. -------- FINAL REPORT -------- Dictated By: Toni Henderson Dictated Date: 09/05/2024 17:35 ET Assigned Physician: Toni Henderson Reviewed and Electronically Signed By: Toni Henderson Signed Date: 09/05/2024 17:40 ET Workstation ID: [id number] Transcribed By: Self Edit Transcribed Date: 09/05/2024 17:35 ET Narrative 09/05/2024 5:40 PM EDT US RETROPERITONEAL COMPLETE TECHNIQUE: Complete ultrasound evaluation of the retroperitoneum was performed. ?? COMPARISON: Abdomen/pelvis CT on August 29, 2024 Reason for the study: kidney stone FINDINGS: RIGHT KIDNEY: Size: 10.6 cm. No shadowing stones. ??Fullness of the renal pelvis, but no faustino hydronephrosis. LEFT KIDNEY: ??Size: 11.4 cm. No shadowing stones or hydronephrosis. BLADDER: ??Urinary bladder is well distended without wall thickening or intravesical stones. Bilateral ureteral jets were seen. Prevoid urinary bladder volume measures 590.5 cc. Post void volume of 10.1 cc. Procedure Note Toni Henderson MD - 09/05/2024 US RETROPERITONEAL COMPLETE TECHNIQUE: Complete ultrasound evaluation of the retroperitoneum was performed. COMPARISON: Abdomen/pelvis CT on August 29, 2024 Reason for the study: kidney stone FINDINGS: RIGHT KIDNEY: Size: 10.6 cm. No shadowing stones. Fullness of the renalpelvis, but no faustino hydronephrosis. LEFT KIDNEY: Size: 11.4 cm. No shadowing stones or hydronephrosis. BLADDER: Urinary bladder is well distended without wall thickening orintravesical stones. Bilateral ureteral jets were seen. Prevoid urinarybladder volume measures 590.5 cc. Post void volume of 10.1 cc. IMPRESSION: No shadowing renal stones. -------- FINAL REPORT -------- Dictated By: Toni Henderson Dictated Date: 09/05/2024 17:35 ET Assigned Physician: Toni Henderson Reviewed and Electronically Signed By: Toni Henderson Signed Date: 09/05/2024 17:40 ET Workstation ID: [id number] Transcribed By: Self Edit Transcribed Date: 09/05/2024 17:35 ET us Manuel Olvera 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 IMG US PROCEDURES Final Resu lt * (ABNORMAL) Metanephrines, plasma free (09/01/2024 8:55 AM EDT) Only the most recent of2 resultswithin the time period is included. Metanephrines Free 36 < OR = 57 pg/mL 09/14/2024 1:39 AM EDT [facility] Comment: This test was developed and its analytical performance characteristics have been determined by [facility]. It has not been cleared or approved by the FDA. This assay has been validated pursuant to the CLIA regulations and is used for clinical purposes. Normetanephrine Free 154(H) < OR = 148 pg/mL 09/14/2024 1:39 AM EDT [facility] Comment: This test was developed and its analytical performance characteristics have been determined by [facility]. It has not been cleared or approved by the FDA. This assay has been validated pursuant to the CLIA regulations and is used for clinical purposes. Total, Free (MN + NMN) 190 < OR = 205 pg/mL 09/14/2024 1:39 AM EDT [facility] Comment: Elevations > 4-fold [...] 2008. For additional information, please refer to http://education.questdiagn[employer].com/faq/MetFractFree (This link is being provided for informational/educational purposes only.) This test was developed and its analytical performance characteristics have been determined by [facility]. It has not been cleared or approved by the FDA. This assay has been validated pursuant to the CLIA regulations and is used for clinical purposes. Test Performed at: [facility] [address] [place], [place] ??[address] ? I Libby LAMBERT, PhD, SERGEI Blood Venous blood specimen / Unknown Venipuncture / Unknown 09/01/2024 8:55 AM EDT 09/01/2024 9:17 AM EDT Mukesh Patton MD LAB BLOOD ORDERABLES Final Resul t Performing Organization Address City/[facility]/ZIP Co de Phone Number [facility] [address] [place] [address] * Dehydroepiandrosterone Sulfate (09/01/2024 8:55 AM EDT) [facility] Signature DHEA Sulfate 171.4 68.9 - 301.8 mcg/dL LAB CHEMISTRY METHOD 09/01/2024 12:07 PM EDT [facility] Blood Venous blood specimen / Unknown Venipuncture / Unknown 09/01/2024 8:55 AM EDT 09/01/2024 9:17 AM EDT Narrative [facility] - 09/01/2024 12:07 PM EDT Over the counter supplements containing high doses of biotin may interfere with this assay. ??If interference is suspected, patients shoud be retested after refraining from biotin supplements for 72 hours. us Mukesh Patton MD LAB BLOOD ORDERABLES Final Resul t [facility] [address] [place] [address], * ACTH (09/01/2024 8:55 AM EDT) Adrenocorticotropic Hormone (ACTH) 10 <=46 pg/mL 09/04/2024 2:13 PM EDT [facility] Comment: Test performed at [facility], [address] [facility], [place], [place] ??[address] ? [phone] Wendy Weiner MD, PhD - [employer] Blood Venous blood specimen / Unknown Venipuncture / Unknown 09/01/2024 8:55 AM EDT 09/01/2024 9:17 AM EDT Mukesh Patton MD LAB BLOOD ORDERABLES Final Resul t Performing Organization Address [facility] Co de Phone Number [facility] [address] [place] [address] * Cortisol (09/01/2024 8:55 AM EDT) Cortisol 7.6 mcg/dL LAB CHEMISTRY METHOD 09/01/2024 10:20 AM EDT [facility] Blood Venous blood specimen / Unknown Venipuncture / Unknown 09/01/2024 8:55 AM EDT 09/01/2024 9:17 AM EDT Narrative [facility] - 09/01/2024 10:20 AM EDT CORTISOL REFERENCE RANGE ?? 8 AM SPEC: ??5.0-23.0 mcg/dL ?? 4 PM SPEC: ??3.0-16.0 mcg/dL ?? 8 PM SPEC: ??<5.0 mcg/dL Mukesh Patton MD LAB BLOOD ORDERABLES Final Resul t Performing Organization Address City/[facility]/ZIP Co de Phone Number [facility]) [facility] [address] [place] [address], [place] [phone] * Iron and TIBC (09/01/2024 8:53 AM EDT) Iron 134 40 - 150 mcg/dL LAB CHEMISTRY METHOD 09/01/2024 10:02 AM EDT [facility] TIBC 290 250 - 450 mcg/dL LAB CHEMISTRY METHOD 09/01/2024 10:02 AM EDT [facility] Iron Saturation 46 15 - 50 % LAB CHEMISTRY METHOD 09/01/2024 10:02 AM EDT [facility] Blood Venous blood specimen / Unknown Venipuncture / Unknown 09/01/2024 8:53 AM EDT 09/01/2024 9:17 AM EDT Manuel Olvera 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 LAB BLOOD ORDERABLES Final R esult [facility] [address] [place] [address], [place] [phone] * Ferritin (09/01/2024 8:53 AM EDT) Ferritin 47 8 - 252 ng/mL LAB CHEMISTRY METHOD 09/01/2024 10:04 AM EDT [facility] Blood Venous blood specimen / Unknown Venipuncture / Unknown 09/01/2024 8:53 AM EDT 09/01/2024 9:17 AM EDT Manuel Olvera 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 LAB BLOOD ORDERABLES Final R esult [facility] [address] [place] [address], [place] [phone] * Hepatitis C antibody (08/30/2024 10:29 AM EDT) Hepatitis C Antibody Negative Negative LAB CHEMISTRY METHOD 08/30/2024 5:41 PM EDT [facility] Blood Venous blood specimen / Unknown Venipuncture / Unknown 08/30/2024 10:29 AM EDT 08/30/2024 12:05 PM EDT us Natividad Farley MD LAB BLOOD ORDERABLES Fin al Result Performing Organization Address [facility]/ZIP Co de Phone Number [facility] [address] [place] [address], [place] [phone] * HIV 1,2 antibody, p24 antigen with reflex to differentiation (08/30/2024 10:29 AM EDT) [facility] HIV Combo AB/AG Negative Negative LAB CHEMISTRY METHOD 08/30/2024 5:42 PM EDT [facility] Blood Venous blood specimen / Unknown Venipuncture / Unknown 08/30/2024 10:29 AM EDT 08/30/2024 12:05 PM EDT Narrative [facility] - 08/30/2024 5:42 PM EDT This [...] ORDERABLES Fin al Result Performing Organization Address [facility] de Phone Number [facility] [address] [place] [address], [place] [phone] * Interferon gamma interpretation (08/30/2024 10:29 AM EDT) [facility] Quantiferon Plus Interpretation Negative Negative LAB CHEMISTRY METHOD 08/31/2024 10:57 AM EDT [facility] Blood Venous blood specimen / Unknown Venipuncture / Unknown 08/30/2024 10:29 AM EDT 08/30/2024 12:04 PM EDT us Natividad Farley MD LAB BLOOD ORDERABLES Fin al Result Performing Organization Address City/[facility]/ZIP Co de Phone Number [facility] [address] [place] [address], [place] [phone] * Interferon gamma antigen 2 (08/30/2024 10:29 AM EDT) Blood Venous blood specimen / Unknown Venipuncture / Unknown 08/30/2024 10:29 AM EDT 08/30/2024 12:04 PM EDT us Natividad Farley MD LAB BLOOD ORDERABLES Fin al Result [facility] [address] [place] [address], [place] [phone] * Inteferon gamma antigen 1 (08/30/2024 10:29 AM EDT) Blood Venous blood specimen / Unknown Venipuncture / Unknown 08/30/2024 10:29 AM EDT 08/30/2024 12:04 PM EDT us Natividad Farley MD LAB BLOOD ORDERABLES Fin al Result [facility] [address] [place] [address], [place] [phone] * Interferon gamma mitogen (08/30/2024 10:29 AM EDT) Blood Venous blood specimen / Unknown Venipuncture / Unknown 08/30/2024 10:29 AM EDT 08/30/2024 12:04 PM EDT us Natividad Farley MD LAB BLOOD ORDERABLES Fin al Result [facility] [address] [place] [address], [place] [phone] * Interferon gamma NIL (08/30/2024 10:29 AM EDT) Blood Venous blood specimen / Unknown Venipuncture / Unknown 08/30/2024 10:29 AM EDT 08/30/2024 12:04 PM EDT Natividad Farley MD LAB BLOOD ORDERABLES Fin al Result Performing Organization Address [facility] de Phone Number [facility] [address] [place] [address], [place] [phone] * Hepatitis B surface antigen with reflex to confirmation (08/30/2024 10:29 AM EDT) Pathologist [facility] Hepatitis B Surface Ag Negative Negative LAB CHEMISTRY METHOD 08/30/2024 5:14 PM EDT [facility] Blood Venous blood specimen / Unknown Venipuncture / Unknown 08/30/2024 10:29 AM EDT 08/30/2024 12:05 PM EDT Narrative [facility] - 08/30/2024 5:14 PM EDT Over the counter supplements containing high doses of biotin may interfere with this assay. ??If interference is suspected, patients shoud be retested after refraining from biotin supplements for 72 hours. us Natividad Farley MD LAB BLOOD ORDERABLES Fin al Result Performing Organization Address [facility] de Phone Number [facility] [address] [place] [address], [place] [phone] * Myelin oligodendrocyte glycoprotein antibody with reflex to titer (08/30/2024 10:29 AM EDT) Pathologist [facility] MOG Antibody, Cell-based IFA Negative Negative 09/02/2024 6:05 AM EDT [facility] Blood Venous blood specimen / Unknown Venipuncture / Unknown 08/30/2024 10:29 AM EDT 08/30/2024 12:05 PM EDT Narrative [facility] - 09/02/2024 6:05 AM EDT Test(s) [id number] Antibody, Cell-based IFA was developed and its performance characteristics determined by [facility]. It has not been cleared or approved by the Food and Drug Administration. Performed at: ??01 - [facility] [address] ??[id number] [employer] Peeling Machine Operator: Shavon Colvin MD, Phone: ??[phone] Natividad Farley MD LAB BLOOD ORDERABLES Fin al Result [facility] * JCV polyoma virus antibody with reflex to inhibition assay (08/30/2024 10:29 AM EDT) Pathologist [facility] Index Value 0.23 09/08/2024 12:05 PM EDT [facility] JCV Antibody Results are Indeterminat e. 09/08/2024 12:05 PM EDT [facility] Comment: Index interpretive criteria: ? <0.20 negative ? 0.20-0.40 indeterminate ? >0.40 positive Interpretation Note 09/08/2024 12:05 PM EDT [facility] Comment: INTERPRETATION Negative: Antibodies to JCV not detected. Indeterminate: Low level reactivity detected, see Inhibition Assay result below for the final antibody result. Positive: Antibodies to REINALDO virus (JCV) detected indicating the patient has been exposed to JCV at an undetermined time. The STRATIFY JCV(R) DxSelect(TM) Antibody Test is an enzyme-linked immunosorbent assay (SIMÓN) designed to detect JCV antibodies to help identify individuals who have been exposed to the virus. Samples with low level reactivity in the detection assay are retested in a confirmation (inhibition) assay to confirm presence or absense of JCV-specific antibodies. Retrospective analyses of post marketing data from various sources, including observational studies and spontaneous reports obtained worldwide, suggest that the risk of developing PML may be associated with relative levels of serum anti-JCV antibody as measured by anti-JCV antibody index. (1) (1) TYSABRI(natalizumab)US Prescribing Information JCV Antibody by Inhibition Negative 09/08/2024 12:05 PM EDT [facility] Interpretation Note 09/08/2024 12:05 PM EDT [facility] Comment: Positive: Antibodies to REINALDO virus (JCV) detected ?indicating the patient has been exposed ?to JCV at an undetermined time Negative: Antibodies to JCV not detected Blood Venous blood specimen / Unknown Venipuncture / Unknown 08/30/2024 10:29 AM EDT 08/30/2024 12:05 PM EDT Narrative [facility] - 09/08/2024 12:05 PM EDT Performed at: ??01 - [facility] [address] [place] ??[id number] [employer] Peeling Machine Operator: Sabine Souza MD, Phone: ??[phone] Natividad Farley MD LAB BLOOD ORDERABLES Fin al Result [facility] * Sjogrens antibodies, SSA and SSB (08/30/2024 10:29 AM EDT) Sjogren's SS-A (Ro) Ab Quant 2 <20 units LAB CHEMISTRY METHOD 09/03/2024 10:52 AM EDT [facility] Sjogren's SS-A (Ro) Ab Negative Negative LAB CHEMISTRY METHOD 09/03/2024 10:52 AM EDT [facility] Sjogren's SS-B (La) Ab Quant 2 <20 units LAB CHEMISTRY METHOD 09/03/2024 10:52 AM EDT [facility] Sjogren's SS-B (La) Ab Negative Negative LAB CHEMISTRY METHOD 09/03/2024 10:52 AM EDT [facility] Blood Venous blood specimen / Unknown Venipuncture / Unknown 08/30/2024 10:29 AM EDT 08/30/2024 12:05 PM EDT us Natividad Farley MD LAB BLOOD ORDERABLES Fin al Result [facility] [address] [place] [address], [place] [phone] * Neuromyelitis optica, [id number] (08/30/2024 10:29 AM EDT) Pathologist [facility] NMO IgG Autoantibodies <1.5 0.0 - 3.0 U/mL 09/01/2024 1:05 PM EDT [facility] Comment: ? Negative: ?0.0 - 3.0 ? Positive: ? >3.0 Blood Venous blood specimen / Unknown Venipuncture / Unknown 08/30/2024 10:29 AM EDT 08/30/2024 12:05 PM EDT Narrative [facility] - 09/01/2024 1:05 PM EDT Performed at: ??01 - [facility] [address] ??[id number] Pole Peeling Machine Operator: Shavon Colvin MD, Phone: ??[phone] Natividad Farley MD LAB BLOOD ORDERABLES Fin al Result Performing Organization Address [facility] de Phone Number [facility] * MICHELLE IFA with titer and pattern (08/30/2024 10:29 AM EDT) Pathologist [facility] MICHELLE Negative Negative 08/31/2024 10:38 AM EDT [facility] Blood Venous blood specimen / Unknown Venipuncture / Unknown 08/30/2024 10:29 AM EDT 08/30/2024 12:05 PM EDT Natividad Farley MD LAB BLOOD ORDERABLES Fin al Result Performing Organization Address [facility] Co de Phone Number [facility] [address] [place] [address], * CBC auto differential (08/30/2024 10:29 AM EDT) Only the most recent of2 resultswithin the time period is included. [facility] Signature WBC 8.6 4.8 - 10.8 K/mcL LAB HEMETOLOGY [facility] RBC 4.10 3.80 - 4.80 M/mcL LAB HEMETOLOGY METHOD 08/30[facility]2024 [facility] Hemoglobin 13.0 11.5 - 16.0 g/dL LAB HEMETOLOGY METHOD 08/30/2024 12:[address] [facility] Hematocrit 37.5 35.0 - 47.0 % LAB HEMETOLOGY METHOD 08/30/2024 12:[address] [facility] MCV 90.8 79.0 - 98.0 FL LAB HEMETOLOGY METHOD 08/30/2024 12[facility] MCH 31.5 27.0 - 32.0 pcg LAB HEMETOLOGY METHOD 08/30/2024 12:[address] [facility] MCHC 34.7 32.0 - 37.0 g/dL LAB HEMETOLOGY METHOD 08/30/2024 12:[address] [facility] RDW 11.5 11.0 - 15.0 % LAB HEMETOLOGY METHOD 08/30/2024 12:[address] [facility] Platelets 315 130 - 400 K/mcL LAB HEMETOLOGY METHOD 08/30/2024 12:[address] [facility] MPV 9.6 7.0 - 11.0 FL LAB HEMETOLOGY METHOD 08/30/2024 12:[facility] NRBC 0.0 <1.0 % LAB HEMETOLOGY METHOD 08/30/2024 12[facility] NRBC Absolute 0.00 <0.10 K/mcL LAB HEMETOLOGY METHOD 08/30/2024 12:30 PM EDT [facility] Neutrophils Relative 58.2 % LAB HEMETOLOGY METHOD 08/30[facility]2024 12[facility] Lymphocytes Relative 30.4 % LAB HEMETOLOGY METHOD 08/30/2024 12:30 PM EDT [facility] Monocytes Relative 8.1 % LAB HEMETOLOGY METHOD 08/30[facility]2024 12[facility] Eosinophils Relative 2.3 % LAB HEMETOLOGY METHOD 08/30/2024 12:[facility] Basophils Relative 0.7 % LAB HEMETOLOGY METHOD 08/30/2024 12:[address] [facility] Immature Granulocytes Relative 0.3 % LAB HEMETOLOGY METHOD 08/30/2024 12:[address] [facility] Neutrophils Absolute 5.02 1.50 - 7.00 K/mcL LAB HEMETOLOGY METHOD 08/30/2024 12:[address] [facility] Lymphocytes Absolute 2.63 1.00 - 5.00 K/mcL LAB HEMETOLOGY METHOD 08/30/2024 12:[address] [facility] Monocytes Absolute 0.70 0.20 - 1.00 K/mcL LAB HEMETOLOGY METHOD 08/30/2024 12:30 PM T [facility] Eosinophils Absolute 0.20 0.00 - 0.50 K/mcL LAB HEMETOLOGY METHOD 08/30/2024 12:[address] [facility] Basophils Absolute 0.06 0.00 - 0.20 K/mcL LAB HEMETOLOGY METHOD 08/30/2024 12:[address] [facility] Immature Granulocytes Absolute 0.03 0.00 - 0.03 K/mcL LAB HEMETOLOGY METHOD 08/30/2024 12:30 PM EDT [facility] Blood Venous blood specimen / Unknown Venipuncture / Unknown 08/30/2024 10:29 AM EDT 08/30/2024 12:08 PM EDT us Natividad Farley MD LAB BLOOD ORDERABLES Fin al Result Performing Organization Address [facility] de Phone Number [facility] [address] [place] [address], * Borrelia burgdorferi antibody (08/30/2024 10:29 AM EDT) Lyme Ab Negative Negative LAB CHEMISTRY METHOD 08/30/2024 1:25 PM EDT [facility] Comment: No laboratory evidence [...] ORDERABLES Fin al Result Performing Organization Address [facility] Co de Phone Number [facility] [address] [place] [address], * Hepatitis B core antibody IgM (08/30/2024 10:29 AM EDT) Hep B Core IgM Negative Negative LAB CHEMISTRY METHOD 08/30/2024 5:42 PM EDT [facility] Blood Venous blood specimen / Unknown Venipuncture / Unknown 08/30/2024 10:29 AM EDT 08/30/2024 12:05 PM EDT Narrative [facility] - 08/30/2024 5:42 PM EDT Over the counter supplements containing high doses of biotin may interfere with this assay. ??If interference is suspected, patients shoud be retested after refraining from biotin supplements for 72 hours. us Natividad Farley MD LAB BLOOD ORDERABLES Fin al Result Performing Organization Address [facility] de Phone Number [facility] [address] [place] [address], * Creatinine (08/30/2024 10:29 AM EDT) Creatinine 0.55 0.50 - 1.10 mg/dL LAB CHEMISTRY METHOD 08/30/2024 2:41 PM EDT [facility] eGFR 122 >=60 mL/min/1. 73m2 LAB CHEMISTRY METHOD 08/30/2024 2:41 PM EDT [facility] Comment:Calculation based on the??Chronic Kidney Disease Epidemiology Collaboration (CKD-EPI) equation refit??without adjustment for race. Blood Venous blood specimen / Unknown Venipuncture / Unknown 08/30/2024 10:29 AM EDT 08/30/2024 12:05 PM EDT us Natividad Farley MD LAB BLOOD ORDERABLES Fin al Result Performing Organization Address [facility] de Phone Number [facility] [address] [place] [address], * (ABNORMAL) Vitamin D 25 hydroxy (08/30/2024 10:29 AM EDT) Vit D, 25-Hydroxy 29.6(L) 30.0 - 80.0 ng/mL LAB CHEMISTRY METHOD 08/30/2024 5:02 PM EDT [facility] Blood Venous blood specimen / Unknown Venipuncture / Unknown 08/30/2024 10:29 AM EDT 08/30/2024 12:05 PM EDT us Natividad Farley MD LAB BLOOD ORDERABLES Fin al Result Performing Organization Address [facility] de Phone Number [facility] [address] [place] [address], [place] [phone] * Rheumatoid factor (08/30/2024 10:29 AM EDT) Pathologist [facility] Rheumatoid Factor <10.0 <15.0 I Unit/mL LAB CHEMISTRY METHOD 08/30/2024 2:41 PM EDT [facility] Blood Venous blood specimen / Unknown Venipuncture / Unknown 08/30/2024 10:29 AM EDT 08/30/2024 12:05 PM EDT us Natividad Farley MD LAB BLOOD ORDERABLES Fin al Result Performing Organization Address [facility] de Phone Number [facility] [address] [place] [address], [place] [phone] * Varicella zoster antibody IgG (08/30/2024 10:29 AM EDT) [facility] Varicella IgG Positive Positive LAB CHEMISTRY METHOD 08/30/2024 1:15 PM EDT [facility] Varicella Zoster IgG 17.30 >=1.00 S/CO LAB CHEMISTRY METHOD 08/30/2024 1:15 PM EDT [facility] Blood Venous blood specimen / Unknown Venipuncture / Unknown 08/30/2024 10:29 AM EDT 08/30/2024 12:05 PM EDT Narrative [facility] - 08/30/2024 1:15 PM EDT Interpretation >= 1.00 S/CO is considered to be consistent with Immunity us Natividad Farley MD LAB BLOOD ORDERABLES Fin al Result Performing Organization Address [facility] de Phone Number [facility] [address] [place] [address], [place] [phone] * BUN (08/30/2024 10:29 AM EDT) BUN 7 5 - 25 mg/dL LAB CHEMISTRY METHOD 08/30/2024 2:41 PM EDT [facility] Blood Venous blood specimen / Unknown Venipuncture / Unknown 08/30/2024 10:29 AM EDT 08/30/2024 12:05 PM EDT us Natividad Farley MD LAB BLOOD ORDERABLES Fin al Result [facility] [address] [place] [address], [place] [phone] * Immunoglobulin IgA (08/30/2024 10:29 AM EDT) IgA 85 61 - 348 mg/dL LAB CHEMISTRY METHOD 08/30/2024 2:41 PM EDT [facility] Blood Venous blood specimen / Unknown Venipuncture / Unknown 08/30/2024 10:29 AM EDT 08/30/2024 12:05 PM EDT us Natividad Farley MD LAB BLOOD ORDERABLES Fin al Result [facility] [address] [place] [address], [place] [phone] * Immunoglobulin IgM (08/30/2024 10:29 AM EDT) IgM 144 23 - 259 mg/dL LAB CHEMISTRY METHOD 08/30/2024 3:03 PM EDT [facility] Blood Venous blood specimen / Unknown Venipuncture / Unknown 08/30/2024 10:29 AM EDT 08/30/2024 12:05 PM EDT us Natividad Farley MD LAB BLOOD ORDERABLES Fin al Result Performing Organization Address [facility] Co de Phone Number [facility] [address] [place] [address], [place] [phone] * Immunoglobulin IgG (08/30/2024 10:29 AM EDT) Total IgG 1,240 549 - 1,584 mg/dL LAB CHEMISTRY METHOD 08/30/2024 2:41 PM EDT [facility] Blood Venous blood specimen / Unknown Venipuncture / Unknown 08/30/2024 10:29 AM EDT 08/30/2024 12:05 PM EDT us Natividad Farley MD LAB BLOOD ORDERABLES Fin al Result Performing Organization Address [facility] Co de Phone Number [facility] [address] [place] [address], [place] [phone] * Vitamin B12 (08/30/2024 10:29 AM EDT) [facility] Vitamin B-12 293 250 - 900 pcg/mL LAB CHEMISTRY METHOD 08/30/2024 3:03 PM EDT [facility] Blood Venous blood specimen / Unknown Venipuncture / Unknown 08/30/2024 10:29 AM EDT 08/30/2024 12:05 PM EDT us Natividad Farley MD LAB BLOOD ORDERABLES Fin al Result Performing Organization Address [facility] Co de Phone Number [facility] [address] [place] [address], [place] [phone] * Hepatic function panel (08/30/2024 10:29 AM EDT) Total Protein 7.4 6.0 - 8.0 g/dL LAB CHEMISTRY METHOD 08/30/2024 2:41 PM EDT [facility] Albumin 4.3 3.2 - 5.0 g/dL LAB CHEMISTRY METHOD [facility]/30[facility]2024 2[facility] Total Bilirubin 0.6 0.0 - 1.4 mg/dL LAB CHEMISTRY METHOD 08/30/2024 2:[facility] Bilirubin, Direct 0.2 0.0 - 0.3 mg/dL LAB CHEMISTRY METHOD 08/30/2024 2:41 PM EDT [facility] Bilirubin, Indirect 0.4 0.0 - 1.1 mg/dL LAB CHEMISTRY METHOD 08/30/2024 2:[address] [facility] ALT (SGPT) 19 10 - 60 unit/L LAB CHEMISTRY METHOD 08/30/2024 2:[address] [facility] AST (SGOT) 14 10 - 42 unit/L LAB CHEMISTRY METHOD 08/30/2024 2:[address] [facility] Alkaline Phosphatase 59 42 - 121 unit/L LAB CHEMISTRY METHOD 08/30/2024 2:[address] [facility] Blood Venous blood specimen / Unknown Venipuncture / Unknown 08/30/2024 10:29 AM EDT 08/30/2024 12:05 PM EDT Natividad Farley MD LAB BLOOD ORDERABLES Fin al Result [facility] [address] [place] [address], * Hemoglobin A1c (08/29/2024 11:43 AM EDT) Hemoglobin A1C 5.1 <6.5 % LAB CHEMISTRY METHOD 08/29/2024 10:31 PM EDT [facility] Mean Bld Glu Estim. 100 mg/dL LAB CHEMISTRY METHOD 08/29/2024 10:31 PM EDT [facility] ([facility] Blood Venous blood specimen / Unknown Venipuncture / Unknown 08/29/2024 11:43 AM EDT 08/29/2024 11:43 AM EDT us Manuel Olvera 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 LAB BLOOD ORDERABLES Final R esult [facility]) [facility] [address] [place] [address], [place] [phone] * CT Abdomen Pelvis wo Contrast (08/29/2024 [...] Signed Date: 08/29/2024 12:10 ET Workstation ID: [id number] Transcribed By: Self Edit Transcribed Date: 08/29/2024 [...] Signed Date: 08/29/2024 12:10 ET Workstation ID: [id number] Transcribed By: Self Edit Transcribed Date: 08/29/2024 11:51 ET Manuel Olvera NP IMG CT PROCEDURES Final Resu lt * Urinalysis with reflex microscopic and culture (08/28/2024 4:43 PM EDT) Only the most recent of3 resultswithin the time period is included. Specific [place] Urine 1.004 1.003 - 1.030 LAB URINALYSIS - AUTOMATED METHOD 08/28/2024 6:58 PM EDT [facility] pH, Urine 7.5 5.0 - 8.0 pH LAB URINALYSIS - AUTOMATED METHOD 08/28/2024 6:58 PM EDT [facility] Leukocytes, Urine Negative Negative LAB URINALYSIS - AUTOMATED METHOD 08/28/2024 6:58 PM EDT [facility] Nitrite, Urine Negative Negative LAB URINALYSIS - AUTOMATED METHOD 08/28/2024 6:[address] [facility] Protein, Urine Negative <=Trace mg/dL LAB URINALYSIS - AUTOMATED METHOD 08/28/2024 6:58 PM EDT [facility] Glucose, Urine Negative Negative mg/dL LAB URINALYSIS - AUTOMATED METHOD 08/28/2024 6:58 PM EDT [facility] Ketones, Urine Negative Negative mg/dL LAB URINALYSIS - AUTOMATED METHOD 08/28/2024 6:58 PM EDT [facility] Urobilinogen, Urine 0.2 0.2 - 1.0 mg/dL LAB URINALYSIS - AUTOMATED METHOD 08/28/2024 6:58 PM EDT [facility] Bilirubin, Urine Negative Negative LAB URINALYSIS - AUTOMATED METHOD 08/28/2024 6:58 PM EDT [facility] Blood, Urine Negative Negative LAB URINALYSIS - AUTOMATED METHOD 08/28/2024 6:58 PM EDT [facility] Urine Urine specimen obtained by clean catch procedure / Unknown Non-blood Collection / Unknown 08/28/2024 4:43 PM EDT 08/28/2024 4:43 PM EDT Manuel Olvera 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 LAB URINE ORDERABLES Final R esult Performing Organization Address City/[facility]/ZIP Co de Phone Number [facility] [address] [place] [address], [place] [phone] * Sylvester urine culture tube (08/28/2024 4:43 PM EDT) Only the most recent of3 resultswithin the time period is included. Extra Tube Hold for add-ons. 08/28/2024 7:01 PM EDT [facility] Comment:Auto resulted. Urine Urine specimen obtained by clean catch procedure / Unknown Non-blood Collection / Unknown 08/28/2024 4:43 PM EDT 08/28/2024 4:43 PM EDT Manuel Olvera 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 LAB URINE ORDERABLES Final R esult [facility] [address] [place] [address], [place] [phone] * (ABNORMAL) POC Urine Non-Auto W/O Micro (08/28/2024 1:45 PM EDT) [facility] Leukocytes UA POC Negative Negative Nitrite UA POC Negative Negative Urobilinogen UA POC Negative Negative Protein UA POC Negative Negative PH UA POC 6.0 5.0 - 9.0 Blood UA POC Negative Negative, Trace Specific [place] UA POC 1.005 1.001 - 1.035 Ketones UA POC Negative Negative Bilirubin UA POC Negative Negative Glucose UA POC Normal Normal, Trace Urine Urine specimen obtained by clean catch procedure / Unknown 08/28/2024 1:45 PM EDT Manuel Olvera NP POINT OF CARE TEST ENTER/MONA T ORDERABLES Final Result * (ABNORMAL) Comprehensive metabolic panel (08/23/2024 3:25 PM EDT) [facility] Sodium 134 133 - 145 mmol/L LAB CHEMISTRY METHOD 08/23/2024 4:[address] [facility] Potassium 3.8 3.5 - 5.5 mmol/L LAB CHEMISTRY METHOD 08/23/2024 4:[address] [facility] Chloride 103 96 - 110 mmol/L LAB CHEMISTRY METHOD 08/23/2024 4:[address] [facility] CO2 26 21 - 32 mmol/L LAB CHEMISTRY METHOD 08/23/2024 4:[address] [facility] Anion Gap 5 3 - 11 LAB CHEMISTRY METHOD 08/23/2024 4:[address] [facility] Glucose 103(H) 70 - 100 mg/dL LAB CHEMISTRY METHOD 08/23/2024 4:[address] [facility] BUN 10 5 - 25 mg/dL LAB CHEMISTRY METHOD 08/23/2024 4:[address] [facility] Creatinine 0.68 0.50 - 1.10 mg/dL LAB CHEMISTRY METHOD 08/23/2024 4:[address] [facility] eGFR 116 >=60 mL/min/1. 73m2 LAB CHEMISTRY METHOD 08/23/2024 4:[address] [facility] Comment:Calculation based on the??Chronic Kidney Disease Epidemiology Collaboration (CKD-EPI) equation refit??without adjustment for race. BUN/Creatinine Ratio 14.7 LAB CHEMISTRY METHOD 08/23/2024 4:04 PM T [facility] Calcium 9.7 8.5 - 10.5 mg/dL LAB CHEMISTRY METHOD 08/23/2024 4:[address] [facility] AST (SGOT) 21 10 - 42 unit/L LAB CHEMISTRY METHOD 08/23/2024 4:[address] [facility] ALT (SGPT) 21 10 - 60 unit/L LAB CHEMISTRY METHOD 08/23/2024 4:[address] [facility] Alkaline Phosphatase 72 42 - 121 unit/L LAB CHEMISTRY METHOD 08/23/2024 4:[address] [facility] Total Protein 8.0 6.0 - 8.0 g/dL LAB CHEMISTRY METHOD 08/23/2024 4:[address] [facility] Albumin 4.4 3.2 - 5.0 g/dL LAB CHEMISTRY METHOD 08/23/2024 4:[address] [facility] Total Bilirubin 0.6 0.0 - 1.4 mg/dL LAB CHEMISTRY METHOD 08/23/2024 4:[address] [facility] Blood Venous blood specimen / Unknown Venipuncture / Unknown 08/23/2024 3:25 PM EDT 08/23/2024 3:32 PM EDT us Christopher Fournier MD LAB BLOOD ORDERABLES Final Resu lt [facility] [address] [place] [address], [place] [phone] * (ABNORMAL) Microalbumin creatinine urine ratio (08/22/2024 11:04 AM EDT) Creatinine, Urine 15.0 mg/dL LAB CHEMISTRY METHOD 08/22/2024 2:11 PM EDT [facility] Microalb, Ur <5.0 0.0 - 29.0 mg/L LAB CHEMISTRY METHOD 08/22/2024 2:11 PM EDT [facility] Microalb/Creat Ratio <33(H) <30 mg/g creat LAB CHEMISTRY METHOD 08/22/2024 2:11 PM EDT [facility] Urine Urine specimen obtained by clean catch procedure / Unknown Non-blood Collection / Unknown 08/22/2024 11:04 AM EDT 08/22/2024 11:04 AM EDT Manuel Olvera 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 LAB URINE ORDERABLES Final R esult [facility] [address] [place] [address], [place] [phone] * Magnesium (08/22/2024 11:04 AM EDT) Magnesium 2.2 1.9 - 2.6 mg/dL LAB CHEMISTRY METHOD 08/22/2024 4:11 PM EDT [facility] Blood Venous blood specimen / Unknown Venipuncture / Unknown 08/22/2024 11:04 AM EDT 08/22/2024 11:04 AM EDT Manuel Olvera 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 LAB BLOOD ORDERABLES Final R esult [facility] [address] [place] [address], [place] [phone] * Basic metabolic panel (08/22/2024 11:04 AM EDT) Sodium 136 133 - 145 mmol/L LAB CHEMISTRY METHOD 08/22/2024 4:[address] [facility] Potassium 3.9 3.5 - 5.5 mmol/L LAB CHEMISTRY METHOD 08/22/2024 4:[address] [facility] Chloride 104 96 - 110 mmol/L LAB CHEMISTRY METHOD 08/22/2024 4:[address] [facility] CO2 27 21 - 32 mmol/L LAB CHEMISTRY METHOD 08/22/2024 4:[address] [facility] Anion Gap 5 3 - 11 LAB CHEMISTRY METHOD 08/22/2024 4:[address] [facility] Glucose 85 70 - 100 mg/dL LAB CHEMISTRY METHOD 08/22/2024 4:[address] [facility] BUN 11 5 - 25 mg/dL LAB CHEMISTRY METHOD 08/22/2024 4:[address] [facility] Creatinine 0.69 0.50 - 1.10 mg/dL LAB CHEMISTRY METHOD 08/22/2024 4:[address] [facility] eGFR 116 >=60 mL/min/1. 73m2 LAB CHEMISTRY METHOD 08/22/2024 4:[address] [facility] Comment:Calculation based on the??Chronic Kidney Disease Epidemiology Collaboration (CKD-EPI) equation refit??without adjustment for race. BUN/Creatinine Ratio 15.9 LAB CHEMISTRY METHOD 08/22/2024 4:[address] [facility] Calcium 9.3 8.5 - 10.5 mg/dL LAB CHEMISTRY METHOD 08/22/2024 4:[address] [facility] Blood Venous blood specimen / Unknown Venipuncture / Unknown 08/22/2024 11:04 AM EDT 08/22/2024 11:04 AM EDT Manuel Olvera NP LAB BLOOD ORDERABLES Final R esult [facility] ([facility]) [facility] [address] [place] [address], [place] [phone] * (ABNORMAL) Metanephrines, urine 24H (08/15/2024 12:16 PM EDT) Pathologist [facility] Urine Volume 3,000 600 - 2000 mL 08/21/2024 1:56 PM EDT [facility] Creatinine 24 Hr Urine 0.7(L) 0.8 - 1.8 gm/24h 08/21/2024 1:56 PM EDT [facility] Normetanephrine 24 Hr Urine 180 88 - 444 ug/day 08/21/2024 1:56 PM EDT [facility] Metanephrine 24 Hr Urine 90 52 - 341 ug/day 08/21/2024 1:56 PM EDT [facility] Total Metanephrines 270 140 - 785 ug/day 08/21/2024 1:56 PM EDT [facility] Comment: This test was developed and the performance characteristics determined by [facility]. It has not been cleared or approved by the FDA. The laboratory is regulated under CLIA as qualified to perform high-complexity testing. This test is used for patient testing purposes. It should not be regarded as investigational or for research. Test performed at [facility], [address] , [place], [place] ??[address] ? [phone] Wendy Weiner MD, PhD - Abe Teacher Urine Urine specimen from urethra / Unknown Non-blood Collection / Unknown 08/15/2024 12:16 PM EDT 08/15/2024 12:32 PM EDT Mukesh Patton MD LAB URINE ORDERABLES Final Resul t [facility] [address] [place] [place] [address] * POC rapid strep A manually resulted (07/15/2024 9:23 AM EST) [facility] Rapid Strep A Screen POC Negative Negative Swab Structure of anterior portion of neck / Unknown 07/15/2024 9:23 AM EST 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 NP POINT OF CARE TEST ENTER/EDIT ORDERABLES Final Result * Pap smear (10/10/2020) 10/10/2020 Narrative HISTORICAL TESTING LAB RESULTING AGENCY - 10/14/2020 4:51 PM EDT [id number] THINPREP PAP, IMAGED: NEGATIVE FOR SQUAMOUS INTRAEPITHELIAL LESION AND MALIGNANCY . LIZ OLVERA , JESSIKA(ASCP) (CASE ELECTRONICALLY SIGNED 10 14 2020) RESULT OF APTIMA HIGH RISK HPV ASSAY: HIGH RISK HPV: ??NEGATIVE (SEROTYPES 16,18,31,33,35,39,45,51,52,56,58,59,66,68) COMPLETED ON 2020-10-14 ADEQUACY: SATISFACTORY ENDOCERVICAL/TRANSFORMATION ZONE COMPONENT PRESENT. SOURCE: THINPREP PAP HPV ANY DX: ??REFLEX 16 AND 18, CERVICAL, IMAGED CLINICAL INFORMATION: HPV ANY DIAGNOSIS. HORMONES, PAP HX NEG [Z12.4] Ni Willson MD LAB CYTOLOGY ORDERABLES Fin al Result HISTORICAL TESTING LAB RESULTING AGENCY from Last 3 Months or Most Recently Relevant to Health Maintenance Insurance [facility] [employer] Care Teams Bread Supervisor Relationship Specialty Start Date End Date Gurmeet Soto MD [address] [place] [address] PCP - General 08/12/22
--- OUTSIDE RECORDS SUMMARY | 2024-09-16 08:31 | XMS_ITS | Encounter Summary ---
Author Organization [facility] Address [address] [place] [address] Care Team Providers Care Java J2Ee Technical Lead Name Role Phone Gurmeet Soto MD Primary Care Provider [phone] Encounter Details Date Type Department Care Team (Late st Contact Info) Description 09/14/2024 1:00 PM EDT Office Visit Adult Medicine [address] [phone] Eva Beckford MD [address] [place], [place] Impacted cerumen, bilateral (Primary Dx) Social History Tobacco Use Types [...] 09/14/2024 1:06 PM ED T Respiratory Rate - - Oxygen Saturation - - Inhaled Oxygen Concentration - - Weight 51.7 kg (114 lb) 09/14/2024 1:06 PM EDT Height 157.5 cm (5' 2 ) 09/14/2024 1:06 PM EDT Body Mass Index 20.85 09/14/2024 1:06 PM EDT documented in this encounter Progress Notes * Eva Beckford MD - 09/14/2024 1:00 PM EDT CHIEF COMPLAINT: No chief complaint on file. IDENTIFIER: Tri Arreola is a 38 y.o. old female. HPI: Patient with past med history listed below, presents to see me as a new patient, complaining about earwax in bilateral canal affecting her hearing. She reported history of such requiring wax irrigation. She has been using Debrox for the past week, with some wax removal, but not complete. She denied headache, dizziness, fever or chills. Ear pain. Ear drainage. ROS: GENERAL: Negative for malaise, significant weight loss and fever SKIN: No lesions, rash, or itching HEMATOLOGY/LYMPHOLOGY: No prolonged bleeding, easy bruising, or swollen lymph nodes NEURO: No persistent headache, fainting, seizures, strokes, TIAs, weakness, numbness or tingling PAST MEDICAL HISTORY: Patient Active Problem List Diagnosis Date Noted Tobacco use disorder 07/26/2024 [place] 06/15/2024 Pelvic congestion syndrome 06/15/2024 Vaginal yeast infection 06/15/2024 Irregular menstrual cycle 06/15/2024 Hot flashes 06/15/2024 Non-allergic rhinitis 03/01/2024 Dizziness and giddiness 03/01/2024 History of opioid abuse ([facility] V24, [facility] V28) 02/29/2024 Urinary urgency 06/03/2023 Apical lung scarring 05/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 Centrilobular emphysema ([facility] V24, [facility] V28) 05/20/2023 Chest pain 05/20/2023 Cigarette smoker motivated [...] without gangrene 07/21/2020 Low back pain 06/04/2016 SOCIAL HISTORY: Social History Tobacco Use Smoking status: Every Day Current packs/day: 0.50 Types: Cigarettes Passive exposure: Current Smokeless tobacco: Never Substance Use Topics Alcohol use: No FAMILY HISTORY: Family Status Relation Name Status MGM (Not Specified) Mother (Not Specified) Father (Not Specified) PGF (Not Specified) Father's mehrdad aunt Alive PGM (Not Specified) MGF (Not Specified) Neg Hx (Not Specified) No partnership data on file Family History Problem Relation Name Age of [...] cancer Neg Hx Prostate cancer Neg Hx ACTIVE MEDICATIONS: Outpatient Medications Marked as Taking for the 09/14/24 encounter (Office Visit) with Eva Beckford MD Medication Sig Dispense Refill acetaminophen (TYLENOL [...] time each day. 30 each 11 ALLERGIES: Sulfamethoxazole-trimethoprim, Aspirin, Cephalexin, Ciprofloxacin, Ciprofloxacin-hydrocortisone, Doxycycline, and Doxycycline hyclate PHYSICAL EXAM: Blood pressure 112/80, pulse 80, temperature 36.6 ??C (97.9 ??F), height 1.575 m (62 ), weight 51.7kg (114 lb), last menstrual period 08/17/2024. Body mass index is 20.85 kg/m??. Plan is deferred until next visit EARS: Left ear with strings sheath of wax on the membrane, covering about 8090%., Right canal with wax mostly in the peripheral particulate floor of the ear tympanic membrane can be visualized EXTREMITIES: No edema NEURO: Awake, alert and oriented x 3 and grossly nonfocal examination no dizziness LABS: Lab Results Component Value Date WBC 8.6 08/30/2024 HGB 13.0 08/30/2024 HCT 37.5 08/30/2024 MCV 90.8 08/30/2024 PLT 315 08/30/2024 IMPRESSION: 1. Impacted cerumen, bilateral PLAN: Patient with past med history listed below, presents to see me as a new patient, complaining about earwax in bilateral canal affecting her hearing. She reported history of such requiring wax irrigation. She has been using Debrox for the past week, with some wax removal, but not complete. She denied headache, dizziness, fever or chills. Ear pain. Ear drainage. I discussed my examination finding with the patient, and discussed the procedure of ear irrigation for wax removal and potential complications, and verbal consent was obtained. While patient sitting in the chair, properly covered, using syringe with a cut out soft connection,warm water was used to irrigate bilateral ear canal. Eventually, small pieces of wax was removed with curette. After irrigation, patient experienced significant improvement in her hearing. Upon examination, left wax removal was successful, leaving a small rim about 20% of wax with some attachment to the tympanic membrane. Right earwax removal was successful, leaving small portions of strings of wax mostly on the floor of the canal. During the irrigation patient experienced some dizziness initially, which was subsequently quickly resolved completely. I observed patient ambulating in the hallway without much difficulty. Warning symptoms discussed that would need immediate reevaluation, including ER visit. We discussed strategy to use Debrox regularly to prevent wax buildup. No orders of the defined types were placed in this encounter. ADDITIONAL ORDERS: None Eva Beckford MD on 09/14/2024 at 1:34 PM EDT documented in this encounter Plan of Treatment Upcoming Encounters Date Type Department Care Team (Late st Contact Info) Description 09/21/2024 11:45 AM EDT Office Visit Obstetrics and Gynecology - [address] [phone] Ni Willson MD 30 [place], [place] 09/22/2024 11:15 AM EDT Office Visit Endocrinology - [address] [phone] Mukesh Patton MD [address] [place] [address] 10/12/2024 10:10 AM EDT Office Visit [facility] [place] [address] [phone] Natividad Farley MD [address] [phone] 01/24/2025 11:30 AM EDT Office Visit Pulmonolgy - [place] 175 [facility] [address] [place] [phone] Ana Maria Sanchez MD 175 [facility] [address] [place] [address] Scheduled Orders Name Type Priority Associated Diagnoses Orde r Schedule Ear Cerumen Removal Procedures Routine Impacted cerumen, bilateral 1 Occurrences starting 09/14/2024 until 09/14/2025 documented as of this encounter Visit Diagnoses Diagnosis Impacted cerumen, bilateral- Primary documented in this encounter Care Teams Java J2Ee Technical Lead Relationship Specialty Start Date End Date Gurmeet Soto MD 4 [place] [address] PCP - General 08/12/22 documented as of this encounter
--- OUTSIDE RECORDS SUMMARY | 2024-09-16 08:31 | XMS_ITS | Encounter Summary ---
Author Organization [facility] Address [address] [place] [address] Care Team Providers Care Mail Machine Operator Name Role Phone Gurmeet Soto MD Primary Care Provider Encounter Details Date Type Department Care Team (Late st Contact Info) Description 03/29/2024 9:28 AM EDT Hospital Encounter TH HISTORIC ENCOUNTERS EASTERN CONVERSION ONLY Kenneth Merritt, MARÍA [address] [facility] [address] [place] [address] Social History Tobacco Use Types Packs/Day Years [...] AM EDT Office Visit Obstetrics and Gynecology [address] [phone] Ni Willson MD 30 [place] [address] 09/22/2024 11:15 AM EDT Office Visit Endocrinology - [place] [address] [place] [address] Mukesh Patton MD [address] [place] [address] 10/12/2024 10:10 AM EDT [facility] Visit [facility] [address] [phone] Natividad Farley MD [address] [phone] 01/24/2025 11:30 AM EDT Office Visit Pulmonolgy - [place] [address] [phone] Ana Maria Sanchez MD [address] [phone] documented as of this encounter Procedures Procedure Name Priority Date/Time Associated Diagnosis Comments CR BARIUM SWALLOW Routine 03/29/2024 12: 07 PM EDT documented in this encounter Results * CR BARIUM SWALLOW (03/29/2024 12:07 PM EDT) Anatomical Region Laterality Modality Radiographic Haley ging 03/29/2024 9:33 AM EDT Narrative 03/29/2024 12:07 PM EDT [facility] Diagnostic Imaging Department [address] [place] [address] Patient: ??RANDI MUELLER ?/Age/Sex: 1985 - 38 - F Unit#: ??[id number] ? Location/Status: ??SPDIGEN/REG CLI ? Mnemonic/Ordering Site: ??[facility]/SPDI Ordering Physician: ??KENNETH MERRITT PA-C CR Barium Swallow - 03/29/24 - 1043 Report Status:Signed INDICATION: Dysphagia. FINDINGS: Double contrast barium swallow performed. COMPARISON: Outside chest CT from May 11, 2023 reviewed Stenocaptioner radiographs: Single view of the chest and a lateral view the neck obtained. Lung li are clear. Heart normal in size and shape. Bony structures unremarkable. Lateral child care development specialist view of the neck demonstrates straightening [...] Procedure Note Migel Goddard MD - 04/01/2024 [facility] Diagnostic Imaging Department [address] [place] [address] Patient: RANDI MUELLER /Age/Sex: 1985 - 38 - F Unit#: [id number] Location/Status: SPDIGEN/REG CLI Mnemonic/Ordering Site: [facility] Ordering Physician: KENNETH MERRITT PA-C CR Barium Swallow - 03/29/24 - 1043 Report Status:Signed INDICATION: Dysphagia. FINDINGS: Double contrast barium swallow performed. COMPARISON: Outside chest CT from May 11, 2023 reviewed Stenocaptioner radiographs: Single view of the chest and a lateral view the neck obtained. Lung li are clear. Heart normal in size and shape. Bonystructures unremarkable. Lateral child care development specialist view of the neck demonstrates straightening [...] Date/Time: 03/29/24 1205 Sign date/Time: 03/29/24 1207 us Kenneth DANIEL IMG XR PROCEDURES Final Result documented in this encounter Visit Diagnoses Not on filedocumented in this encounter Care Teams Mail Machine Operator Relationship Specialty Start Date End Date Gurmeet Soto MD [address] [place] [address] PCP - General 08/12/22 documented as of this encounter
--- OUTSIDE RECORDS SUMMARY | 2024-09-16 08:31 | XMS_ITS | Encounter Summary ---
Author Organization [facility] Address [address] [place] [address] Care Team Providers Care Preparation Plant Supervisor Name Role Phone Gurmeet Soto MD Primary Care Provider Reason for Visit * Reason Onset Date Comments Results 08/29/2024 Encounter Details Date Type Department Care Team (Late st Contact Info) Description 08/29/2024 Telephone Adult Medicine [facility] [address] [place], [place] [phone] Gurmeet Soto MD [address] [place] [address] Results Social History Tobacco Use Types Packs/Day [...] EDT Office Visit Obstetrics and Gynecology - [address] [phone] Ni Willson MD 30 [place], [place] 09/22/2024 11:15 AM EDT Office Visit Endocrinology - [address] [phone] Mukesh Patton MD 305 [place] [address] 10/12/2024 10:10 AM EDT Office Visit [facility] [place] [address] [phone] Natividad Farley MD [address] [phone] 01/24/2025 11:30 AM EDT Office Visit Pulmonolgy - [place] [address] [phone] Ana Maria Sanchez MD [address] [address] documented as of this encounter Visit Diagnoses Not on filedocumented in this encounter Care Teams Preparation Plant Supervisor Relationship Specialty Start Date End Date Gurmeet Soto MD [address] [place] [address] PCP - General 08/12/22 documented as of this encounter
--- OUTSIDE RECORDS SUMMARY | 2024-09-16 08:31 | XMS_ITS | Encounter Summary ---
Author Organization [facility] Address [address] [place] [address] Care Team Providers Care Bead Forming Machine Set Up Operator Name Role Phone Gurmeet Soto MD Primary Care Provider Reason for Visit * Reason Onset Date Comments ITCHING IN FINGER TIPS 04/06/2024 Encounter Details Date Type Department Care Team (Late st Contact Info) Description 04/06/2024 Nurse Triage Adult Medicine [facility] [address] [place] [address] Gurmeet Soto MD [address] [place] [address] ITCHING IN FINGER TIPS Social History Tobacco [...] traveled recently to another state outside of [place], [place], [place], [place], [place], [place], [place]? no o If yes, did you quarantine [...] of accident/Injury: No If yes, gather 3rd alliance party insurance information Third Republican Information: PCP: Gurmeet Soto MD Payor: [employer] PLAN / Plan: [employer] MEDICAID / Product Type: *No Product type* / documented in this encounter Plan of Treatment Upcoming Encounters Date Type Department Care Team (Late st Contact Info) Description 09/21/2024 11:45 AM EDT Office Visit Obstetrics and Gynecology - [address] [phone] Ni Willson MD 30 [place], [place] 09/22/2024 11:15 AM EDT Office Visit Endocrinology - [address] [phone] Mukesh Patton MD [address] [place] [address] 10/12/2024 10:10 AM EDT Office Visit [facility] [place] 175 [facility] [address] [place] [phone] Natividad Farley MD 175 [facility] [place] [address] [place] [phone] 01/24/2025 11:30 AM EDT Office Visit Pulmonolgy - [place] 175 [facility] [address] [place] [phone] Ana Maria Sanchez MD 175 [facility] 200 [place], [place] [phone] documented as of this encounter Visit Diagnoses Not on filedocumented in this encounter Care Teams Bead Forming Machine Set Up Operator Relationship Specialty Start Date End Date Gurmeet Soto MD [address] [place] [address] PCP - General 08/12/22 documented as of this encounter
[2024-09-16] MEDS: Lactated Ringers 1,000 ML 999 ML IV ×2 (08:39→11:17)
[2024-09-16] MEDS: Caffeine/Sodium Benzoate 250 MG in 0.9 % Sodium Chloride 500 ML 501 MG IV (09:44)
--- NOTE | 2024-09-16 09:56 | PC.NURSE ---
patient a&ox3, iv previously inserted, and IVF were hung per order, pt currently has medication running per orders, states she has 2-8/10 pain as it varies depending on position, call low within reach, plan of care ongoing.
--- NOTE | 2024-09-16 11:09 | PC.NURSE ---
Report received from LLOYD Bartholomew. Taken over care at this time.
[2024-09-16 12:20] VITALS: BP 120/62; PULSE 75; RESP 18; O2SAT 95
[2024-09-16 13:45] VITALS: BP 120/62; PULSE 75; RESP 18; TEMP 36.9; O2SAT 95
== END 2024-09-16 13:47 | disposition home or self-care (01) ==
PROVIDERS: Emergency Provider Emergency Medicine; PCP Internal Medicine
DX: G97.1 Other reaction to spinal and lumbar puncture (principal); R51.9 Headache, unspecified
CPT/HCPCS: 96361; 96365; 96366; 99284; 99285; J7120

== ENCOUNTER 2024-09-17 08:35 | Emergency (ER) | payer OTHER, SELFPAY ==
[2024-09-17 08:40] VITALS: BP 135/91; PULSE 86; RESP 18; TEMP 36.9; O2SAT 100; BMI 20.8
--- OUTSIDE RECORDS SUMMARY | 2024-09-17 08:47 | XMS_ITS | Encounter Summary ---
Author Organization [facility] Address [address] [place] [address] Care Team Providers Care Lead Software Development Engineer Name Role Phone Gurmeet Soto MD Primary Care Provider Reason for Visit * Reason Onset Date Comments Results 08/29/2024 Encounter Details Date Type Department Care Team (Late st Contact Info) Description 08/29/2024 Telephone Adult Medicine [facility] [address] [place], [place] [phone] Gurmeet Soto MD 444 [place] [address] Results Social History Tobacco Use Types Packs/Day [...] EDT Office Visit Obstetrics and Gynecology - [address] [phone] Ni Willson MD 30 [place], [place] 09/22/2024 11:15 AM EDT Office Visit Endocrinology - [address] [phone] Mukesh Patton MD 305 [place] [address] 10/12/2024 10:10 AM EDT Office Visit [facility] [place] [address] [phone] Natividad Farley MD [address] [phone] 01/24/2025 11:30 AM EDT Office Visit Pulmonolgy - [place] [address] [phone] Ana Maria Sanchez MD [address] [address] documented as of this encounter Visit Diagnoses Not on filedocumented in this encounter Care Teams Lead Software Development Engineer Relationship Specialty Start Date End Date Gurmeet Soto MD [address] [address] PCP - General 08/12/22 documented as of this encounter
--- OUTSIDE RECORDS SUMMARY | 2024-09-17 08:47 | XMS_ITS | Encounter Summary ---
Author Organization [facility] Address [address] [place] [address] Care Team Providers Care Histotechnician Name Role Phone Gurmeet Soto MD Primary Care Provider [phone] Encounter Details Date Type Department Care Team (Late st Contact Info) Description 09/14/2024 1:00 PM EDT Office Visit Adult Medicine [address] [phone] Eva Beckford MD [address] [place], [place] Impacted cerumen, bilateral (Primary Dx) Social [...] COMPLAINT: No chief complaint on file. IDENTIFIER: Tir Arreola is a 38 y.o. old female. 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 Palpitations 05/20/2023 Liver cyst 05/20/2023 [...] EDT Office Visit Obstetrics and Gynecology - [address] [phone] Ni Willson MD 30 [place], [place] 09/22/2024 11:15 AM EDT Office Visit Endocrinology - [address] [phone] Mukesh Patton MD 305 [place] [address] 10/12/2024 10:10 AM EDT Office Visit [facility] [place] [address] [phone] Natividad Farley MD [address] [phone] 01/24/2025 11:30 AM EDT Office Visit Pulmonolgy - [place] 175 [facility] [address] [place] [phone] Ana Maria Sanchez MD 175 [facility] 200 [place] [address] Scheduled Orders Name Type Priority Associated Diagnoses Orde r Schedule Ear Cerumen Removal Procedures Routine Impacted cerumen, bilateral 1 Occurrences starting 09/14/2024 until 09/14/2025 documented as of this encounter Visit Diagnoses Diagnosis Impacted cerumen, bilateral- Primary documented in this encounter Care Teams Histotechnician Relationship Specialty Start Date End Date Gurmeet Soto MD [address] [facility] [place] [address] PCP - General 08/12/22 documented as of this encounter
--- OUTSIDE RECORDS SUMMARY | 2024-09-17 08:47 | XMS_ITS | Data Portability ---
Author Organization [place] - [facility], Allergy Address [address] [address] Care Team Providers Care Sourcer Name Role Phone FINALAKISHAYURI Primary Care Provider [phone] Assessment Encounter Date Assessment Date Assessment LastModified [...] recorded. Imaging CT, sinuses, w/o contrast [address] (Radiology), [address] [place], [address], 10:58:05 Medication Orders None recorded. Patient TargetsNo targets recorded. Patient InstructionsNo instructions recorded. Reason for Referral None Reported. Problems Name Problem SNOMED Code Status Onset Date Resolution Date Notes Provider Name and Address Organization Details Recorded Time Allergic rhinitis 08347896 Active 2022 Other allergic rhinitis; Note: Date Diagnosed : 12/16/2022 4:51 PM (J30.89) Not Available [facility] 4 03:29:17 Bilateral earache 441913618 Active 2022 Otalgia, bilateral ; Note: Date Diagnosed : 12/16/2022 4:50 PM (H92.03) Not Available [facility] 4 03:29:17 Bilateral temporoma ndibular joint pain 12028543538 191842 Active 2022 Arthralgi a of bilateral temporoma ndibular joint; Note: Date Diagnosed : 12/16/2022 4:50 PM (M26.623) Not Available [facility] 4 03:29:17 Dizziness and giddiness 423890500 Active 2023 Radha yusfu [place] - [facility] [place] 4 10:50:21 Atypical facial pain 31691544 Active 2023 Radha yusuf [place] - [facility] [place] 4 10:50:24 Migraine without aura 41942603 Active 2023 Radha yusuf [place] - [facility] [place] 4 10:50:27 Non-aller gic rhinitis 87854975311 1 Active 2023 Radha yusuf [place] - [facility] 4 10:54:12 Seasonal allergic rhinitis 286236759 Active 2023 Radha yusuf [place] - [facility] 4 10:54:12 Problem Notes None recorded. Medical Equipment None Reported. Allergies Allergen ID Allergen Name Allergen Category Reaction Reaction Severity Criticality Documentation Date Start Date Code Code System Note Provider Name and Address Organization Details Recorded Time 734273 doxycycli ne Not available other Not available Not available 10/12/2023 3640 RxNorm React ion: Unkno wn; Not Available [facility] 4 01:22:46 325714 Keflex medicatio n other Not available Not available 10/12/2023 14807 7 RxNorm React ion: Unkno wn; Not Available [facility] 4 01:22:46 Medications Name Sig Start Date [...] Updated DateTime 03/01/2024 157.48 cm 21 kg/m2 00447.12 g Parul Montemayor [facility] 03/01/2024 10:24:33 Social History None recorded. Functional Status None recorded. Mental Status None recorded. Family History Nothing Reported. Medical History No medical history recorded. Gynecological HistoryNo gynecological history recorded. Obstetrics History GPAL:G 0 P 0 0 0 0 Past Encounters Encounter ID Performer Location Encounter Start Date Encounter Closed Date Diagnosis/Indication Diagnosis SNOMED-CT Code Diagnosis ICD10 Code Diagnosis Note [id number] DANIEL CARUSO MD [facility] [address] [place] [address] 03/01/2024 10:03:17 03/01/2024 10:58:05 Dizziness and giddiness 192082994 R42 Atypical facial pain 713 62830 G50.1 Migraine without aura 56 397139 G43.009 Allergic rhinitis 197828 04 J30.9 Non-allergic rhinitis 31 51135774 01 J31.0 Seasonal a llergic rhinitis 283790115 J30.2 Health Concerns Section Related Observation LastModified by Organization Detai ls LastModified Time None Recorded Concern Status LastModified by Organization Details LastModified Time None Recorded Advance Directives Directive None Recorded Payers Encounter Date Sequence Insurance Name Policy Number Policy Kendall Covered Member ID Kendall Member ID Guarantor Name 03/01/2024 1 [facility] [employer] (MEDICAID REPLACEMENT - HMO) [facility] [id number] Tri Arreola Notes Date Note Type Note Provider Name and Address Organization Details Recorded Time 03/01/2024 text/html 38 year old fema le with a history of TMJ, Clayr Danlos Syndrome and POTS, previously seen by [...] a few months now. DANIEL CARUSO MD [address] [place] [address], [place], [address], [facility] - [facility] 03/01/2024 12:44:44 OBGyn Episode No OBEpisode recorded.
--- OUTSIDE RECORDS SUMMARY | 2024-09-17 08:47 | XMS_ITS | Encounter Summary ---
Author Organization [facility] Address [address] [place] [address] Care Team Providers Care Blanket Winder Helper Name Role Phone Gurmeet Soto MD Primary Care Provider Encounter Details Date Type Department Care Team (Late st Contact Info) Description 03/29/2024 9:28 AM EDT Hospital Encounter TH HISTORIC ENCOUNTERS EASTERN CONVERSION ONLY Kenneth Merritt, MARÍA [address] [facility] [address] [facility] [address] [place] [address] Social History Tobacco Use Types Packs/Day Years [...] AM EDT Office Visit Obstetrics and Gynecology [address] [address] Ni Willson MD [address] [place] [address] 09/22/2024 11:15 AM EDT Office Visit Endocrinology - [place] [address] [place] [address] Mukesh Patton MD [address] [place] [address] 10/12/2024 10:10 AM EDT Office Visit [facility] [address] [phone] Natividad Farley MD [address] [phone] 01/24/2025 11:30 AM EDT Office Visit Pulmonolgy - [place] [address] [phone] Ana Maria Sanchez MD [address] [phone] documented as of this encounter Procedures Procedure Name Priority Date/Time Associated Diagnosis Comments CR BARIUM SWALLOW Routine 03/29/2024 12: 07 PM EDT documented in this encounter Results * CR BARIUM SWALLOW (03/29/2024 12:07 PM EDT) Anatomical Region Laterality Modality Radiographic Haley ging 03/29/2024 9:33 AM EDT Narrative 03/29/2024 12:07 PM EDT [facility] Diagnostic Imaging Department [address] [place] [address] Patient: ??RANDI MUELLER ?/Age/Sex: 1985 - 38 - F Unit#: ??[id number] ? Location/Status: ??SPDIGEN/REG CLI ? Mnemonic/Ordering Site: ??[facility] Ordering Physician: ??KENNETH MERRITT PA-C CR Barium Swallow - 03/29/24 - 1043 Report Status:Signed INDICATION: Dysphagia. FINDINGS: Double contrast barium swallow performed. COMPARISON: Outside chest CT from May 11, 2023 reviewed Senior Investigator radiographs: Single view of the chest and a lateral view the neck obtained. Lung li are clear. Heart normal in size and shape. Bony structures unremarkable. Lateral weigher alloy view of the neck demonstrates straightening of [...] Procedure Note Migel Goddard MD - 04/01/2024 [facility] Diagnostic Imaging Department [address] [place] [address] Patient: RANDI MUELLER /Age/Sex: 1985 - 38 - F Unit#: [id number] Location/Status: SPDIGEN/REG CLI Mnemonic/Ordering Site: [facility] Ordering Physician: KENNETH MERRITT PA-C CR Barium Swallow - 03/29/24 - 1043 Report Status:Signed INDICATION: Dysphagia. FINDINGS: Double contrast barium swallow performed. COMPARISON: Outside chest CT from May 11, 2023 reviewed Senior Investigator radiographs: Single view of the chest and a lateral view the neck obtained. Lung li are clear. Heart normal in size and shape. Bonystructures unremarkable. Lateral weigher alloy view of the neck demonstrates straightening ofthe [...] on filedocumented in this encounter Care Teams Blanket Winder Helper Relationship Specialty Start Date End Date Gumreet Soto MD [address] [place] [address] PCP - General 08/12/22 documented as of this encounter
--- OUTSIDE RECORDS SUMMARY | 2024-09-17 08:47 | XMS_ITS | Encounter Summary ---
Author Organization [facility] Address [address] [place] [address] Care Team Providers Care Refrigeration Manager Name Role Phone Gurmeet Soto MD Primary Care Provider [phone] Reason for Visit * Reason Onset Date Comments ITCHING IN FINGER TIPS 04/06/2024 Encounter Details Date Type Department Care Team (Late st Contact Info) Description 04/06/2024 Nurse Triage Adult Medicine [facility] [address] [place] [address] Gurmeet Soto MD [address] [place] [address] ITCHING IN FINGER TIPS Social History Tobacco [...] traveled recently to another state outside of [place], [place], [place], [place], [place], [place], [place]? no o If yes, did you quarantine [...] of accident/Injury: No If yes, gather 3rd constitution party insurance information Third Libertarian Information: PCP: Gurmeet Soto MD Payor: [facility] PLAN / Plan: [place] MED[place] / Product Type: *No Product type* / documented in this encounter Plan of Treatment Upcoming Encounters Date Type Department Care Team (Late st Contact Info) Description 09/21/2024 11:45 AM EDT Office Visit Obstetrics and Gynecology - [address] [phone] Ni Willson MD [address] [place], [place] 09/22/2024 11:15 AM EDT Office Visit Endocrinology - [address] [phone] Mukesh Patton MD [address] [place] [address] 10/12/2024 10:10 AM EDT Office Visit [facility] [place] [address] [facility] [address] [place] [phone] Natividad Farley MD [address] [facility] [place] [address] [place] [phone] 01/24/2025 11:30 AM EDT Office Visit Pulmonolgy - [place] [address] [facility] [address] [place] [phone] Ana Maria Sanchze MD 175 [facility] [address] [place], [place] [phone] documented as of this encounter Visit Diagnoses Not on filedocumented in this encounter Care Teams Refrigeration Manager Relationship Specialty Start Date End Date Gurmeet Soto MD [address] [place] [address] PCP - General 08/12/22 documented as of this encounter
--- OUTSIDE RECORDS SUMMARY | 2024-09-17 08:47 | XMS_ITS | Clinical Summary ---
Author Organization 175 [facility] Address [address] [place] [address] Phone Care Team Providers Care Code Number Stamper Name Role Phone Gurmeet Soto MD Primary Care Provider [phone] Allergies Active Allergy Reactions Criticality Noted Date [...] 30 each 025 2025 Active aluminum-magne sium hydroxide-marcial thicone (MAALOX) [...] in the pelvis leading to the Manager Production organs. Just as some people have pain [...] 03/01/2024 History of opioid abuse (CMS/HCC V24, CMS/[facility] V2 8) 02/29/2024 Urinary urgency [...] 1:00 PM EDT Office Visit Adult Medicine [address] [phone] Eva Beckford MD Impacted cerumen, bilateral (Primary Dx) 09/06/2024 Telephone Obstetrics and Gynecology - [address] [phone] Ni Willson MD Lab Results 09/05/2024 3:55 PM EDT - 09/05/2024 11:59 PM EDT Hospital Encounter Radiology Department - [address] [phone] Pelvic fluid collection; Lower abdominal pain Discharge Disposition: Home or Self Care 09/05/2024 3:55 PM EDT - 09/05/2024 11:59 PM EDT Hospital Encounter Radiology Department - [address] [phone] Flank pain Discharge Disposition: Home or Self Care 08/30/2024 8:40 AM EDT Consult [facility] [address] [place] [address] Natividad Farley MD White matter disease (Primary Dx); Lhermitte sign positive; Urinary frequency; Other fatigue 08/30/2024 Telephone Adult Medicine [address] [phone] Gurmeet Soto MD lab order 08/29/2024 11:04 AM EDT - 08/29/2024 11:59 PM EDT Hospital Encounter CT Scan - [address] [phone] Discharge Disposition: Home or Self Care 08/29/[address] [phone] Manuel Olvera NP Imaging Follow-up (CT scan abdomen ) 08/29/[address] [phone] Gurmeet Soto MD Results 08/28/2024 9:45 AM EDT Office Visit [address] [phone] Manuel Olvera NP Lower abdominal pain (Primary Dx); Urinary frequency 08/23/2024 8:31 PM EDT - 08/23/2024 10:03 PM EDT Emergency [facility] Emergency [address] [place] [address] Bilateral flank pain (Primary Dx) Discharge Disposition: Left Against Medical Advice 08/22/2024 10:00 AM EDT Office Visit [address] [phone] Manuel Olvera NP Flank pain (Primary Dx); Frequency of urination; Asthma-COPD overlap syndrome (CMS/HCC V24, CMS/HCC V28); Hyperglycemia; Muscle twitching 08/11/2024 10:30 AM EDT Consult Endocrinology [address] [phone] Mukesh Patton MD Sweating abnormality (Primary Dx) 08/09/2024 10:00 AM EDT Office Visit Gastroenterology [address] [phone] Kenneth Barr PA Epigastric discomfort (Primary Dx); Dysphagia, unspecified type; Globus sensation; Gastroesophageal reflux disease without esophagitis; Straining with stools; Multiple sclerosis (CMS/HCC V24, CMS/HCC V28); Rectal discomfort 07/26/2024 10:45 AM EST Office Visit Pulmonolgy - [address] [phone] Ana Maria Sanchez MD COPD with asthma ([facility] V24, [facility] V28) (Primary Dx); Smoker 07/15/2024 9:00 AM EST Office Visit [facility] Clinic [address] [phone] 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, SHOWPLACE MANAGER Sore throat (Primary Dx) from Last 3 [...] History Date Comments History of opioid abuse ([facility] V24, [facility] V28) DX:History of opioid abuse ( [facility]) Low back pain 06/04/2016 DX:Low back pain ; COMMENT: Sees PSS Esophageal reflux DX:Esophageal reflux Dysphagia DX:Dysphagia Tobacco use DX:Tobacco use Clary-Danlos syndrome DX:Clary -Danlos syndrome COPD (chronic obstructive pu lmonary disease) ([facility] V24, [facility] V28) Multiple sclerosis ([facility] V24, [facility] V28) Family History Medical History Relation Name [...] Office Visit Obstetrics and Gynecology - [address] [phone] Ni Willson MD [address] [place], [place] 09/22/2024 11:15 AM EDT Office Visit Endocrinology - [address] [phone] Mukesh Patton MD [address] [place] [address] 10/12/2024 10:10 AM EDT Office Visit [facility] [place] [address] [facility] [address] [place] [address] Natividad Farley MD [address] [facility] [address] [place] [phone] 01/24/2025 11:30 AM EDT Office Visit Pulmonolgy - [place] [address] [facility] [address] [place] [phone] Ana Maria Sanchez MD 175 [facility] [address] [place], [place] [id number] Health Maintenance Due Date Last Done Comments [...] AM EDT White matter disease NEUROMYELITIS OPTICA, HPYOGIESE-9-CME Routine 08/30/2024 10:29 AM EDT White matter [...] Signed Date: 09/05/2024 17:56 ET Workstation ID: [id number] Transcribed By: Self Edit Transcribed Date: 09/05/2024 [...] Signed Date: 09/05/2024 17:56 ET Workstation ID: [id number] Transcribed By: Self Edit Transcribed Date: 09/05/2024 17:49 ET us Manuel Olvera SHOWPLACE MANAGER IMG US PROCEDURES Final Resu lt * [...] Signed Date: 09/05/2024 17:40 ET Workstation ID: [id number] Transcribed By: Self Edit Transcribed Date: 09/05/2024 [...] Signed Date: 09/05/2024 17:40 ET Workstation ID: [id number] Transcribed By: Self Edit Transcribed Date: 09/05/2024 17:35 ET us Manuel Olvera SHOWPLACE MANAGER IMG US PROCEDURES Final Resu lt * (ABNORMAL) Metanephrines, plasma free (09/01/2024 8:55 AM EDT) Only the most recent of2 resultswithin the time period is included. Metanephrines Free 36 < OR = 57 pg/mL 09/14/2024 1:39 AM EDT [facility] Comment: This test was developed and its analytical performance characteristics have been determined by [facility]. It has not been cleared or approved by the FDA. This assay has been validated pursuant to the CLIA regulations and is used for clinical purposes. Normetanephrine Free 154(H) < OR = 148 pg/mL 09/14/2024 1:39 AM EDT [facility] Comment: This test was developed and its analytical performance characteristics have been determined by [facility]. It has not been cleared or approved [...] analytical performance characteristics have been determined by [facility] [facility]. It has not been cleared or approved by the FDA. This assay has been validated pursuant to the CLIA regulations and is used for clinical purposes. Test Performed at: [facility] [address] [place], [place] ??[phone] ? I Libby LAMBERT, PhD, SERGEI Blood Venous blood specimen / Unknown Venipuncture / Unknown 09/01/2024 8:55 AM EDT 09/01/2024 9:17 AM EDT Mukesh Patton MD LAB BLOOD ORDERABLES Final Resul t Performing Organization Address City/[facility]/ZIP Co de Phone Number [facility] [address] [place] [address] * Dehydroepiandrosterone Sulfate (09/01/2024 8:55 AM EDT) [facility] Signature DHEA Sulfate 171.4 68.9 - 301.8 mcg/dL LAB CHEMISTRY METHOD 09/01/2024 12:07 PM EDT [facility] Blood Venous blood specimen / Unknown Venipuncture / Unknown 09/01/2024 8:55 AM EDT 09/01/2024 9:17 AM EDT Narrative [facility] - 09/01/2024 12:07 PM EDT Over the counter supplements containing high doses of biotin may interfere with this assay. ??If interference is suspected, patients shoud be retested after refraining from biotin supplements for 72 hours. us Mukesh Patton MD LAB BLOOD ORDERABLES Final Resul t [facility] [address] [place] [address], * ACTH (09/01/2024 8:55 AM EDT) Adrenocorticotropic Hormone (ACTH) 10 <=46 pg/mL 09/04/2024 2:13 PM EDT [facility] Comment: Test performed at [facility], [address] [facility] [address], [place], [place] ??[address] ? [phone] Wendy Weiner MD, PhD - Histology Teacher Blood Venous blood specimen / Unknown Venipuncture / Unknown 09/01/2024 8:55 AM EDT 09/01/2024 9:17 AM EDT Mukesh Patton MD LAB BLOOD ORDERABLES Final Resul t Performing Organization Address [facility] Co de Phone Number [facility] [address] [place] [address] * Cortisol (09/01/2024 8:55 AM EDT) Cortisol 7.6 mcg/dL LAB CHEMISTRY METHOD 09/01/2024 10:20 AM EDT [facility] Blood Venous blood specimen / Unknown Venipuncture / Unknown 09/01/2024 8:55 AM EDT 09/01/2024 9:17 AM EDT Narrative [facility] - 09/01/2024 10:20 AM EDT CORTISOL REFERENCE RANGE ?? 8 AM SPEC: ??5.0-23.0 mcg/dL ?? 4 PM SPEC: ??3.0-16.0 mcg/dL ?? 8 PM SPEC: ??<5.0 mcg/dL Mukesh Patton MD LAB BLOOD ORDERABLES Final Resul t Performing Organization Address City/[facility]/ZIP Co de Phone Number [facility]) [facility] [address] [place] [address], [place] [phone] * Iron and TIBC (09/01/2024 8:53 AM EDT) Iron 134 40 - 150 mcg/dL LAB CHEMISTRY METHOD 09/01/2024 10:02 AM EDT [facility] TIBC 290 250 - 450 mcg/dL LAB CHEMISTRY METHOD 09/01/2024 10:02 AM EDT [facility] Iron Saturation 46 15 - 50 % LAB CHEMISTRY METHOD 09/01/2024 10:02 AM EDT [facility] Blood Venous blood specimen / Unknown Venipuncture / Unknown 09/01/2024 8:53 AM EDT 09/01/2024 9:17 AM EDT Manuel Olvera SHOWPLACE MANAGER LAB BLOOD ORDERABLES Final R esult [facility] [address] [place] [address], [place] [phone] * Ferritin (09/01/2024 8:53 AM EDT) Ferritin 47 8 - 252 ng/mL LAB CHEMISTRY METHOD 09/01/2024 10:04 AM EDT [facility] Blood Venous blood specimen / Unknown Venipuncture / Unknown 09/01/2024 8:53 AM EDT 09/01/2024 9:17 AM EDT Manuel Olvera SHOWPLACE MANAGER LAB BLOOD ORDERABLES Final R esult [facility] [address] [place] [address], [place] [phone] * Hepatitis C antibody (08/30/2024 10:29 AM EDT) Hepatitis C Antibody Negative Negative LAB CHEMISTRY METHOD 08/30/2024 5:41 PM EDT [facility] Blood Venous blood specimen / Unknown Venipuncture / Unknown 08/30/2024 10:29 AM EDT 08/30/2024 12:05 PM EDT us Natividad Farley MD LAB BLOOD ORDERABLES Fin al Result Performing Organization Address [facility]/ZIP Co de Phone Number [facility] [address] [place] [address], [place] [phone] * HIV 1,2 antibody, p24 antigen with reflex to differentiation (08/30/2024 10:29 AM EDT) [facility] HIV Combo AB/AG Negative Negative LAB CHEMISTRY METHOD 08/30/2024 5:42 PM EDT [facility] Blood Venous blood specimen / Unknown Venipuncture / Unknown 08/30/2024 10:29 AM EDT 08/30/2024 12:05 PM EDT Narrative [facility] - 08/30/2024 5:42 PM EDT This assay is a 4th generation assay allowing for earlier detection of HIV infection by detecting the presence of the HIV-1 p24 antigen as well as the traditional antibodies to HIV type 1 (including group O) and type 2. ??Use of a 4th generation assay is the current CDC recommendation for HIV screening. us Natividda Farley MD LAB BLOOD ORDERABLES Fin al Result Performing Organization Address [facility] de Phone Number [facility] [address] [place] [address], [place] [phone] * Interferon gamma interpretation (08/30/2024 10:29 AM EDT) [facility] Quantiferon Plus Interpretation Negative Negative LAB CHEMISTRY METHOD 08/31/2024 10:57 AM EDT [facility] Blood Venous blood specimen / Unknown Venipuncture / Unknown 08/30/2024 10:29 AM EDT 08/30/2024 12:04 PM EDT us Natividad Farley MD LAB BLOOD ORDERABLES Fin al Result Performing Organization Address City/[facility]/ZIP Co de Phone Number [facility] [address] [place] [address], [place] [phone] * Interferon gamma antigen 2 (08/30/2024 10:29 AM EDT) Blood Venous blood specimen / Unknown Venipuncture / Unknown 08/30/2024 10:29 AM EDT 08/30/2024 12:04 PM EDT us Natividad Farley MD LAB BLOOD ORDERABLES Fin al Result [facility] [address] [place] [address], [place] [phone] * Inteferon gamma antigen 1 (08/30/2024 10:29 AM EDT) Blood Venous blood specimen / Unknown Venipuncture / Unknown 08/30/2024 10:29 AM EDT 08/30/2024 12:04 PM EDT us Natividad Farley MD LAB BLOOD ORDERABLES Fin al Result [facility] [address] [place] [address], [place] [phone] * Interferon gamma mitogen (08/30/2024 10:29 AM EDT) Blood Venous blood specimen / Unknown Venipuncture / Unknown 08/30/2024 10:29 AM EDT 08/30/2024 12:04 PM EDT us Natividad Farley MD LAB BLOOD ORDERABLES Fin al Result [facility] [address] [place] [address], [place] [phone] * Interferon gamma NIL (08/30/2024 10:29 AM EDT) Blood Venous blood specimen / Unknown Venipuncture / Unknown 08/30/2024 10:29 AM EDT 08/30/2024 12:04 PM EDT Natividad Farley MD LAB BLOOD ORDERABLES Fin al Result Performing Organization Address [facility] de Phone Number [facility] [address] [place] [address], [place] [phone] * Hepatitis B surface antigen with reflex to confirmation (08/30/2024 10:29 AM EDT) Pathologist [facility] Hepatitis B Surface Ag Negative Negative LAB CHEMISTRY METHOD 08/30/2024 5:14 PM EDT [facility] Blood Venous blood specimen / Unknown Venipuncture / Unknown 08/30/2024 10:29 AM EDT 08/30/2024 12:05 PM EDT Narrative [facility] - 08/30/2024 5:14 PM EDT Over the counter supplements containing high doses of biotin may interfere with this assay. ??If interference is suspected, patients shoud be retested after refraining from biotin supplements for 72 hours. us Natividad Farley MD LAB BLOOD ORDERABLES Fin al Result Performing Organization Address [facility] de Phone Number [facility] [address] [place] [address], [place] [phone] * Myelin oligodendrocyte glycoprotein antibody with reflex to titer (08/30/2024 10:29 AM EDT) Pathologist [facility] MOG Antibody, Cell-based IFA Negative Negative 09/02/2024 6:05 AM EDT [facility] Blood Venous blood specimen / Unknown Venipuncture / Unknown 08/30/2024 10:29 AM EDT 08/30/2024 12:05 PM EDT Narrative [facility] - 09/02/2024 6:05 AM EDT Test(s) 534525-[id number] Antibody, Cell-based IFA was developed and its performance characteristics determined by [facility]. It has not been cleared or approved by the Food and Drug Administration. Performed at: ??01 - [facility] [address] ??[id number] Plunger Shovel Operator: Shavon Colvin MD, Phone: ??[phone] Natividad Farley MD LAB BLOOD ORDERABLES Fin al Result [facility] * JCV polyoma virus antibody with reflex to inhibition assay (08/30/2024 10:29 AM EDT) Pathologist [facility] Index Value 0.23 09/08/2024 12:05 PM EDT [...] 12:05 PM EDT Performed at: ??01 - [facility] [address] [place] ??[id number] Plunger Shovel Operator: Sabine Souza MD, Phone: ??[phone] Natividad Farley MD LAB BLOOD ORDERABLES Fin al Result [facility] * Sjogrens antibodies, SSA and SSB (08/30/2024 10:29 AM EDT) Sjogren's SS-A (Ro) Ab Quant 2 <20 units LAB CHEMISTRY METHOD 09/03/2024 10:52 AM EDT [facility] Sjogren's SS-A (Ro) Ab Negative Negative LAB CHEMISTRY METHOD 09/03/2024 10:52 AM EDT [facility] Sjogren's SS-B (La) Ab Quant 2 <20 units LAB CHEMISTRY METHOD 09/03/2024 10:52 AM EDT [facility] Sjogren's SS-B (La) Ab Negative Negative LAB CHEMISTRY METHOD 09/03/2024 10:52 AM EDT [facility] Blood Venous blood specimen / Unknown Venipuncture / Unknown 08/30/2024 10:29 AM EDT 08/30/2024 12:05 PM EDT us Natividad Farley MD LAB BLOOD ORDERABLES Fin al Result [facility] [address] [place] [address], [place] [phone] * Neuromyelitis optica, [id number] (08/30/2024 10:29 AM EDT) Pathologist [facility] NMO IgG Autoantibodies <1.5 0.0 - 3.0 U/mL 09/01/2024 1:05 PM EDT [facility] Comment: ? Negative: ?0.0 - 3.0 ? Positive: ? >3.0 Blood Venous blood specimen / Unknown Venipuncture / Unknown 08/30/2024 10:29 AM EDT 08/30/2024 12:05 PM EDT Narrative [facility] - 09/01/2024 1:05 PM EDT Performed at: ??01 - [facility] [address] ??[id number] Plunger Shovel Operator: Shavon Colvin MD, Phone: ??[phone] Natividad Farley MD LAB BLOOD ORDERABLES Fin al Result Performing Organization Address [facility] de Phone Number [facility] * MICHELLE IFA with titer and pattern (08/30/2024 10:29 AM EDT) Pathologist [facility] MICHELLE Negative Negative 08/31/2024 10:38 AM EDT [facility] Blood Venous blood specimen / Unknown Venipuncture / Unknown 08/30/2024 10:29 AM EDT 08/30/2024 12:05 PM EDT Natividad Farley MD LAB BLOOD ORDERABLES Fin al Result Performing Organization Address [facility] Co de Phone Number [facility] [address] [place] [address], * CBC auto differential (08/30/2024 10:29 AM EDT) Only the most recent of2 resultswithin the time period is included. [facility] Signature WBC 8.6 4.8 - 10.8 K/mcL LAB HEMETOLOGY METHOD [facility]/30/2024 12[facility] RBC 4.10 3.80 - 4.80 M/mcL LAB HEMETOLOGY METHOD 08/30/2024 12:30 PM [facility] Hemoglobin 13.0 11.5 - 16.0 g/dL LAB HEMETOLOGY METHOD 08/30/2024 12:30 PM [facility] Hematocrit 37.5 35.0 - 47.0 % LAB HEMETOLOGY METHOD 08/30/2024 12:30 PM [facility] MCV 90.8 79.0 - 98.0 FL LAB HEMETOLOGY METHOD 08/30/2024 12:30 PM [facility] MCH 31.5 27.0 - 32.0 pcg LAB HEMETOLOGY METHOD 08/30/2024 12:30 PM [facility] MCHC 34.7 32.0 - 37.0 g/dL LAB HEMETOLOGY METHOD 08/30/2024 12:30 PM [facility] RDW 11.5 11.0 - 15.0 % LAB HEMETOLOGY METHOD 08/30/2024 12:30 PM [facility] Platelets 315 130 - 400 K/mcL LAB HEMETOLOGY METHOD 08/30/2024 12:30 PM [facility] MPV 9.6 7.0 - 11.0 FL LAB HEMETOLOGY METHOD 08/30/2024 12:30 PM [facility] NRBC 0.0 <1.0 % LAB HEMETOLOGY METHOD 08/30/2024 12:30 PM [facility] NRBC Absolute 0.00 <0.10 K/mcL LAB HEMETOLOGY METHOD 08/30/2024 12:30 PM EDT [facility] Neutrophils Relative 58.2 % LAB HEMETOLOGY METHOD 08/30/2024 12:30 PM [facility] Lymphocytes Relative 30.4 % LAB HEMETOLOGY METHOD 08/30/2024 12:30 PM EDT [facility] Monocytes Relative 8.1 % LAB HEMETOLOGY METHOD 08/30/2024 12:30 PM [facility] Eosinophils Relative 2.3 % LAB HEMETOLOGY METHOD 08/30/2024 12:30 PM [facility] Basophils Relative 0.7 % LAB HEMETOLOGY METHOD 08/30/2024 12:30 PM [facility] Immature Granulocytes Relative 0.3 % LAB HEMETOLOGY METHOD 08/30/2024 12:30 PM [facility] Neutrophils Absolute 5.02 1.50 - 7.00 K/mcL LAB HEMETOLOGY METHOD 08/30/2024 12:30 PM [facility] Lymphocytes Absolute 2.63 1.00 - 5.00 K/mcL LAB HEMETOLOGY METHOD 08/30/2024 12:30 PM [facility] Monocytes Absolute 0.70 0.20 - 1.00 K/mcL LAB HEMETOLOGY METHOD 08/30/2024 12:30 PM T [facility] Eosinophils Absolute 0.20 0.00 - 0.50 K/mcL LAB HEMETOLOGY METHOD 08/30/2024 12:30 PM [facility] Basophils Absolute 0.06 0.00 - 0.20 K/mcL LAB HEMETOLOGY METHOD 08/30/2024 12:30 PM [facility] Immature Granulocytes Absolute 0.03 0.00 - 0.03 K/mcL LAB HEMETOLOGY METHOD 08/30/2024 12:30 PM EDT [facility] Blood Venous blood specimen / Unknown Venipuncture / Unknown 08/30/2024 10:29 AM EDT 08/30/2024 12:08 PM EDT us Natividad Farley MD LAB BLOOD ORDERABLES Fin al Result Performing Organization Address [facility] de Phone Number [facility] [address] [place] [address], * Borrelia burgdorferi antibody (08/30/2024 10:29 AM EDT) Lyme Ab Negative Negative LAB CHEMISTRY METHOD 08/30/2024 1:25 PM EDT [facility] Comment: No laboratory evidence [...] ORDERABLES Fin al Result Performing Organization Address [facility] Co de Phone Number [facility] [address] [place] [address], * Hepatitis B core antibody IgM (08/30/2024 10:29 AM EDT) Hep B Core IgM Negative Negative LAB CHEMISTRY METHOD 08/30/2024 5:42 PM EDT [facility] Blood Venous blood specimen / Unknown Venipuncture / Unknown 08/30/2024 10:29 AM EDT 08/30/2024 12:05 PM EDT Narrative [facility] - 08/30/2024 5:42 PM EDT Over the counter supplements containing high doses of biotin may interfere with this assay. ??If interference is suspected, patients shoud be retested after refraining from biotin supplements for 72 hours. us Natividad Farley MD LAB BLOOD ORDERABLES Fin al Result Performing Organization Address [facility] de Phone Number [facility] [address] [place] [address], * Creatinine (08/30/2024 10:29 AM EDT) Creatinine 0.55 0.50 - 1.10 mg/dL LAB CHEMISTRY METHOD 08/30/2024 2:41 PM EDT [facility] eGFR 122 >=60 mL/min/1. 73m2 LAB CHEMISTRY METHOD 08/30/2024 2:41 PM EDT [facility] Comment:Calculation based on the??Chronic Kidney Disease Epidemiology Collaboration (CKD-EPI) equation refit??without adjustment for race. Blood Venous blood specimen / Unknown Venipuncture / Unknown 08/30/2024 10:29 AM EDT 08/30/2024 12:05 PM EDT us Natividad Farley MD LAB BLOOD ORDERABLES Fin al Result Performing Organization Address [facility] de Phone Number [facility] [address] [place] [address], * (ABNORMAL) Vitamin D 25 hydroxy (08/30/2024 10:29 AM EDT) Vit D, 25-Hydroxy 29.6(L) 30.0 - 80.0 ng/mL LAB CHEMISTRY METHOD 08/30/2024 5:02 PM EDT [facility] Blood Venous blood specimen / Unknown Venipuncture / Unknown 08/30/2024 10:29 AM EDT 08/30/2024 12:05 PM EDT us Natividad Farley MD LAB BLOOD ORDERABLES Fin al Result Performing Organization Address [facility] de Phone Number [facility] [address] [place] [address], [place] [phone] * Rheumatoid factor (08/30/2024 10:29 AM EDT) Pathologist [facility] Rheumatoid Factor <10.0 <15.0 I Unit/mL LAB CHEMISTRY METHOD 08/30/2024 2:41 PM EDT [facility] Blood Venous blood specimen / Unknown Venipuncture / Unknown 08/30/2024 10:29 AM EDT 08/30/2024 12:05 PM EDT us Natividad Farley MD LAB BLOOD ORDERABLES Fin al Result Performing Organization Address [facility] de Phone Number [facility] [address] [place] [address], [place] [phone] * Varicella zoster antibody IgG (08/30/2024 10:29 AM EDT) [facility] Varicella IgG Positive Positive LAB CHEMISTRY METHOD 08/30/2024 1:15 PM EDT [facility] Varicella Zoster IgG 17.30 >=1.00 S/CO LAB CHEMISTRY METHOD 08/30/2024 1:15 PM EDT [facility] Blood Venous blood specimen / Unknown Venipuncture / Unknown 08/30/2024 10:29 AM EDT 08/30/2024 12:05 PM EDT Narrative [facility] - 08/30/2024 1:15 PM EDT Interpretation >= 1.00 S/CO is considered to be consistent with Immunity us Natividad Farley MD LAB BLOOD ORDERABLES Fin al Result Performing Organization Address City/[facility] de Phone Number [facility] [address] [place] [address], [place] [phone] * BUN (08/30/2024 10:29 AM EDT) BUN 7 5 - 25 mg/dL LAB CHEMISTRY METHOD 08/30/2024 2:41 PM EDT [facility] Blood Venous blood specimen / Unknown Venipuncture / Unknown 08/30/2024 10:29 AM EDT 08/30/2024 12:05 PM EDT us Natividad Farley MD LAB BLOOD ORDERABLES Fin al Result [facility] [address] [place] [id number], [place] [phone] * Immunoglobulin IgA (08/30/2024 10:29 AM EDT) IgA 85 61 - 348 mg/dL LAB CHEMISTRY METHOD 08/30/2024 2:41 PM EDT [facility] Blood Venous blood specimen / Unknown Venipuncture / Unknown 08/30/2024 10:29 AM EDT 08/30/2024 12:05 PM EDT us Natividad Farley MD LAB BLOOD ORDERABLES Fin al Result [facility] [address] [place] [address], [place] [phone] * Immunoglobulin IgM (08/30/2024 10:29 AM EDT) IgM 144 23 - 259 mg/dL LAB CHEMISTRY METHOD 08/30/2024 3:03 PM EDT [facility] Blood Venous blood specimen / Unknown Venipuncture / Unknown 08/30/2024 10:29 AM EDT 08/30/2024 12:05 PM EDT us Natividad Farley MD LAB BLOOD ORDERABLES Fin al Result Performing Organization Address [facility] Co de Phone Number [facility] [address] [place] [address], [place] [phone] * Immunoglobulin IgG (08/30/2024 10:29 AM EDT) Total IgG 1,240 549 - 1,584 mg/dL LAB CHEMISTRY METHOD 08/30/2024 2:41 PM EDT [facility] Blood Venous blood specimen / Unknown Venipuncture / Unknown 08/30/2024 10:29 AM EDT 08/30/2024 12:05 PM EDT us Natividad Farley MD LAB BLOOD ORDERABLES Fin al Result Performing Organization Address [facility] Co de Phone Number [facility] [address] [place] [address], [place] [phone] * Vitamin B12 (08/30/2024 10:29 AM EDT) [facility] Vitamin B-12 293 250 - 900 pcg/mL LAB CHEMISTRY METHOD 08/30/2024 3:03 PM EDT [facility] Blood Venous blood specimen / Unknown Venipuncture / Unknown 08/30/2024 10:29 AM EDT 08/30/2024 12:05 PM EDT us Natividad Farley MD LAB BLOOD ORDERABLES Fin al Result Performing Organization Address City/[facility] Co de Phone Number [facility] [address] [place] [address], [place] [phone] * Hepatic function panel (08/30/2024 10:29 AM EDT) Total Protein 7.4 6.0 - 8.0 g/dL LAB CHEMISTRY METHOD 08/30/2024 2:41 PM EDT [facility] Albumin 4.3 3.2 - 5.0 g/dL LAB [facility] Total Bilirubin 0.6 0.0 - 1.4 mg/dL LAB CHEMISTRY METHOD 08/30/2024 2:[facility] Bilirubin, Direct 0.2 0.0 - 0.3 mg/dL LAB CHEMISTRY METHOD 08/30/2024 2:41 PM EDT [facility] Bilirubin, Indirect 0.4 0.0 - 1.1 mg/dL LAB CHEMISTRY METHOD 08/30/2024 2:41 PM [facility] ALT (SGPT) 19 10 - 60 unit/L LAB CHEMISTRY METHOD 08/30/2024 2:41 PM [facility] AST (SGOT) 14 10 - 42 unit/L LAB CHEMISTRY METHOD 08/30/2024 2:41 PM [facility] Alkaline Phosphatase 59 42 - 121 unit/L LAB CHEMISTRY METHOD 08/30/2024 2:41 PM [facility] Blood Venous blood specimen / Unknown Venipuncture / Unknown 08/30/2024 10:29 AM EDT 08/30/2024 12:05 PM EDT Natividad Farley MD LAB BLOOD ORDERABLES Fin al Result [facility] [address] [place] [address], * Hemoglobin A1c (08/29/2024 11:43 AM EDT) Hemoglobin A1C 5.1 <6.5 % LAB CHEMISTRY METHOD 08/29/2024 10:31 PM EDT [facility] Mean Bld Glu Estim. 100 mg/dL LAB CHEMISTRY METHOD 08/29/2024 10:31 PM EDT [facility] Blood Venous blood specimen / Unknown Venipuncture / Unknown 08/29/2024 11:43 AM EDT 08/29/2024 11:43 AM EDT us Manuel Olvera [employer]OWPLACE MANAGER LAB BLOOD ORDERABLES Final R esult [facility]) [facility] [address] [place] [address], [place] [phone] * CT Abdomen Pelvis wo Contrast (08/29/2024 [...] Signed Date: 08/29/2024 12:10 ET Workstation ID: [id number] Transcribed By: Self Edit Transcribed Date: 08/29/2024 [...] Signed Date: 08/29/2024 12:10 ET Workstation ID: [id number] Transcribed By: Self Edit Transcribed Date: 08/29/2024 11:51 ET Manuel Olvera NP IMG CT PROCEDURES Final Resu lt * Urinalysis with reflex microscopic and culture (08/28/2024 4:43 PM EDT) Only the most recent of3 resultswithin the time period is included. Specific Tofte Urine 1.004 1.003 - 1.030 LAB URINALYSIS - AUTOMATED METHOD 08/28/2024 6:58 PM EDT [facility] pH, Urine 7.5 5.0 - 8.0 pH LAB URINALYSIS - AUTOMATED METHOD 08/28/2024 6:58 PM EDT [facility] Leukocytes, Urine Negative Negative LAB URINALYSIS - AUTOMATED METHOD 08/28/2024 6:58 PM EDT [facility] Nitrite, Urine Negative Negative LAB URINALYSIS - AUTOMATED METHOD 08/28/2024 6:58 PM [facility] Protein, Urine Negative <=Trace mg/dL LAB URINALYSIS - AUTOMATED METHOD 08/28/2024 6:58 PM EDT [facility] Glucose, Urine Negative Negative mg/dL LAB URINALYSIS - AUTOMATED METHOD 08/28/2024 6:58 PM EDT [facility] Ketones, Urine Negative Negative mg/dL LAB URINALYSIS - AUTOMATED METHOD 08/28/2024 6:58 PM EDT [facility] Urobilinogen, Urine 0.2 0.2 - 1.0 mg/dL LAB URINALYSIS - AUTOMATED METHOD 08/28/2024 6:58 PM EDT [facility] Bilirubin, Urine Negative Negative LAB URINALYSIS - AUTOMATED METHOD 08/28/2024 6:58 PM EDT [facility] Blood, Urine Negative Negative LAB URINALYSIS - AUTOMATED METHOD 08/28/2024 6:58 PM EDT [facility] Urine Urine specimen obtained by clean catch procedure / Unknown Non-blood Collection / Unknown 08/28/2024 4:43 PM EDT 08/28/2024 4:43 PM EDT Manuel Olvera SHOWPLACE MANAGER LAB URINE ORDERABLES Final R esult Performing Organization Address City/[facility]/ZIP Co de Phone Number [facility] [address] [place] [address], [place] [phone] * Sylvester urine culture tube (08/28/2024 4:43 PM EDT) Only the most recent of3 resultswithin the time period is included. Extra Tube Hold for add-ons. 08/28/2024 7:01 PM EDT [facility] Comment:Auto resulted. Urine Urine specimen obtained by clean catch procedure / Unknown Non-blood Collection / Unknown 08/28/2024 4:43 PM EDT 08/28/2024 4:43 PM EDT Manuel Olvera SHOWPLACE MANAGER LAB URINE ORDERABLES Final R esult [facility] [address] [place] [address], [place] [phone] * (ABNORMAL) POC Urine Non-Auto W/O Micro (08/28/2024 1:45 PM EDT) [facility] Leukocytes UA POC Negative Negative Nitrite UA POC Negative Negative Urobilinogen UA POC Negative Negative Protein UA POC Negative Negative PH UA POC 6.0 5.0 - 9.0 Blood UA POC Negative Negative, Trace Specific Tofte UA POC 1.005 1.001 - 1.035 Ketones UA POC Negative Negative Bilirubin UA POC Negative Negative Glucose UA POC Normal Normal, Trace Urine Urine specimen obtained by clean catch procedure / Unknown 08/28/2024 1:45 PM EDT Manuel Olvera NP POINT OF CARE TEST ENTER/MONA T ORDERABLES Final Result * (ABNORMAL) Comprehensive metabolic panel (08/23/2024 3:25 PM EDT) [facility] Sodium 134 133 - 145 mmol/L LAB CHEMISTRY METHOD 08/23/2024 4:04 PM [facility] Potassium 3.8 3.5 - 5.5 mmol/L LAB CHEMISTRY METHOD 08/23/2024 4:04 PM [facility] Chloride 103 96 - 110 mmol/L LAB CHEMISTRY METHOD 08/23/2024 4:04 PM [facility] CO2 26 21 - 32 mmol/L LAB CHEMISTRY METHOD 08/23/2024 4:04 PM [facility] Anion Gap 5 3 - 11 LAB CHEMISTRY METHOD 08/23/2024 4:04 PM [facility] Glucose 103(H) 70 - 100 mg/dL LAB CHEMISTRY METHOD 08/23/2024 4:04 PM [facility] BUN 10 5 - 25 mg/dL LAB CHEMISTRY METHOD 08/23/2024 4:04 PM [facility] Creatinine 0.68 0.50 - 1.10 mg/dL LAB CHEMISTRY METHOD 08/23/2024 4:04 PM [facility] eGFR 116 >=60 mL/min/1. 73m2 LAB CHEMISTRY METHOD 08/23/2024 4:04 PM [facility] Comment:Calculation based on the??Chronic Kidney Disease Epidemiology Collaboration (CKD-EPI) equation refit??without adjustment for race. BUN/Creatinine Ratio 14.7 LAB CHEMISTRY METHOD 08/23/2024 4:04 PM T [facility] Calcium 9.7 8.5 - 10.5 mg/dL LAB CHEMISTRY METHOD 08/23/2024 4:04 PM [facility] AST (SGOT) 21 10 - 42 unit/L LAB CHEMISTRY METHOD 08/23/2024 4:04 PM [facility] ALT (SGPT) 21 10 - 60 unit/L LAB CHEMISTRY METHOD 08/23/2024 4:04 PM [facility] Alkaline Phosphatase 72 42 - 121 unit/L LAB CHEMISTRY METHOD 08/23/2024 4:04 PM [facility] Total Protein 8.0 6.0 - 8.0 g/dL LAB CHEMISTRY METHOD 08/23/2024 4:04 PM [facility] Albumin 4.4 3.2 - 5.0 g/dL LAB CHEMISTRY METHOD 08/23/2024 4:04 PM [facility] Total Bilirubin 0.6 0.0 - 1.4 mg/dL LAB CHEMISTRY METHOD 08/23/2024 4:04 PM [facility] Blood Venous blood specimen / Unknown Venipuncture / Unknown 08/23/2024 3:25 PM EDT 08/23/2024 3:32 PM EDT us Christopher Fournier MD LAB BLOOD ORDERABLES Final Resu lt [facility] [address] [place] [address], [place] [phone] * (ABNORMAL) Microalbumin creatinine urine ratio (08/22/2024 11:04 AM EDT) Creatinine, Urine 15.0 mg/dL LAB CHEMISTRY METHOD 08/22/2024 2:11 PM EDT [facility] Microalb, Ur <5.0 0.0 - 29.0 mg/L LAB CHEMISTRY METHOD 08/22/2024 2:11 PM EDT [facility] Microalb/Creat Ratio <33(H) <30 mg/g creat LAB CHEMISTRY METHOD 08/22/2024 2:11 PM EDT [facility] Urine Urine specimen obtained by clean catch procedure / Unknown Non-blood Collection / Unknown 08/22/2024 11:04 AM EDT 08/22/2024 11:04 AM EDT Manuel Olvera SHOWPLACE MANAGER LAB URINE ORDERABLES Final R esult [facility] [address] [place] [address], [place] [phone] * Magnesium (08/22/2024 11:04 AM EDT) Magnesium 2.2 1.9 - 2.6 mg/dL LAB CHEMISTRY METHOD 08/22/2024 4:11 PM EDT [facility] Blood Venous blood specimen / Unknown Venipuncture / Unknown 08/22/2024 11:04 AM EDT 08/22/2024 11:04 AM EDT Manuel Olvera SHOWPLACE MANAGER LAB BLOOD ORDERABLES Final R esult [facility] [address] [place] [address], [place] [phone] * Basic metabolic panel (08/22/2024 11:04 AM EDT) Sodium 136 133 - 145 mmol/L LAB CHEMISTRY METHOD 08/22/2024 4:11 PM [facility] Potassium 3.9 3.5 - 5.5 mmol/L LAB CHEMISTRY METHOD 08/22/2024 4:11 PM [facility] Chloride 104 96 - 110 mmol/L LAB CHEMISTRY METHOD 08/22/2024 4:11 PM [facility] CO2 27 21 - 32 mmol/L LAB CHEMISTRY METHOD 08/22/2024 4:11 PM [facility] Anion Gap 5 3 - 11 LAB CHEMISTRY METHOD 08/22/2024 4:11 PM [facility] Glucose 85 70 - 100 mg/dL LAB CHEMISTRY METHOD 08/22/2024 4:11 PM [facility] BUN 11 5 - 25 mg/dL LAB CHEMISTRY METHOD 08/22/2024 4:11 PM [facility] Creatinine 0.69 0.50 - 1.10 mg/dL LAB CHEMISTRY METHOD 08/22/2024 4:11 PM [facility] eGFR 116 >=60 mL/min/1. 73m2 LAB CHEMISTRY METHOD 08/22/2024 4:11 PM [facility] Comment:Calculation based on the??Chronic Kidney Disease Epidemiology Collaboration (CKD-EPI) equation refit??without adjustment for race. BUN/Creatinine Ratio 15.9 LAB CHEMISTRY METHOD 08/22/2024 4:11 PM [facility] Calcium 9.3 8.5 - 10.5 mg/dL LAB CHEMISTRY METHOD 08/22/2024 4:11 PM [facility] Blood Venous blood specimen / Unknown Venipuncture / Unknown 08/22/2024 11:04 AM EDT 08/22/2024 11:04 AM EDT Manuel Olvera NP LAB BLOOD ORDERABLES Final R esult [facility]) [facility] [address] [place] [address], [place] [phone] * (ABNORMAL) Metanephrines, urine 24H (08/15/2024 12:16 PM EDT) Pathologist [facility] Urine Volume 3,000 600 - 2000 mL 08/21/2024 1:56 PM EDT [facility] Creatinine 24 Hr Urine 0.7(L) 0.8 - 1.8 gm/24h 08/21/2024 1:56 PM EDT [facility] Normetanephrine 24 Hr Urine 180 88 - 444 ug/day 08/21/2024 1:56 PM EDT [facility] Metanephrine 24 Hr Urine 90 52 - 341 ug/day 08/21/2024 1:56 PM EDT [facility] Total Metanephrines 270 140 - 785 ug/day 08/21/2024 1:56 PM EDT [facility] Comment: This test was developed and the performance characteristics determined by [facility]. It has not been cleared or approved by the FDA. The laboratory is regulated under CLIA as qualified to perform high-complexity testing. This test is used for patient testing purposes. It should not be regarded as investigational or for research. Test performed at [facility], [address] , [place], [place] ??[address] ? [phone] Wendy Weiner MD, PhD - Histology Teacher Urine Urine specimen from urethra / Unknown Non-blood Collection / Unknown 08/15/2024 12:16 PM EDT 08/15/2024 12:32 PM EDT Mukesh Patton MD LAB URINE ORDERABLES Final Resul t [facility] [address] [place] [address] * POC rapid strep A manually resulted (07/15/2024 9:23 AM EST) [facility] Rapid Strep A Screen POC Negative Negative Swab Structure of anterior portion of neck / Unknown 07/15/2024 9:23 AM EST 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 NP POINT OF CARE TEST ENTER/EDIT ORDERABLES Final Result * Pap smear (10/10/2020) 10/10/2020 Narrative HISTORICAL TESTING LAB RESULTING AGENCY - 10/14/2020 4:51 PM EDT [id number] THINPREP PAP, IMAGED: NEGATIVE FOR SQUAMOUS INTRAEPITHELIAL [...] Most Recently Relevant to Health Maintenance Insurance [facility] [facility] Care Teams Code Number Stamper Relationship Specialty Start Date End Date Gurmeet Soto MD [address] [place] [address] PCP - General 08/12/22
--- NOTE | 2024-09-17 09:12 | ED.GENADULT ---
HPI - General Adult General Chief complaint: Headache Stated complaint: recent lumbar puncture, spinal headache Time Seen by Provider: 09/17/24 09:12 Source: patient, family (), RN notes reviewed and old records reviewed Mode of arrival: ambulatory Limitations: no limitations History of Present Illness ED Provider: Yobani HPI narrative: Patient is a 38-year-old female with history of migraines since age 14, Clary Danlos syndrome, TIA x 2, anxiety, currently being worked up for MS presenting to the ED with complaint of worsening postural headache. Seen in this ED yesterday for same following LP on 09/15. Woke at 0430 to take Tylenol and have a cup of coffee, when returning to bed symptoms worsened. Severe nausea without vomiting. Headache worse with standing, improves with laying flat. Told yesterday to return for blood patch if symptoms persisted/worsened. MD complaint: headache Onset (ago): day(s) Location: head Severity: severe and similar to prior episodes Quality: aching Pain Consistency: colicky Relieving factors: other (laying flat) Exacerbating factors: other (standing) Associated symptoms: nausea/vomiting Treatments prior to arrival: other Related Data Home Medications ?Medication ?Instructions ?Recorded ?Confirmed buprenorphine 8 mg-naloxone 2 mg 2 film buccal DAILY 09/10/23 09/15/24 sublingual film (Suboxone) fluticasone propionate 50 1 spray intranasal DAILY 09/10/23 09/15/24 mcg/actuation nasal spray,suspension ipratropium bromide 17 inhalation 09/01/24 09/01/24 mcg/actuation HFA aerosol inhaler (Atrovent HFA) metoprolol tartrate 25 mg tablet 12.5 mg PO DAILY 09/01/24 09/15/24 Previous Rx's ?Medication ?Instructions ?Recorded [id number]-dnvspdrzaclbr-ffmzlpsl 1 tab PO Q4H PRN headache 7 days 06/01/24 50 mg-325 mg-40 mg tablet #28 tabs ubrogepant 100 mg tablet (Ubrelvy) 50 - 100 mg (0.5 - 1 x 100 mg) PO 09/01/24 ONCE PRN migraine headache 30 days #16 tabs ondansetron 4 mg disintegrating 4 mg PO Q8H PRN nausea and 09/17/24 tablet vomiting #10 tabs Allergies Allergy/AdvReac Type Severity Reaction Status Date / Time doxycycline Allergy Mild Dizziness Verified 09/17/24 08:42 ciprofloxacin Allergy Severe Unknown Uncoded 09/15/24 10:10 Kelflex Allergy Severe Anaphylaxis Uncoded 09/15/24 10:10 Review of Systems Review of Systems: As per HPI Yes all other systems are reviewed and are negative Constitutional: Constitutional: Reports as per HPI [facility] Family History Family History Mother Hyperlipidemia Depression HTN (hypertension) COPD (chronic obstructive pulmonary disease) Diabetes Father Hyperlipidemia Maternal Grandmother Stroke Lung cancer Ovarian ca Cancer, colon Paternal Grandmother Breast cancer in female Social History Social History Are you a primary rn urgent care to a significant other at home: No Alcohol intake: never Patient Tobacco Use Status: Current everyday Tobacco user Tobacco use type: Cigarette Cigarette Packs Per Day: 0.5 Cigarettes Per Day: 10 Years Smoked: 20 Smoked in Last 30 Days: Yes Use of substances other than those prescribed or required for medical reasons: No Advance Directives: No Advance Directives Information Provided: Yes Do you have a plan to hurt others: No Plan Patient : No Physical Exam ED Vital Signs: Vital Signs - 24 hr 09/17/24 08:40 09/17/24 11:44 Temperature 98.4 F 98.4 F Pulse Rate 86 85 Respiratory Rate 18 16 Blood Pressure 135/91 H 107/62 Pulse Oximetry 100 97 Oxygen Delivery Method Room Air Room Air BMI result Body Mass Index 20.8 Vital signs have been reviewed and appear to be correct. Blood pressure normal. Heart rate normal. Respiratory rate normal. Temperature normal. Oxygen saturation normal. Const General: cooperative, healthy appearing and no acute distress Orientation/consciousness: oriented to person, oriented to place, oriented to time and patient oriented x3 Limitations: no limitations HENMT Head: Yes normocephalic and Yes atraumatic Ears: external ears normal General nose exam: Normal external nose present Face and sinus: Yes face symmetric Mouth: oropharynx normal and moist mucous membranes Throat: Yes uvula midline Eyes Pupils: Equal, round and reactive pupils present Neck Neck: Yes normal visual inspection and Yes supple Resp Effort & Inspection: normal respiratory effort and able to speak in complete sentences Auscultation: clear to auscultation bilaterally Cardio Rate: regular rate Rhythm: regular rhythm Heart sounds: S1 normal heart sound present and S2 normal heart sound present GI Palpation (GI): Soft to palpation and nontender Auscultation: normoactive bowel sounds General: Yes no CVA tenderness Back/Spine/Pelvis Back: no CVA tenderness Skin General skin exam: elasticity normal and turgor normal Neuro General: oriented to person, oriented to place, oriented to time, patient oriented x3, moves all extremities, no focal motor deficits and CN's II-XI intact bilaterally Cranial nerves: Yes Equal, round and reactive pupils present Cognition (Neuro): normal cognition Extrem General: Yes full ROM, Yes no pedal edema and Yes no calf tenderness Psych Mental Status: mental status grossly normal Affect: normal affect Thought process: Normal thought process present Course Reevaluation(s) Reevaluation #1: Patient declining medications, states she prefers to wait for Dr. Gage. Time: 09:51 Reevaluation #2: Dr. Gage at bedside to perform blood patch. Time: 10:40 Medications Administered Discontinued Medications Generic Name Dose Route Start Last Admin Trade Name Ollieq PRN Reason Stop Dose Admin Diphenhydramine HCl 25 mg 09/17/24 09:30 09/17/24 09:51 Diphenhydramine Hcl 50 Mg/Ml Vial IVPUSH 09/17/24 09:31 Not Given ONCE ONE Sodium Chloride 1,000 mls @ 999 mls/hr 09/17/24 09:30 09/17/24 10:52 Ns IV 09/17/24 10:30 Infused .Q1H1M YAQUELIN Infusion Ketorolac Tromethamine 15 mg 09/17/24 09:30 09/17/24 09:51 Ketorolac Tromethamine 15 Mg/Ml Vial IVPUSH 09/17/24 09:31 Not Given ONCE ONE Metoclopramide HCl 10 mg 09/17/24 09:30 09/17/24 09:52 Metoclopramide Hcl 10 Mg/2 Ml Vial IVPUSH 09/17/24 09:31 Not Given ONCE ONE Medical Decision Making Medical Decision Making MDM Narrative: Patient is a 38-year-old female with history of migraines since age 14, Clary Danlos syndrome, TIA x 2, anxiety, currently being worked up for MS presenting to the ED with complaint of worsening postural headache. On exam patient is awake, A+Ox3, VS WNL, afebrile, normal neurological exam without focal deficits, physical exam findings as above. Given reported symptoms and physical exam findings, initial differential includes but is not limited to post LP headache, migraine, tension headache. Labs unremarkable. Dr. Gage came to ED, performed blood patch. Patient allowed to rest, after 1 hour was assisted to standing and reports full resolution of headache. States she is comfortable with discharge home. Discussed that patient should rest for the remainder of the day today, have assistance with changing positions, avoid straining low back muscles. Return precautions discussed. Patient verbalized understanding of and agreement with plan. Differential Diagnosis Differential Diagnoses: The differential diagnosis associated with the presentation includes As per [facility] Admission/Observation Consideration of admission/observation: Escalation of care including admission/observation considered Patient would have been admitted to the hospital had their work up had any findings where hospital admission was appropriate and their clinical presentation warranted hospital admission. Lab Data [facility] Lab Attestation statement: I reviewed the patient's lab results. As per [facility] 09/17/24 09:50 09/17/24 09:50 Labs: Lab Results 09/17/24 Range/Units 09:50 WBC 8.6 (4.8-10.8) X10*3/uL RBC 3.98 L (4.20-5.50) X10*6/uL Hgb 12.9 (12.0-16.0) g/dl Hct 35.4 L (37.0-47.0) % MCV 88.9 (80.0-98.0) fL MCH 32.4 (27.0-33.0) pg MCHC 36.4 H (31.0-35.0) g/dl RDW 11.7 (11.0-16.0) % Plt Count 280 (160-400) X10*3/uL MPV 8.5 L (9.4-12.3) fL Immature Gran % (Auto) 0.3 (0.0-0.4) % Neut % (Auto) 82.3 H (45-73) % Lymph % (Auto) 12.8 L (20-40) % Glasscock % (Auto) 3.9 (2-11) % Eos % (Auto) 0.2 (0-4) % Baso % (Auto) 0.5 (0-2) % Lymph # (Auto) 1.1 L (1.2-4.9) X10*3/uL Glasscock # (Auto) 0.3 (0.1-1.2) X10*3/uL Eos # (Auto) 0.0 (0.0-0.4) X10*3/uL Baso # (Auto) 0.0 (0.0-0.2) X10*3/uL Abs Immat Gran (auto) 0.03 (0.00-0.03) X10*3/uL Absolute Neuts (auto) 7.1 (2.0-8.3) x10*3/uL Absolute Nucleated RBC 0.000 (0.0-0.012) X10*3/uL Nucleated RBC % (auto) 0.0 (0.0-0.2) /100WBC Sodium 140 (135-145) mmol/L Potassium 3.8 (3.3-5.1) mmol/L Chloride 108 (96-108) mmol/L Carbon Dioxide 24 (22-29) mmol/L Anion Gap 12 (12-20) BUN 5 L (9-16) mg/dL Creatinine 0.61 (0.5-1.4) mg/dL Estim Creat Clear Calc 100.8 Estimated GFR > 60 Random Glucose 101 (60-115) mg/dL Calcium 9.3 (8.4-10.2) mg/dL Total Bilirubin 0.7 (0.0-1.0) mg/dL AST 21 (5-31) U/L ALT 14 (0-31) U/L Alkaline Phosphatase 54 (39-117) U/L Total Protein 6.8 (6.5-8.0) g/dL Albumin 4.1 (3.5-5.0) g/dL Beta HCG, Quant < 2 mIU/mL External Record Review External record reviewed: Inpatient record, Office record and Outpatient record Prescription Management I considered prescription management with: Other Critical Care Time Critical Care Time Critical Care Time: Yes Total Critical Care Time: 37 Attestation: I have personally provided critical care time exclusive of time spent on separately billable procedures. Time includes review of lab data, radiology results, discussion with consultants, and monitoring for potential decompensation. Intervention performed as documented. Discharge Plan Discharge Clinical Impression: Post lumbar puncture headache Patient Disposition: Home, Self-Care Instructions: Epidural Blood Patch (DC) Additional Instructions: Rest for the remainder of the day today. Use caution to not over-use your lower back muscles. Have your significant other assist you with position changes. You can take 1000mg of Tylenol every 6 hours. Continue to drink caffeinated drinks. If your symptoms worsen, return to the ED. You are being prescribed ondansetron for nausea. Prescriptions: New ondansetron 4 mg tablet,disintegrating 4 mg PO Q8H PRN (Reason: nausea and vomiting) Qty: 10 0RF No Action xtetudkogj-kyeefzmtryqsn-dimc 50-325-40 mg tablet 1 tab PO Q4H PRN (Reason: headache) 7 Days Qty: 28 1RF Rx Instructions: max 4 tabs per day. Atrovent HFA 17 mcg/actuation HFA aerosol inhaler inhalation metoprolol tartrate 25 mg tablet 12.5 mg PO DAILY Patient Comments: pt states she is tapering off metoprolol Ubrelvy 100 mg tablet 50 - 100 mg PO ONCE PRN (Reason: migraine headache) 30 Days Qty: 16 3RF Rx Instructions: take at onset of migraine, may repeat in 2hrs (may take w/ Ibuprofen) buprenorphine-naloxone [Suboxone] 8-2 mg film 2 film buccal DAILY Rx Instructions: place 1 film on inside of (each) cheek fluticasone propionate 50 mcg/actuation spray,suspension 1 spray intranasal DAILY Rx Instructions: administer into each nostril Print Language: Belarusian
[2024-09-17] MEDS: 0.9 % Sodium Chloride 1,000 ML 999 ML IV (09:51)
[2024-09-17 09:55] LABS: MANUAL DIFF FLAG NO
[2024-09-17 09:56] LABS: Basophils Percent Auto 0.5 % (0-2); Eosinophils Percent Auto 0.2 % (0-4); Hematocrit 35.4 % (37.0-47.0); Hemoglobin 12.9 g/dl (12.0-16.0); Imm Gran Abs Auto 0.03 X10*3/uL (0.00-0.03); Imm Gran Pct Auto 0.3 % (0.0-0.4); Lymphocytes Absolute Auto 1.1 X10*3/uL (1.2-4.9); Lymphocytes Percent Auto 12.8 % (20-40); Mean Corpuscular HGB Conc 36.4 g/dl (31.0-35.0); Mean Corpuscular Hemoglobin 32.4 pg (27.0-33.0); Mean Corpuscular Volume 88.9 fL (80.0-98.0); Mean Platelet Volume 8.5 fL (9.4-12.3); Monocytes Absolute Auto 0.3 X10*3/uL (0.1-1.2); Monocytes Percent Auto 3.9 % (2-11); Neutrophils Absolute Auto 7.1 x10*3/uL (2.0-8.3); Neutrophils Percent Auto 82.3 % (45-73); Platelet Count 280 X10*3/uL (160-400); Red Blood Count 3.98 X10*6/uL (4.20-5.50); Red Cell Distribution Width 11.7 % (11.0-16.0); White Blood Count 8.6 X10*3/uL (4.8-10.8)
--- NOTE | 2024-09-17 10:15 | PC.NURSE ---
patient a&ox3, iv inserted, labs drawn, ivf hung per order, pt refusing medications ordered- provider aware. pt awaiting anesthesia to perform blood patch.
[2024-09-17 10:16] LABS: Alanine Aminotransferase 14 U/L (0-31); Albumin Level 4.1 g/dL (3.5-5.0); Alkaline Phosphatase 54 U/L (39-117); Anion Gap 12 (12-20); Aspartate Amino Transferase 21 U/L (5-31); Bilirubin Total 0.7 mg/dL (0.0-1.0); Blood Urea Nitrogen 5 mg/dL (9-16); Calcium 9.3 mg/dL (8.4-10.2); Carbon Dioxide 24 mmol/L (22-29); Chloride 108 mmol/L (96-108); Creatinine Clr Calc Pharmacy 100.8; Estimated Glomerular Filt Rate > 60; Glucose Random 101 mg/dL (60-115); Potassium 3.8 mmol/L (3.3-5.1); Sodium 140 mmol/L (135-145); Total Protein 6.8 g/dL (6.5-8.0)
[2024-09-17 10:17] LABS: HCG Quantitative < 2 mIU/mL
--- NOTE | 2024-09-17 10:56 | P.PNAN_ITS ---
Subjective Subjective Date of Service: 09/17/24 Patient reports: other (PDPH) Physical Exam Vital Signs: Vital Signs: Last Vital Signs Temp 98.4 F 09/17/24 08:40 Pulse 86 09/17/24 08:40 Resp 18 09/17/24 08:40 BP 135/91 H 09/17/24 08:40 Pulse Ox 100 09/17/24 08:40 O2 Del Method Room Air 09/17/24 08:40 BMI result Body Mass Index 20.8 Progress Note: A&P Time Spent With Patient Time: Total time managing care of this patient today ____ minutes. Procedures Date of Service Date of Service: 09/17/24 Abscess I/D Consent for Procedure: Elective - informed consent obtained Site: back Anesthetic used: lidocaine 1% Additional comments: Blood patch: sitting position, midline, L4-L5 intetrspace, sterile prepo x3,sterile cover, Lido 1% 1ml to the skin, Thuoty niggle 22ga, epidural space identified by FACUNDO with 0.9% Saline. No paresthesia, bleeding or pain. 25 ml of sterily obtained blood slowly injected with pt reporting mild lower back pressure at trhe end of injection. pt. placed in a supine position gfor 1 hour with recommendations to avoid motions that might increase intraabdominal pressure.
--- NOTE | 2024-09-17 11:20 | PC.NURSE ---
Anesthesia was at bedside with patient and an RN (Criss) who was assisting along with tech. Patient had blood patch and is currently resting, pt tolerated procedure well per nurse assisting.
[2024-09-17 11:44] VITALS: BP 107/62; PULSE 85; RESP 16; TEMP 36.9; O2SAT 97
[2024-09-17 13:33] VITALS: BP 107/62; PULSE 85; RESP 16; TEMP 36.9; O2SAT 97
== END 2024-09-17 13:34 | disposition home or self-care (01) ==
PROVIDERS: Registered Nurse Emergency; Emergency Provider Emergency Medicine Emergency Medical Services; PCP Internal Medicine
DX: G97.1 Other reaction to spinal and lumbar puncture (principal); R51.0 Headache with orthostatic component, not elsewhere classified; G35 Multiple sclerosis
CPT/HCPCS: 36415; 80053; 84702; 85025; 96360; 99284

== ENCOUNTER 2025-03-01 10:23 | Outpatient (AMB) | payer OTHER, SELFPAY ==
--- OUTSIDE RECORDS SUMMARY | 2024-03-29 09:28 | XMS_ITS | Encounter Summary ---
Author Organization [facility] Address [address] [place] [address] Care Team Providers Care Automatic Spinning Lathe Setter Name Role Phone Gurmeet Soto MD Primary Care Provider Encounter Details Date Type Department Care Team (Late st Contact Info) Description 03/29/2024 9:28 AM EDT Hospital Encounter TH HISTORIC ENCOUNTERS EASTERN CONVERSION ONLY Kenneth Barr, MARÍA [address] [place] [address] Social History Tobacco Use Types Packs/Day Years Used Date Smoking Tobacco: Every Day Cigarettes Passive Smoke Exposure: Current Smokeless Tobacco: Never Alcohol Use Standard Drinks/Week Comments No 0 (1 standard drink = 0.6 oz pur e alcohol) Comments No Sex and Gender Information Value Date Recorded Sex Assigned at Female 05/21/2023 8:14 PM EST Legal Sex Female 2:36 AM EST Gender Identity Female 05/21/2023 8:14 PM EST Sexual Orientation Bisexual 05/21/2023 8: 14 PM EST documented as of this encounter Functional Status * Calculated C-SSRS Risk Score (Lifetime/Recent) Answer Date of Assessment Author No Risk Indicated 08/23/2024 1:41 PM EDT Maeve Holliday RN * [place] Suicide Severity Rating Scale (Screener/Recent Self-Report) Question Answer Date of Assessment Author 1. Wish to be (Past 1 Month) No 025 1:41 PM EDT Maeve Pyle, RN 2. Non-Specific Active Suici elsa Thoughts (Past 1 Month) No 08/23/2024 1:41 PM EDT Derek Pyle ra, RN 6. Suicidal Behavior (Lifetime) No 1:41 PM EDT Maeve Pyle, RN documented as of this encounter Plan of Treatment Upcoming Encounters Date Type Department Care Team (Late st Contact Info) Description 03/06/2025 10:00 AM EDT Appointment [facility] Outpatient Rehabilititation [facility] [address] [phone] 03/06/2025 2:00 PM EDT Office Visit Adult Medicine [facility] [address] [place], [place] [phone] Manuel Ewing NP [address] [place], [place] 04/03/2025 10:00 AM EST Appointment [facility] Outpatient Rehabilit[facility] [address] [phone] 05/01/2025 10:00 AM EST Appointment [facility] [phone] 05/15/2025 10:45 AM EST Ancillary Procedure [facility] [address] [phone] 05/29/2025 9:30 AM EST Office Visit [facility] [address] [phone] Autumn Segura PA [address] [address] 05/29/2025 10:00 AM EST Appointment [facility] Outpatient Rehabilititation [address] [phone] 06/26/2025 10:00 AM EST [facility] [phone] 07/24/2025 10:00 AM EST [facility] [phone] 07/31/2025 10:30 AM EST Clinical Support Pulmonology [address] [phone] 07/31/2025 11:15 AM EST Office Visit Pulmonology [address] [phone] Ana Maria Sanchez MD [address] [address] 08/21/2025 10:00 AM EDT Appointment [address] [phone] documented as of this encounter Procedures Procedure Name Priority Date/Time Associated Diagnosis Comments CR BARIUM SWALLOW Routine 03/29/2024 12: 07 PM EDT documented in this encounter Results * CR BARIUM SWALLOW (03/29/2024 12:07 PM EDT) Anatomical Region Laterality Modality Radiographic Haley ging 03/29/2024 9:33 AM EDT Narrative 03/29/2024 12:07 PM EDT [facility] Diagnostic Imaging Department [address] [place], [place] [phone] Patient: PARCELLLandry,RANDI L /Age/Sex: 1985 - 38 - F Unit#: [id number] Location/Status: [facility] CLI Mnemonic/Ordering Site: [facility] Ordering Physician: KENNETH BARR PA-C CR Barium Swallow - 03/29/24 - 1043 Report Status:Signed INDICATION: Dysphagia. FINDINGS: Double contrast barium swallow performed. COMPARISON: Outside chest CT from May 11, 2023 reviewed Legal Examiner radiographs: Single view of the chest and a lateral view the neck obtained. Lung li are clear. Heart normal in size and shape. Bony structures unremarkable. Lateral spindle repairer view of the neck demonstrates straightening of the normal cervical lordosis. No prevertebral soft tissue swelling. Pharyngoesophagram: Normal distention without stricture, diverticulum or definitive filling. Thoracic esophagus: Normal distensibility, motility and mucosal pattern without evidence of ulceration, stricture or mass formation. Hiatal hernia: None Reflux: None Barium pill: Swallowed without difficulty. Prompt passage of pill from the esophagus into the stomach. Total patient dose (air kerma): 6.68 mGy IMPRESSION: Normal double contrast barium swallow. Dictating Physician: MIGEL GODDARD MD Electronically Signed by: MIGEL GODDARD MD Dic Date/Time: 03/29/24 1205 Sign date/Time: 03/29/24 1207 Procedure Note Migel Goddard MD - 04/01/2024 [facility] Diagnostic Imaging Department [address] [place], [place] [phone] Patient: RANDI ARREOLA /Age/Sex: 1985 - 38 - F Unit#: [id number] Location/Status: SPDIGEN/REG CLI Mnemonic/Ordering Site: [facility] Ordering Physician: KENNETH BARR PA-C CR Barium Swallow - 03/29/24 - 1043 Report Status:Signed INDICATION: Dysphagia. FINDINGS: Double contrast barium swallow performed. COMPARISON: Outside chest CT from May 11, 2023 reviewed Legal Examiner radiographs: Single view of the chest and a lateral view the neck obtained. Lung li are clear. Heart normal in size and shape. Bonystructures unremarkable. Lateral spindle repairer view of the neck demonstrates straightening ofthe normal cervical lordosis. No prevertebral soft tissue swelling. Pharyngoesophagram: Normal distention without stricture, diverticulum or definitive filling. Thoracic esophagus: Normal distensibility, motility and mucosal patternwithout evidence of ulceration, stricture or mass formation. Hiatal hernia: None Reflux: None Barium pill: Swallowed without difficulty. Prompt passage of pill fromthe esophagus into the stomach. Total patient dose (air kerma): 6.68 mGy IMPRESSION: Normal double contrast barium swallow. Dictating Physician: MIGEL GODDARD MD Electronically Signed by: MIGEL GODDARD MD Dic Date/Time: 03/29/24 1205 Sign date/Time: 03/29/24 120 Kenneth DANIEL IMG XR PROCEDURES Final Result documented in this encounter Visit Diagnoses Not on filedocumented in this encounter Care Teams Automatic Spinning Lathe Setter Relationship Specialty Start Date End Date Gurmeet Soto MD [address] [place] [address] PCP - General 3/15/23 documented as of this encounter
--- NOTE | 2025-03-01 10:44 | A.OFFVIS_ITS ---
Vital Signs 03/01/25 10:45 Weight 119 lb BP 120/70 Blood Pressure Location Lt brachial Position Sitting Pulse 84 Pulse Source Pulse Oximeter Pulse Oximetry (%) 99 Oxygen Delivery Method Room Air Intake Visit Reasons: 6 mnts f/u Intake Note: Patient presents follow up Migraine medication. MRI's/VEP in chart. LP booked for 09/15/24 Accompanied by: Self / Same As Patient Allergies doxycycline Allergy (Mild, Verified 03/01/25 10:47) Dizziness ciprofloxacin Allergy (Severe, Uncoded 09/15/24 10:10) Unknown Kelflex Allergy (Severe, Uncoded 09/15/24 10:10) Anaphylaxis Medication List - Last Reconciled 03/01/25 by JERMAINE Acosta buprenorphine-naloxone 8-2 mg (Suboxone) 2 film buccal DAILY fluticasone propionate 50 mcg/actuation 1 spray intranasal DAILY ipratropium bromide 17 mcg/actuation (Atrovent HFA) inhalation metoprolol tartrate 12.5 mg PO DAILY ubrogepant (Ubrelvy) 50 - 100 mg (0.5 - 1 x 100 mg) PO ONCE PRN 30 days HPI Comments Details: Right-handed 37-year-old female presents for follow-up of migraine and interval MS diagnosis. Following the last visit, CSF studies were notable for the presence of positive CSF oligoclonal bands. Thus, she was referred to the [facility] clinic for further management of her new diagnosis of multiple sclerosis. Since she has started on Tysabri infusions in the setting of JCV-negative status, she has had five infusions so far. She states she is tolerating this overall well. She reports her follow-up brain MRI did not show any indications of disease progression. She reports she has been having more episodes of dizziness and impaired coordination?brain fog. She has had a different migraine. There is no aura. Pain is along the right side of her face, like throbbing and like a needle stabbing through the supraorbital notch. The pain runs along the anterior side of the neck and extends up to the right ear and forehead. This is a/w photophobia, phonophobia, nausea, and dizziness. Denies any specific triggers, other than having some right chest/thoracic symptoms. Has upcoming consults with orthopedic and vascular surgery for evaluation of possible right thoracic outlet syndrome. She has a history of tinnitus, but now has pulsatile tinnitus in her right ear. She also states that raising her right arm above her head causes near-syncope. She also reports RUE numbness and tingling, typically running down into the 4th/5th fingers, but sometimes into the 1st and 2nd fingers. This lasts for about a day. This has occurred a few times. She has tried Tylenol and Ibuprofen, which have not been helpful. However, the headache immediately subsides with right shoulder movement (although I cannot intentionally recreate the movement. She has frequent low-level headaches in bilateral frontal and occipital headache, a/w some photophobia, described as a dull ache. It can feel like a sinus headache. Has been having more tenderness in the bilateral temples. She has not had her usual migraine with aura in almost a year. 09/01/2024, HPI: She has notes increased urine out put recently, ovarian/pelvic region cysts, blood sugar fluctuations- and plans to see an relocation counselor. She had her initial [facility] consult the other day. Per patient, they do feel that she likely has multiple sclerosis diagnosis, however would like to see the results of her upcoming lumbar puncture. Patient reports she can often feel like she is having a migraine attack, but without the headache component. Overall, typically has migraine attack in the days before and days after her menstrual cycle. She does continue to have episodes of hypertension, but also lightheadedness, and tachycardia. She is followed by Cardiology. 07/02/2024 thoracic MRI with and without contrast: Thoracic spinal cord is normal in signal without abnormal cord enhancement Small right paracentral disc protrusion at T7-T8 minimally indents the ventral thecal sac. 07/01/2024 cervical spine MRI with and without contrast: Persistent small focus of T2 prolongation in the dorsal cord at C2-3, minimally less conspicuous than on the prior study of 2023. This likely reflects sequelae of prior inflammatory or demyelinating process. No new areas of signal abnormality or abnormal enhancement. 06/28/2024, visual evoked potential: Within normal limits 06/01/2024, HPI: Pt reports she is having episodes of variable BP and tachycardia. She was started on Metoprolol for inappropriate sinus tachycardia.? She feels the metoprolol is exacerbating her COPD/emphysema symptoms, and possibly this is exacerbating her tachycardia symptoms.. It is hard for her to exhale well. She states she has not been using her albuterol inhaler, as she w as told this would contract on metoprolol. She had an echocardiogram 2 days ago ordered by pulmonology. F/b Dr Boyle, cardiology at [facility]. F/b Dr Abdulkadir Sanchez, pulmonology at [place].? She is not having the pins and needles in her legs anymore. She is now having ?weird? tightness, tenderness in her bilateral posterior neck. Sometimes light tough, such as a the collar of her coat, can trigger intense bur howie pain. She is having strange sensations in right face, temporal- pain, tingling, burning- pain can be quick bursts or steady pain. Sometimes pain is triggered by light touch. She is having left chest/lower rib, axilla region. Feels like muscle pain. Or feels like she cannot register/perceive it the same as she can the right side- feels like the left side is not functioning the same- but when she places her hands on her ribs- they do expand/collapse equally. Tried to take Amitriptyline- caused dizziness. She has reduced coffee intake from 4 cups to 2 cups per day. She has reduced her cigarette intake to 5 cigarettes per day from 1 pack a day. Interval workup: 05/20/2024, CT head/brain W/O contrast, at [facility]: IMPRESSION: No evidence of acute intracranial abnormality. 05/20/2024, CT angio head and neck, at [facility]: IMPRESSION: Unremarkable CTA of the head and neck. 05/26/2024, ?MRI Brain W+W/O Contrast, at [facility]: TECHNIQUE: MRI of the brain was performed with and without contrast utilizing sagittal and axial T1, axial T2, sagittal 3D FLAIR with multiplanar reformats, and axial DWI sequences, and post-contrast 3D T1 RAMOS with multiplanar reformats. 10 mL of Prohance was administered intravenously. COMPARISON: MRI 08/01/2019 FINDINGS: 2 small lesions are present in the periventricular white matter at the superolateral margin of the right lateral ventricle, measuring up to 6 mm in diameter. A few scattered, more punctate FLAIR hyperintense lesions are present at the roof of the left lateral ventricle. An 8 mm lesion is present in the subcortical white matter of the posterior inferior left frontal lobe. None of these enhance. No abnormality is present in the brainstem or cerebellum. The left frontal lobe lesion appears to be unchanged from the MRI of 08/01/2019. The 6 mm right frontal periventricular white matter lesion has progressed. The other more punctate lesions are difficult to precisely compare but at least a few of them were present on the prior examination. No extra-axial collection or mass effect is noted. The ventricular system is normal. No vascular abnormality is present. The foramen magnum is normal. Mild mucosal thickening is present in the paranasal sinuses without an air-fluid level. The upper cervical cord and spine are normal. IMPRESSION: Mild nonenhancing white matter abnormality which could represent demyelination and multiple sclerosis. There has been some progression since the study of 08/01/2019. 09/10/23, initial HPI: Right handed 37-yr-old female presents for new pt evaluation of paresthesias. Pt reports a few months ago, she started having BLE numbness and tingling from her knees to her toes. This was constant, but exacerbated with cervical flexion especially when sitting. More recently, the numbness and tingling is not constant, but can still be provoked by cervical flexion only when sitting. C-spine MRI showed a subtle 3mm T2 bright focus is suspected within the posterior midline cord at C2-C3. Degenerative changes w/ moderate right foraminal stenosis at C6-C7 due to uncovertebral spurring an no left foraminal stenosis. Prior to these symptoms, she is not aware of a specific neck injury. Pt has since seen Dr Carvajal, [facility] neurosurgeon, who advised her to f/u w/ neurology and avoid neck mainpulation. Pt also endorses:? 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 Cramps: leg cramps Mood d/o: Anxiety Neuro: memory problems, migraines, dizziness, overlapping diplopia, diplopia with trailing image on movement. Vision: Respiratory d/o: COPD, SOB CV disease: TIA x's 2, , when she was 2-3 months post-, was not feeling right, was slurring her words, had unilateral left facial droop, resolved w/in a few hrs. 2nd- 9 yrs ago- was not feeling right, was slurring her words, had unilateral left facial droop, resolved w/in a few hrs, and attributed to a TIA. After these she did have increased migraine. GI d/o: Constipation, Abd pain, Eyes- sees shadows, blurring, floaters, flashes of lights. Eyes feel dry and swollen. Has neck tension, pressure in the back of her head, and right upper trap tightness. Has radiating mid-back pain- prone to popping ribs out of place. Occasional urinary incontinence- triggered by hormones, jumping/running, worse prior to menses. She has a history of BUE, more so in RUE, numbness and tingling, which comes on and off for years. She can have similar numbness and tingling in her right rastafari region. She does PT for small group exercise. She does see a chiropractor- who works on her back. PMH is significant for: Recent abnormal EKG- recently referred her to cardiology. Also concern for POTs- she states HR varies from 55-170 bpm, can feel pre- syncopal, rooms goes dark upon standing, but no actual syncope. Migraine since age 14. Migraine w/ visual aura since age 20. Visual aura- starts as a spinning color dot, turns into a colorful snake, and then expands into a zagged arch, lasts 30-180 minutes. This can occur w/wo headache. Sometimes headache just does not happen, or responds to as needed tx. Headache- squeezing bilateral head, like someone is wrapping something around the head. Or an ice stabbing pain above either eye. A/w photophobia, phonophobia, osmophobia, some nausea, not right in space dizziness, cognitive difficulties, activity intolerance, pins and needles in arms and sides of head, palpitations, heat or cold intolerance, red eye (unsure if unilateral or bilateral), one ear at a time will be red and hot, nasal congestion/runny nose. Was not having them for a few yrs, but in the last yr, has 1 attack per month, triggered by menses (which is regular), which lasts 1 day to 2 weeks. Uses Tylenol prn. In the past, used amitriptyline for nerve pain- stopped a little over a yr ago. 07/08/23, C-spine w/o: IMPRESSION: 1. A subtle small T2 bright focus is suspected within the posterior midline cord at C2-C3 measuring approximately 3 mm. This is of indeterminate etiology, but may represent the sequela of an inflammatory process. Postcontrast imaging and neurological evaluation are recommended. 2. Degenerative changes of the cervical spine with at least moderate right foraminal stenosis at C6-C7 due to uncovertebral spurring. This can be correlated with the patient's symptoms and neurological examination. PFSH Family History Mother Hyperlipidemia Depression HTN (hypertension) COPD (chronic obstructive pulmonary disease) Diabetes Father Hyperlipidemia Maternal Grandmother Stroke Lung cancer Ovarian ca Cancer, colon Paternal Grandmother Breast cancer in female Social History Are you a primary landcare facilitator to a significant other at home: No Alcohol intake: never Patient Tobacco Use Status: Current everyday Tobacco user Tobacco use type: Cigarette Cigarette Packs Per Day: 0.5 Cigarettes Per Day: 10 Years Smoked: 20 Physical Exam Vital Signs: Last Vital Signs Pulse 84 03/01/25 10:45 BP 120/70 03/01/25 10:45 Pulse Ox 99 03/01/25 10:45 Oxygen Delivery Method Room Air 03/01/25 10:45 Const Orientation/consciousness: patient oriented x3 Resp Effort & Inspection: normal respiratory effort and able to speak in complete sentences Neuro Other: Symmetric radial pulses at rest and sustained elevation over the head. General: patient oriented x3 Cranial nerves: Yes CN's II-XII intact bilaterally Cognition (Neuro): normal cognition Gait exam (Neuro): Normal gait present Motor exam (neuro): 5/5 motor strength present throughout Pupils: Normal pupillary reactivity/response: bilateral Psych Appearance: grossly normal Mental Status: mental status grossly normal Speech and movement: Normal speech and movement present Affect: normal affect Attitude: cooperative Thought process: Normal thought process present Assessment & Plan Assessment & Plan (1) New onset headache: Code(s): R51.9 - Headache, unspecified Category: Medical (2) Right-sided headache: Code(s): R51.9 - Headache, unspecified Category: Medical (3) Pulsatile tinnitus, right ear: Code(s): H93.A1 - Pulsatile tinnitus, right ear Category: Medical (4) White matter abnormality on MRI of brain: Code(s): R90.82 - White matter disease, unspecified Category: Medical (5) Migraine with aura: Code(s): G43.109 - Migraine with aura, not intractable, without status migrainosus Category: Medical Qualifiers: Status migrainosus presence: without status migrainosus Intractability: not intractable Qualified Code(s): G43.109 - Migraine with aura, not intractable, without status migrainosus (6) Clary-Danlos syndrome: Comment: Hypermobility, per patient nonvascular subtype Code(s): Q79.60 - Clary-Danlos syndrome, unspecified Category: Medical (7) Multiple sclerosis: Comment: Followed by the [facility] and MARTINA Santos. JCV negative. DMT: IV Rowena Code(s): G35.D - Multiple sclerosis, unspecified Category: Medical Plan For multiple sclerosis: Follow-up with the [facility] as scheduled For new onset right-sided headache, right pulsatile tinnitus, in setting of multiple sclerosis and Clary-Danlos syndrome: Patient is advised to undergo XR chest to assess for cervical ribs Brain MRA without and neck MRA with and without contrast, to assess for secondary vascular etiologies. Vascular and orthopedic consult as scheduled. She may try Ubrelvy as needed, however would avoid a CGRP antagonist as a preventative agent due to possible thoracic outlet syndrome. For migraine prevention: May take edemame 1 cup p.o. daily during menstrual cycle to lessen severity of menstrual migraine attacks. Metoprolol may help headache symptoms Previous trials: Amitriptyline caused dizziness For acute migraine treatment: Continue Ubrogepant (Ubrelvy) 100mg tab, 1/2 - 1 tab (50-100mg) at onset of headache, may repeat in 2 hours. Max of 2 tabs (200mg) per 24 hours. May adjunct with OTC Tylenol 650mg q 4 hours, Ibuprofen 600mg q 6 hours, or Naproxen 440mg q 12 hrs prn. Do not take w/ Butalbital (Fioricet or Fiorinal). Potential adverse effects, include but are not limited to fatigue, nausea, dry mouth, constipation. Acute migraine treatment contraindications: All triptans due to hypertension, tachycardia. Will follow-up upon review of above and patient to follow-up in clinic in 6 months or sooner prn. Orders: Orders XR chest 2V Today H93.A1 - Pulsatile tinnitus, right ear, J44.9 - Chronic obstructive pulmonary disease, unspecified, Q79.60 - Clary-Danlos syndrome, unspecified MR angio head wo con Today G35.D - Multiple sclerosis, unspecified, H93.A1 - Pulsatile tinnitus, right ear, R51.9 - Headache, unspecified MR angio neck wo/w con Today G35.D - Multiple sclerosis, unspecified, H93.A1 - Pulsatile tinnitus, right ear, R51.9 - Headache, unspecified Coding Level of Care Code Est Pt Level 4 (70828) Diagnoses New onset headache R51.9 Right-sided headache R51.9 Pulsatile tinnitus, right ear H93.A1 White matter abnormality on MRI of brain R90.82 Migraine with aura and without status migrainosus, not intractable G43.109 Status migrainosus presence: without status migrainosus Intractability: not intractable Clary-Danlos syndrome Q79.60 Multiple sclerosis G35.D
[2025-03-01 10:45] VITALS: BP 120/70; PULSE 84; O2SAT 99
--- OUTSIDE RECORDS SUMMARY | 2025-03-01 11:54 | XMS_ITS | Data Portability ---
Author Organization [place] - [facility], Allergy Address [address] [address] Care Team Providers Care Software Support Engineer Name Role Phone FAHAD HARDEN Primary Care Provider [phone] Assessment Encounter Date Assessment Date Assessment LastModified [...] shows no sign of infection or polyps. Mona Hallpike is negative for nystagmus. I discussed [...] available 10:57:01 intradermal allergy skin testing (PROC) 2023 [email or web address] Not available 10:57:01 pulmonary function test procedure (PROC) 2023 [email or web address] Not available 10:57:01 pulse oximetry (PROC) 2023 [email or web address] Not available 10:57:01 Surgeries None recorded. Imaging CT, sinuses, w/o contrast [address] (Radiology), [address] [place], [address], 10:58:05 Medication Orders None recorded. Patient TargetsNo targets recorded. Patient InstructionsNo instructions recorded. Reason for Referral None Reported. Problems Name Problem SNOMED Code Status Onset Date Resolution Date Notes Provider Name and Address Organization Details Recorded Time Allergic rhinitis 86964520 Active 2022 Other allergic rhinitis; Note: Date Diagnosed : 12/16/2022 4:51 PM (J30.89) Not Available [facility] 03:29:17 Bilateral earache 227299843 Active 2022 Otalgia, bilateral ; Note: Date Diagnosed : 12/16/2022 4:50 PM (H92.03) Not Available [facility] 03:29:17 Bilateral temporoma ndibular joint pain 23205515620 590824 Active 2022 Arthralgi a of bilateral temporoma ndibular joint; Note: Date Diagnosed : 12/16/2022 4:50 PM (M26.623) Not Available [facility] 03:29:17 Dizziness and giddiness 974984581 Active 2023 Radha yusuf [place] - [facility] [place] 4 10:50:21 Atypical facial pain 79430813 Active 2023 Radha yusuf [place] - [facility] 4 10:50:24 Migraine without aura 08530659 Active 2023 Radha yusuf [place] - [facility] [place] 4 10:50:27 Non-aller gic rhinitis 48009272635 1 Active 2023 Radha yusuf [facility] 4 10:54:12 Seasonal allergic rhinitis 822661622 Active 2023 Radha yusuf [facility] 4 10:54:12 Problem Notes None recorded. Medical Equipment None Reported. Allergies Allergen ID Allergen Name Allergen Category Reaction Reaction Severity Criticality Documentation Date Start Date Code Code System Note Provider Name and Address Organization Details Recorded Time 294470 doxycycli ne Not available other Not available Not available 10/12/2023 3640 RxNorm React ion: Unkno wn; Not Available [facility] 4 01:22:46 143114 Keflex medicatio n other Not available Not available 10/12/2023 54439 7 RxNorm React ion: Unkno wn; Not Available [facility] 4 01:22:46 Medications Name Sig [...] Not Available No t Available amoxicillin 875 mg-shawn m clavulanate 125 mg tablet TAKE 1 [...] Updated DateTime 03/01/2024 157.48 cm 21 kg/m2 39872.12 g Parul Montemayor [facility] 03/01/2024 10:24:33 Social History None recorded. Functional Status None recorded. Mental Status None recorded. Family History Nothing Reported. Medical History No medical history recorded. Gynecological HistoryNo gynecological history recorded. Obstetrics History GPAL:G 0 P 0 0 0 0 Past Encounters Encounter ID Performer Location Encounter Start Date Encounter Closed Date Diagnosis/Indication Diagnosis SNOMED-CT Code Diagnosis ICD10 Code Diagnosis IMO Codes Diagnosis Note [id number] RADHA TORRES PA-C [facility] [address] [place] [address] 03/01/2024 10:03:17 03/01/2024 10:58:05 Dizziness and giddiness 333711058 R42 Atypical facial pain 713 91692 G50.1 Migraine without aura 56 463035 G43.009 Allergic rhinitis 616373 04 J30.9 Non-allergic rhinitis 31 90300828 01 J31.0 Seasonal a llergic rhinitis 562682179 J30.2 Health Concerns Section Related Observation LastModified by Organization Detai ls LastModified Time None Recorded Concern Status LastModified by Organization Details LastModified Time None Recorded Advance Directives Directive None Recorded Payers Insurance Date Sequence Insurance Name Policy Number Policy Kendall Covered Member ID Kendall Member ID Guarantor Name 07/01/2024 1 [facility] - [facility] (MEDICAID REPLACEMENT - HMO) YINKA Arreola [id number] Tri Arreola Notes Date Note Type Note Provider Name and Address Organization Details Recorded Time 03/01/2024 text/html ROS as noted in the HPI 38 year old female with a history of TMJ, Clary Danlos [...] a few months now. DANIEL CARUSO MD [address] [place] [address], [place], [address], [place] - [facility] 03/01/2024 12:44:44 OBGyn Episode No OBEpisode recorded.
--- OUTSIDE RECORDS SUMMARY | 2025-03-01 11:54 | XMS_ITS | Clinical Summary ---
Author Organization 175 [facility] Address [address] [place] [address] Phone Care Team Providers Care Registered Health Nurse Name Role Phone Gurmeet Soto MD Primary Care Provider [phone] Allergies Active Allergy Reactions Criticality Noted Date Comments Aspirin 07/26/2024 Cephalexin Other 04/09/2014 Other Reaction(s): Anaphylaxis Keflex Ciprofloxacin 07/26/2024 Other Reaction(s): Contraindicated for Clary-Danlos Snydrome Doxycycline Dizziness,Other 07/26/2024 doxycycline Sulfamethoxazole-Trime thoprim Swelling High 02/17/2018 Medications acetaminophen (TYLENOL 8 HOUR) 650 mg 8 hr tablet Take 1 tablet (650 mg total) by mouth every 8 (eight) hours if needed. OTC 02/03/20 24 Active buprenorphine-n aloxone (SUBOXONE) 8-2 mg [address] SL film Place 1 film under the tongue. Prescribed at [facility] 05/20/20 23 Active fluticasone propionate (FLONASE) 50 mcg/actuation nasal spray Administer 1-2 sprays into affected nostril(s). OTC 09/05/19 20 Active senna-docusate (PERICOLACE) 8.6-50 mg per tablet Take 1 tablet by mouth 1 (one) time each day. 30 each 08/10/19 25 026 Active aluminum-magnes ium hydroxide-simet hicone (MAALOX) 200-200-20 mg/5 mL suspension Take 30 mL by mouth 4 (four) times a day (before meals and nightly). 769 mL 08/10/19 25 Active hydrocortisone (ANUSOL-HC) 25 mg suppository Insert 1 suppository (25 mg total) into the rectum 1 (one) time each day. 30 suppository 08/10/19 25 Active ipratropium HFA (Atrovent HFA) 17 mcg/actuation inhaler Inhale 2 puffs by mouth 4 (four) times a day. 1 each 08/17/19 25 026 Active metoprolol tartrate (LOPRESSOR) 25 mg tablet Take 1 tablet (25 mg total) by mouth 1 (one) time each day. 90 each 08/29/19 25 Active cyanocobalamin 2,000 mcg ER tablet Take 1 tablet (2,000 mcg total) by mouth 1 (one) time each day. 30 tablet 10/13/19 25 026 Active natalizumab (TYSABRI) 300 mg/15 mL injection Infuse into a venous catheter 1 (one) time. Active ergocalciferol (VITAMIN D-2) 1,250 mcg (50,000 unit) capsule TAKE 1 CAPSULE (50,000 UNITS TOTAL) BY MOUTH ONCE WEEKLY 12 capsule 3 01/13/20 25 Active ipratropium HFA (Atrovent HFA) 17 mcg/actuation inhaler Inhale 2 puffs by mouth 4 (four) times a day. 3 each 3 01/25/20 25 026 Active buPROPion SR (WELLBUTRIN SR) 150 mg 12 hr tablet Take 1 tablet (150 mg total) by mouth 2 (two) times a day. 01/03/20 25 Active Active Problems Problem Noted Date Diagnosed Date MS (multiple sclerosis) 11/09/2024 Right pelvic adnexal fluid collection 10/05/2024 Assessment & Plan (10/05/2024 2:31 PM EDT): I explained this could be due to scarring of peritoneum that allows fluid to collect there. Fluid is simple and thus likely normal peritoneal fluid getting caught in a space. She was counseled we could consider a diagnostic laparoscopy to see if there is scarring there. The pain may be caused by the scarring. Not clear. She could also have a repeat US in 6-8 weeks from last to see if resolved. She opts for US. Premenstrual symptom 10/05/2024 Assessment & Plan (10/05/2024 2:27 PM EDT): I counseled her re: progestin only options for her symptoms. She notes that she would like to consider for now. Tobacco use disorder 07/26/2024 [place] 06/15/2024 Assessment [...] veins in the pelvis leading to the [employer] organs. Just as some people have pain [...] and giddiness 03/01/2024 History of opioid abuse ([facility] V24, [facility] V2 8) 02/29/2024 Urinary urgency 06/03/2023 Overview (02/29/2024): Last Assessment & Plan: Encouraged some habit changes. Apical lung scarring 05/20/2023 Centrilobular emphysema (CMS/HCC V24, [facility] V2 8) 05/20/2023 Chest pain 05/20/2023 Cigarette [...] with hormones or observe. Continue Motrin prn. Assessment & Plan (10/05/2024 2:31 PM EDT): Explained sounds like it is more GI related given changes with food. She will follow up with GI. Vaginal lump 10/10/2020 Overview (02/29/2024): Last Assessment & Plan: Appears and palpates benign. Continue to monitor. Migratory pain 07/21/2020 Myofascial pain 07/21/2020 Numbness and tingling of upp er and lower extremities of both sides 07/21/2020 Raynaud's phenomenon without gangrene 07/21/2020 Low back pain 06/04/2016 Overview (02/29/2024): Sees PSS Encounters Date Type Department Care Team Description 02/20/2025 Telephone Vascular Surgery - [facility] [address] [place] [phone] Charles Peralta [place] 02/20/2025 Telephone Adult Medicine [address] [phone] Gurmeet Soto MD 02/12/2025 8:30 AM EDT Office Visit [facility] [address] [facility] [address] [place] [phone] Natividad Farley MD Vertigo (Primary Dx); Multiple sclerosis (CMS/HCC V24, CMS/HCC V28); Urinary frequency; Other fatigue; High risk medication use 02/06/2025 9:45 AM EDT - 02/06/2025 11:59 PM EDT Hospital Encounter [facility] Outpatient [facility]ititation - [facility] [address] [place] [phone] MS (multiple sclerosis) (CMS/HCC V24, CMS/HCC V28) (Primary Dx) Discharge Disposition: Home or Self Care 01/31/2025 2:07 PM EDT - 01/31/2025 11:59 PM EDT Hospital Encounter [facility] MRI [address] [place] [phone] Multiple sclerosis (CMS/HCC V24, CMS/HCC V28); Lhermitte sign positive Discharge Disposition: Home or Self Care 01/31/2025 2:04 PM EDT - 01/31/2025 11:59 PM EDT Hospital Encounter [facility] MRI [address] [place] [phone] Multiple sclerosis (CMS/HCC V24, CMS/HCC V28) Discharge Disposition: Home or Self Care 01/26/2025 11:15 AM EDT - 01/26/2025 11:59 PM EDT Hospital Encounter CT Scan - [address] [phone] Vision changes; Abnormality of gait due to impairment of balance; Nonintractable headache, unspecified chronicity pattern, unspecified headache type; Near syncope Discharge Disposition: Home or Self Care 01/24/2025 11:30 AM EDT Office Visit Pulmonology - [facility] [address] [place] [phone] Ana Maria Sanchez MD COPD with asthma (CMS/HCC V24, CMS/HCC V28) (Primary Dx); Ex-smoker; Multiple sclerosis (CMS/HCC V24, CMS/HCC V28) 01/24/2025 10:48 AM EDT - 01/24/2025 11:59 PM EDT Hospital Encounter [facility] Xray [address] [place] [phone] Thoracic outlet syndrome; Acute pain of right shoulder Discharge Disposition: Home or Self Care 01/24/2025 Telephone Adult Medicine [address] [phone] Manuel Ewing NP 01/23/2025 1:00 PM EDT Office Visit [address] [phone] Manuel Ewing, MARINE ENGINE MACHINIST APPRENTICE Vision changes (Primary Dx); Abnormality of gait due to impairment of balance; Nonintractable headache, unspecified chronicity pattern, unspecified headache type; Near syncope; Thoracic outlet syndrome; Acute pain of right shoulder 01/18/[address] [phone] Avis Olguin RN 01/09/2025 9:44 AM EDT - 01/09/2025 11:59 PM EDT Hospital Encounter [facility] Outpatient Rehabilititation [address] [phone] MS (multiple sclerosis) ([facility] V24, [facility] V28) (Primary Dx) Discharge Disposition: Home or Self Care 12/25/2024 Telephone Vascular Surgery [facility] [address] [facility] [address] [place] [phone] Betzaida Davila [place] 12/12/2024 10:00 AM EDT - 12/12/2024 11:59 PM EDT Hospital Encounter [facility] Outpatient Rehabilititation [address] [phone] MS (multiple sclerosis) (CMS/HCC V24, [facility] V28) (Primary Dx) Discharge Disposition: Home or Self Care 12/06/2024 8:30 AM EDT Office Visit [address] [phone] Manuel Ewing, MARINE ENGINE MACHINIST APPRENTICE Infection of tooth socket (Primary Dx) from Last 3 Months Immunizations Immunization Administration Dates Next Due Influenza, Unspecified 04/30/2020 Moderna SARS-CoV-2 COVID-19, mRNA, LNP-S, preservative free 09/14/2020,08/17/2020 Tdap Tetanus diptheria acell ular pertussis (Boostrix; Adacel) 7yo and older 02/03/2024,02/04/2014 influenza Split Preservative Free ID 04/30/2022 Surgical History Surgery Date Site/Laterality Comments OTHER SURGICAL HISTORY PROCEDURE: DENIES PREVIOUS SURGERY COLONOSCOPY PROCEDURE: HISTORICAL COLONOSCOPY Medical History Medical History Date Comments History of opioid abuse ([facility] V24, [facility] V28) DX:History of opioid abuse ( [facility]) Low back pain 06/04/2016 DX:Low back pain ; COMMENT: Sees PSS Esophageal reflux DX:Esophageal reflux Dysphagia DX:Dysphagia Tobacco use DX:Tobacco use Clary-Danlos syndrome DX:Clary -Danlos syndrome COPD (chronic obstructive pu lmonary disease) ([facility] V24, [facility] V28) Multiple sclerosis Family History Medical History Relation Name Comments [...] 05/21/2023 8: 14 PM EST Obstetrics History * This document contains information received from the source organization and may not represent a complete record from that organization. Para Term AB IAB SAB Ectopic Multiple Livin g Live Births 3 2 2 2 2 Date Outcome GA Total Labor Labor/2nd/3rd Weight Sex Type Anes PTL Dora A1 A5 Name Clin Term Vag-S pont Living Term Vag-S pont Living Last Filed Vital Signs Vital Sign Reading Time Taken Comments Blood Pressure 138/71 02/12/2025 8:31 AM EDT Pulse 71 02/12/2025 8:31 AM EDT Temperature 36.2 C (97.1 F) 02/06/2025 12:46 PM EDT Respiratory Rate 20 02/06/2025 12:46 PM EDT Oxygen Saturation 99% 02/12/2025 8:31 AM EDT Inhaled Oxygen Concentration - - Weight 53.1 kg (117 lb) 02/12/2025 8:31 AM EDT Height 157.5 cm (5' 2 ) 02/12/2025 8:31 AM EDT Body Mass Index 21.4 02/12/2025 8:31 AM EDT Plan of Treatment Upcoming Encounters Date Type Department Care Team (Late st Contact Info) Description 03/06/2025 10:00 AM EDT Appointment [facility] Outpatient Rehabilititation [address] [phone] 03/06/2025 2:00 PM EDT Office Visit Adult Medicine [facility] [address] [place], [place] [phone] Manuel Ewing NP [address] [place], [place] 04/03/2025 10:[address] [facility] [address] [phone] 05/01/2025 10:[address] [facility] [address] [phone] 05/15/2025 10:45 AM EST Ancillary Procedure [facility] [address] [phone] 05/29/2025 9:30 AM EST Office Visit [facility] - [address] [phone] Autumn Segura PA [address] [address] 05/29/2025 10:00 AM EST Appointment [facility] [address] [phone] 06/26/2025 10:00 AM EST Appointment [facility] [address] [phone] 07/24/2025 10:00 AM EST Appointment [facility] [address] [phone] 07/31/2025 10:30 AM EST Clinical Support Pulmonology [address] [phone] 07/31/2025 11:15 AM EST Office Visit Pulmonology [address] [phone] Ana Maria Sanchez MD [address] [phone] 08/21/2025 10:00 AM EDT Appointment [facility] [phone] Health Maintenance Due Date Last Done Comments Hepatitis B Vaccines (1 of 3 - 19+ 3-dose series) 09/19/2006 Pneumococcal Vaccine: Pediatrics (0 to 5 Years) and At-Risk Patients (6 to 49 Years) (1 of 2 - PCV) 09/19/2006 HPV Vaccines (1 - 3-dose SCDM series) 09/19/2014 Cholesterol Screening (Lipid Panel) 05/03/2022 11/22/2014 Social Influencers of Health Screening 05/03/2022 Cervical Cancer Screening: Pap Smear 10/11/2023 10/10/2020 Depression Screening 05/31/2024 COVID-19 Vaccine ( season) 2025 02/28/2022, 06/12/2021, 09/14/2020, Additional history exists Influenza Vaccine (#1) 2025 04/30/2022, 2019 DTaP,Tdap,and Td Vaccines (3 - Td or Tdap) 02/02/2034 02/03/2024, 02/04/2014 RSV Immunization Adult Patients (1 - 1-dose 75+ series) 09/19/2062 HIV Screening Completed 08/30/2024 Hepatitis C Screening [...] Procedure Name Priority Date/Time Associated Diagnosis Comments MR CERVICAL SPINE WO AND W CONTRAST STAT 01/31/2025 3:26 PM EDT Multiple sclerosis (CMS/HCC V24, CMS/HCC V28) Lhermitte sign positive MR BRAIN WO AND W CONTRAST STAT 01/31/2025 3:26 PM EDT Multiple sclerosis (CMS/HCC V24, CMS/HCC V28) CT HEAD WO CONTRAST STAT 01/26/2025 1 1:25 AM EDT Vision changes Abnormality of gait due to impairment of balance Nonintractable headache, unspecified chronicity pattern, unspecified headache type Near syncope XR SHOULDER 2+ VIEWS RIGHT Routine 01/24/2025 11:05 AM EDT Thoracic outlet syndrome Acute pain of right shoulder HEPATITIS C ANTIBODY Routine 08/30/2024 10:29 AM EDT White matter disease HIV 1, 2 ANTIBODY, P24 ANTIGEN WITH REFLEX TO DIFFERENTIATION Routine 08/30/2024 10:29 AM EDT White matter disease PAP SMEAR Routine 10/10/2020 from Last 3 Months or Most Recently Relevant to Health Maintenance Results * MR Cervical Spine wo and w Contrast (01/31/2025 3:26 PM EDT) Anatomical Region Laterality Modality C-spine, Spine Magnetic Resonan ce 01/31/2025 7:56 PM EDT Impressions 01/31/2025 8:03 PM EDT Stable scattered demyelinating lesions throughout the cervical cord. No new lesions or abnormal enhancement to suggest active demyelination. -------- FINAL REPORT -------- Dictated By: BILLY GUAJARDO Dictated Date: 01/31/2025 19:56 ET Assigned Physician: BILLY GUAJARDO Reviewed and Electronically Signed By: BILLY GUAJARDO Signed Date: 01/31/2025 20:03 ET Workstation ID: [id number] Transcribed By: Self Edit Transcribed Date: 01/31/2025 19:56 ET Narrative 01/31/2025 8:03 PM EDT PROCEDURE: Cervical spine MRI INDICATION: Multiple sclerosis TECHNIQUE: Multiplanar, multisequence MRI of the Cervical spine without and with contrast. 10 mL Dotarem injected intravenously from a 15 mL vial. COMPARISON: 07/01/2024 FINDINGS: Cervical alignment is within normal limits. No fracture or suspicious marrow replacing lesion. Hemangioma within the T2 vertebral body is unchanged. Disc height and signal are relatively maintained. Mild multilevel degenerative facet arthritis, unchanged. Cervical cord is stable in signal and morphology. T2 hyperintense focus within the dorsal cord at C2-3 is unchanged. T2 hyperintense focus within the left lateral cord at C7-T1 is also unchanged. Left lateral cord T2 hyperintensity at C6-7 is unchanged. Other smaller T2 hyperintense foci throughout the cervical cord are stable compared to prior. No abnormal enhancement within the cervical spinal canal. No epidural collection or mass within the spinal canal. Paraspinal muscles are normal. Foramen magnum is normal. Findings by level: C2-C3: No foraminal or spinal canal stenosis. C3-C4: No foraminal or spinal canal stenosis. C4-C5: No foraminal or spinal canal stenosis. C5-C6: No foraminal or spinal canal stenosis. C6-C7: Small right uncovertebral spur. No foraminal or spinal canal stenosis. C7-T1: No foraminal or spinal canal stenosis. Procedure Note Billy Guajardo MD - 01/31/2025 PROCEDURE: Cervical spine MRI INDICATION: Multiple sclerosis TECHNIQUE: Multiplanar, multisequence MRI of the Cervical spine withoutand with contrast. 10 mL Dotarem injected intravenously from a 15 mLvial. COMPARISON: 07/01/2024 FINDINGS: Cervical alignment is within normal limits. No fracture or suspicious marrow replacing lesion. Hemangioma within theT2 vertebral body is unchanged. Disc height and signal are relatively maintained. Mild multilevel degenerative facet arthritis, unchanged. Cervical cord is stable in signal and morphology. T2 hyperintense focuswithin the dorsal cord at C2-3 is unchanged. T2 hyperintense focus withinthe left lateral cord at C7-T1 is also unchanged. Left lateral cord [id number] at C6-7 is unchanged. Other smaller T2 hyperintense focithroughout the cervical cord are stable compared to prior. No abnormalenhancement within the cervical spinal canal. No epidural collection ormass within the spinal canal. Paraspinal muscles are normal. Foramen magnum is normal. Findings by level: C2-C3: No foraminal or spinal canal stenosis. C3-C4: No foraminal or spinal canal stenosis. C4-C5: No foraminal or spinal canal stenosis. C5-C6: No foraminal or spinal canal stenosis. C6-C7: Small right uncovertebral spur. No foraminal or spinal canalstenosis. C7-T1: No foraminal or spinal canal stenosis. IMPRESSION: Stable scattered demyelinating lesions throughout the cervical cord. Nonew lesions or abnormal enhancement to suggest active demyelination. -------- FINAL REPORT -------- Dictated By: BILLY GUAJARDO Dictated Date: 01/31/2025 19:56 ET Assigned Physician: BILLY GUAJARDO Reviewed and Electronically Signed By: BILLY GUAJARDO Signed Date: 01/31/2025 20:03 ET Workstation ID: [id number] Transcribed By: Self Edit Transcribed Date: 01/31/2025 19:56 ET Natividad Farley MD IM MRI PROCEDURES Final Result * MR Brain wo and w Contrast (01/31/2025 3:26 PM EDT) Anatomical Region Laterality Modality Head and Neck Magnetic Resonan ce 01/31/2025 7:50 PM EDT Impressions 01/31/2025 7:56 PM EDT Stable demyelinating lesions throughout the supratentorial white matter. No new lesions or abnormal enhancement to suggest active demyelination. -------- FINAL REPORT -------- Dictated By: BILLY GUAJARDO Dictated Date: 01/31/2025 19:50 ET Assigned Physician: BILLY GUAJARDO Reviewed and Electronically Signed By: BILLY GUAJARDO Signed Date: 01/31/2025 19:56 ET Workstation ID: [id number] Transcribed By: Self Edit Transcribed Date: 01/31/2025 19:51 ET Narrative 01/31/2025 7:56 PM EDT PROCEDURE: Brain MRI INDICATION: Multiple sclerosis TECHNIQUE: Multiplanar, multisequence MRI of the brain without and with contrast. 10 mL Dotarem injected intravenously from a 15 mL vial with the remainder discarded COMPARISON: 05/26/2024. FINDINGS: No acute infarct, mass effect, or intracranial hemorrhage. Sella and foramen magnum are normal. Scattered T2 hyperintense foci throughout the tentorial white matter are similar compared to prior exam. No new lesions. No associated enhancement. Ventricles, sulci, and cisterns are normal in size and configuration. No hydrocephalus. No abnormal intracranial susceptibility artifact or enhancement. Major intracranial arterial flow voids are normal. Major dural venous sinuses enhance normally with contrast. Scattered mucosal thickening seen throughout the sinuses. Mastoid air cells are clear. Orbits and skull base soft tissues are normal. Calvarium is normal. Procedure Note Billy Guajardo MD - 01/31/2025 PROCEDURE: Brain MRI INDICATION: Multiple sclerosis TECHNIQUE: Multiplanar, multisequence MRI of the brain without and withcontrast. 10 mL Dotarem injected intravenously from a 15 mL vial with theremainder discarded COMPARISON: 05/26/2024. FINDINGS: No acute infarct, mass effect, or intracranial hemorrhage. Sella and foramen magnum are normal. Scattered T2 hyperintense foci throughout the tentorial white matter aresimilar compared to prior exam. No new lesions. No associatedenhancement. Ventricles, sulci, and cisterns are normal in size and configuration. Nohydrocephalus. No abnormal intracranial susceptibility artifact or enhancement. Major intracranial arterial flow voids are normal. Major dural venoussinuses enhance normally with contrast. Scattered mucosal thickening seen throughout the sinuses. Mastoid aircells are clear. Orbits and skull base soft tissues are normal. Calvarium is normal. IMPRESSION: Stable demyelinating lesions throughout the supratentorial white matter.No new lesions or abnormal enhancement to suggest active demyelination. -------- FINAL REPORT -------- Dictated By: BILLY GUAJARDO Dictated Date: 01/31/2025 19:50 ET Assigned Physician: BILLY GUAJARDO Reviewed and Electronically Signed By: BILLY GUAJARDO Signed Date: 01/31/2025 19:56 ET Workstation ID: [id number] Transcribed By: Self Edit Transcribed Date: 01/31/2025 19:51 ET Natividad Farley MD IM MRI PROCEDURES Final Result * CT Head wo Contrast (01/26/2025 11:25 AM EDT) Anatomical Region Laterality Modality Head and Neck Computed Tomogra phy 01/26/2025 11:3 2 AM EDT Narrative 01/26/2025 11:[address] without intravenous contrast. History dizziness. Headaches. Examination was performed on multidetector scanner without administration of intravenous contrast. No prior CT scans are available for comparison. There is no evidence of midline shift, extra or intra-axial blood or fluid collections. There is no visible masses or mass effect in the brain and cerebellum. Ventricular system is symmetric and normal in size fourth ventricle and basal cisterns are midline and patent. Bony structures and included paranasal sinuses are unremarkable. CONCLUSIONS: Unremarkable nonenhanced head CT. MRI examination is recommended for further assessment if clinically relevant. -------- FINAL REPORT -------- Dictated By: Kriss Nguyen Dictated Date: 01/26/2025 11:32 ET Assigned Physician: Kriss Nguyen Reviewed and Electronically Signed By: Kriss Nguyen Signed Date: 01/26/2025 11:35 ET Workstation ID: [id number] Transcribed By: Self Edit Transcribed Date: 01/26/2025 11:32 ET Procedure Note Kriss Nguyen MD - 01/26/[address] without intravenous contrast. History dizziness. Headaches. Examination was performed on multidetector scanner without administrationof intravenous contrast. No prior CT scans are available for comparison. There is no evidence of midline shift, extra or intra-axial blood or fluidcollections. There is no visible masses or mass effect in the brain andcerebellum. Ventricular system is symmetric and normal in size fourthventricle and basal cisterns are midline and patent. Bony structures and included paranasal sinuses are unremarkable. CONCLUSIONS: Unremarkable nonenhanced head CT. MRI examination isrecommended for further assessment if clinically relevant. -------- FINAL REPORT -------- Dictated By: Kriss Nguyen Dictated Date: 01/26/2025 11:32 ET Assigned Physician: Kriss Nguyen Reviewed and Electronically Signed By: Kriss Nguyen Signed Date: 01/26/2025 11:35 ET Workstation ID: [id number] Transcribed By: Self Edit Transcribed Date: 01/26/2025 11:32 ET us Manuel Ewing NP IMG CT PROCEDURES Final Resu lt * XR Shoulder 2+ Views Right (01/24/2025 11:05 AM EDT) Anatomical Region Laterality Modality Upper Extremities, Shoulder Right Radi ographic Imaging 01/24/2025 11:1 1 AM EDT Impressions 01/24/2025 11:12 AM EDT Normal examination. Code 45411 -------- FINAL REPORT -------- Dictated By: Clayton Dalton Dictated Date: 01/24/2025 11:11 ET Assigned Physician: Clayton Dalton Reviewed and Electronically Signed By: Clayton Dalton Signed Date: 01/24/2025 11:12 ET Workstation ID: [id number] Transcribed By: Self Edit Transcribed Date: 01/24/2025 11:11 ET Narrative 01/24/2025 11:12 AM EDT HISTORY: The patient is a 39-year-old female with right shoulder pain. No history of trauma is provided. FINDINGS: AP, right posterior oblique, and transscapular views of the right shoulder are obtained. The study demonstrates no fracture, dislocation, arthritic change, or other bony abnormality. No soft tissue abnormality is seen. Procedure Note Clayton Dalton MD - 01/24/2025 HISTORY: The patient is a 39-year-old female with right shoulder pain. Nohistory of trauma is provided. FINDINGS: AP, right posterior oblique, and transscapular views of theright shoulder are obtained. The study demonstrates no fracture,dislocation, arthritic change, or other bony abnormality. No soft tissueabnormality is seen. IMPRESSION: Normal examination. Code 30704 -------- FINAL REPORT -------- Dictated By: Clayton Dalton Dictated Date: 01/24/2025 11:11 ET Assigned Physician: Clayton Dalton Reviewed and Electronically Signed By: Clayton Dalton Signed Date: 01/24/2025 11:12 ET Workstation ID: [id number] Transcribed By: Self Edit Transcribed Date: 01/24/2025 11:11 ET us Manuel Ewing MARINE ENGINE MACHINIST APPRENTICE IMG XR PROCEDURES Final Resu lt * Hepatitis C antibody (08/30/2024 10:29 AM EDT) Hepatitis C Antibody Negative Negative LAB CHEMISTRY METHOD 08/30/2024 5:41 PM EDT [facility] Blood Venous blood specimen / Unknown Venipuncture / Unknown 08/30/2024 10:29 AM EDT 08/30/2024 12:05 PM EDT us Natividad Farley MD LAB BLOOD ORDERABLES Fin al Result Performing Organization Address City/[facility]/ZIP Co de Phone Number [facility] [address] [place] [address], [place] [phone] * HIV 1,2 antibody, p24 antigen with reflex to differentiation (08/30/2024 10:29 AM EDT) HIV Combo AB/AG Negative Negative LAB CHEMISTRY METHOD 08/30/2024 5:42 PM EDT [facility] Blood Venous blood specimen / Unknown Venipuncture / Unknown 08/30/2024 10:29 AM EDT 08/30/2024 12:05 PM EDT Narrative [facility] - 08/30/2024 5:42 PM EDT This assay is a 4th generation assay allowing for earlier detection of HIV infection by detecting the presence of the HIV-1 p24 antigen as well as the traditional antibodies to HIV type 1 (including group O) and type 2. Use of a 4th generation assay is the current CDC recommendation for HIV screening. us Natividad Farley MD LAB BLOOD ORDERABLES Fin al Result Performing Organization Address [facility] Co de Phone Number [facility] [address] [place] [address], [place] [phone] * Pap smear (10/10/2020) 10/10/2020 Narrative HISTORICAL TESTING LAB RESULTING AGENCY - 10/14/2020 4:51 PM EDT [id number] THINPREP PAP, IMAGED: NEGATIVE FOR SQUAMOUS INTRAEPITHELIAL LESION AND MALIGNANCY . JESSIKA ADAMS(ASCP) (CASE ELECTRONICALLY SIGNED 10 14 2020) RESULT OF APTIMA HIGH RISK HPV ASSAY: HIGH RISK HPV: NEGATIVE (SEROTYPES 16,18,31,33,35,39,45,51,52,56,58,59,66,68) COMPLETED ON 2020-10-14 ADEQUACY: SATISFACTORY ENDOCERVICAL/TRANSFORMATION ZONE COMPONENT PRESENT. SOURCE: THINPREP PAP HPV ANY DX: REFLEX 16 AND 18, CERVICAL, IMAGED CLINICAL INFORMATION: HPV ANY DIAGNOSIS. HORMONES, PAP HX NEG [Z12.4] us Ni Willson MD LAB CYTOLOGY ORDERABLES Fin al Result HISTORICAL TESTING LAB RESULTING AGENCY from Last 3 Months or Most Recently Relevant to Health Maintenance Insurance [facility] PLAN Care Teams Registered Health Nurse Relationship Specialty Start Date End Date Gurmeet Soto MD [address] [place] [address] PCP - General 08/12/22
--- OUTSIDE RECORDS SUMMARY | 2025-03-01 11:54 | XMS_ITS ---
Author Name [facility] Organization Unknown Care Team Organization Name Specialty Phone Email Start Date End Da te [facility] Primary Care 04/07/2022 4 [facility] ([place])
--- OUTSIDE RECORDS SUMMARY | 2025-03-01 11:54 | XMS_ITS | Encounter Summary ---
Author Organization [facility] Address [address] [place] [address] Care Team Providers Care Quality Improvement Coordinator Name Role Phone Gurmeet Soto MD Primary Care Provider Reason for Visit * Reason Onset Date Comments ITCHING IN FINGER TIPS 04/06/2024 Encounter Details Date Type Department Care Team (Late st Contact Info) Description 04/06/2024 Nurse Triage Adult Medicine [facility] [address] [place] [address] Gurmeet Soto MD [address] [place] [address] Social History Tobacco Use Types Packs/Day Years [...] of this encounter Progress Notes * Avis lOguin RN - 04/06/2024 4:30 PM EST Reason for Disposition [1] MODERATE pain (e.g., interferes with normal [...] traveled recently to another state outside of [place], [place], [place], [place], [place], [place], [place]? no o If yes, did you quarantine [...] yes, gather 3rd republican insurance information Third Constitution Party Information: PCP: Gurmeet Soto MD Payor: [employer] PLAN / Plan: [employer] MEDICAID / Product Type: *No Product type* / documented in this encounter Plan of Treatment Upcoming Encounters Date Type Department Care Team (Late st Contact Info) Description 03/06/2025 10:00 AM EDT Appointment [facility] [place] [facility] [place] 175 [facility] [address] [place] [phone] 03/06/2025 2:00 PM EDT Office Visit Adult Medicine [facility] [address] [place] [address] Manuel Ewing NP [address] [place], [place] 04/03/2025 10:00 AM EST Appointment [facility] 175 [facility] [address] [place] [phone] 05/01/2025 10:00 AM EST Appointment [facility] [place] [address] [address] 05/15/2025 10:45 AM EST Ancillary Procedure [facility] - [address] 300 [facility] [address] [place] [address] 05/29/2025 9:30 AM EST Office Visit [facility] [place] [address] [address] Autumn Segura PA [address] [address] 05/29/2025 10:00 AM EST Appointment [facility] [address] [address] 06/26/2025 10:00 AM EST Appointment [facility] [address] [address] 07/24/2025 10:00 AM EST Appointment [facility] [place] [facility] [address] [address] 07/31/2025 10:30 AM EST Clinical Support Pulmonology [place] [address] [address] 07/31/2025 11:15 AM EST Office Visit [facility]ology [place] [address] [address] Ana Maria Sanchez MD [address] [address] 08/21/2025 10:00 AM EDT Appointment [facility] [address] [address] documented as of this encounter Visit Diagnoses Not on filedocumented in this encounter Care Teams Quality Improvement Coordinator Relationship Specialty Start Date End Date Gurmeet Soto MD [address] [place] [address] PCP - General 08/12/22 documented as of this encounter
--- OUTSIDE RECORDS SUMMARY | 2025-03-01 11:54 | XMS_ITS | Encounter Summary ---
Author Organization [facility] Address [address] [place] [address] Care Team Providers Care Computerized Table Cutter Name Role Phone Gurmeet Soto MD Primary Care Provider Reason for Visit * Reason Onset Date Comments Imaging Follow-up 01/24/2025 X-ray, CT scan of the head, CTA Referral 01/24/2025 Orthopedic and v ascular CTA 01/24/2025 Peer Review. Encounter Details Date Type Department Care Team (Late st Contact Info) Description 01/24/2025 Telephone Adult Medicine [facility] [address] [place] [phone] Manuel Ewing, CLINICAL DATA SPECIALIST [address] [place], [place] Social History Tobacco Use Types Packs/Day Years [...] as of this encounter Progress Notes * Manuel Ewing NP - 02/23/2025 7:21 PM EDT Spoke to patient today. CTA was denied by insurance company. Will attempt to call. Per review, needed for lumbar to call peer review. Patient was happy to give me phone number from the [place] letter [phone] extension [phone]. CaseID # [id number] Will attempt to call to peer review on Wednesday. Patient reported she is still having symptoms. Limb is warm, with normal color. But still has weakness. Patient aware of red flags. Patient also has neurology appointment next week Orthopedic referral was process and referral information was given to patient to schedule appointment with [facility] - [address], [facility] [address], . Patient vascular appointment was canceled, unsure why as patient still need to be evaluated for possible vascular cause issue. I also send a message to vascular, Dr. Martin about this case, as I would appreciate his input. * Manuel Ewing NP - 01/24/2025 6:02 PM EDT Patient was recently seen in the office 01/23/25 for multiple complex concerns, see office note from01/23/25. Chest x-ray completed and was unremarkable CT scan of the head scheduled for Wednesday CTA of the chest scheduled in January 2025 Patient was referred to orthopedic, referral was processed. I gave patient phone number and addressof referral for orthopedic which will be with [facility]. I also refer patient to vascular surgery. Referral is still being processed. documented in this encounter Plan of Treatment Upcoming Encounters Date Type Department Care Team (Late st Contact Info) Description 03/06/2025 10:00 AM EDT Appointment [facility] [place] [facility] [place] [address] [address] 03/06/2025 2:00 PM EDT Office Visit Adult Medicine [facility] [address] [place], [place] [phone] Manuel Ewing NP [address] [place], [place] 04/03/2025 10:00 AM EST Appointment [facility] [address] [address] 05/01/2025 10:00 AM EST Appointment [facility] [place] [facility] [address] [address] 05/15/2025 10:45 AM EST Ancillary Procedure [facility] - [facility] [address] [address] 05/29/2025 9:30 AM EST Office Visit [facility] [place] [facility] [place] [address] [address] Autumn Segura PA [address] [address] 05/29/2025 10:00 AM EST Appointment [facility] [place] [facility] [address] [address] 06/26/2025 10:00 AM EST Appointment [facility] [place] [address] [address] 07/24/2025 10:00 AM EST Appointment [facility] [place] [facility] [address] [address] 07/31/2025 10:30 AM EST Clinical Support Pulmonology - [place] 175 [facility] [address] [place] [address] 07/31/2025 11:15 AM EST Office Visit Pul[facility]ology - [place] 175 [facility] [address] [place] [phone] Ana Maria Sanchez MD 175 [facility] 200 [place] [address] 08/21/2025 10:00 AM EDT Appointment [facility] Outpatient Rehabilititation - [place] 175 [facility] 150 [place] [address] documented as of this encounter Visit Diagnoses Diagnosis Near syncope- Primary Thoracic outlet syndrome Brachial plexus lesions Acute pain of right shoulder documented in this encounter Care Teams Computerized Table Cutter Relationship Specialty Start Date End Date Gurmeet Soto MD [address] [place] [address] PCP - General 08/12/22 documented as of this encounter
== END 2025-03-01 11:50 | disposition home or self-care (01) ==
LOC: HO.HSMS 10:24
PROVIDERS: PCP Internal Medicine; Visit Provider Nurse Practitioner Family
DX: R51.9 Headache, unspecified (principal); H93.A1 Pulsatile tinnitus, right ear; R90.82 White matter disease, unspecified; G43.109 Migraine with aura, not intractable, without status migrainosus; Q79.60 Ehlers-Danlos syndrome, unspecified; G35.D Multiple sclerosis, unspecified
CPT/HCPCS: 99214

== ENCOUNTER → 2025-03-01 10:23 | Outpatient (BNVA) | payer OTHER, SELFPAY | PROVIDERS: PCP Internal Medicine; Visit Provider Nurse Practitioner Family | DX: G43.109 Migraine with aura, not intractable, without status migrainosus (principal); Q79.60 Ehlers-Danlos syndrome, unspecified; G35.D Multiple sclerosis, unspecified; R90.82 White matter disease, unspecified; H93.A1 Pulsatile tinnitus, right ear | CPT/HCPCS: 99212 ==

== ENCOUNTER → 2025-03-15 08:31 | Outpatient (BNV) | payer OTHER, SELFPAY | PROVIDERS: Visit Provider Radiology Diagnostic Radiology | DX: R51.9 Headache, unspecified (principal) | CPT/HCPCS: 70544; 70549 ==

== ENCOUNTER 2025-03-15 08:36 | Outpatient (REF) | payer OTHER, SELFPAY ==
--- OUTSIDE RECORDS SUMMARY | 2024-03-29 09:28 | XMS_ITS | Encounter Summary ---
Author Organization [facility] Address [address] [place] [address] Care Team Providers Care Digital Media Producer Name Role Phone Gurmeet Soto MD Primary Care Provider Encounter Details Date Type Department Care Team (Late st Contact Info) Description 03/29/2024 9:28 AM EDT Hospital Encounter TH HISTORIC ENCOUNTERS EASTERN CONVERSION ONLY Kenneth Barr, MARÍA [address] [place] [address] Social History Tobacco Use Types [...] 1:41 PM EDT Maeve Holliday RN * [place] Suicide Severity Rating Scale (Screener/Recent Self-Report) Question [...] Upcoming Encounters Date Type Department Care Team (Latest Contact Info) Description 03/23/2025 3:30 PM EDT Office Visit Vascular Surgery - [place] [address] [facility] [address] [place] [phone] Anthony Martin MD [address] [place] [phone] 04/03/2025 10:00 AM EST Appointment [facility] Outpatient Rehabilititation [facility] [address] [phone] 04/10/2025 11:00 AM EST Evaluation [facility] Outpatient Rehabilitation [facility] 175 [facility] [address] [place] [address] Shameka Jara, JACKIE 05/01/2025 10:00 AM EST Appointment [facility] Outpatient Rehabilititation [facility] [address] [phone] 05/15/2025 10:45 AM EST Ancillary Procedure [facility] 101 300 [facility] [address] [place] [address] 05/28/2025 1:00 PM EST Office Visit Vascular Surgery [facility] [address] [facility] [address] [place] [phone] Che Mtz PA [address] [place] [phone] 05/29/2025 9:30 AM EST Office Visit [facility] [place] 175 [facility] [address] [place] [address] Autumn Segura PA [address] [address] 05/29/2025 10:00 AM EST Appointment [facility] Out[facility] [address] [phone] 06/26/2025 10:00 AM EST Appointment [facility] Out[facility] [address] [phone] 07/24/2025 10:00 AM EST Appointment [facility] [phone] 07/31/2025 10:30 AM EST Clinical Support Pulmonology [address] [phone] 07/31/2025 11:15 AM EST Office Visit Pulmonology [address] [phone] Ana Maria Sanchez MD [address] [address] 08/21/2025 10:00 AM EDT Appointment [address] [phone] documented as of this encounter Procedures Procedure Name Priority Date/Time Associated Diagnosis Comments CR BARIUM SWALLOW Routine 03/29/2024 12: 07 PM EDT documented in this encounter Results * CR BARIUM SWALLOW (03/29/2024 12:07 PM EDT) Anatomical Region Laterality Modality Radiographic Haley ging 03/29/2024 9:33 AM EDT Narrative 03/29/2024 12:[address] [facility] Diagnostic Imaging Department [address] [place] [address] Patient: RANDI ARREOLA /Age/Sex: 1985 - 38 - F Unit#: [id number] Location/Status: SPDIGEN/REG CLI Mnemonic/Ordering Site: [facility] Ordering Physician: KENNETH BARR PA-C CR Barium Swallow - 03/29/24 - 1043 Report Status:Signed INDICATION: Dysphagia. FINDINGS: Double contrast barium swallow performed. COMPARISON: Outside chest CT from May 11, 2023 reviewed Butter Maker radiographs: Single view of the chest and a lateral view the neck obtained. Lung li are clear. Heart normal in size and shape. Bony structures unremarkable. Lateral command and control specialist view of the neck demonstrates straightening of [...] Signed by: MIGEL GODDARD MD Dic Date/Time: 03/29/241204 Sign date/Time: 03/29/241206 Procedure Note Migel Goddard MD - 04/01/2024 [facility] Diagnostic Imaging Department [address] [place] [address] Patient: RANDI ARREOLA Sanjuana /Age/Sex: 1985 - 38 - F Unit#: [id number] Location/Status: SPDIGEN/REG CLI Mnemonic/Ordering Site: [facility] Ordering Physician: KENNETH BARR PA-C CR Barium Swallow - 03/29/24 - 1043 Report Status:Signed INDICATION: Dysphagia. FINDINGS: Double contrast barium swallow performed. COMPARISON: Outside chest CT from May 11, 2023 reviewed Butter Maker radiographs: Single view of the chest and a lateral view the neck obtained. Lung li are clear. Heart normal in size and shape. Bonystructures unremarkable. Lateral command and control specialist view of the neck demonstrates straightening ofthe [...] by: MIGEL GODDARD MD Dic Date/Time: 03/29/24 120 Sign date/Time: 03/29/24 1206 us Kenneth DANIEL IMG XR PROCEDURES Final Result documented in this encounter Visit Diagnoses Not on filedocumented in this encounter Care Teams Digital Media Producer Relationship Specialty Start Date End Date Gurmeet Soto MD [address] [place] [address] PCP - General 08/12/22 documented as of this encounter
--- NOTE | ~2025-03-15 | XR_ITS ---
CLINICAL HISTORY: H93.A1 - Pulsatile tinnitus, right ear --- Additional Notes or Special Instructions: please assess for cervical ribs 2 view chest x-ray Comparison: None provided Findings: No consolidation or effusion. Heart size is normal. No acute fracture. IMPRESSION: 1. No acute findings. This document has been electronically signed by: Clayton Mcclelland MD on 03/16/2025 10:04:13
--- NOTE | ~2025-03-15 | MR_ITS ---
EXAMINATION: MR ANGIOGRAPHY BRAIN WITHOUT CONTRAST CLINICAL INFORMATION: Headache COMPARISON: None available. TECHNIQUE: 3-D qmyi-wa-ebnyry and maximum intensity projections [employer] [place]. FINDINGS: Anterior surgical circulation: ICAs:: No flow signal gap or abrupt cut off. No flow signal irregularity. MCA's: No flow signal gap or abrupt cut off. No flow signal irregularity at the bifurcation/trifurcation. ACAs: No flow signal gap or abrupt cut off. Anterior communicating artery flow signal is present. Ophthalmic arteries flow signal is present and normal. I do not see the posterior communicating arteries flow signal. Posterior cerebral circulation: V3/V4 segments: Codominant. No flow signal gap or intimal flap. Basilar artery flow signal is present without intimal flap. Posterior inferior cerebral arteries flow signal is present. Superior cerebellar arteries flow signal is present. 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 MR/MR angio head wo con IMPRESSION: Normal MRA brain/[employer] [place]. Electronically signed by: Andrea Arnold MD 03/15/2025 11:05 AM EDT
--- NOTE | ~2025-03-15 | MR_ITS ---
EXAMINATION: MR ANGIOGRAPHY NECK WITHOUT AND WITH CONTRAST CLINICAL INFORMATION: Headache, unspecified. R51.9. COMPARISON: None available. TECHNIQUE: MRA of the neck was obtained using routine sequences without and with contrast. Intravenous contrast: Gadolinium based (Gadavist) 10.0 mL. The degree of stenosis determined by criteria similar to NASCET. No reported immediate complications FINDINGS: Aortic arch: Normal caliber. Normal patency. No intimal flap. No focal stenosis. Right CCA: Normal patency. No focal stenosis. No intimal flap. Right ICA: Normal patency. No focal stenosis. No intimal flap. Left CCA: Normal patency. No focal stenosis. No intimal flap. Left ICA: Normal patency. No focal stenosis. No intimal flap. V1/V2 segments: Normal patency. No focal stenosis. No intimal flap. The origin is directly from the subclavian arteries. Codominant. MR/MR angio neck wo/w con IMPRESSION: Normal MRA neck. Electronically signed by: Andrea Arnold MD 03/15/2025 11:08 AM EDT
--- OUTSIDE RECORDS SUMMARY | 2025-03-15 09:09 | XMS_ITS | Encounter Summary ---
Author Organization [facility] Address [address] [place] [address] Care Team Providers Care Informatics Consultant Name Role Phone Gurmeet Soto MD Primary Care Provider Reason for Visit * Reason Onset Date Comments ITCHING IN FINGER TIPS 04/06/2024 Encounter Details Date Type Department Care Team (Late st Contact Info) Description 04/06/2024 Nurse Triage Adult Medicine [facility] [address] [place] [address] Gurmeet Soto MD [address] [place] [address] Social History Tobacco Use Types Packs/Day Years [...] traveled recently to another state outside of [place], [place], [place], [place], [place], [place], [place]? no o If yes, did you quarantine [...] of accident/Injury: No If yes, gather 3rd democrat insurance information Third Libertarian Information: PCP: Gurmeet Soto MD Payor: [employer] PLAN / Plan: [employer] MEDICAID / Product Type: *No Product type* / documented in this encounter Plan of Treatment Upcoming Encounters Date Type Department Care Team (Latest Contact Info) Description 03/23/2025 3:30 PM EDT Office Visit [facility] [place] [address] [place] [address] Anthony Martin MD [address] [place] [phone] 04/03/2025 10:00 AM EST Appointment [facility] Outpatient Rehabilititation - [place] 175 [facility] 150 [place] [phone] 04/10/2025 11:00 AM EST Evaluation [facility] Outpatient Rehabilitation - [place] 175 [facility] 350 [place] [address] Shameka Jara, PT 05/01/2025 10:00 AM EST Appointment [facility] 175 [facility] 150 [place] [address] 05/15/2025 10:45 AM EST Ancillary Procedure [facility] 101 300 [facility] 101 [place] [address] 05/28/2025 1:00 PM EST Office Visit [facility] Surgery - [place] [address] [place] [address] Che Mtz PA 230 [place] [address] 05/29/2025 9:30 AM EST Office Visit [facility] [place] [address] [address] Autumn Segura PA [address] [address] 05/29/2025 10:00 AM EST Appointment [facility] [place] [facility] [place] [address] [address] 06/26/2025 10:00 AM EST Appointment [facility] [address] [address] 07/24/2025 10:00 AM EST Appointment [facility] Outpatient [facility] - [place] [address] [address] 07/31/2025 10:30 AM EST Clinical Support Pulmonology - [place] [address] [address] 07/31/2025 11:15 AM EST Office Visit Pulmonology - [place] [address] [address] Ana Maria Sanchez MD 175 [facility] 200 [place] [address] 08/21/2025 10:00 AM EDT Appointment [facility] Out[facility] - [address] [address] documented as of this encounter Visit Diagnoses Not on filedocumented in this encounter Care Teams Informatics Consultant Relationship Specialty Start Date End Date Gurmeet Soto MD [address] [place] [address] PCP - General 08/12/22 documented as of this encounter
--- OUTSIDE RECORDS SUMMARY | 2025-03-15 09:09 | XMS_ITS | Encounter Summary ---
Author Organization [facility] Address [address] [place] [address] Care Team Providers Care Heel Seat Sander Name Role Phone Gurmeet Soto MD Primary Care Provider Encounter Details Date Type Department Care Team (Late st Contact Info) Description 03/08/2025 Telephone Vascular Surgery - [place] 300 [facility] [address] [place] [address] Anthony Martin MD [address] [place] [phone] Social History Tobacco Use Types Packs/Day Years [...] as of this encounter Progress Notes * Gustavo Zaidi - 03/08/2025 12:56 PM EDT Good afternoon Tri, I'm reaching out from the Vascular Surgery department in hopes of having you see Dr. Martin far sooner than our Jimmy appointment. I understand your appointment was cancelled previously, but we are hoping to see you regardless of the images being available or not. documented in this encounter Plan of Treatment Upcoming Encounters Date Type Department Care Team (Latest Contact Info) Description 03/23/2025 3:30 PM EDT Office Visit Vascular Surgery [facility] [address] [facility] 210 [place] [address] Anthony Martin MD 230 [place] [address] 04/03/2025 10:00 AM EST Appointment [facility] [place] [facility] [place] [address] [address] 04/10/2025 11:00 AM EST Evaluation [facility] Outpatient Rehabilitation - [place] [address] [facility] [address] [facility] 350 [place] [address] Shameka Jara, PT 05/01/2025 10:00 AM EST Appointment [facility] [place] Outpatient [facility] [address] [phone] 05/15/2025 10:45 AM EST Ancillary Procedure [facility] - [facility] 101 300 [facility] 101 [place] [address] 05/28/2025 1:00 PM EST Office Visit [facility] Surgery - [place] [address] [facility] 210 [place] [address] Che Mtz PA 230 [place] [address] 05/29/2025 9:30 AM EST Office Visit [facility] - [place] [address] [facility] [address] [facility] 150 [place] [address] Autumn Segura PA [address] [facility] [address] [facility] [address] [place] [address] 05/29/2025 10:00 AM EST Appointment [facility] Out[facility] [address] [address] 06/26/2025 10:00 AM EST Appointment [facility] [address] 07/24/2025 10:00 AM EST Appointment [facility] [address] 07/31/2025 10:30 AM EST Clinical Support Pulmonology [address] [address] 07/31/2025 11:15 AM EST Office Visit Pulmonology [address] [address] Ana Maria Sanchez MD [address] [address] 08/21/2025 10:00 AM EDT Appointment [address] [address] documented as of this encounter Visit Diagnoses Not on filedocumented in this encounter Care Teams Heel Seat Sander Relationship Specialty Start Date End Date Gurmeet Soto MD 4 [facility] [place] [address] PCP - General 08/12/22 documented as of this encounter
--- OUTSIDE RECORDS SUMMARY | 2025-03-15 09:09 | XMS_ITS | Clinical Summary ---
Author Organization 175 [facility] Address [address] [place] [address] Phone Care Team Providers Care Family Dinner Service Specialist Name Role Phone Gurmeet Soto MD Primary [...] 1 film under the tongue. [facility]20 23 Active fluticasone propionate (FLONASE) [...] day. 1 each 08/17/19 25 026 Active cyanocobalamin 2,000 mcg ER tablet Take 1 tablet (2,000 mcg total) by mouth 1 (one) time each day. 30 tablet 10/13/19 25 026 Active natalizumab (TYSABRI) 300 mg/15 mL injection Infuse into a venous catheter 1 (one) time. Active ergocalciferol (VITAMIN D-2) 1,250 mcg (50,000 unit) capsule TAKE 1 CAPSULE (50,000 UNITS TOTAL) BY MOUTH ONCE WEEKLY 12 capsule 01/13/20 25 Active ipratropium HFA (Atrovent HFA) 17 mcg/actuation inhaler Inhale 2 puffs by mouth 4 (four) times a day. 3 each 3 01/25/20 25 026 Active buPROPion SR (WELLBUTRIN SR) 150 mg 12 hr tablet Take 1 tablet (150 mg total) by mouth 2 (two) times a day. 01/03/20 25 Active metoprolol tartrate (LOPRESSOR) 25 mg tablet Take 1 tablet (25 mg total) by mouth 1 (one) time each day. 90 each 1 03/05/20 25 Active metoprolol tartrate (LOPRESSOR) 25 mg tablet Take 1 tablet (25 mg total) by mouth 1 (one) time each day. 90 each 08/29/19 25 025 Discontin ued(Reord er) Active Problems Problem Noted Date Diagnosed Date [...] veins in the pelvis leading to the Side Puller organs. Just as some people have pain [...] of opioid abuse ([facility] V24, [facility] V2 8) 02/29/2024 Urinary urgency 06/03/2023 Overview (02/29/2024): Last Assessment & Plan: Encouraged some habit changes. Apical lung scarring 05/20/2023 Centrilobular emphysema ([facility] V24, [facility] V2 8) 05/20/2023 Chest pain 05/20/2023 Cigarette [...] Encounters Date Type Department Care Team Description 03/08/2025 Telephone Vascular Surgery - [place] [address] [place] [phone] Anthony Martin MD 03/06/2025 9:49 AM EDT - 03/06/2025 11:59 PM EDT Hospital Encounter [facility] [place] [address] [place] [phone] MS (multiple sclerosis) (Primary Dx); Encounter for therapeutic drug monitoring Discharge Disposition: Home or Self Care 02/20/2025 Telephone Vascular Surgery - [place] [address] [place] [phone] Charles Peralta MA 02/20/2025 Telephone Adult Medicine [facility] [address] [place] [address] Gurmeet Soto MD 02/12/2025 8:30 AM EDT Office Visit [facility] [place] 175 [facility] 150 [place] [phone] Natividad Farley MD Vertigo (Primary Dx); Multiple sclerosis (CMS/HCC V24, CMS/HCC V28); Urinary frequency; Other fatigue; High risk medication use 02/06/2025 9:45 AM EDT - 02/06/2025 11:59 PM EDT Hospital Encounter [facility] Outpatient Rehabilititation [facility] 175 [facility] 150 [place] [phone] MS (multiple sclerosis) (CMS/HCC V24, CMS/HCC V28) (Primary Dx) Discharge Disposition: Home or Self Care 01/31/2025 2:07 PM EDT - 01/31/2025 11:59 PM EDT Hospital Encounter [facility] MRI [address] [place] [phone] Multiple sclerosis (CMS/HCC V24, CMS/HCC V28); Lhermitte sign positive Discharge Disposition: Home or Self Care 01/31/2025 2:04 PM EDT - 01/31/2025 11:59 PM EDT Hospital Encounter [facility] MRI [address] [place] [phone] Multiple sclerosis (CMS/HCC V24, CMS/HCC V28) Discharge Disposition: Home or Self Care 01/26/2025 11:15 AM EDT - 01/26/2025 11:59 PM EDT Hospital Encounter CT Scan [address] [phone] Vision changes; Abnormality of gait due to impairment of balance; Nonintractable headache, unspecified chronicity pattern, unspecified headache type; Near syncope Discharge Disposition: Home or Self Care 01/24/2025 11:30 AM EDT Office Visit Pulmonology - [place] 175 [facility] [address] [place] [address] Ana Maria Sanchez MD 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, [facility] V28) (Primary Dx); Ex-smoker; Multiple sclerosis ([facility] V24, [facility] V28) 01/24/2025 10:48 AM EDT - 01/24/2025 11:59 PM EDT Hospital Encounter [facility] Xray [address] [place] [phone] Thoracic outlet syndrome; Acute pain of right shoulder Discharge Disposition: Home or Self Care 01/24/2025 Telephone Adult Medicine [address] [phone] Manuel Ewing, DUST COLLECTOR OPERATOR 01/23/2025 1:00 PM EDT Office Visit Adult [address] [phone] Manuel Ewing, DUST COLLECTOR OPERATOR Vision changes (Primary Dx); Abnormality of gait due to impairment of balance; Nonintractable headache, unspecified chronicity pattern, unspecified headache type; Near syncope; Thoracic outlet syndrome; Acute pain of right shoulder 01/18/2025 Telephone Adult [address] [phone] Avis Olguin RN 01/09/2025 9:44 AM EDT - 01/09/2025 11:59 PM EDT Hospital Encounter [facility] [place] 175 [facility] [address] [place] [phone] MS (multiple sclerosis) ([facility] V24, [facility] V28) (Primary Dx) Discharge Disposition: Home or Self Care 12/25/2024 Telephone Vascular Surgery [facility] [address] [place] [phone] Betzaida Davila MA from Last 3 Months Immunizations Immunization Administration [...] History Date Comments History of opioid abuse ([facility] V24, [facility] V28) DX:History of opioid abuse ( [facility]) Low back pain 06/04/2016 DX:Low back pain ; COMMENT: Sees PSS Esophageal reflux DX:Esophageal reflux Dysphagia DX:Dysphagia Tobacco use DX:Tobacco use Clary-Danlos syndrome DX:Clary -Danlos syndrome COPD (chronic obstructive pu lmonary disease) ([facility] V24, [facility] V28) Multiple sclerosis Family History Medical History [...] Sign Reading Time Taken Comments Blood Pressure 110/65 03/06/2025 12:02 PM EDT Pulse 68 03/06/2025 12:02 PM EDT Temperature 36.2 C (97.2 F) 03/06/2025 12:02 PM EDT Respiratory Rate 18 03/06/2025 12:02 PM EDT Oxygen Saturation 98% 03/06/2025 12:02 PM EDT Inhaled Oxygen Concentration - - Weight 53.1 kg (117 lb) 02/12/2025 8:31 AM EDT Height 157.5 cm (5' 2 ) 02/12/2025 8:31 AM EDT Body Mass Index 21.4 02/12/2025 8:31 AM EDT Plan of Treatment Upcoming Encounters Date Type Department Care Team (Latest Contact Info) Description 03/23/2025 3:30 PM EDT Office Visit Vascular Surgery - [place] [address] [place] [address] Anthony Martin MD [address] [place] [phone] 04/03/2025 10:00 AM EST Appointment [facility] Outpatient Rehabilititation - [place] 175 [facility] 150 [place] [address] 04/10/2025 11:00 AM EST Evaluation [facility] Outpatient Rehabilitation - [place] 175 [facility] [address] [place] [address] Shameka Jara, JACKIE 05/01/2025 10:00 AM EST Appointment [facility] Outpatient Rehabilititation [facility] 175 [facility] 150 [place] [phone] 05/15/2025 10:45 AM EST Ancillary Procedure [facility] [address] [facility] 101 [place] [address] 05/28/2025 1:00 PM EST Office Visit Vascular Surgery - [place] [address] [facility] [address] [place] [address] Che Mtz PA [address] [place] [phone] 05/29/2025 9:30 AM EST Office Visit [facility] [place] [address] [phone] Autumn Segura PA [address] [address] 05/29/2025 10:00 AM EST Appointment [facility] - [address] [phone] 06/26/2025 10:00 AM EST Appointment [facility] - [address] [phone] 07/24/2025 10:00 AM EST Appointment [facility] [address] [phone] 07/31/2025 10:30 AM EST Clinical Support Pulmonology - [address] [place] [address] 07/31/2025 11:15 AM EST Office Visit Pulmonology - [place] [address] [phone] Ana Maria Sanchez MD [address] [address] 08/21/2025 10:00 AM EDT Appointment [facility] [address] [phone] Health Maintenance Due Date Last Done Comments [...] Procedure Name Priority Date/Time Associated Diagnosis Comments CBC WITH AUTO DIFFERENTIAL Routine 03/06/2025 10:06 AM EDT MS (multiple sclerosis) Encounter for therapeutic drug monitoring HEPATIC FUNCTION PANEL Routine 10:06 AM EDT MS (multiple sclerosis) Encounter for therapeutic drug monitoring CBC AND DIFFERENTIAL Routine 03/06/2025 10:06 AM EDT MS (multiple sclerosis) Encounter for therapeutic drug monitoring JCV POLYOMA VIRUS ANTIBODY WITH REFLEX TO INHIBITION ASSAY Routine 03/06/2025 10:06 AM EDT MS (multiple sclerosis) Encounter for therapeutic drug monitoring MR CERVICAL SPINE WO AND W CONTRAST [...] Recently Relevant to Health Maintenance Results * (ABNORMAL) JCV polyoma virus antibody with reflex to inhibition assay (03/06/2025 10:06 AM EDT) Index Value 0.21 03/13/2025 1:05 PM EDT [facility] JCV Antibody Indeterminat e(A) 03/13/2025 1:05 PM EDT [facility] Comment: Index interpretive criteria: <0.20 negative 0.20-0.40 indeterminate >0.40 positive Interpretation Note 03/13/2025 1:05 PM EDT [facility] Comment: INTERPRETATION Negative: Antibodies [...] Prescribing Information JCV Antibody by Inhibition Negative 03/13/2025 1:05 PM EDT [facility] Interpretation Note 03/13/2025 1:05 PM EDT [facility] Comment: Positive: Antibodies to REINALDO virus (JCV) detected indicating the patient has been exposed to JCV at an undetermined time Negative: Antibodies to JCV not detected Blood Venous blood specimen / Unknown Venipuncture / Unknown 03/06/2025 10:06 AM EDT 03/06/2025 10:07 AM EDT Narrative [facility] - 03/13/2025 1:05 PM EDT Performed at: - [facility] [address] [address] [place] [place] [id number] Broaching Machine Set Up Operator: Sabine Souza MD, Phone: [phone] us Autumn DANIEL LAB BLOOD ORDERABLES Final R esult [facility] * (ABNORMAL) CBC auto differential (03/06/2025 10:06 AM EDT) [facility] WBC 15.1(H) 4.8 - 10.8 K/mcL LAB HEMETOLOGY METHOD 03/06/2025 2:47 PM EDT [facility] RBC 4.20 3.80 - 4.80 M/mcL LAB HEMETOLOGY METHOD 03/06/2025 2:47 PM EDT [facility] Hemoglobin 13.3 11.5 - 16.0 g/dL LAB HEMETOLOGY [facility]/06[facility]25 [facility] Hematocrit 37.8 35.0 - 47.0 % LAB HEMETOLOGY METHOD 03/06/2025 2:47 [facility] MCV 89.4 79.0 - 98.0 FL LAB HEMETOLOGY METHOD 03/06/2025 2:47 [facility] MCH 31.4 27.0 - 32.0 pcg LAB HEMETOLOGY METHOD 03/06/2025 2:47 [facility] MCHC 35.2 32.0 - 37.0 g/dL LAB HEMETOLOGY METHOD 03/06/2025 2:47 [facility] RDW 12.7 11.0 - 15.0 % LAB HEMETOLOGY METHOD 03/06/2025 2:47 PM [facility] Platelets 284 130 - 400 K/mcL LAB HEMETOLOGY METHOD 03/06/2025 2:47 PM [facility] MPV 9.6 7.0 - 11.0 FL LAB HEMETOLOGY METHOD 03/06/2025 2:47 [facility] NRBC 0.0 <1.0 % LAB HEMETOLOGY METHOD 03/06/2025 2:47 PM [facility] NRBC Absolute 0.00 <0.10 K/mcL LAB HEMETOLOGY METHOD 03/06/2025 2:47 PM [facility] Neutrophils Relative 56.1 % LAB HEMETOLOGY METHOD 03/06/2025 2:47 PM [facility] Comment:This is an appended report. These results have been appended to a previously preliminary verified report. Lymphocytes Relative 33.9 % LAB HEMETOLOGY METHOD 03/06/2025 2:47 PM EDT [facility] Comment:This is an appended report. These results have been appended to a previously preliminary verified report. Monocytes Relative 5.9 % LAB HEMETOLOGY METHOD 03/06/2025 2:47 PM [facility] Comment:This is an appended report. These results have been appended to a previously preliminary verified report. Eosinophils Relative 3.2 % LAB HEMETOLOGY METHOD 03/06/2025 2:47 PM [facility] Comment:This is an appended report. These results have been appended to a previously preliminary verified report. Basophils Relative 0.5 % LAB HEMETOLOGY METHOD 03/06/2025 2:47 PM [facility] Comment:This is an appended report. These results have been appended to a previously preliminary verified report. Immature Granulocytes Relative 0.4 % LAB HEMETOLOGY METHOD 03/06/2025 2:47 PM [facility] Comment:This is an appended report. These results have been appended to a previously preliminary verified report. Neutrophils Absolute 8.47(H) 1.50 - 7.00 K/mcL LAB HEMETOLOGY METHOD 03/06/2025 2:47 PM [facility] Comment:This is an appended report. These results have been appended to a previously preliminary verified report. Lymphocytes Absolute 5.12(H) 1.00 - 5.00 K/mcL LAB HEMETOLOGY METHOD 03/06/2025 2:47 PM T [facility] Comment:This is an appended report. These results have been appended to a previously preliminary verified report. Monocytes Absolute 0.89 0.20 - 1.00 K/mcL LAB HEMETOLOGY METHOD 03/06/2025 2:47 PM [facility] Comment:This is an appended report. These results have been appended to a previously preliminary verified report. Eosinophils Absolute 0.48 0.00 - 0.50 K/mcL LAB HEMETOLOGY METHOD 03/06/2025 2:47 PM EDT [facility] Comment:This is an appended report. These results have been appended to a previously preliminary verified report. Basophils Absolute 0.08 0.00 - 0.20 K/mcL LAB HEMETOLOGY METHOD 03/06/2025 2:47 PM EDT [facility] Comment:This is an appended report. These results have been appended to a previously preliminary verified report. Immature Granulocytes Absolute 0.06(H) 0.00 - 0.03 K/mcL LAB HEMETOLOGY METHOD 03/06/2025 2:47 PM EDT [facility] Comment:This is an appended report. These results have been appended to a previously preliminary verified report. Blood Venous blood specimen / Unknown Venipuncture / Unknown 03/06/2025 10:06 AM EDT 03/06/2025 10:07 AM EDT us Autumn DANIEL LAB BLOOD ORDERABLES Final R esult [facility] [address] [place] [address], * Hepatic function panel (03/06/2025 10:06 AM EDT) Total Protein 7.1 6.0 - 8.0 g/dL LAB CHEMISTRY METHOD 03/06/2025 2:53 PM EDT [facility] Albumin 4.1 3.2 - 5.0 g/dL LAB CHEMISTRY METHOD 03/06/2025 2:53 PM EDT [facility] Total Bilirubin 0.5 0.0 - 1.4 mg/dL LAB CHEMISTRY METHOD 03/06/2025 2:53 PM EDT [facility] Bilirubin, Direct 0.1 0.0 - 0.3 mg/dL LAB CHEMISTRY METHOD 03/06/2025 2:53 PM EDT [facility] Bilirubin, Indirect 0.4 0.0 - 1.1 mg/dL LAB CHEMISTRY METHOD 03/06/2025 2:53 PM EDT [facility] ALT (SGPT) 25 10 - 60 unit/L LAB CHEMISTRY METHOD 03/06/2025 2:53 PM EDT [facility] AST (SGOT) 16 10 - 42 unit/L LAB CHEMISTRY METHOD 03/06/2025 2:53 PM EDT [facility] Alkaline Phosphatase 61 42 - 121 unit/L LAB CHEMISTRY METHOD 03/06/2025 2:53 PM EDT [facility] Blood Venous blood specimen / Unknown Venipuncture / Unknown 03/06/2025 10:06 AM EDT 03/06/2025 10:07 AM EDT Autumn DANIEL LAB BLOOD ORDERABLES Final R esult [facility] [address] [place] [address], [place] [phone] * MR Cervical Spine wo and w [...] Signed Date: 01/31/2025 20:03 ET Workstation ID: [id number] Transcribed By: Self Edit Transcribed Date: 01/31/2025 [...] C7-T1 is also unchanged. Left lateral cord [id number] at C6-7 is unchanged. Other smaller T2 [...] Signed Date: 01/31/2025 20:03 ET Workstation ID: [id number] Transcribed By: Self Edit Transcribed Date: 01/31/2025 19:56 ET Natividad Farley MD [facility] [place]ED[place] Final Result * MR Brain [...] Signed Date: 01/31/2025 19:56 ET Workstation ID: [id number] Transcribed By: Self Edit Transcribed Date: 01/31/2025 [...] Signed Date: 01/31/2025 19:56 ET Workstation ID: [id number] Transcribed By: Self Edit Transcribed Date: 01/31/2025 19:51 ET Natividad Farley MD [facility] [place] PROCEDURES Final Result * CT Head [...] Signed Date: 01/26/2025 11:35 ET Workstation ID: [id number] Transcribed By: Self Edit Transcribed Date: 01/26/2025 [...] Signed Date: 01/26/2025 11:35 ET Workstation ID: [id number] Transcribed By: Self Edit Transcribed Date: 01/26/2025 11:32 ET Manuel Ewing NP IMG CT PROCEDURES Final Resu lt * XR Shoulder 2+ Views Right (01/24/2025 11:05 AM EDT) Anatomical Region Laterality Modality Upper Extremities, Shoulder Right Radi ographic Imaging 01/24/2025 11:1 1 AM EDT Impressions 01/24/2025 11:12 AM EDT Normal examination. Code 08185 -------- FINAL REPORT -------- Dictated By: Clayton Dalton Dictated Date: 01/24/2025 11:11 ET Assigned Physician: Clayton Dalton Reviewed and Electronically Signed By: Clayton Dalton Signed Date: 01/24/2025 11:12 ET Workstation ID: [id number] Transcribed By: Self Edit Transcribed Date: 01/24/2025 [...] tissueabnormality is seen. IMPRESSION: Normal examination. Code 88568 -------- FINAL REPORT -------- Dictated By: Clayton Dalton Dictated Date: 01/24/2025 11:11 ET Assigned Physician: Clayton Dalton Reviewed and Electronically Signed By: Clayton Dalton Signed Date: 01/24/2025 11:12 ET Workstation ID: [id number] Transcribed By: Self Edit Transcribed Date: 01/24/2025 11:11 ET Manuel Ewing DUST COLLECTOR OPERATOR IMG XR PROCEDURES Final Resu lt * Hepatitis C antibody (08/30/2024 10:29 AM EDT) Hepatitis C Antibody Negative Negative LAB CHEMISTRY METHOD 08/30/2024 5:41 PM EDT [facility] Blood Venous blood specimen / Unknown Venipuncture / Unknown 08/30/2024 10:29 AM EDT 08/30/2024 12:05 PM EDT us Natividad Farley MD LAB BLOOD ORDERABLES Fin al Result Performing Organization Address [facility] de Phone Number [facility] [address] [place] [address], * HIV 1,2 antibody, p24 antigen with reflex to differentiation (08/30/2024 10:29 AM EDT) Pathologist [facility] HIV Combo AB/AG Negative Negative LAB CHEMISTRY [...] ORDERABLES Fin al Result Performing Organization Address City/[facility] Co de Phone Number [facility] ([facility]) [facility] [address] [place] [address], * Pap smear (10/10/2020) 10/10/2020 Narrative HISTORICAL TESTING LAB RESULTING AGENCY - 10/14/2020 4:51 PM EDT [id number] THINPREP PAP, IMAGED: NEGATIVE FOR SQUAMOUS INTRAEPITHELIAL [...] Most Recently Relevant to Health Maintenance Insurance [facility] [employer] Care Teams Family Dinner Service Specialist Relationship Specialty Start Date End Date Gurmeet Soto MD [address] [place] [address] PCP - General 08/12/22
== END 2025-03-15 08:37 | disposition home or self-care (01) ==
LOC: HO.MRI 08:36
PROVIDERS: Visit Provider Nurse Practitioner Family
DX: R51.9 Headache, unspecified (principal); H93.A1 Pulsatile tinnitus, right ear; G35.D Multiple sclerosis, unspecified; Q79.60 Ehlers-Danlos syndrome, unspecified; J44.9 Chronic obstructive pulmonary disease, unspecified
CPT/HCPCS: 70544; 70549; 71046; A9585